=== PATIENT | female | born 1955 | race Caucasian/White ===

== ENCOUNTER 2020-04-08 02:47 | Outpatient (CLI) | payer BC, SELFPAY ==
[2020-04-08 23:12] LABS: SARS-CoV-2 RNA PCR Negative
== END 2020-04-08 02:48 | disposition home or self-care (01) ==
LOC: ANHCOVIDDT 02:48
PROVIDERS: PCP Nurse Practitioner Family; Visit Provider Internal Medicine Gastroenterology
DX: Z01.812 Encounter for preprocedural laboratory examination (principal); Z20.828 Contact with and (suspected) exposure to other viral communicable diseases
CPT/HCPCS: 87635; C9803; U0003

== ENCOUNTER 2020-04-11 13:55 | Observation (INO) | payer BC, SELFPAY ==
[2020-04-01 14:40] VITALS: BMI 28.3
[2020-04-11] VITALS (33 sets, daily range): BP systolic 94–130; BP diastolic 62–98; PULSE 76–150; RESP 12–27; TEMP 36.2–36.7; O2SAT 94–100; BMI 28.6; BMI 28.3
[2020-04-11] MEDS: LACTATED RINGERS 1,000 ML 150 ML IV CONT (09:45)
--- NOTE | 2020-04-11 10:10 | PM.IMHP ---
H&P: HPI History of Present Illness Date/Time: Date of service 04/11/20 10:10. It was documented today 04/14/2020 because my previous documentation and history and physical exam that was done on April 11, 2020 was deleted(I do not know why and how) Chief complaint: Gerd Narrative: Amy Barnes is a 64 year old female with no significant past medical history who underwent EGD and subsequently went into atrial fibrillation with rapid ventricular response. She was given 2 dosages of IV metoprolol 5 mg and then labetalol without any change. I was called to see the patient was in the recovery area. She is laying in bed comfortably with no acute distress. Denies chest pain, palpitations, dizziness, syncope, lower limb edema. Review of Systems Review of Systems: All systems reviewed & are unremarkable except as noted in HPI and below Constitutional: Constitutional: Denies chills, Denies fatigue, Denies fever(s), Denies headache(s) and Denies snoring Eyes: Eyes: Denies eye discharge and Denies loss of vision ENT: Denies dizziness, Denies headache(s), Denies nasal discharge and Denies sore throat Cardiovascular: Cardiovascular: Reports as per HPI, Denies chest pain, Denies syncope, Denies rapid heart rate, Denies leg edema, Denies dyspnea, Denies dyspnea on exertion, Denies orthopnea and Denies paroxysmal nocturnal dyspnea Respiratory: Respiratory: Denies chest congestion, Denies cough, Denies dyspnea, Denies dyspnea on exertion, Denies snoring and Denies wheezing Gastrointestinal: Gastrointestinal: Denies abdominal pain, Denies diarrhea, Denies nausea and Denies vomiting Genitourinary: Genitourinary: Denies hematuria, Denies urinary frequency, Denies dysuria and Denies flank pain Musculoskeletal: Musculoskeletal: Denies myalgias, Denies arthralgias and Denies joint swelling Neurologic: Denies Abnormal speech present, Denies dizziness, Denies syncope, Denies headache(s), Denies focal weakness and Denies loss of vision Psychiatric: Psychiatric: Denies anxiety and Denies depression Endocrine: Endocrine: Denies cold intolerance, Denies fatigue and Denies heat intolerance Hematologic/Lymphatic: Hematologic/Lymphatic: Denies easy bleeding and Denies easy bruising Allergic/Immunologic: Allergic/Immunologic: Denies urticaria and Denies wheezing PMFSH Past Medical History Medical History Nasal congestion Situational stress Tobacco use disorder Surgical History Surgical History (Updated 04/14/20 @ 10:13 by Mian Carrion MD) History of esophagogastroduodenoscopy (EGD) Family History Family History Father Diabetes mellitus Hypertension Grandparent Family history of cardiovascular disease Family history of malignant neoplasm Social History Social History Smoking packs per day: 1 Smoking cigarettes per day: 20.0 Years smoked: 25 Smoking pack-years: 25.00 Smoking status: Former smoker Tobacco type: cigarettes Smoking end date: 07/01/11 Alcohol intake: never Drinks per week: 1 Substance use: never Substance use type: does not use Living arrangements: alone Gender identity (if verbalized by the patient): Female Spiritual care concerns: No Meds Home Medications and Allergies Home Medications Medication Instructions Recorded Confirmed Type pantoprazole 40 mg PO BID 04/01/20 04/01/20 History metoprolol tartrate 25 mg PO Q12HR #60 tablet 04/12/20 Rx rivaroxaban [Xarelto] 20 mg PO DAILY #30 tablet 04/12/20 Rx Allergies Allergy/AdvReac Type Severity Reaction Status Date / Time No Known Allergies Allergy Unknown Unverified 04/11/20 09:28 Exam Const: General: cooperative, healthy appearing, comfortable, no acute distress and well developed Nutritional Appearance: well nourished Orientation/consciousness
--- NOTE | 2020-04-11 10:16 | WPDANESEPPF ---
Anes - Initial Pre Proc Eval Procedure: Operation Date: 04/11/20 10:30 Proposed Procedures p Esophagogastroduodenoscopy - Avery Steele MD Date/Time: 04/11/20 10:16 Surgeon: Avery Steele MD Pre Op Diagnosis: Gerd Patient Data Age: 64 Gender: F Height: 5 ft 7 in Weight: 82.9 kg Last Vital Signs Temp 36.7 C 04/11/20 09:28 Pulse 76 04/11/20 09:28 Resp 16 04/11/20 09:28 BP 130/95 H 04/11/20 09:28 Pulse Ox 99 04/11/20 09:28 Allergies Allergy/AdvReac Type Severity Reaction Status Date / Time No Known Allergies Allergy Unknown Unverified 04/11/20 09:28 Home Medications Medication Instructions Recorded Confirmed Type pantoprazole 40 mg PO BID 04/01/20 04/01/20 History Patient hx anesthesia problems: none Family hx anesthesia problems: none PMFSH Past Medical History Medical History Nasal congestion Situational stress Tobacco use disorder Family History Family History Father Diabetes mellitus Hypertension Grandparent Family history of cardiovascular disease Family history of malignant neoplasm Social History Social History Smoking packs per day: 1 Smoking cigarettes per day: 20.0 Years smoked: 25 Smoking pack-years: 25.00 Smoking status: Former smoker Tobacco type: cigarettes Smoking end date: 07/01/11 Alcohol intake: current Drinks per week: 1 Substance use: never Substance use type: does not use Living arrangements: alone Spiritual care concerns: No Anes - Eval Final PreProcedure Day of Procedure 04/11/20 10:16 Patient weight: overweight Heart: regular rate and rhythm Lungs: clear to auscultation Airway: Mallampati scale class II and other (upper partial) Neurological: alert and oriented Last oral intake: >/= 8 hours ASA classification: II Emergent: no Anesthetic plan: proceed Anesthesia type and monitoring: general GIVS and standard monitoring Informed Consent: The patient's anesthetic plan and its attendant risks and benefits were discussed with the patient/family/POA. Questions were solicited and answers provided to the satisfaction of the patient/family/POA.
--- NOTE | 2020-04-11 10:35 | WPDGICN ---
Assessment and Plan Assessment and plan (1) Right inguinal pain: Code(s): R10.31 - Right lower quadrant pain Status: Acute (2) Irregular bowel habits: Code(s): R19.8 - Other specified symptoms and signs involving the digestive system and abdomen Status: Acute Assessment and Plan: Regular bowel habits suggest irritable bowel syndrome. Plan is for initial trial of fiber supplementation. (3) GERD (gastroesophageal reflux disease): Code(s): K21.9 - Gastro-esophageal reflux disease without esophagitis Status: Acute Assessment and Plan: Patient has heartburn and nocturnal regurgitation. Currently taking pantoprazole 40 mg p.o. b.i.d. with no relief of symptoms. Plan to evaluate more thoroughly with an EGD. This report follow separately. GI Consult Note Consult date/time: 04/11/20 10:35 HPI: Amy Barnes is a 64 year old female I am asked to see because of nocturnal regurgitation. Patient complains of acid regurgitation at night. This is typically occurs middle of the night. She has had heartburn for the last 1 and half years. She recently started proton pump inhibitor with no change in symptoms. Currently taking pantoprazole 40 mg p.o. b.i.d.. She denies any dysphagia, did she denies any bleeding or weight loss. Family history noncontributory. Review of Systems Review of Systems: All systems reviewed & are unremarkable except as noted in HPI and below PMFSH Past Medical History Medical History Nasal congestion Situational stress Tobacco use disorder Family History Family History Father Diabetes mellitus Hypertension Grandparent Family history of cardiovascular disease Family history of malignant neoplasm Social History Social History Smoking packs per day: 1 Smoking cigarettes per day: 20.0 Years smoked: 25 Smoking pack-years: 25.00 Smoking status: Former smoker Tobacco type: cigarettes Smoking end date: 07/01/11 Alcohol intake: current Drinks per week: 1 Substance use: never Substance use type: does not use Living arrangements: alone Spiritual care concerns: No Meds Home Medications and Allergies Home Medications Medication Instructions Recorded Confirmed Type pantoprazole 40 mg PO BID 04/01/20 04/01/20 History Allergies Allergy/AdvReac Type Severity Reaction Status Date / Time No Known Allergies Allergy Unknown Unverified 04/11/20 09:28 Vital Signs Vital Signs - 24 hr 04/11/20 09:28 Temperature 98.1 F Pulse Rate 76 Respiratory Rate 16 Blood Pressure 130/95 H Pulse Oximetry 99 Exam Narrative: Exam Narrative: Physical exam reveals patient to be alert. Vital signs stable. HEENT exam unremarkable. HEENT exam unremarkable. Lungs are clear to auscultation and percussion. Heart is without murmur or extra sounds. Abdominal exam bowel sounds are present soft. She has mild right lower quadrant tenderness. with no hepatosplenomegaly. Digital rectal exam is normal.
[2020-04-11] MEDS: METOPROLOL TARTRATE INJ 5 MG/5 ML VIAL IV PUSH ×3 (11:14→11:38)
--- NOTE | 2020-04-11 11:42 | SUR.PHASEII ---
1105 AFIB W/RVR PER MONITOR. HR 141. DR STEWARD ANESTHESIOLOGIST MADE AWARE. ORDERS RECEIVED. IVP MEDS GIVEN ORDERED.
--- NOTE | 2020-04-11 12:09 | ECG_ITS ---
Measurements Intervals [place] Rate: 128 P: OK: 0 QRS: 21 QRSD: 76 T: -5 QT: 289 QTc: 422 Interpretive Statements ATRIAL FIBRILLATION WITH RAPID VENTRICULAR RESPONSE NONSPECIFIC ST & T-WAVE ABNORMALITY- INFERIOR LEADS ABNORMAL ECG Electronically Signed On 04-11-2020 12:30:19 CDT by Monty Ashlye D.O.
--- NOTE | 2020-04-11 12:26 | SUR.PHASEII ---
VOIDED PER BEDPAN, EKG DONE. CARDIOLOGY CONSULTED. VS STABLE. STILL AFIB PER MONITOR.
--- NOTE | 2020-04-11 13:05 | SUR.PHASEII ---
Pt. in GI recovery room 10. Continues to await Cardiology consultation/evaluation. Pt. denies pain, alert, a/o x4, moves all extremities.
--- NOTE | 2020-04-11 13:19 | SUR.PHASEII ---
Cardiology at bedside to assess patient. Dr. Salcido at bedside.
--- NOTE | 2020-04-11 13:29 | SUR.PHASEII ---
Dr. Carrion assessed pt, plan to admit to IMU.
[2020-04-11] MEDS: LABETALOL HCL INJ 100 MG/20 ML VIAL 10 MG IV PUSH (13:59)
[2020-04-11] MEDS: AMIODARONE 150 MG/D5W 100 ML 150 MG/100 ML BAG 600 MG IV CONT (15:19)
--- NOTE | 2020-04-11 15:19 | ECHO_ITS ---
Patient Info Name: Amy Barnes Age: 64 years : 1955 Gender: Female Ht: 67 in Wt: 182 lbs BSA: 2.00 m2 HR: 115 bpm BP: 110 / 80 mmHg Heart Rhythm: Atrial Fibrillation Technical Quality: Good Exam Date: 04/11/2020 3:56 PM Exam Location: [facility] Pulmonary Exam Room: 203 Patient Status: Outpatient Admit Date: 04/11/2020 Staff Ordering Physician: Monica Gonzalez APRN Signal Worker: Heather Manzano RDCS Attending Provider: Avery Steele MD Referring Physician: Carlos DANIEL; Exam Type: CA echo doppler color flow Study Info Indications - afib Complete two-dimensional, color flow and Doppler transthoracic echocardiogram is performed. Summary 1. Complete two-dimensional, color flow and Doppler transthoracic echocardiogram is performed. 2. Left ventricular chamber dimension is normal. 3. Left ventricular systolic function is normal, estimated at 60-65%. 4. There is mildly increased left ventricular wall thickness. 5. Left ventricular septal wall motion is normal. 6. The left ventricular diastolic function is normal. 7. Left atrial chamber dimension is moderately enlarged. 8. There is mild aortic valve regurgitation. 9. The mitral valve has thickened leaflets. 10. There is mild to moderate mitral valve regurgitation. 11. There is mild tricuspid valve regurgitation. 12. There is mild to moderate pulmonic regurgitation. Left Ventricle Left ventricular chamber dimension is normal. Left ventricular systolic function is normal, estimated at 60-65%. There is mildly increased left ventricular wall thickness. Left ventricular septal wall motion is normal. The left ventricular diastolic function is normal. Right Ventricle Right ventricular chamber dimension is normal. Right ventricular systolic function is normal. Left Atria Left atrial chamber dimension is moderately enlarged. Right Atria Right atrial chamber dimension is normal. Atrial Septum Intact interatrial septum visualized by color flow imaging. Aortic Valve The aortic valve is trileaflet. There is mild aortic valve sclerosis. There is no aortic valve stenosis. There is mild aortic valve regurgitation. Pulmonic Valve The pulmonic valve is normal. There is no pulmonic valve stenosis. There is mild to moderate pulmonic regurgitation. Mitral Valve The mitral valve has thickened leaflets. There is no mitral valve stenosis. There is mild to moderate mitral valve regurgitation. Tricuspid Valve The tricuspid valve leaflets are normal. There is no significant tricuspid valve stenosis. There is mild tricuspid valve regurgitation. No pulmonary hypertension, estimated pulmonary arterial systolic pressure is 30 mmHg. 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 Pericardium/Pleural The pericardium appears normal. There is no pericardial effusion. Inferior Vena Cava Normal inferior vena cava with >50% collapse upon inspiration consistent with normal right atrial pressure, 10 mmHg. Aorta The aortic root size at the sinus of Valsalva is normal. Left Ventricular Outflow Tract Name Value Normal LVOT 2D LVOT Diameter 2.0 cm LVOT Doppler -
[2020-04-11] MEDS: AMIODARONE 360 MG/D5W 200 ML 360 MG/200 ML BAG 33.3 MG IV CONT (15:45)
[2020-04-11 16:44] LABS: Basophils Percent Auto 0.2 % (0.2-1.2); Eosinophils Absolute Auto 0.1 K/mm3 (0-0.3); Eosinophils Percent Auto 1.7 % (0-4.4); Hemoglobin 13.2 g/dL (12.0-15.0); Immature Granulocyte Absolute 0.01 K/mm3 (0.00-0.031); Immature Granulocyte Percent A 0.2 % (0-0.5); Lymphocytes Absolute Auto 1.62 K/mm3 (0.9-3.2); Lymphocytes Percent Auto 39.6 % (18.3-44.2); Mean Corpuscular HGB Conc 33.8 g/dl (32-36); Mean Corpuscular Hemoglobin 31.5 pg (26-34); Mean Corpuscular Volume 93.1 fl (80-100); Mean Platelet Volume 10.3 fl (7.4-10.4); Monocytes Absolute Auto 0.3 K/mm3 (0.1-0.6); Monocytes Percent Auto 7.6 % (2.6-8.5); Neutrophils Absolute Auto 2.1 K/mm3 (1.3-6.7); Neutrophils Percent Auto 50.7 % (45.5-73.1); Platelet Count Result 174 k/mm3 (150-375); Red Blood Count 4.19 M/mm3 (4.2-5.4); Red Cell Distribution Width 12.8 % (11.5-14.5); White Blood Count 4.1 K/mm3 (4.5-10.0)
--- NOTE | 2020-04-11 16:58 | ADMGEN ---
This patient, Amy Barnes, was admitted to IMU Room 203-01 AT 1413 on 04/11/2020. Patient/family oriented to hospital policies and general routines including ID bracelet, bed and alarms, visiting hours, pain management, procedures, bathroom and other care routines, personal items, smoking policy, room service/diet, and visiting hours. Valuables list has been completed. Information on how to activate the Rapid Response Team has been discussed. Patient/Family are encouraged to report perceived risks to care and to ask questions if they do not understand what they are told or what they should do.
[2020-04-11 16:59] LABS: Anion Gap 5 mmol/L (8-16); Blood Urea Nitrogen 13 mg/dL (7-17); Calcium 9.2 mg/dL (8.4-10.2); Carbon Dioxide 33 mmol/L (22-30); Chloride 105 mmol/L (98-107); Cholesterol 189 mg/dL (0-200); Estimated CRCL calculation 70 ml/min; Estimated Glomerular Filt Rate > 60; Glucose 91 mg/dL (65-105); HDL Direct 51 mg/dL; Potassium 3.5 mmol/L (3.4-5.0); Sodium 143 mmol/L (137-145); Triglycerides 80 mg/dL (<150)
[2020-04-11 17:09] LABS: Troponin I < 0.012 ng/mL (0.000-0.034)
[2020-04-11 17:10] LABS: LDL Cholesterol Direct 106 mg/dL
[2020-04-11 17:52] LABS: Thyroid Stimulating Hormone Reflex 0.547 uIU/mL (0.465-4.68)
[2020-04-11] MEDS: PANTOPRAZOLE 40 MG TABLET PO (18:07)
[2020-04-11] MEDS: ASPIRIN 81 MG CHEWABLE TABLET PO (18:12)
[2020-04-11 19:40] LABS: Troponin I < 0.012 ng/mL (0.000-0.034)
[2020-04-11] MEDS: METOPROLOL TARTRATE 25 MG TABLET PO (20:30)
[2020-04-11] MEDS: ACETAMINOPHEN 500 MG TABLET 1000 MG PO (21:40)
[2020-04-11] MEDS: AMIODARONE 360 MG/D5W 200 ML 360 MG/200 ML BAG 16.7 MG IV CONT (21:42)
[2020-04-12] VITALS (14 sets, daily range): BP systolic 95–133; BP diastolic 56–95; PULSE 64–102; RESP 13–18; TEMP 36.2–36.6; O2SAT 92–100
[2020-04-12] MEDS: ACETAMINOPHEN 500 MG TABLET 1000 MG PO (07:29)
--- NOTE | 2020-04-12 08:06 | P.PNAN_ITS ---
Anes - Prog Note Post-Op Date/Time: 04/12/20 08:06 Cardiovascular status: normal Respiratory status: normal Airway patency: baseline Mental status: baseline Post-Op hydration status: normal Vital Signs: Last Vital Signs Temp 36.6 C 04/12/20 04:00 Pulse 77 04/12/20 04:00 Resp 18 04/12/20 04:00 BP 97/66 L 04/12/20 04:00 Pulse Ox 100 04/12/20 04:00 Pain Score (VAS): 0 I/O: Intake & Output 04/11/20 04/12/20 04/12/20 23:59 07:59 15:59 Intake Total 910 Output Total 300 Balance 910 -300 Laboratory Tests 04/11/20 16:23 04/11/20 16:23 04/11/20 04/11/20 04/11/20 16:23 16:23 16:23 WBC RBC Hgb Hct MCV MCH MCHC RDW Plt Count MPV Immature Gran % (Auto) Neut % (Auto) Lymph % (Auto) [place] % (Auto) Eos % (Auto) Baso % (Auto) Lymph # (Auto) [place] # (Auto) Eos # (Auto) Baso # (Auto) Abs Immat Gran (auto) Absolute Neuts (auto) Absolute Nucleated RBC Nucleated RBC % Sodium 143 Potassium 3.5 Chloride 105 Carbon Dioxide 33 H Anion Gap 5 L BUN 13 Creatinine 0.80 Estim Creat Clear Calc 70 Estimated GFR > 60 Glucose 91 Calcium 9.2 Troponin I < 0.012 Triglycerides 80 Cholesterol 189 LDL Cholesterol Direct 106 HDL Direct 51 TSH (Reflex) 04/11/20 04/11/20 04/11/20 16:23 16:23 18:44 WBC 4.1 L RBC 4.19 L Hgb 13.2 Hct 39.0 MCV 93.1 MCH 31.5 MCHC 33.8 RDW 12.8 Plt Count 174 MPV 10.3 Immature Gran % (Auto) 0.2 Neut % (Auto) 50.7 Lymph % (Auto) 39.6 [place] % (Auto) 7.6 Eos % (Auto) 1.7 Baso % (Auto) 0.2 Lymph # (Auto) 1.62 [place] # (Auto) 0.3 Eos # (Auto) 0.1 Baso # (Auto) 0.0 Abs Immat Gran (auto) 0.01 Absolute Neuts (auto) 2.1 Absolute Nucleated RBC 0.0 Nucleated RBC % 0.0 Sodium Potassium Chloride Carbon Dioxide Anion Gap BUN Creatinine Estim Creat Clear Calc Estimated GFR Glucose Calcium Troponin I < 0.012 Triglycerides Cholesterol LDL Cholesterol Direct HDL Direct TSH (Reflex) 0.547 Post-procedural complaints: none Patient Feedback: Patient satisfied with anesthetic care.
[2020-04-12] MEDS: ENOXAPARIN 40 MG/0.4 ML SYRINGE SUB-Q ×2 (08:55→10:25)
[2020-04-12] MEDS: ASPIRIN 81 MG CHEWABLE TABLET PO (08:55)
[2020-04-12] MEDS: PANTOPRAZOLE 40 MG TABLET PO (08:55)
[2020-04-12] MEDS: POTASSIUM CHLORIDE 20 MEQ TABLET 40 MEQ PO (10:49)
--- NOTE | 2020-04-12 11:07 | WPDMODSED ---
Moderate Sedation Note-Pt Data Patient Data Diagnosis: Atrial fibrillation Present Complaint: atrial fibrillation Procedure to be performed/Plan: 1. Moderate sedation 2. Electrical cardioversion Allergies Allergy/AdvReac Type Severity Reaction Status Date / Time No Known Allergies Allergy Unknown Unverified 04/11/20 09:28 Home Medications Medication Instructions Recorded Confirmed Type pantoprazole 40 mg PO BID 04/01/20 04/01/20 History Current Medications: Active Medications Acetaminophen (Acetaminophen 500 Mg Tablet) 1,000 mg PO Q6H PRN PRN Reason: Mild Pain (1-3) or Fever Last Admin: 04/12/20 07:29 Dose: 1,000 mg Documented by: Al Hydrox/Mg Hydrox/Simethicone (Mag Hydrox/Al Hydrox/Simeth 30 Ml Udc) 30 ml PO Q6H PRN PRN Reason: Indigestion Aspirin (Aspirin 81 Mg Chewable Tablet) 81 mg PO DAILY@0800 [facility] Last Admin: 04/12/20 08:55 Dose: 81 mg Documented by: Enoxaparin Sodium (Enoxaparin 40 Mg/0.4 Ml Syringe) 40 mg SUB-Q DAILY [facility] Last Admin: 04/12/20 08:55 Dose: 40 mg Documented by: Amiodarone HCl/Dextrose (Nexterone 360 Mg/D5w 200 Ml) 360 mg in 200 mls @ 16.667 mls/hr IV CONT .Q12H [facility]; Protocol Stop: 04/12/20 22:01 Last Infusion: 04/12/20 10:24 Dose: Infused Documented by: Metoprolol Tartrate (Metoprolol Tartrate 25 Mg Tablet) 25 mg PO Q12HR [facility] Last Admin: 04/12/20 08:56 Dose: Not Given Documented by: Midazolam HCl (Midazolam Hcl (*Crx) 2 Mg/2 Ml Vial) 2 mg IV PUSH Q5M PRN PRN Reason: Cardioversion/MARC Nitroglycerin (Nitroglycerin Sl 0.4 Mg Tablet) 0.4 mg SUBLINGUAL Q5MIN PRN PRN Reason: Chest Pain Ondansetron HCl (Ondansetron Inj 4 Mg/2 Ml Vial) 4 mg IV PUSH Q4H PRN PRN Reason: Nausea And Vomiting Pantoprazole Sodium (Pantoprazole 40 Mg Tablet) 40 mg PO BID [facility] Last Admin: 04/12/20 08:55 Dose: 40 mg Documented by: Sedation/Anesthesia: No previous sedation/anesthesia problems (including family history). [facility] Past Medical History Medical History Nasal congestion Situational stress Tobacco use disorder Family History Family History Father Diabetes mellitus Hypertension Grandparent Family history of cardiovascular disease Family history of malignant neoplasm Social History Social History Smoking packs per day: 1 Smoking cigarettes per day: 20.0 Years smoked: 25 Smoking pack-years: 25.00 Smoking status: Former smoker Tobacco type: cigarettes Smoking end date: 07/01/11 Alcohol intake: never Drinks per week: 1 Substance use: never Substance use type: does not use Living arrangements: alone Gender identity (if verbalized by the patient): Female Spiritual care concerns: No Mod Sed Physical Exam Physical Exam Pre Procedural Exam: Normal: Appearance, Eyes, Ears, Nose, Neck, Throat, Airway, Lungs, Heart Size, Heart Rate, Neuro Exam, Abdomen, Extremities and Skin and Variation: Heart Rhythm ( irregular irregular) Hours since solid foods: 12 Hours since liquid intake: 12 Internal Medicine - PN: Obj Da Vital Signs Vital Signs: Vital Signs - 24 hr 04/11/20 11:11 04/11/20 11:14 04/11/20 11:15 Temperature Pulse Rate 134 H 141 H 122 H Respiratory Rate 26 H 27 H Blood Pressure 112/84 109/78 Pulse Oximetry 99 98 04/11/20 11:25 04/11/20 11:27 04/11/20 11:30 Temperature Pulse Rate 118 H 121 H 120 H Respiratory Rate 23 H 22 H Blood Pressure 108/82 100/98 H Pulse Oximetry 98 98 04/11/20 11:35 04/11/20 11:38 04/11/20 11:40 Temperature Pulse Rate 121 H 110 H 109 H Respiratory Rate 22 H 22 H Blood Pressure 110/62 102/88 Pulse Oximetry 98 98 04/11/20 11:45 04/11/20 12:00 04/11/20 12:10 Temperature Pulse Rate 124 H 115 H 127 H Respiratory Rate 20 19 25 H Blood Pressure 105/81 94/71 L 98/71 L Pulse Oximetry 98 97 96
[2020-04-12 11:31] LABS: Anion Gap 4 mmol/L (8-16); Blood Urea Nitrogen 15 mg/dL (7-17); Calcium 8.1 mg/dL (8.4-10.2); Carbon Dioxide 28 mmol/L (22-30); Chloride 108 mmol/L (98-107); Estimated CRCL calculation 70 ml/min; Estimated Glomerular Filt Rate > 60; Glucose 111 mg/dL (65-105); Potassium 3.3 mmol/L (3.4-5.0); Sodium 140 mmol/L (137-145)
--- NOTE | 2020-04-12 11:46 | ECG_ITS ---
Measurements Intervals [place] Rate: 62 P: 3 [place]: 136 QRS: 20 QRSD: 72 T: 0 QT: 418 QTc: 427 Interpretive Statements SINUS RHYTHM ATRIAL PREMATURE COMPLEX VOLTAGE CRITERIA FOR LVH BORDERLINE T WAVE ABNORMALITY- INFERIOR LEADS BORDERLINE ECG Electronically Signed On 04-12-2020 12:35:07 CDT by Monty Ashley D.O.
--- NOTE | 2020-04-12 11:46 | P.PCNCVR_ITS ---
Cardioversion Cardioversion Date of procedure: 04/12/20 Procedure: electrical cardioversion Moderate sedation Pre-op diagnosis: atrial fibrillation Post-op diagnosis: same Indications: atrial fibrillation Description of procedure: after discussing the risks, benefits alternatives of the procedure the patient agreeable via verbal and written informed consent. Risks discussed included stroke, , shocking into more problematic heart rhythm, skin irritation or burn. After written and verbal and informed consent was signed and after establishing continuous scroll shear operator, pulse oxygenation and serial blood pressure assessments, sedation was initiated. Procedure start time 11:41 a.m. Procedure stop time 11:44 a.m. Complications: None Blood loss: None Medications were administered and patient was monitored by Edwardo Laguna RN Sedation: a total of 2 mg of Versed and 25 mcg of fentanyl were given for moderate sedation Findings: atrial fibrillation was confirmed and 125 joules of biphasic synchronized energy was used to restore sinus rhythm. Conclusion: 1. Successful caodaism of sinus rhythm using 125 joules of synchronized biphasic energy 2. Moderate sedation Continue anticoagulation x1 month. Follow up with Dr. Carrion
--- NOTE | 2020-04-12 14:27 | PM.DS ---
DS: Admitting Diagnosis Admitting Diagnosis Admitting Diagnosis: Gerd DS: Discharge Diagnosis Discharge Diagnosis (1) Atrial fibrillation with rapid ventricular response: Code(s): I48.91 - Unspecified atrial fibrillation Status: Acute Assessment and Plan: Atrial fibrillation in the recovery room after her EGD. Given Metoprolol with some response to the rate however did not convert the rhythm. She was seen by Dr Carrion that started on amiodarone 04/11/2020 in hopes of converting her overnight. She did not convert. She was successfully cardioverted by Dr. Ayala on 04/12/2020 restoring normal sinus rhythm. She will be anticoagulated with Xarelto 20 mg daily for 1 month. This was discussed with Dr Steele by phone given the findings on her EGD. As there were no areas that were bleeding he believes that she will be fine. She needs to make sure that she takes her pantoprazole twice daily. Echo:Left ventricular chamber dimension is normal. Left ventricular systolic function is normal, estimated at 60-65%. There is mildly increased left ventricular wall thickness. Left ventricular septal wall motion is normal. The left ventricular diastolic function is normal. Left atrial chamber dimension is moderately enlarged. There is mild aortic valve regurgitation. The mitral valve has thickened leaflets. There is mild to moderate mitral valve regurgitation. There is mild tricuspid valve regurgitation. There is mild to moderate pulmonic regurgitation. DS: Summary Hospital Course Reason for hospitalization: Atrial fibrillation with rapid ventricular response post EGD Hospital Course: 64-year-old female presented for outpatient EGD 04/11/2020. While in recovery she went into atrial fibrillation with rapid ventricular response. She received Metoprolol with some rate control but did not convert the rhythm. She was seen by Dr. Carrion in the recovery room. She was admitted to IMU and started on amiodarone drip in hopes of converting her to normal sinus rhythm. She was given a bolus and then drip was started. She was also given Metoprolol 25 mg p.o. in the evening. Her rate was controlled but she did not convert. She underwent cardioversion with Dr. Ayala on 04/12/2020 and was successfully cardioverted to normal sinus rhythm. She is to be anticoagulated for 1 month and follow up with Dr Carrion in the office. She was discharged home in stable and improved conditions. Time Spent with Patient Time attestation: Total time spent providing and/or coordinating discharge services: 20 minutes in the room discussing the results of her EGD, echocardiogram including valve regurgitation, signs and symptoms of bleeding given the anticoagulant Xarelto. Discussion with Dr Steele per phone regarding the need for anticoagulation given her EGD results. 10 minutes to complete discharge order. 10 minutes to complete discharge summary. Total time for discharge summary: 40 minutes. Exam Narrative: Exam Narrative: White female laying comfortably in bed. Denied any chest discomfort or shortness of breath. Const: General: cooperative and healthy appearing Nutritional Appearance: average body habitus Orientation/consciousness: patient oriented x3 Limitations: no limitations HENMT: Head: normal to inspection and normocephalic Ears: hearing grossly normal bilaterally General nose exam: Normal external nose present Chest: Chest palpation & inspection: normal inspection of the chest Resp: Effort & Inspection: normal respiratory effort and able to speak in complete sentences Auscultation: clear to auscultation bilaterally Cardio: Jugular venous distension: no JVD Rate: regular rate Rhythm: regular rhythm Peripheral pulses: Peripheral pulses 2+ throughout Neuro: General: patient oriented x3 Speech: normal speech Gait exam (Neuro): Normal gait present Extrem: General: normal to inspection an
== END 2020-04-12 15:13 | disposition home or self-care (01) ==
LOC: ANHIMU 14:46
PROVIDERS: Internal Medicine Cardiovascular Disease; Nurse Practitioner Adult Health; Admitting Provider Internal Medicine Gastroenterology; PCP Nurse Practitioner Family; Visit Provider Internal Medicine Gastroenterology
PROC: 0DJ08ZZ Inspection of Upper Intestinal Tract, Via Natural or Artificial Opening Endoscopic (ICD-10-PCS; CPT 43235; principal; 2020-04-11 10:30)
PROC: 5A2204Z Restoration of Cardiac Rhythm, Single (ICD-10-PCS; principal; 2020-04-12 10:30)
DX: K21.9 Gastro-esophageal reflux disease without esophagitis (principal); I48.91 Unspecified atrial fibrillation; I08.3 Combined rheumatic disorders of mitral, aortic and tricuspid valves; Z87.891 Personal history of nicotine dependence
CPT/HCPCS: 43239; 36415; 80048; 80061; 83735; 84443; 84484; 85025; 88305; 88312; 92960; 93005; 93306; 96365; 96366; 96372; 96376; A9270; G0378; J0282; J1650; J2250; J3010; J7040; J7120

== ENCOUNTER 2020-06-03 02:03 | Outpatient (CLI) | payer BC, SELFPAY ==
[2020-06-03 19:10] LABS: SARS-CoV-2 RNA PCR Negative
== END 2020-06-03 02:04 | disposition home or self-care (01) ==
LOC: ANHCOVIDDT 02:03
PROVIDERS: PCP Nurse Practitioner Family; Visit Provider Internal Medicine Gastroenterology
DX: Z01.812 Encounter for preprocedural laboratory examination (principal); Z20.828 Contact with and (suspected) exposure to other viral communicable diseases
CPT/HCPCS: 87635; C9803; U0003

== ENCOUNTER 2020-06-06 00:48 | Day surgery (SDC) | payer BC, SELFPAY ==
[2020-05-31 12:50] VITALS: BMI 28.2
[2020-06-06 06:42] VITALS: BP 128/83; PULSE 86; RESP 16; TEMP 36.3; O2SAT 96
[2020-06-06] MEDS: LACTATED RINGERS 1,000 ML 150 ML IV CONT (06:57)
--- NOTE | 2020-06-06 06:58 | WPDANESEPPF ---
Anes - Initial Pre Proc Eval Procedure: Operation Date: 06/06/20 08:00 Proposed Procedures p Esophagogastroduodenoscopy - Avery Steele MD Date/Time: 06/06/20 06:58 Surgeon: Avery Steele MD Pre Op Diagnosis: GERD, Esophagitis Patient Data Age: 64 Gender: F Height: 1.7 m Weight: 83.6 kg Last Vital Signs Temp 36.3 C L 06/06/20 06:42 Pulse 86 06/06/20 06:42 Resp 16 06/06/20 06:42 BP 128/83 06/06/20 06:42 Pulse Ox 96 06/06/20 06:42 Allergies Allergy/AdvReac Type Severity Reaction Status Date / Time No Known Allergies Allergy Unknown Unverified 06/06/20 06:41 Home Medications Medication Instructions Recorded Confirmed Type pantoprazole 40 mg PO BID 04/01/20 06/06/20 History metoprolol tartrate 25 mg PO Q12HR #60 tablet 04/12/20 06/06/20 Rx Other Studies: Echo:Left ventricular chamber dimension is normal. Left ventricular systolic function is normal, estimated at 60-65%. There is mildly increased left ventricular wall thickness. Left ventricular septal wall motion is normal. The left ventricular diastolic function is normal. Left atrial chamber dimension is moderately enlarged. There is mild aortic valve regurgitation. The mitral valve has thickened leaflets. There is mild to moderate mitral valve regurgitation. There is mild tricuspid valve regurgitation. There is mild to moderate pulmonic regurgitation. Patient hx anesthesia problems: none Family hx anesthesia problems: none PMFSH Past Medical History Medical History Nasal congestion Situational stress Tobacco use disorder Surgical History Surgical History (Updated 04/14/20 @ 10:13 by Mian Carrion MD) History of esophagogastroduodenoscopy (EGD) Family History Family History Father Diabetes mellitus Hypertension Grandparent Family history of cardiovascular disease Family history of malignant neoplasm Social History Social History Smoking packs per day: 1 Smoking cigarettes per day: 20.0 Years smoked: 25 Smoking pack-years: 25.00 Smoking status: Former smoker Tobacco type: cigarettes Smoking end date: 07/01/11 Alcohol intake: never Drinks per week: 1 Substance use: never Substance use type: does not use Living arrangements: with family Gender identity (if verbalized by the patient): Female Spiritual care concerns: No Anes - Eval Final PreProcedure Day of Procedure 06/06/20 06:58 Informed Consent: The patient's anesthetic plan and its attendant risks and benefits were discussed with the patient/family/POA. Questions were solicited and answers provided to the satisfaction of the patient/family/POA.
--- NOTE | 2020-06-06 08:19 | WPDGICN ---
Assessment and Plan Assessment and plan (1) Ulcerative esophagitis: Code(s): K22.10 - Ulcer of esophagus without bleeding Status: Acute Assessment and Plan: Patient has a history of GE reflux disease rather severe ulcerative esophagitis identified. Plan is for follow-up EGD at this time. Patient has been maintained on pantoprazole 40 mg p.o. b.i.d.. We will assess response to therapy at this time. (2) GERD (gastroesophageal reflux disease): Code(s): K21.9 - Gastro-esophageal reflux disease without esophagitis Status: Acute (3) Atrial fibrillation with rapid ventricular response: Code(s): I48.91 - Unspecified atrial fibrillation Status: Acute GI Consult Note Consult date/time: 06/06/20 08:19 HPI: Amy Barnes is a 64 year old female Presents for follow-up of ulcerative esophagitis. Patient has been treated with pantoprazole 40 mg p.o. b.i.d.. She continues to have mild epigastric discomfort. Occasional dysphagia. She denies any weight loss or bleeding. She has a past medical history of atrial fibrillation. Anticoagulation has been held. Her family history is noncontributory. Because of rather severe ulcerative esophagitis patient presents for follow-up EGD at this time. Review of Systems Review of Systems: All systems reviewed & are unremarkable except as noted in HPI and below PMFSH Past Medical History Medical History Nasal congestion Situational stress Tobacco use disorder Surgical History Surgical History (Updated 04/14/20 @ 10:13 by Mian Carrion MD) History of esophagogastroduodenoscopy (EGD) Family History Family History Father Diabetes mellitus Hypertension Grandparent Family history of cardiovascular disease Family history of malignant neoplasm Social History Social History Smoking packs per day: 1 Smoking cigarettes per day: 20.0 Years smoked: 25 Smoking pack-years: 25.00 Smoking status: Former smoker Tobacco type: cigarettes Smoking end date: 07/01/11 Alcohol intake: never Drinks per week: 1 Substance use: never Substance use type: does not use Living arrangements: with family Gender identity (if verbalized by the patient): Female Spiritual care concerns: No Meds Home Medications and Allergies Home Medications Medication Instructions Recorded Confirmed Type pantoprazole 40 mg PO BID 04/01/20 06/06/20 History metoprolol tartrate 25 mg PO Q12HR #60 tablet 04/12/20 06/06/20 Rx Allergies Allergy/AdvReac Type Severity Reaction Status Date / Time No Known Allergies Allergy Unknown Unverified 06/06/20 06:41 Vital Signs Vital Signs - 24 hr 06/06/20 06:42 Temperature 97.4 F L Pulse Rate 86 Respiratory Rate 16 Blood Pressure 128/83 Pulse Oximetry 96 Exam Narrative: Exam Narrative: Physical exam reveals patient to be alert. Vital signs stable. HEENT exam unremarkable. Lungs are clear to auscultation and percussion. Heart is without murmur or extra sounds. Abdominal exam bowel sounds are present soft nontender with no organomegaly. Digital external rectal exam is normal.
[2020-06-06 08:40] VITALS: BP 125/77; PULSE 65; RESP 18; O2SAT 98
[2020-06-06 08:50] VITALS: BP 129/79; PULSE 63; RESP 20; O2SAT 99
[2020-06-06 09:00] VITALS: BP 127/84; PULSE 65; RESP 18; O2SAT 98
== END 2020-06-06 09:16 | disposition home or self-care (01) ==
PROVIDERS: PCP Nurse Practitioner Family; Visit Provider Internal Medicine Gastroenterology
PROC: 0DJ08ZZ Inspection of Upper Intestinal Tract, Via Natural or Artificial Opening Endoscopic (ICD-10-PCS; CPT 43235; principal; 2020-06-06 08:00)
DX: Z09 Encounter for follow-up examination after completed treatment for conditions other than malignant neoplasm (principal); K22.10 Ulcer of esophagus without bleeding; K44.9 Diaphragmatic hernia without obstruction or gangrene; Q39.4 Esophageal web; K21.9 Gastro-esophageal reflux disease without esophagitis; I48.91 Unspecified atrial fibrillation; Z87.891 Personal history of nicotine dependence
CPT/HCPCS: 43450; 43235; J2704; J7120

== ENCOUNTER → 2021-09-27 10:04 | Outpatient (CLI) | payer BC, SELFPAY ==
--- NOTE | ~2021-09-27 | XR_ITS ---
XR wrist LT min 3V DATE: 09/27/2021 10:17 INDICATION: Left wrist radial pain. Fall one month ago. TECHNIQUE: 4 views COMPARISON: None FINDINGS: There is osteopenia. No fracture or dislocation, periosteal reaction or bone destruction. Joint spaces are preserved. No e rosive change or chondrocalcinosis. IMPRESSION: No fracture or dislocation Reviewed, dictated and finalized at location A. IMPRESSION: No fracture or dislocation
== END ==
LOC: EXPTRAD 10:07
PROVIDERS: PCP Family Medicine; Visit Provider Family Medicine
DX: S69.92XA Unspecified injury of left wrist, hand and finger(s), initial encounter (principal); M25.532 Pain in left wrist
CPT/HCPCS: 73110

== ENCOUNTER 2022-08-13 00:15 | Day surgery (SDC) | payer MEDICARE, SELFPAY ==
--- NOTE | 2022-08-08 12:30 | PC.NURSE ---
Report to the Outpatient Waiting Room, entrance under the green pavilion located off [facility], at time __0830 on date __08/13/22 . Planned Procedure Time: _1030 . Time changes happen often and if your time is changed the preop area will call you the afternoon before. - You and your visitor will be asked to self-screen and do not enter if you have any COVID symptoms. - Only one visitor is requested with a max of two and NO children visitors are allowed at this time. - The patient visitor may be requested to leave or wait in car when not with patient due to distancing restrictions. - A mask is optional within the hospital at this time. Patients may have clear liquids (water, carbonated beverages, clear teas, apple juice) until 3 hours prior to surgery with a maximum of 20 ounces. - No food from midnight until time of surgery - Infants may have breast milk until 4 hours before surgery, formula 6 hours prior to surgery. - Children will be allowed to drink immediately following surgery. If applicable, please bring a bottle or sippy cup to assist with drinking. Juice, water, soda, and popsicles are readily available. For infants on formula, please bring formula the day of surgery. Pacifiers are allowed. Take the following medications with a SIP of water the morning of surgery: __SERTRALINE DO NOT STOP ANY OF YOUR OTHER PRESCRIPTION MEDICATIONS PRIOR TO SURGERY ?EXCEPT THE FOLLOWING Medications to discontinue per physician ____ALL VITAMINS/SUPPLEMENTS 3 DAYS PRE OP .LAST DOSE 08/09/22 Please no make-up, nail gambian, hairspray, perfume, deodorant, or body powder the day of surgery. No jewelry (including any body piercings) or valuables the day of surgery, leave them at home. Please take a shower or bath the night before, or the morning of, surgery with an antibacterial soap. Wear comfortable, loose fitting clothing. Children are encouraged to wear pajamas. - Jewelry must be removed prior to entering the operating room. Rings and piercings that are not removed may be cut off. - The hospital will not accept responsibility for valuables. - Please leave all valuables, including medications, at home the day of surgery. If you are going home after surgery, a licensed shuttle truck driver must drive you home. - NO public transportation without another adult if you receive anesthesia. - We recommend that an adult stay with you for 24 hours following discharge. - We also recommend that you do not drive, make important decision, drink alcoholic beverages, or take any drugs that were not prescribed by your health care provider for at least 24 hours after your discharge time Follow any additional instructions given to you from your surgeon. If you or anyone in your household have experienced Covid symptoms in the past week, please notify your surgeon or the nurse liaison at the phone number below for possible testing. Telephone instructions given to __PATIENT and asked if any additional questions and then verbalized understanding. Patient advised to call surgeon office or pre surgery nurse liaison [phone] if any additional questions.
[2022-08-08 12:37] VITALS: BMI 29.0
[2022-08-13] VITALS (9 sets, daily range): BP systolic 106–136; BP diastolic 75–80; PULSE 68–89; RESP 12–14; TEMP 36.3–36.8; O2SAT 92–100
--- NOTE | ~2022-08-13 | XR_ITS ---
Left Hand Technique: PA, oblique, and lateral views were obtained. Clinical History: Thumb arthroplasty COMPARISON: 09/27/2021 Findings: Overlying cast obscures fine bony detail. No acute fracture or dislocation is seen. Suspect ed interval trapezium resection. Joint spaces are preserved. Soft tissues are unremarkable. Impression: Suspected trapezium resection. Correlate with prior surgical history. No other definite abnormality seen. Reviewed, dictated and finalized at location . 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 Correlate with prior surgical history. No other definite abnormality seen.
[2022-08-13] MEDS: ACETAMINOPHEN 500 MG TABLET 1000 MG PO (06:50)
[2022-08-13] MEDS: KETOROLAC 15 MG/ML VIAL (*BKC) IV PUSH (06:50)
[2022-08-13] MEDS: LACTATED RINGERS 1,000 ML 30 ML IV CONT ×2 (07:00→09:13)
--- NOTE | 2022-08-13 07:15 | WPDANESEPPF ---
Anes - Initial Pre Proc Eval Procedure: Operation Date: 08/13/22 07:30 Proposed Procedures p Left Thumb Carpal Metacarpal Arthroplasty, - Jerrell Millan MD s Left First Dorsal Compartment Release - Jerrell Millan MD Date/Time: 08/13/22 07:15 Surgeon: Jerrell Millan MD Pre Op Diagnosis: left thumb CMC arthr, left dequervain Patient Data Age: 67 Gender: F Height: 1.7 m Weight: 83.65 kg Last Vital Signs Temp 36.8 C 08/13/22 06:59 Pulse 89 08/13/22 06:59 Resp 14 08/13/22 06:59 BP 136/78 08/13/22 06:59 Pulse Ox 99 08/13/22 06:59 O2 Del Method Room Air 08/13/22 06:59 Allergies Allergy/AdvReac Type Severity Reaction Status Date / Time No Known Allergies Allergy Unknown Verified 08/13/22 07:05 Home Medications Medication Instructions Recorded Confirmed Type ascorbate calcium (vitamin C) 500 mg PO DAILY 07/20/22 08/08/22 History pantoprazole 40 mg tablet,delayed 40 mg PO BID #180 tabs 07/20/22 08/08/22 Rx release sertraline 25 mg tablet 25 mg PO DAILY #90 tabs 07/20/22 08/13/22 Rx sertraline 50 mg tablet 50 mg PO DAILY #90 tabs 07/20/22 08/13/22 Rx cholecalciferol (vitamin D3) 1,250 1,250 mcg PO WEEKLY #12 caps 07/25/22 08/08/22 Rx mcg (50,000 unit) capsule folic acid 1 mg tablet 1 mg PO DAILY 07/25/22 08/08/22 History mecobalamin (vitamin B12) 1,000 1,000 mcg sublingual DAILY 07/25/22 08/08/22 History mcg disintegrating tablet,sublingual acetaminophen 500 mg capsule 500 mg PO Q6H PRN Pain 08/08/22 08/08/22 History ibuprofen 600 mg tablet 600 mg PO Q6H PRN Pain 08/08/22 08/08/22 History Patient hx anesthesia problems: none Family hx anesthesia problems: none Results Review: All pre-operative results and documents have been reviewed as part of the pre-operative evaluation. [facility] Past Medical History Medical History Anxiety Anxiety with depression Arthritis of carpometacarpal (CMC) joint of left thumb BMI 29.0-29.9,adult Breast cancer screening Bronchitis, acute Chest pain Chronic pain of left wrist X-ray 09/27/2021 with osteopenia but otherwise normal. De Quervain's tenosynovitis, left Depression Hx of atrial fibrillation without current medication Nasal congestion Overweight (BMI 25.0-29.9) Post-menopausal Situational stress Tobacco use disorder Vitamin D deficiency Surgical History Surgical History H/O: hysterectomy History of bilateral carpal tunnel release History of esophagogastroduodenoscopy (EGD) Family History Family History Father Diabetes mellitus Hypertension Grandparent Family history of cardiovascular disease Family history of malignant neoplasm Other Cancer Cerebrovascular accident Social History Social History Smoking packs per day: 1 Smoking cigarettes per day: 20.0 Years smoked: 25 Smoking pack-years: 25.00 Smoking status: Former smoker Tobacco type: cigarettes Smoking end date: 07/01/10 Alcohol intake: current Drinks per week: 1 Alcohol use details: 3 DRINKS/MONTH Substance use: never Substance use type: does not use Lack of Transportation: No Lack of Food: Never True Current Housing: I Have Housing Concerned About Future Housing: No Difficulty Paying Gas/Electric Bills: No Difficulty Paying for Meds: No Currently Unemployed: No Education: Associate Degree Difficulty w/ Childcare or Family Care: No Living arrangements: alone Occupation/Education: occupation 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
--- NOTE | 2022-08-13 07:19 | WPDHPUPDATE1 ---
History and Physical Update Update Date/Time: 08/13/22 07:19 History and Physical has been reviewed, including an updated exam of the patient. There are NO changes in the patient's condition. Risks, benefits, and alternatives have been discussed and questions answered. Patient agrees to proceed with procedure.
[2022-08-13] MEDS: ceFAZolin 2 GM/D5W 50 ML 2 GM/50 ML BAG IVPB (07:32)
--- NOTE | 2022-08-13 08:05 | WPDANESPNB ---
Anes - Peripheral Nerve Block Date/Time: 08/13/22 08:05 I have discussed with the patient/family/POA the placement of a peripheral nerve block for post-operative pain management, including associated risks, benefits, complications, and side effects. Alternative methods of post-operative analgesia were detailed. Questions were solicited and answers provided to the satisfaction of the patient/family/POA. Time-Out: A pre-procedural Time-Out was completed immediately before starting the procedure and confirmed: Patient Identification, Site, Procedure, Patient Position and the Availability of Requisite Equipment. Clinical Indications: Acute post-operative pain management requested by the operative surgeon. Nerve Block Insertion Note Anes-nerve block: supraclavicular left Patient position: other (sitting) Skin prep: chlorhexidine Needle: 22 gauge, stimulating, insulated echogenic needle. Needle length: 50 mm Technique: ultrasound Technique comment: mid2mg [id number] Injectate: bupivacaine 0.5% with epi 5 mcg/ml (30 ml no epi) and dexamethasone (mg) (4) Observations: tolerated well Complications: none Procedure start time:: 722 Procedure end time:: 729
--- NOTE | 2022-08-13 09:34 | W.PM.PROC2 ---
Procedure Note - Detailed Date of Procedure 08/13/22 Pre-op Diagnosis 1. Left thumb CMC arthritis 2. De Quervain left first dorsal compartment Post-op Diagnosis Same Procedure Performed 1. Left thumb CMC suspension arthroplasty 2. Left first dorsal compartment release Surgeon Jerrell Millan MD [employer] Crane Operator Coreen Aquino Anesthesia General and Regional Description of Procedure The patient was identified proper site identified. In the preop holding area the anesthesia team performed a left upper extremity block. She was then taken to the operating room transferred to the OR table placing her supine taking care to pad the torso and extremities. After general anesthetic induction and intubation, a nonsterile tourniquet was placed high on the left arm. The left upper extremity was prepped and draped in usual sterile fashion. Extremity was exsanguinated and tourniquet was inflated to 250 mmHg remaining up for approximately 71 minutes. A longitudinal incision was made over the FCR tendon curving radially at the base of the thenar musculature. Subcutaneous tissue bluntly dissected protecting neurovascular structures. Subcutaneous dissection identifying and protecting the sensory branches of the radial nerve was carried out over the first dorsal compartment. The compartment was divided longitudinally in line with the tendons releasing them. Within the tendons there was significant degeneration centrally. The tendon fibers were teased apart the degenerative tissue removed restoring more normal contour to the APL tendon. A slip of the APL which inserted into the thenar musculature was released and marked for later repair. The thenar musculature was elevated up off of the carpus and the trapezium identified. While protecting the FCR, a trapeziectomy was performed. The a ulnar-sided distally-based 8 cm slip of FCR was then developed hand used to create a sling weaving the tendon slip between the FCR tendon and the APL tendon securing it to itself with 3-0 Ethibond suture. The EPL tendon was advanced on itself and also secured with 3-0 Ethibond suture seating the sling in the trapeziectomy site. This allowed the thumb to sit very nicely in a position of function. The EPB tendon was then reefed also with 3-0 Ethibond taking up the slack in that structure. The wound was irrigated with sterile antibiotic solution. The wrist capsule and thenar musculature were tacked back down with 4-0 Monocryl. The slip of the EPL was reattached to the thenar musculature with 3-0 Ethibond. Skin edges reapproximated with 4-0 Prolene subcuticular stitch. Steri-Strips were applied. Sterile dressings applied and the tourniquet was released. Well-padded thumb spica splint was fashioned. The patient tolerated procedure well . She was awakened extubated and taken to recovery area in stable condition. There were no known intraoperative complications. Estimated blood loss was negligible. Perioperative antibiotics were administered. Estimated Blood Loss 5 Tourniquet Time 71 Drains No Packing No Pathology None sent Complications No immediate complications Condition Stable Disposition [facility] [place] B[place] Surgery - Charge Forward: Surgery Billing ([id number] -CMC arthroplasty; [id number] -first dorsal compartment release)
--- NOTE | 2022-08-13 11:17 | SUR.PHASEII ---
Vitals signs stable. Patient is unhooked from monitors and waiting for ride at this time.
--- NOTE | 2022-08-13 11:18 | SUR.PHASEI ---
1106: RN called Dr. Millan per family request to see if he could switch the prescription to a different pharmacy. Unfortunately Dr. Millan isn't near a computer at this time, so he can't do that.
== END 2022-08-13 11:42 | disposition home or self-care (01) ==
PROVIDERS: PCP Nurse Practitioner Family; Visit Provider Orthopaedic Surgery
PROC: (CPT 25447; principal; 2022-08-13 07:30)
PROC: (CPT 25000; 2022-08-13 07:30)
DX: M18.12 Unilateral primary osteoarthritis of first carpometacarpal joint, left hand (principal); M65.4 Radial styloid tenosynovitis [de Quervain]; G89.18 Other acute postprocedural pain; E55.9 Vitamin D deficiency, unspecified; F41.8 Other specified anxiety disorders; Z87.891 Personal history of nicotine dependence
CPT/HCPCS: 25447; 25000; 64415; 73130; A9270; J0690; J1100; J1885; J2250; J2270; J2405; J2704; J7120

== ENCOUNTER 2022-09-25 07:30 | Outpatient (RCR) | payer MEDICARE, SELFPAY ==
--- NOTE | 2022-09-03 08:25 | OTOPEVAL1 ---
Assessment and note entered by Amado Cintron, GILBERTO/Fiona, CHT Evaluation Information Assessment Status Evaluation Diagnosis s/p left thumb CMC arthroplasty and left 1st dorsal compartment release Onset surgery 08/13/22 Subjective Information Ana Laura Reyes , is a left hand dominant female s/p s/p left thumb CMC arthroplasty and left 1st dorsal compartment release. 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 She types on a computer a lot at work - avoids using the left thumb as the immobilizer restricts her. She also does sewing and plays the piano. Reporting minimal pain, just sore with ROM. Reported Pain Level Pain Score 0: Self Report Assessment OT Clinical Summary Patient referred to outpatient OT with a decline in left hand use due to stiffness and soft tissue tightness following CMC arthroplasty and 1st dorsal compartment release 3 weeks ago. Skilled OT indicated for HEP instruction, active/passive ROM, functional therapeutic activities/exercises, and progression to strengthening when appropriate. Plan of Care Interventions Therapeutic Exercise,Manual Therapy,Therapeutic Activities,Hot Pack/Cold Pack,Ultrasound,Paraffin OT Services Indicated Yes Treatment Frequency and 0-1x/week for 4 weeks Duration These treatments will address the objective and functional deficits as defined above. The patient will be advanced safely and appropriately in order for the patient to progress towards his/her prior level of function. Additional exercises will be introduced and as well as a comprehensive home exercise program upon discharge, if needed, ?to ensure carryover of functional gains achieved in the clinic. This treatment plan has been reviewed and agreement upon by the patient.
--- NOTE | 2022-10-04 10:46 | PCOTNOTE ---
Patient called and cancelled re-eval today due to being sick. Discussed with patient that she was going to be discharged today, anyway. Plan to have her follow up with MD next Saturday, 10/09, and if he decides that she needs more therapy she will call to schedule. If they think she is done, then we will discharge.
--- NOTE | 2022-10-19 09:50 | OTOPDC ---
Assessment and note entered by Amado Cintron, OTR/Fiona, CHT Discharge Notification 10/19/22 OT Clinical Summary Patient has not called to reschedule a formal therapy reassessment after our last session on 09/25. At that time she was 6 weeks post op and was issued a gentle strengthening HEP. She was weaning herself out of the brace for light tasks. Overall did very well with therapy. She has decided that she did not want to return for a reassessment and is ready for discharge. Plan to have her follow up with MD for any future needs PRN. Thank you for this referral.
== END 2022-10-19 14:23 | disposition home or self-care (01) ==
LOC: ANHOT 07:30
PROVIDERS: PCP Nurse Practitioner Family; Visit Provider Orthopaedic Surgery
DX: Z48.89 Encounter for other specified surgical aftercare (principal)
CPT/HCPCS: 97018; 97110; 97165

== ENCOUNTER → 2023-02-15 15:50 | Outpatient (CLI) | payer MEDICARE, SELFPAY ==
--- NOTE | ~2023-02-15 | DEXA_ITS ---
Bone Density Report Name: WEI ROACH Age: 67 Sex: Female Ethnicity: White Date of : 1955 Indication: postmenopausal; screening for osteoporosis; height loss; hysterectomy; Referring Provider: ADITI FOSTER Study: Bone densitometry was performed. Exam Date: February 15, 2023 Accession number: [id number] Bone Density: Region BMD T-score Z-score Classification AP Spine (L1-L4) 0.988 -0.5 1.3 Normal Femoral Neck (Left) 0.733 -1.0 0.5 Normal Total Hip (Left) 0.916 -0.2 1.0 Normal Femoral Neck (Right) 0.710 -1.3 0.3 Osteopenia Total Hip (Right) 0.898 -0.4 0.9 Normal Total Hip Mean 0.907 -0.3 1.0 Normal World Health Organization criteria for BMD impression classify patients as: Normal (T-score at or above -1.0), Osteopenia (T-score between -1.0 and -2.5), or Osteoporosis (T-score at or below -2.5). 10-year Fracture Risk(1): Major Osteoporotic Fracture 8.1% Hip Fracture 0.7% Reported Risk Factors: [place] (), Neck BMD=0.710, BMI=31.6 (1) FRAX(R) Version 3.08. Fracture probability calculated for an untreated patient. Fracture probability may be lower if the patient has received treatment. Clinical Information Provided by Patient: Has used the following medications: Vitamin D, Calcium Has the following medical conditions: Hysterectomy Patient maximum height was 67.0 Menopause Age: 42 No regular weight bearing exercise Drinks caffeinated beverages Onset of menses at age 14 Number of children 3 Impression: The patient has low bone mass, based on the Right Femoral Neck T-score. The patient has an estimated ten-year risk of hip fracture of 0.7% and an estimated ten-year risk of major fracture of 8.1%, based on the WHO FRAX algorithm. Discussion: BONE DENSITY IS LOW AT ONE OR MORE SKELETAL SITES. This patient's lowest T-score is low at one or more skeletal sites. It meets the World Health Organization's (WHO) criteria for ?low bone mass? (T-score between -1.0 and -2.5). The patient's 10-year risk of fracture as calculated by FRAX is less than the threshold where pharmacological therapy is recommended by the National Osteoporosis Foundation (NOF). However, all treatment decisions require clinical judgment and consideration of individual patient factors, including patient preferences, comorbidities, previous drug use, risk factors not captured in the FRAX model (e.g., frailty, falls, vitamin D deficiency, increased bone turnover, interval significant decline in bone density) and possible under or overestimation of fracture risk by FRAX. The patient should follow a healthful lifestyle (good nutrition with adequate calcium and vitamin D, and appropriate weight-bearing exercise). Follow-Up: Consider repeating this study in 2 to 3 years to reassess this patient's status, or sooner if there
--- NOTE | ~2023-02-15 | MM_ITS ---
EXAMINATION: MM screening johny BI w karla HISTORY: Screening mammogram TECHNIQUE: Craniocaudal and mediolateral oblique 3-D tomosynthesis images were obtained and synthetic 2-D images were generated. CAD analysis was submitted and interpreted. COMPARISON: No prior mammogram is available for comparison at this institution. BREAST PARENCHYMAL COMPOSITION: There are scattered areas of fibroglandular density. FINDINGS: There are multiple bilateral benign calcifications including arterial and calcified fibroad enomas. There is no evidence of suspicious mass, calcification, or architectural distortion to sugges t malignancy in either breast. There has been no suspicious interval change. IMPRESSION: 1. Benign calcifications. No mammographic evidence of malignancy. 2. Recommend routine screening mammography in one year. BI-RADS Category 2: Benign finding(s). Reviewed, dictated and finalized at location A.
== END ==
PROVIDERS: PCP Nurse Practitioner Family; Visit Provider Nurse Practitioner Family
DX: Z12.31 Encounter for screening mammogram for malignant neoplasm of breast (principal); Z78.0 Asymptomatic menopausal state; M85.851 Other specified disorders of bone density and structure, right thigh
CPT/HCPCS: 77063; 77067; 77080

== ENCOUNTER 2023-08-12 08:30 | Outpatient (CLI) | payer MEDICARE, SELFPAY ==
--- NOTE | ~2023-08-12 | XR_ITS ---
EXAMINATION: XR UGI w small bowel DATE: 08/12/2023 10:37 INDICATION: Hiatal hernia. Gastroesophageal reflux disease. Chest pain. TECHNIQUE: The patient drank thick barium, gas-producing crystals, and thin barium. Fluoroscopy of th e esophagus, stomach, and small bowel was performed. Fluoroscopy exposure time was 0.8 minutes. Radio graphs of the abdomen were obtained. The total number of images was 286. COMPARISON: CT abdomen and pelvis 02/16/2012 FINDINGS: UPPER GASTROINTESTINAL SERIES: There is no mass or stricture of the esophagus. There is decreased primary and secondary esophageal p eristalsis. No abnormal tertiary waves. There is a moderate-sized sliding hiatal hernia. The gastroes ophageal junction is 8 cm above the diaphragm. There was spontaneous gastroesophageal reflux. The sto mach shows a normal folding pattern. SMALL BOWEL SERIES: The small bowel shows a normal folding pattern. Specifically, the terminal ileum is normal. Transit t norma to the colon was 45 minutes. IMPRESSION: 1. Moderate esophageal dysmotility. 2. Moderate-sized sliding hiatal hernia. 3. Spontaneous gastroesophageal reflux. 4. Normal small bowel series. Reviewed, dictated and finalized at location A. [facility] MEMBER
== END 2023-08-12 08:31 | disposition home or self-care (01) ==
LOC: ANHIMG 08:32
PROVIDERS: PCP Nurse Practitioner Family; Visit Provider Nurse Practitioner
DX: R07.89 Other chest pain (principal); K44.9 Diaphragmatic hernia without obstruction or gangrene; K22.4 Dyskinesia of esophagus; K21.9 Gastro-esophageal reflux disease without esophagitis
CPT/HCPCS: 74240; 74248

== ENCOUNTER 2023-08-23 08:45 | Day surgery (SDC) | payer MEDICARE, SELFPAY ==
[2023-08-05 13:32] VITALS: BMI 31.9
--- NOTE | 2023-08-21 09:32 | SUR.PREOP ---
Patient called regarding upcoming procedure. Reviewed preop instructions, appointment times, and procedure prep.
--- NOTE | 2023-08-22 21:11 | PM.HPGS ---
History of Present Illness History of Present Illness Consent: Risks, benefits, and alternatives have been discussed and questions answered. Patient agrees to proceed with procedure. Chief complaint: Diaphragmatic hernia,GERD,Dysphagia,SOB Narrative: Amy Barnes is a 68 year old female who reports having excessive heartburn and vomiting that she first noticed many years ago. She explains that the vomiting is usually bile and sometimes undigested food after eating. She also states she sometimes has trouble swallowing and will choke on her food intermittently. She is currently taking Pepcid, pantoprazole and tums multiple times a day for her symptoms as well. She had recent upper Gi and small bowel x-ray on 08/12 that showed: FINDINGS: UPPER GASTROINTESTINAL SERIES: There is no mass or stricture of the esophagus. There is decreased primary and secondary esophageal peristalsis. No abnormal tertiary waves. There is a moderate-sized sliding hiatal hernia. The gastroesophageal junction is 8 cm above the diaphragm. There was spontaneous gastroesophageal reflux. The stomach shows a normal folding pattern. she has seen a surgeon regarding repair of her hiatal hernia. She states she is also scheduled for modified barium swallow to be done in the near future. Review of Systems Review of Systems: All systems reviewed & are unremarkable except as noted in HPI and below PMFSH Past Medical History Medical History Anxiety Anxiety with depression Asymptomatic microscopic hematuria Atypical chest pain B12 deficiency BMI 29.0-29.9,adult Breast cancer screening Bronchitis, acute Chest pain Chronic pain of left wrist X-ray 09/27/2021 with osteopenia but otherwise normal. Colon cancer screening Depression Dysphagia Esophageal dysmotility Folic acid deficiency Hx of atrial fibrillation without current medication Hyperlipidemia Large hiatal hernia Leukopenia Nasal congestion Overweight (BMI 25.0-29.9) Post-menopausal Shortness of breath Situational stress Tobacco use disorder Vitamin D deficiency Surgical History Surgical History Arthritis of carpometacarpal (CMC) joint of left thumb Left thumb CMC suspension arthroplasty August 13, 2022 De Quervain's tenosynovitis, left Left first dorsal compartment release August 13, 2022 H/O: hysterectomy History of bilateral carpal tunnel release History of esophagogastroduodenoscopy (EGD) Family History Family History Father Diabetes mellitus Hypertension Grandparent Family history of cardiovascular disease Family history of malignant neoplasm Other Cancer Cerebrovascular accident Social History Social History Smoking packs per day: 1 Smoking cigarettes per day: 20.0 Years smoked: 25 Smoking pack-years: 25.00 Smoking status: Former smoker Tobacco type: cigarettes Smoking end date: 07/01/10 Alcohol intake: current Drinks per week: 1 Alcohol use details: seldom Substance use: never Substance use type: does not use Lack of Transportation: No Lack of Food: Never True Current Housing: I Have Housing Concerned About Future Housing: No Difficulty Paying Gas/Electric Bills: No Difficulty Paying for Meds: No Currently Unemployed: No Education: Associate Degree Difficulty w/ Childcare or Family Care: No Living arrangements: alone Occupation/Education: occupation 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
[2023-08-23 11:38] VITALS: BP 153/89; PULSE 84; RESP 16; TEMP 36.6; O2SAT 99; BMI 32.2
[2023-08-23] MEDS: LACTATED RINGERS 1,000 ML 150 ML IV CONT (11:44)
--- NOTE | 2023-08-23 12:26 | WPDANESEPPF ---
Anes - Initial Pre Proc Eval Procedure: Operation Date: 08/23/23 13:00 Proposed Procedures p Esophagogastroduodenoscopy - Mario Piedra MD Date/Time: 08/23/23 12:26 Surgeon: Mario Piedra MD Pre Op Diagnosis: Diaphragmatic hernia,GERD,Dysphagia,SOB Patient Data Age: 68 Gender: F Height: 1.68 m Weight: 90.6 kg Last Vital Signs Temp 97.8 F 08/23/23 11:38 Pulse 84 08/23/23 11:38 Resp 16 08/23/23 11:38 BP 153/89 H 08/23/23 11:38 Pulse Ox 99 08/23/23 11:38 O2 Del Method Room Air 08/23/23 11:38 Allergies Allergy/AdvReac Type Severity Reaction Status Date / Time oxycodone [From Percocet] AdvReac Severe Nausea and Verified 08/23/23 11:37 Vomiting Home Medications Medication Instructions Recorded Confirmed Type ascorbate calcium (vitamin C) 500 mg PO DAILY 07/20/22 08/22/23 History sertraline 25 mg tablet 25 mg PO DAILY #90 tabs 07/20/22 08/22/23 Rx sertraline 50 mg tablet 50 mg PO DAILY #90 tabs 07/20/22 08/22/23 Rx cholecalciferol (vitamin D3) 1,250 1,250 mcg PO WEEKLY #12 caps 07/25/22 08/22/23 Rx mcg (50,000 unit) capsule folic acid 1 mg tablet 1 mg PO DAILY 07/25/22 08/22/23 History mecobalamin (vitamin B12) 1,000 1,000 mcg sublingual DAILY 07/25/22 08/22/23 History mcg disintegrating tablet,sublingual lansoprazole 30 mg capsule,delayed 30 mg PO BID #60 caps 07/24/23 08/22/23 Rx release (Prevacid) Patient hx anesthesia problems: none Family hx anesthesia problems: none Results Review: All pre-operative results and documents have been reviewed as part of the pre-operative evaluation. [facility] Past Medical History Medical History Anxiety Anxiety with depression Asymptomatic microscopic hematuria Atypical chest pain B12 deficiency BMI 29.0-29.9,adult Breast cancer screening Bronchitis, acute Chest pain Chronic pain of left wrist X-ray 09/27/2021 with osteopenia but otherwise normal. Colon cancer screening Depression Dysphagia Esophageal dysmotility Folic acid deficiency Hx of atrial fibrillation without current medication Hyperlipidemia Large hiatal hernia Leukopenia Nasal congestion Overweight (BMI 25.0-29.9) Post-menopausal Shortness of breath Situational stress Tobacco use disorder Vitamin D deficiency Surgical History Surgical History Arthritis of carpometacarpal (CMC) joint of left thumb Left thumb CMC suspension arthroplasty August 13, 2022 De Quervain's tenosynovitis, left Left first dorsal compartment release August 13, 2022 H/O: hysterectomy History of bilateral carpal tunnel release History of esophagogastroduodenoscopy (EGD) Family History Family History Father Diabetes mellitus Hypertension Grandparent Family history of cardiovascular disease Family history of malignant neoplasm Other Cancer Cerebrovascular accident Social History Social History Smoking packs per day: 1 Smoking cigarettes per day: 20.0 Years smoked: 25 Smoking pack-years: 25.00 Smoking status: Former smoker Tobacco type: cigarettes Smoking end date: 07/01/10 Alcohol intake: current Drinks per week: 1 Alcohol use details: seldom Substance use: never Substance use type: does not use Lack of Transportation: No Lack of Food: Never True Current Housing: I Have Housing Concerned About Future Housing: No Difficulty Paying Gas/Electric Bills: No Difficulty Paying for Meds: No Currently Unemployed: No Education: Associate Degree Difficulty w/ Childcare or Family Care: No Living arrangements: alone Occupation/Education: occupation 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
[2023-08-23 13:16] VITALS: BP 112/65; PULSE 85; RESP 20; O2SAT 100
[2023-08-23 13:26] VITALS: BP 126/84; PULSE 88; RESP 20; O2SAT 99
[2023-08-23 13:36] VITALS: BP 137/83; PULSE 77; RESP 18; O2SAT 99
== END 2023-08-23 13:47 | disposition home or self-care (01) ==
PROVIDERS: PCP Nurse Practitioner Family; Visit Provider Internal Medicine Gastroenterology
PROC: 0DJ08ZZ Inspection of Upper Intestinal Tract, Via Natural or Artificial Opening Endoscopic (ICD-10-PCS; CPT 43235; principal; 2023-08-23 13:00)
DX: K22.2 Esophageal obstruction (principal); K21.00 Gastro-esophageal reflux disease with esophagitis, without bleeding; K44.9 Diaphragmatic hernia without obstruction or gangrene; F41.8 Other specified anxiety disorders; E53.8 Deficiency of other specified B group vitamins; E78.5 Hyperlipidemia, unspecified; E55.9 Vitamin D deficiency, unspecified; Z87.891 Personal history of nicotine dependence; E66.9 Obesity, unspecified; Z68.32 Body mass index [BMI] 32.0-32.9, adult
CPT/HCPCS: 43249; 88305; C1726; J2001; J2704; J7120

== ENCOUNTER 2023-10-04 10:16 | Outpatient (CLI) | payer MEDICARE, SELFPAY | END 2023-10-04 10:17 | disposition home or self-care (01) | LOC: ANHSURGERY 10:19 | PROVIDERS: PCP Nurse Practitioner Family; Visit Provider Surgery | DX: K44.9 Diaphragmatic hernia without obstruction or gangrene (principal) | CPT/HCPCS: 36415; 86850; 86900; 86901 ==

== ENCOUNTER 2023-10-09 16:11 | Observation (INO) | payer MEDICARE, SELFPAY ==
[2023-10-04 10:26] VITALS: BMI 32.8
--- NOTE | 2023-10-04 10:51 | PC.NURSE ---
Report to the Outpatient Waiting Room, entrance under the green pavilion located off [facility], at time _30 on date __10/08/23 . Planned Procedure Time: . Time changes happen often and if your time is changed the preop area will call you the afternoon before. - You and your visitor will be asked to self-screen and do not enter if you have any COVID symptoms. - A mask is optional within the hospital at this time. CLEAR LIQUIDS FOR SUPPER EVENING PRIOR TO SURGERY Patients may have clear liquids (water, carbonated beverages, clear teas, apple juice) until 3 hours prior to surgery (6:30 AM)with a maximum of 20 ounces. - No food from midnight until time of surgery - Infants may have breast milk until 4 hours before surgery, infant formula 6 hours prior to surgery. - Children will be allowed to drink immediately following surgery. If applicable, please bring a bottle or sippy cup to assist with drinking. Juice, water, soda, and popsicles are readily available. For infants on formula, please bring formula the day of surgery. Pacifiers are allowed. Take the following medications with a SIP of water the morning of surgery: SERTRALINE DO NOT STOP ANY OF YOUR OTHER PRESCRIPTION MEDICATIONS PRIOR TO SURGERY ?EXCEPT THE FOLLOWING Medications to discontinue per physician HOLD ALL VITAMINS AND SUPPLEMENTS 3 DAYS PRE OP.LAST DOSE 10/04/23 Please no make-up, nail bulgarian, hairspray, perfume, deodorant, or body powder the day of surgery. No jewelry (including any body piercings) or valuables the day of surgery, leave them at home. Please take a shower or bath the night before, or the morning of, surgery with an antibacterial soap. Wear comfortable, loose fitting clothing. Children are encouraged to wear pajamas. - Jewelry must be removed prior to entering the operating room. Rings and piercings that are not removed may be cut off. - The hospital will not accept responsibility for valuables. - Please leave all valuables, including medications, at home the day of surgery. If you are going home after surgery, a licensed motor coach driver must drive you home. - NO public transportation without another adult if you receive anesthesia. - We recommend that an adult stay with you for 24 hours following discharge. - We also recommend that you do not drive, make important decision, drink alcoholic beverages, or take any drugs that were not prescribed by your health care provider for at least 24 hours after your discharge time. Follow any additional instructions given to you from your surgeon. If you or anyone in your household have experienced Covid symptoms in the past week, please notify your surgeon or the nurse liaison at the phone number below for possible testing. VERBAL AND WRITTEN instructions given to __PATIENT and asked if any additional questions and then verbalized understanding. Patient advised to call surgeon office or pre surgery nurse liaison [phone] if any additional questions.
[2023-10-04 11:16] VITALS: BP 135/85; PULSE 70; RESP 18; TEMP 36.5; O2SAT 99
[2023-10-08] VITALS (15 sets, daily range): BP systolic 111–146; BP diastolic 65–84; PULSE 61–94; RESP 10–20; TEMP 36.1–36.8; O2SAT 92–100
[2023-10-08] MEDS: KETOROLAC 15 MG/ML VIAL (*BKC) IV PUSH (08:00)
[2023-10-08] MEDS: ACETAMINOPHEN 500 MG TABLET 1000 MG PO (08:00)
--- NOTE | 2023-10-08 08:31 | WPDANESEPPF ---
Anes - Initial Pre Proc Eval Procedure: Operation Date: 10/08/23 09:30 Proposed Procedures p Laparoscopic Paraesophageal Hiatal Hernia Repair with Fundoplication with Possible Mesh, Davinci Assisted - Dante Olivares DO Date/Time: 10/08/23 08:31 Surgeon: Dante Olivares DO Pre Op Diagnosis: Hiatal Hernia, GERD Patient Data Age: 68 Gender: F Height: 1.66 m Weight: 90.8 kg Last Vital Signs Temp 36.5 C 10/04/23 11:16 Pulse 70 10/04/23 11:16 Resp 18 10/04/23 11:16 BP 135/85 10/04/23 11:16 Pulse Ox 99 10/04/23 11:16 O2 Del Method Room Air 10/04/23 11:16 Allergies Allergy/AdvReac Type Severity Reaction Status Date / Time oxycodone [From Percocet] AdvReac Severe Nausea and Verified 10/08/23 08:29 Vomiting Home Medications Medication Instructions Recorded Confirmed Type ascorbate calcium (vitamin C) 500 mg PO DAILY 07/20/22 10/08/23 History cholecalciferol (vitamin D3) 1,250 1,250 mcg PO WEEKLY #12 caps 07/25/22 10/08/23 Rx mcg (50,000 unit) capsule folic acid 1 mg tablet 1 mg PO DAILY 07/25/22 10/08/23 History mecobalamin (vitamin B12) 1,000 1,000 mcg sublingual DAILY 07/25/22 10/08/23 History mcg disintegrating tablet,sublingual lansoprazole 30 mg capsule,delayed 30 mg PO BID #60 caps 07/24/23 10/08/23 Rx release (Prevacid) sertraline 25 mg tablet 25 mg PO DAILY #90 tabs 09/03/23 10/08/23 Rx sertraline 50 mg tablet 50 mg PO DAILY #90 tabs 09/03/23 10/08/23 Rx Patient hx anesthesia problems: none Family hx anesthesia problems: none Results Review: All pre-operative results and documents have been reviewed as part of the pre-operative evaluation. [facility] Past Medical History Medical History Anxiety Anxiety with depression Asymptomatic microscopic hematuria Atypical chest pain B12 deficiency BMI 29.0-29.9,adult BMI 32.0-32.9,adult Breast cancer screening Bronchitis, acute Chest pain Chronic pain of left wrist X-ray 09/27/2021 with osteopenia but otherwise normal. Colon cancer screening Depression Dysphagia Elevated BP without diagnosis of hypertension Esophageal dysmotility Fatigue Folic acid deficiency Hx of atrial fibrillation without current medication Hyperlipidemia Large hiatal hernia Leukopenia Nasal congestion Osteopenia Overweight (BMI 25.0-29.9) Post-menopausal Shortness of breath Situational stress Tobacco use disorder Vitamin D deficiency Surgical History Surgical History Arthritis of carpometacarpal (CMC) joint of left thumb Left thumb CMC suspension arthroplasty August 13, 2022 De Quervain's tenosynovitis, left Left first dorsal compartment release August 13, 2022 H/O: hysterectomy History of bilateral carpal tunnel release History of esophagogastroduodenoscopy (EGD) Family History Family History Father Diabetes mellitus Hypertension Grandparent Family history of cardiovascular disease Family history of malignant neoplasm Other Cancer Cerebrovascular accident Social History Social History Smoking packs per day: 1 Smoking cigarettes per day: 20.0 Years smoked: 25 Smoking pack-years: 25.00 Smoking status: Former smoker Tobacco type: cigarettes Smoking end date: 07/01/10 Alcohol intake: current Drinks per week: 1 Alcohol use details: TWO DRINKS PER MONTH Substance use: never Substance use type: does not use Lack of Transportation: No Lack of Food: Never True Current Housing: I Have Housing Concerned About Future Housing: No Difficulty Paying Gas/Electric Bills: No Difficulty Paying for Meds: No Currently Unemployed: No Education: Associate Degree Difficulty w/ Childcare or Family Care: No Living arrangements: alone Occupation/Edu
--- NOTE | 2023-10-08 08:52 | WPDHPUPDATE1 ---
History and Physical Update Update Date/Time: 10/08/23 08:52 History and Physical has been reviewed, including an updated exam of the patient. There are NO changes in the patient's condition. Risks, benefits, and alternatives have been discussed and questions answered. Patient agrees to proceed with procedure.
[2023-10-08] MEDS: ceFAZolin 2 GM/D5W 50 ML 2 GM/50 ML BAG IVPB (09:06)
[2023-10-08] MEDS: BUPIVACAINE/EPINEPHRINE 0.5% 50 ML VIAL 30 ML INFILTRATE (10:01)
[2023-10-08] MEDS: LACTATED RINGERS 1,000 ML 30 ML IV CONT ×3 (12:07→12:26)
[2023-10-08] MEDS: fentaNYL CITRATE INJ (*CRX) 100 MCG/2 ML VIAL 25 MCG IV PUSH ×4 (12:22→13:48)
--- NOTE | 2023-10-08 12:40 | W.PM.PROC2 ---
Procedure Note - Detailed Date of Procedure 10/08/23 Pre-op Diagnosis Hiatal Hernia, GERD Post-op Diagnosis Same (Type III Paraesophageal hiatal hernia) Procedure Performed Robotic assisted laparoscopic paraesophageal hernia repair with 270 degree fundoplication Surgeon Dante Olivares, DO Anesthesia General and Local (0.5% bupivicaine with epi) Indications this is a 68-year-old woman who presented with chronic GERD symptoms and a large hiatal hernia. She has previously undergone EGD with dilation of a benign stricture. Biopsies of the esophagus at that time showed evidence of esophagitis related to chronic reflux. She also underwent upper GI contrast study as well as esophageal manometry and pH study. She had normal esophageal motility and a moderate-sized hiatal hernia. PH studies showed a DeMeester score of 23. Discussions were made with the patient about further treatment options and decision was made to proceed with robotic paraesophageal hiatal hernia repair with fundoplication. Findings Patient was found have a type 3 paraesophageal hiatal hernia. The stomach and hernia sac was reduced from within the esophageal hiatus. Enough of the esophageal length was dissected free to allow the esophagus to sit within the abdominal cavity without tension. She had a large hiatal hernia that was able to be reapproximated with the to 0 V lock permanent running suture. The crura appeared to come together without any significant tension. I then chose to perform a 270 degree fundoplication. The hiatal hernia sac was excised from around the GE junction and this was sent to the lab for pathology. No other intra-abdominal abnormalities were noted. Description of Procedure Procedure as well as risks, benefits, and alternatives were discussed with the patient. Written consent was obtained and placed in chart prior to procedure. Patient was brought back to surgical suite. She was placed supine on operating table. Time-out was done to confirm patient and procedure. She was then intubated by the anesthesia department. Her abdomen was prepped and draped in sterile fashion using chlorhexidine prep. 0.5% bupivacaine with epinephrine was infiltrated locally around each area for port placement. An 8 mm incision was made in the left upper quadrant 2 cm inferior to the costal margin in the mid clavicular line. A 5 mm Optiview trocar was then advanced through the abdominal layers under direct visualization. Once inside the abdominal cavity, carbon dioxide insufflation was used to create a pneumoperitoneum. The camera was inserted in the abdomen was inspected. No immediate abnormalities were identified. Another 8 mm camera port was placed about 15 cm inferior to the xiphoid just to the left of midline under direct visualization. An 8 mm port was placed in the anterior axillary line on the left upper quadrant at about the same transverse plane as the camera port. An 8 mm port was placed in the right upper quadrant and another 8 mm AirSeal assist port was placed in right lower quadrant just to the right of the umbilicus. A 5 mm incision was made in the subxiphoid region and the Monica liver retractor was inserted through this incision into the abdominal cavity to lift up the left lobe of the liver. This was secured in place to the bed of the table. The patient was then placed in 25? reverse Trendelenburg. The robotic arms were secured to the ports and the robotic camera and instruments were inserted. A force bipolar grasper was placed in the right upper quadrant port. The vessel sealer was placed in the midclavicular left upper quadrant port and a Cadiere grasper was placed in the anterior axillary line left upper quadrant port. I then moved over to the robotic console took control of the camera and instruments. A careful thorough exam was performed throughout the abdomen. The stomach was then reduced from within the hiatal hernia. The gastrohepatic ligame
[2023-10-08] MEDS: ONDANSETRON INJ 4 MG/2 ML VIAL IV PUSH (14:30)
[2023-10-08] MEDS: MORPHINE SULFATE (*CRX) 4 MG/ML INJ IV PUSH (14:30)
[2023-10-08] MEDS: SIMETHICONE 125 MG CHEW TAB PO ×3 (14:38→21:28)
--- NOTE | 2023-10-08 14:45 | ADMGEN ---
This patient, Amy Barnes, was admitted to 3 [facility] Surg Room 300-01. Patient/family oriented to hospital policies and general routines including ID bracelet, bed and alarms, visiting hours, pain management, procedures, bathroom and other care routines, personal items, smoking policy, room service/diet, and visiting hours. Information on how to activate the Rapid Response Team has been discussed. Patient/Family are encouraged to report perceived risks to care and to ask questions if they do not understand what they are told or what they should do.
[2023-10-08] MEDS: HYDROcodone/acetaminophen (*CRX) 7.5-325 MG TABLET 1 TAB PO (16:34)
[2023-10-08] MEDS: PANTOPRAZOLE 40 MG TABLET PO (21:28)
[2023-10-08] MEDS: HYDROcodone/acetaminophen (*CRX) 5-325 MG TABLET 1 TAB PO (21:29)
[2023-10-09] MEDS: HYDROcodone/acetaminophen (*CRX) 7.5-325 MG TABLET 1 TAB PO ×2 (00:09→20:12)
[2023-10-09 04:20] VITALS: BP 99/57; PULSE 74; RESP 20; TEMP 36.6; O2SAT 94
[2023-10-09 06:09] LABS: Hematocrit 33.1 % (37.0-47.0); Hemoglobin 10.6 g/dL (12.0-15.0); Mean Corpuscular Hemoglobin 29.4 pg (26-34); Mean Corpuscular Volume 91.7 fl (80-100); Mean Platelet Volume 10.7 fl (7.4-10.4); Platelet Count Result 144 k/mm3 (150-375); Red Blood Count 3.61 M/mm3 (4.2-5.4); Red Cell Distribution Width 12.9 % (11.5-14.5); White Blood Count 4.7 K/mm3 (4.5-10.0)
[2023-10-09 06:23] LABS: Anion Gap 2 mmol/L (4-12); Blood Urea Nitrogen 16 mg/dL (7-17); Calcium 8.6 mg/dL (8.4-10.2); Carbon Dioxide 28 mmol/L (22-30); Chloride 103 mmol/L (98-107); Estimated CRCL calculation 55 ml/min; Estimated Glomerular Filt Rate 55; Glucose 93 mg/dL (65-110); Potassium 4.1 mmol/L (3.4-5.0); Sodium 133 mmol/L (137-145)
[2023-10-09 07:49] VITALS: BP 119/79; PULSE 75; RESP 18; TEMP 36.6; O2SAT 97
--- NOTE | 2023-10-09 07:55 | WPDANESPN ---
Anes - Prog Note Post-Op Date/Time: 10/09/23 07:55 Cardiovascular status: normal Respiratory status: normal Airway patency: baseline Mental status: baseline Post-Op hydration status: normal Vital Signs: Last Vital Signs Temp 36.6 C 10/09/23 04:20 Pulse 74 10/09/23 04:20 Resp 20 10/09/23 04:20 BP 99/57 L 10/09/23 04:20 Pulse Ox 94 10/09/23 04:20 O2 Del Method Room Air 10/08/23 20:00 O2 Flow Rate 2 10/08/23 13:45 Pain Score (VAS): 08/10 I/O: Intake & Output 10/08/23 10/08/23 10/09/23 15:59 23:59 07:59 Intake Total 650 238 236 Balance 650 238 236 Laboratory Tests 10/09/23 05:20 10/09/23 05:20 10/09/23 05:20 WBC 4.7 RBC 3.61 L Hgb 10.6 L Hct 33.1 L MCV 91.7 MCH 29.4 MCHC 32.0 RDW 12.9 Plt Count 144 L MPV 10.7 H Sodium 133 L Potassium 4.1 Chloride 103 Carbon Dioxide 28 Anion Gap 2 L BUN 16 Creatinine 1.00 Estim Creat Clear Calc 55 Estimated GFR 55 L Glucose 93 Calcium 8.6 Post-procedural complaints: none Patient Feedback: Patient satisfied with anesthetic care.
[2023-10-09] MEDS: PANTOPRAZOLE 40 MG TABLET PO ×2 (09:14→20:12)
[2023-10-09] MEDS: SERTRALINE HCL 50 MG TABLET PO (09:14)
[2023-10-09] MEDS: SIMETHICONE 125 MG CHEW TAB PO ×4 (09:14→20:12)
[2023-10-09] MEDS: SERTRALINE HCL 25 MG TABLET PO (09:14)
[2023-10-09] MEDS: HYDROcodone/acetaminophen (*CRX) 5-325 MG TABLET 1 TAB PO ×2 (09:15→13:33)
[2023-10-09] MEDS: ENOXAPARIN 40 MG/0.4 ML SYRINGE SUB-Q (09:16)
[2023-10-09 11:49] VITALS: BP 100/67; PULSE 79; RESP 20; TEMP 36.6; O2SAT 96
[2023-10-09 15:49] VITALS: BP 111/63; PULSE 71; RESP 20; TEMP 36.4; O2SAT 92
--- NOTE | 2023-10-09 15:51 | PM.PNGS ---
Progress Note: A&P Assessment and Plan (1) Hiatal hernia: Code(s): K44.9 - Diaphragmatic hernia without obstruction or gangrene Status: Acute Assessment and Plan: Continue full liquids today Increase activity as tolerated Will plan to keep 1 more day to recover, possibly home tomorrow. (2) GERD with esophagitis: Qualifiers: Esophagitis bleeding: without hemorrhage Qualified Code(s): K21.00 - Gastro-esophageal reflux disease with esophagitis, without bleeding Code(s): K21.00 - Gastro-esophageal reflux disease with esophagitis, without bleeding Status: Acute Subjective Subjective Date/Time Seen: 10/09/23 15:51 Interval history: Tolerating full liquids. Had some bloating after drinking soda--even though there are orders that she is not to have any carbonated beverages. Gradually getting up and moving. Exam GI: Inspection: non-distended and incision (intact with glue) GI Palp: Yes Soft to palpation, No Tenderness to palpation present (GI) and No Guarding due to palpation present (GI) Objective Data Vital Signs Vital Signs: Vital Signs - 24 hr 10/08/23 20:10 10/08/23 23:49 10/08/23 20:00 Temperature 36.4 C 36.4 C Pulse Rate 71 66 Respiratory Rate 18 20 Blood Pressure 114/72 113/70 Pulse Oximetry 96 96 Oxygen Delivery Room Air 10/09/23 04:20 10/09/23 07:49 10/09/23 11:49 Temperature 36.6 C 36.6 C 36.6 C Pulse Rate 74 75 79 Respiratory Rate 20 18 20 Blood Pressure 99/57 L 119/79 100/67 Pulse Oximetry 94 97 96 Oxygen Delivery Intake/Output Intake/Output: Intake & Output 10/06/23 10/07/23 10/08/23 10/09/23 23:59 23:59 23:59 23:59 Intake Total 888 476 Balance 888 476 Meds/Results Medications: Active Medications Generic Name Dose Route Start Last Admin Trade Name Freq PRN Reason Stop Dose Admin Acetaminophen 650 mg 10/08/23 14:04 Acetaminophen 325 Mg Tablet PO Q6H PRN Mild Pain (1-3) or Fever Hydrocodone Bitart/Acetaminophen 1 tab 10/08/23 14:04 10/09/23 13:33 Hydrocodone/Acetaminophen (*Crx) 5-325 Mg Tablet PO 1 tab Q4H PRN Administration Pain Rated 4-6 Hydrocodone Bitart/Acetaminophen 1 tab 10/08/23 14:04 10/09/23 00:09 Hydrocodone/Acetaminophen (*Crx) 7.5-325 Mg Tablet PO 1 tab Q4H PRN Administration Pain Rated 7-10 Diphenhydramine HCl 25 mg 10/08/23 14:04 Diphenhydramine Hcl Inj 50 Mg/Ml Vial IV PUSH Q6H PRN Itching Enoxaparin Sodium 40 mg 10/09/23 09:00 10/09/23 09:16 Enoxaparin 40 Mg/0.4 Ml Syringe SUB-Q 40 mg DAILY YASMEEN Administration Morphine Sulfate 2 mg 10/08/23 14:04 Morphine Sulfate (*Crx) 2 Mg/Ml Inj IV PUSH Q2H PRN Pain Rated 4-6 Morphine Sulfate 4 mg 10/08/23 14:04 10/08/23 14:30 Morphine Sulfate (*Crx) 4 Mg/Ml Inj IV PUSH 4 mg Q2H PRN Administration Pain Rated 7-10 Naloxone HCl 0.1 mg 10/08/23 14:04 Naloxone Hcl 0.4 Mg/Ml Vial IV PUSH Q2M PRN Opiate Reversal Ondansetron HCl 4 mg 10/08/23 14:04 10/08/23 14:30 Ondansetron Inj 4 Mg/2 Ml Vial IV PUSH 4 mg Q4H PRN Administration Nausea And Vomiting Pantoprazole Sodium 40 mg 10/08/23 21:00 10/09/23 09:14 Pantoprazole 40 Mg Tablet PO 40 mg Q12HR YASMEEN Administration Sertraline HCl 25 mg 10/09/23 09:00 10/09/23 09:14 Sertraline Hcl 25 Mg Tablet PO 25 mg DAILY YASMEEN Administration Sertraline HCl 50 mg 10/09/23 09:00 10/09/23 09:14 Sertraline Hcl 50 Mg Tablet PO 50 mg DAILY YASMEEN Administration Simethicone 125 mg 10/08/23 14:04 10/09/23 12:38 Simethicone 125 Mg Chew Tab PO 125 mg QID YASMEEN Administration Labs Labs: Laboratory Results - last 24 hr 10/09/23 05:20 WBC 4.7 RBC 3.61 L Hgb 10.6 L Hct 33.1 L MCV 91.7 MCH 29.4 MCHC 32.0 RDW 12.9 Plt Count 144 L MPV 10.7 H Sodium 133 L Potassium 4.1 Chloride 103 Carbon Dioxide 28 Anion Gap 2 L BUN 16 Creati
[2023-10-09 20:00] VITALS: PULSE 73; RESP 18; O2SAT 96
[2023-10-09 20:35] VITALS: BP 126/70; PULSE 73; RESP 18; TEMP 36.9; O2SAT 96
[2023-10-10] MEDS: HYDROcodone/acetaminophen (*CRX) 7.5-325 MG TABLET 1 TAB PO ×4 (00:41→12:53)
[2023-10-10 04:50] VITALS: BP 105/74; PULSE 78; RESP 16; TEMP 36.2; O2SAT 94
[2023-10-10] MEDS: ENOXAPARIN 40 MG/0.4 ML SYRINGE SUB-Q (08:51)
[2023-10-10] MEDS: PANTOPRAZOLE 40 MG TABLET PO (08:52)
[2023-10-10] MEDS: SIMETHICONE 125 MG CHEW TAB PO ×2 (08:52→12:53)
[2023-10-10] MEDS: SERTRALINE HCL 25 MG TABLET PO (08:52)
[2023-10-10] MEDS: SERTRALINE HCL 50 MG TABLET PO (08:52)
--- NOTE | 2023-10-10 11:06 | PM.DS ---
DS: Admitting Diagnosis Discharge Date 10/10/2023 Admitting Diagnosis Paraesophageal hiatal hernia, GERD DS: Discharge Diagnosis Discharge Diagnosis (1) Hiatal hernia: Code(s): K44.9 - Diaphragmatic hernia without obstruction or gangrene Status: Acute (2) GERD with esophagitis: Qualifiers: Esophagitis bleeding: without hemorrhage Qualified Code(s): K21.00 - Gastro-esophageal reflux disease with esophagitis, without bleeding Code(s): K21.00 - Gastro-esophageal reflux disease with esophagitis, without bleeding Status: Acute DS: Summary Hospital Course Reason for hospitalization: Hiatal hernia Hospital Course: This is a 68-year-old woman who underwent robotic assisted laparoscopic paraesophageal hernia repair with 270 degree fundoplication 10/08/2023. She was admitted to the hospital as outpatient extended recovery postoperatively. She was started on clear liquids and was tolerating these well. On 10/09/2023 she was advanced to a full liquid diet. She was still experiencing some pain bloating and had some difficulty with swallowing but was denying regurgitation, nausea, or vomiting. She was kept in the hospital 1 more day and on 10/10/2023 was tolerating the full liquids and pain was better controlled. She was up ambulating with minimal assistance. She was discharged on 10/10/2023. Status at Discharge Functional status at discharge: independent ambulation Overall status at discharge: patient is progressing back to baseline Time Spent with Patient Time attestation: Total time spent providing and/or coordinating discharge services: Time spent: Less than 30 minutes Exam Const: General: no acute distress and alert Orientation/consciousness: patient oriented x3 Resp: Effort & Inspection: normal respiratory effort Auscultation: clear to auscultation bilaterally Cardio: Rate: regular rate Rhythm: regular rhythm GI: Inspection: incision (Intact with glue) GI Palp: Yes Soft to palpation, No Tenderness to palpation present (GI) and No Guarding due to palpation present (GI) DS: Data Data Completed and Pending Completed studies during hospitalization: Pending at discharge 10/08/23 12:09 Surgical [PTH] Routine Discharge Plan Discharge Attending physician on discharge: Dante Olivares Discharging Clinician: Dante Olivares Patient Disposition: Home, Self-Care Activity: may shower and other - see discharge instructions Diet: other - see discharge instructions Wound Care Instructions: other - see discharge instructions Discharge Instructions: Postoperative instructions Okay to shower, no bathing or soaking for 2 weeks No lifting greater than 10 lb for [address] in 2-3 days if pain controlled without narcotic pain meds Continue full liquid diet for 2 weeks then may gradually advance soft bite sized foods into diet Call office for increasing pain, difficulty swallowing, vomiting, or regurgitation Patient Instructions: Antibiotic Form, Full Liquid Diet (DC) Stand Alone Forms: General Discharge Information Follow-up/Referrals: Dante Olivares DO [Physician] - Keep Reg. Scheduled Appt. Discharge Medications: New hydrocodone-acetaminophen 5-325 mg tablet 1 tablet PO Q4H PRN (Reason: pain) Qty: 10 0RF Continued ascorbate calcium (vitamin C) 500 mg PO DAILY lansoprazole [Prevacid] 30 mg capsule,delayed release(DR/EC) 30 mg PO BID Qty: 60 3RF cholecalciferol (vitamin D3) 1,250 mcg (50,000 unit) capsule 1,250 mcg PO WEEKLY Qty: 12 3RF Patient Comments: TAKES ON THURSDAYS mecobalamin (vitamin B12) 1,000 mcg tablet,disintegrating 1,000 mcg sublingual DAILY Rx Instructions: place tablet under tongue and allow to dissolve for at least30 secs before swallowing folic acid 1 mg tablet 1 mg PO DAILY sertraline 50 mg tablet 50 mg PO DAILY Qty: 90 0RF sertraline 25 mg tablet 25 mg
== END 2023-10-10 13:10 | disposition home or self-care (01) ==
LOC: ANHSURGERY 16:26 → ANH3MEDSUR 16:26
PROVIDERS: Admitting Provider Surgery; PCP Nurse Practitioner Family; Visit Provider Surgery
PROC: 0DV44ZZ Restriction of Esophagogastric Junction, Percutaneous Endoscopic Approach (ICD-10-PCS; CPT 43280; principal; 2023-10-08 09:30)
DX: K44.9 Diaphragmatic hernia without obstruction or gangrene (principal); K21.00 Gastro-esophageal reflux disease with esophagitis, without bleeding; F41.8 Other specified anxiety disorders; E53.8 Deficiency of other specified B group vitamins; E78.5 Hyperlipidemia, unspecified; E55.9 Vitamin D deficiency, unspecified; E66.9 Obesity, unspecified; Z68.33 Body mass index [BMI] 33.0-33.9, adult; Z87.891 Personal history of nicotine dependence; F10.90 Alcohol use, unspecified, uncomplicated; Z79.899 Other long term (current) drug therapy
CPT/HCPCS: 43281; S2900; 36415; 80048; 85027; 88302; A9270; G0378; J0690; J1170; J1650; J1885; J2250; J2270; J2405; J3010; J7030; J7120

== ENCOUNTER 2023-11-01 13:11 | Outpatient (CLI) | payer MEDICARE, SELFPAY ==
[2023-11-01 13:43] LABS: Basophils Percent Auto 0.5 % (0.2-1.2); Eosinophils Absolute Auto 0.4 K/mm3 (0-0.3); Eosinophils Percent Auto 9.5 % (0-4.4); Hematocrit 37.3 % (37.0-47.0); Hemoglobin 12.2 g/dL (12.0-15.0); Immature Granulocyte Absolute 0.01 K/mm3 (0.00-0.031); Immature Granulocyte Percent A 0.2 % (0-0.5); Lymphocytes Absolute Auto 1.44 K/mm3 (0.9-3.2); Lymphocytes Percent Auto 33.3 % (18.3-44.2); Mean Corpuscular HGB Conc 32.7 g/dl (32-36); Mean Corpuscular Hemoglobin 29.4 pg (26-34); Mean Corpuscular Volume 89.9 fl (80-100); Mean Platelet Volume 9.7 fl (7.4-10.4); Monocytes Absolute Auto 0.3 K/mm3 (0.1-0.6); Monocytes Percent Auto 7.9 % (2.6-8.5); Neutrophils Absolute Auto 2.1 K/mm3 (1.3-6.7); Neutrophils Percent Auto 48.6 % (45.5-73.1); Platelet Count Result 149 k/mm3 (150-375); Red Blood Count 4.15 M/mm3 (4.2-5.4); Red Cell Distribution Width 13.2 % (11.5-14.5); White Blood Count 4.3 K/mm3 (4.5-10.0)
[2023-11-01 15:24] LABS: Iron 83 ug/dL (37-170)
[2023-11-01 15:26] LABS: Alanine Aminotransferase 14 U/L (6-35); Albumin Level 4.4 g/dL (3.5-5.1); Alkaline Phosphatase 93 U/L (38-126); Anion Gap 6 mmol/L (4-12); Aspartate Amino Transferase 26 U/L (14-36); Bilirubin,Total 0.7 mg/dL (0.2-1.3); Blood Urea Nitrogen 12 mg/dL (7-17); Calcium 9.7 mg/dL (8.4-10.2); Carbon Dioxide 26 mmol/L (22-30); Chloride 108 mmol/L (98-107); Estimated Glomerular Filt Rate > 60; Glucose 89 mg/dL (65-110); Potassium 3.8 mmol/L (3.4-5.0); Sodium 140 mmol/L (137-145)
[2023-11-01 15:35] LABS: Percent Iron Saturation 27 % (20-50)
[2023-11-01 16:35] LABS: Folic Acid > 20.0 ng/mL (2.76->20)
[2023-11-05 09:03] LABS: Methylmalonic Acid 170 nmol/L (87-318)
== END 2023-11-01 13:12 | disposition home or self-care (01) ==
LOC: ANHLAB 13:15
PROVIDERS: Nurse Practitioner Family; PCP Nurse Practitioner Family; Visit Provider Internal Medicine Hematology & Oncology
DX: D72.819 Decreased white blood cell count, unspecified (principal); D50.8 Other iron deficiency anemias
CPT/HCPCS: 36415; 80053; 82607; 82728; 82746; 83540; 83550; 83921; 85025; 86038

== ENCOUNTER 2023-11-05 08:04 | Outpatient (CLI) | payer MEDICARE, SELFPAY ==
--- NOTE | ~2023-11-05 | XR_ITS ---
EXAMINATION: XR esophogram water soluble DATE: 11/05/2023 08:46 INDICATION: Encounter for surgical aftercare following fundoplication. TECHNIQUE: The patient drank water-soluble contrast. Fluoroscopy of the hypopharynx and esophagus was performed. Fluoroscopy exposure time was 0.8 minutes. The total number of images was 269. The dose-a debora product was 3 Gy-cm^2. COMPARISON: Upper gastrointestinal series 08/12/2023 FINDINGS: There is no mass or stricture of the esophagus. There is decreased primary and secondary es ophageal peristalsis. No abnormal tertiary waves. There are changes of fundoplication. There is no hi atal hernia. IMPRESSION: 1. Moderate esophageal dysmotility. Reviewed, dictated and finalized at location A.
== END 2023-11-05 08:05 | disposition home or self-care (01) ==
PROVIDERS: PCP Nurse Practitioner Family; Visit Provider Surgery
DX: Z48.815 Encounter for surgical aftercare following surgery on the digestive system (principal); K44.9 Diaphragmatic hernia without obstruction or gangrene; K22.4 Dyskinesia of esophagus
CPT/HCPCS: 74220

== ENCOUNTER 2023-11-18 07:46 | Outpatient (CLI) | payer MEDICARE, SELFPAY ==
--- NOTE | ~2023-11-18 | US_ITS ---
Abdominal Sonogram: Real-time sonographic imaging of the abdomen was performed. Clinical History: Leukopenia Findings: The liver appears normal with no evidence of solid mass lesion or bile duct dilatation. Ma in portal vein demonstrates normal direction of flow. Small hepatic cyst present. The spleen is enlar ged, measuring 15.3 cm in length. The gallbladder is well distended, and appears normal with no evid ence of gallstone or wall thickening. The common bile duct measures less than 3 mm. The visualized p ancreas, aorta, and IVC are unremarkable. The right kidney measures 10.5 cm in length and the left k idney measures 10.4 cm. There is no hydronephrosis or renal calculus. Impression: Splenomegaly, as above. Reviewed, dictated and finalized at location . Impression: Splenomegaly, as above.
== END 2023-11-18 07:47 | disposition home or self-care (01) ==
PROVIDERS: PCP Nurse Practitioner Family; Visit Provider Nurse Practitioner Family
DX: D72.819 Decreased white blood cell count, unspecified (principal); R16.1 Splenomegaly, not elsewhere classified
CPT/HCPCS: 76700

== ENCOUNTER 2023-11-29 10:38 | Outpatient (CLI) | payer MEDICARE, SELFPAY ==
[2023-11-29 11:18] LABS: Basophils Percent Auto 0.7 % (0.2-1.2); Eosinophils Absolute Auto 0.1 K/mm3 (0-0.3); Eosinophils Percent Auto 4.8 % (0-4.4); Hematocrit 37.7 % (37.0-47.0); Hemoglobin 12.3 g/dL (12.0-15.0); Immature Granulocyte Absolute 0.01 K/mm3 (0.00-0.031); Immature Granulocyte Percent A 0.4 % (0-0.5); Lymphocytes Absolute Auto 1.07 K/mm3 (0.9-3.2); Lymphocytes Percent Auto 39.2 % (18.3-44.2); Mean Corpuscular HGB Conc 32.6 g/dl (32-36); Mean Corpuscular Hemoglobin 29.2 pg (26-34); Mean Corpuscular Volume 89.5 fl (80-100); Mean Platelet Volume 10.4 fl (7.4-10.4); Monocytes Absolute Auto 0.3 K/mm3 (0.1-0.6); Monocytes Percent Auto 9.2 % (2.6-8.5); Neutrophils Absolute Auto 1.3 K/mm3 (1.3-6.7); Neutrophils Percent Auto 45.7 % (45.5-73.1); Platelet Count Result 143 k/mm3 (150-375); Red Blood Count 4.21 M/mm3 (4.2-5.4); Red Cell Distribution Width 13.7 % (11.5-14.5); White Blood Count 2.7 K/mm3 (4.5-10.0)
[2023-11-29 11:23] LABS: Lactate Dehydrogenase 214 U/L (120-246)
[2023-12-02 10:48] LABS: Angiotensin Converting Enzyme 31 U/L (9-67)
[2023-12-02 15:45] LABS: EBV Virus Capsid Ag IgM Ab <36.00 U/mL
== END 2023-11-29 10:39 | disposition home or self-care (01) ==
LOC: ANHLAB 10:40
PROVIDERS: PCP Nurse Practitioner Family; Visit Provider Nurse Practitioner Family
DX: R16.1 Splenomegaly, not elsewhere classified (principal)
CPT/HCPCS: 36415; 82164; 83615; 85025; 86664; 86665; 88184

== ENCOUNTER 2023-12-03 08:08 | Outpatient (CLI) | payer MEDICARE, SELFPAY ==
[2023-12-10 08:34] LABS: BCR/abl P190 NOT DETECTED; BCR/abl P210 NOT DETECTED; BCR/abl Source PERIPHERAL
== END 2023-12-03 08:09 | disposition home or self-care (01) ==
LOC: ANHLAB 08:11
PROVIDERS: Nurse Practitioner Family; PCP Nurse Practitioner Family; Visit Provider Internal Medicine Hematology & Oncology
DX: R16.1 Splenomegaly, not elsewhere classified (principal)
CPT/HCPCS: 36415

== ENCOUNTER 2023-12-04 09:17 | Outpatient (CLI) | payer MEDICARE, SELFPAY ==
--- NOTE | ~2023-12-04 | CT_ITS ---
Clinical Indication: Splenomegaly CT Scan of the Chest, Abdomen, and Pelvis without Contrast: Technique: Contiguous sections were acquired throughout the chest, abdomen, and pelvis without IV con trast administration. Dose reduction technique was used on this scan by utilizing automated exposure control and iterative reconstruction technique. The dose-length product (DLP) was 868.46 mGy-cm. Findings: There is no evidence of any significant mediastinal, hilar or axillary lymphadenopathy. The mediastin al soft tissues appear normal. There is no evidence of pleural or pericardial effusion. There are 2 adjacent 2-3 mm nodules noted in the right lower lobe peripherally. The liver, pancreas, gallbladder, adrenals and kidneys are within normal limits. Spleen is mildly enl arged, measuring 14.3 cm in length. There are atherosclerotic calcifications of the aorta. No lympha denopathy. No bowel obstruction or bowel wall thickening. There is no evidence to suggest acute appendicitis. Urinary bladder is unremarkable. No pelvic mass seen. No ascites. Impression: Mild splenomegaly. 2-3 mm right lower lobe pulmonary nodules, most likely benign. According to Fleischner Society criter ia, for a low-risk patient, no further follow-up required. For a high-risk patient, consider 12 month follow-up CT. Reviewed, dictated and finalized at location . Impression: Mild splenomegaly. 2-3 mm right lower lobe pulmonary nodules, most likely benign. According to Fle ischner Society criteria, for a low-risk patient, no further follow-up required . For a high-risk patient, consider 12 month follow-up CT.
== END 2023-12-04 09:18 | disposition home or self-care (01) ==
PROVIDERS: PCP Nurse Practitioner Family; Visit Provider Nurse Practitioner Family
DX: R16.1 Splenomegaly, not elsewhere classified (principal); R91.8 Other nonspecific abnormal finding of lung field
CPT/HCPCS: 71250; 74176; Q9967

== ENCOUNTER 2024-02-11 12:49 | Outpatient (CLI) | payer MEDICARE, SELFPAY ==
[2024-02-11 12:59] LABS: Basophils Percent Auto 0.5 % (0.2-1.2); Eosinophils Absolute Auto 0.1 K/mm3 (0-0.3); Eosinophils Percent Auto 2.6 % (0-4.4); Hematocrit 35.6 % (37.0-47.0); Lymphocytes Absolute Auto 1.39 K/mm3 (0.9-3.2); Lymphocytes Percent Auto 35.5 % (18.3-44.2); Mean Corpuscular HGB Conc 33.7 g/dl (32-36); Mean Corpuscular Hemoglobin 29.9 pg (26-34); Mean Corpuscular Volume 88.8 fl (80-100); Mean Platelet Volume 9.8 fl (7.4-10.4); Monocytes Absolute Auto 0.4 K/mm3 (0.1-0.6); Monocytes Percent Auto 9.2 % (2.6-8.5); Neutrophils Absolute Auto 2.1 K/mm3 (1.3-6.7); Neutrophils Percent Auto 52.2 % (45.5-73.1); Platelet Count Result 139 k/mm3 (150-375); Red Blood Count 4.01 M/mm3 (4.2-5.4); Red Cell Distribution Width 13.2 % (11.5-14.5); White Blood Count 3.9 K/mm3 (4.5-10.0)
== END 2024-02-11 12:50 | disposition home or self-care (01) ==
LOC: ANHLAB 12:51
PROVIDERS: Nurse Practitioner Family; PCP Nurse Practitioner Family; Visit Provider Internal Medicine Hematology & Oncology
DX: D72.819 Decreased white blood cell count, unspecified (principal)
CPT/HCPCS: 36415; 85025

== ENCOUNTER 2024-08-21 13:22 | Outpatient (CLI) | payer MEDICARE, SELFPAY ==
--- NOTE | ~2024-08-21 | MM_ITS ---
EXAMINATION: MM screening [facility] BI w karla HISTORY: Screening TECHNIQUE: Craniocaudal and mediolateral oblique 3-D tomosynthesis images were obtained and synthetic 2-D images were generated. CAD analysis was submitted and interpreted. COMPARISON: 02/15/2023 BREAST PARENCHYMAL COMPOSITION: Not dense: There are scattered areas of fibroglandular density. FINDINGS: No significant change to benign-appearing breast calcifications. There is no evidence of razo spicious mass, calcification, or architectural distortion to suggest malignancy in either breast. The re has been no suspicious interval change. IMPRESSION: 1. No mammographic evidence of malignancy. 2. Recommend routine screening mammography in one year. BI-RADS Category 2: Benign finding(s). Reviewed, dictated and finalized at location L. ERS COMPENSATION ATTORNEY
--- OUTSIDE RECORDS SUMMARY | 2024-08-21 13:27 | XMS_ITS | Clinical Summary ---
Author Organization [facility] Address [address] [place] [address] Care Team Providers Care Consulting Services Manager Name Role Phone Feliberto Pelaez MD Primary Care Provider [phone] Allergies No known active allergies Medications CALCIUM CARBONATE-VITAMI N D3 ORAL Take by mouth. Active sertraline (ZOLOFT) 25 mg tablet Take 25 mg by mouth daily. Active sertraline (ZOLOFT) 50 mg tablet Take 50 mg by mouth daily. Active diltiaZEM (CARDIZEM) 30 mg tablet Take 30 mg by mouth 3 times daily. 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 Encounters Date Type Department Care Team Description 08/18/2024 External Device Data [facility] Provider, Abstract 07/22/2024 External Device Data [facility] Provider, Abstract 07/21/2024 External Device Data [facility] Provider, Abstract 07/14/2024 External Device Data [facility] Provider, Abstract 07/07/2024 External Device Data [facility] Provider, Abstract from Last 3 Months Family History Medical History Relation Name Comments Diabetes Brother 1 Prostate Cancer Brother 1 Diabetes Brother 2 No Known Problems Child 1 No Known Problems Child 2 No Known Problems Child 3 Diabetes Father Relation Name Status Comments Brother 1 Alive Brother 2 Alive Child 1 Alive Child 2 Alive Child 3 Alive Father Mother not known Social History Tobacco Use Types Packs/Day Years Used Date Smoking Tobacco: Former Cigarettes 1 20 0 07/01/1990 - 07/01/2010 Smokeless Tobacco: Never Alcohol Use Standard Drinks/Week Comments Yes 0 (1 standard drink = 0.6 oz pur e alcohol) Socially Comments Unknown Sex and Gender Information Value Date Recorded Sex Assigned at Not on file Legal Sex Female 11:13 AM CDT Gender Identity Not on file Sexual Orientation Not on file Last Filed Vital Signs Vital Sign Reading Time Taken Comments Blood Pressure 132/89 02/11/2024 1:09 PM CDT Pulse 77 02/11/2024 1:06 PM CDT Temperature 36.3 C (97.3 F) 02/11/2024 1:06 PM CDT Respiratory Rate 14 02/11/2024 1:06 PM CDT Oxygen Saturation 96% 02/11/2024 1:06 PM CDT Inhaled Oxygen Concentration - - Weight 88.5 kg (195 lb) 02/11/2024 1:06 PM CDT Height 165.1 cm (5' 5 ) 11/01/2023 12:21 PM CDT Body Mass Index 32.45 11/01/2023 12:21 PM CDT Plan of Treatment Health Maintenance Due Date Last Done Comments Pre-Diabetes and Diabetes Screening 1957 DTAP/TDAP/TD VACCINES (1 - Tdap) 1976 BREAST CANCER SCREENING 1997 COLORECTAL SCREENING 2002 Colorectal Cancer Screening 2002 FIT-DNA Q 3 years 2002 FIT/FOBT Q 1 year 2002 Flex Sig/CT Colonography Q 5 years 2002 PNEUMOCOCCAL VACCINE 65+ YEARS (1 of 1 - PCV) 06/16/20 07 ZOSTER VACCINE (1 of 2) 2007 OSTEOPOROSIS SCREENING 2022 INFLUENZA VACCINE (#1) 2024 Medicare Advantage ([place]) Prev entative Visit/Annual Wellness Visit 07/01/2024 RSV VACCINE (60+ or ) (1 - 1-dose 75+ series) [address] [place] [address] [employer] P[employer] [facility] Care Teams Consulting Services Manager Relationship Specialty Start Date End Date Feliberto Pelaez MD [address] [place] [address] PCP - General Family Practice 11/01/23
--- OUTSIDE RECORDS SUMMARY | 2024-08-21 13:27 | XMS_ITS | Data Portability ---
Author Organization ID - [employer] [facility], [employer] Address [address] [place] [address] Assessment Encounter Date Assessment Date Assessment LastModified by Organization Details LastModified Time 03/09/2020 03/09/2020 Medication Changes Pantoprazole 40 mg SHEILA obtained. Records requested. Labs ordered and sent to [facility]. Signs and symptoms of when to seek further care reviewed with patient. Patient to follow up with primary care provider or return to clinic for any worsening signs and symptoms. Always present to ER or Urgent Care with any progression of/alarming symptoms, significant changes in symptoms or any concerning or urgent matters. Patient verbalized agreement and understanding of treatment plan. F/U 8 weeks, sooner if needed [email or web address] Not available 03/09/2020 18:14:50 05/31/2020 05/31/2020 Medication Changes U/S ordered and sent to [facility]. Signs and symptoms of when to seek further care reviewed with patient. Patient to follow up with primary care provider or return to clinic for any worsening signs and symptoms. Always present to ER or Urgent Care with any progression of/alarming symptoms, significant changes in symptoms or any concerning or urgent matters. Patient verbalized agreement and understanding of treatment plan. F/U 12 weeks, sooner if needed Not available 05/31/2020 08:25:30 Plan of Treatment Reminders Order Date Submit Date Provider Last Modified By Organization Details Last Modified Time Details Appointments None recorded. Lab amylase + lipase, serum 2019 020 [email or web address] [facility], [address], [place], [address], 0 20:44:51 CMP, serum or plasma 2019 020 LALITO [facility], [address], [place], [id number], 0 15:20:17 CBC w/ diff 2019 [facility], [address], [place], [id number], 0 16:06:23 magnesium, blood 2019 [email or web address] [facility], [address], [place], [address], 0 20:44:51 vitamin B12 + folate, serum or blood 2019 [facility], [address], [place], [id number], 0 15:20:18 iron + TIBC + ferritin, serum 2019 [facility], [address], [place], [address], 0 15:20:16 TSH, serum, reflex free T4 2019 [facility], [address], [place], [address], 0 20:44:51 lipid panel, blood 2019 LALITO [facility], [address], [place], [id number], 0 15:20:17 hemoglobin A1c, QN, blood 2019 [facility], [address], [place], [id number], 0 20:44:51 Referral gastroente rologist referral 2019 020 LALITO Steele MD, [address], [address], [place], [address], 0 13:34:33 Procedures None recorded. Surgeries None recorded. Imaging US, groin 2019 [facility] (Radiology), [address] [facility] [place], [id number], 0 10:39:10 MAMMO, screening, digital, bilateral 2019 [facility], [address] [facility] [place], [id number], 0 09:05:28 Medication Orders pantoprazo le 40 mg tablet,del ayed release 2019 [email or web address] [id number], [address], [place], [place], [id number], 3 20:18:50 Patient TargetsNo targets recorded. Patient Instructions Encounter Date Encounter Id Patient Instructions Last Modified By Organization Details Last Modified Time 03/09/2020 [id number] learning about healthy weight [email or web address] Not available 03/09/2020 08:47:52 Reason for Referral Flavor Maker Referral for Gastroesophageal reflux disease Referring Physician: Amy Stevens, Internal Medicine, Encounter Date: 03/09/2020 Results Created Date Observation Date Name Description Value Unit Range Abnormal Flag Note LastModifiedBy Organization Detail LastModifiedTime 03/10/20 20 03/15/2020 iron + TIBC + bessy tin, serum iron, total 95 mcg/d L 45-160 normal Not Available [employer] [address] [facility], [address], 03/15/2020 15:20:16 03/10/20 20 03/15/2020 iron + TIBC + bessy tin, serum iron binding capacity 303 mcg/d L_(ca lc) 250-45 0 normal Not Available [address], [address], 03/15/2020 15:20:16 03/10/20 20 03/15/2020 iron + TIBC + bessy tin, serum % saturation 31 %_(ca lc) 16-45 normal Not Available [address], [address], 03/15/2020 15:20:16 03/10/20 20 03/15/2020 iron + TIBC + bessy tin, serum ferritin 36 NG/mL 16-288 normal Not Available [address], [address], 03/15/2020 15:20:16 03/10/20 20 03/15/2020 lipid panel , blood cholesterol, total 187 mg/dL <200 Not Available [address], [address], 03/15/2020 15:20:17 03/10/2003/15/2020 lipid panel , blood HDL cholesterol 60 mg/dL > or = 50 Not Available [address], [address], 03/15/2020 15:20:17 03/10/20 20 03/15/2020 lipid panel , blood triglyceride s 63 mg/dL <150 Not Available [address], [address], 03/15/2020 15:20:17 03/10/2003/15/2020 lipid panel , blood LDL-choleste rol 112 mg/dL _(alyssa c) <100 high Cheryl able range <100 mg/dL for prima ry preve ntion ; <70 mg/dL for patie nts with CHD or diabe tic patie nts with > or = 2 CHD risk facto rs. LDL-C is now calcu lated using the Luciana n-Hop kins calcu latjaxson n, which is a valid ated novel metho d provi kuldeep min r accur acy than the Fried shaun equat ion in the estim ation of LDL-C . Luciana whittington SS et al. CHRISTIANO. 2013; 310(1 8): 2061- 2068 For addit ional infor marina red refer to http: //chela suarez ics.c om/fa q/FAQ 164 (This link is being provi ded for infor stephanie nal/e ducat ional purpo ses only. ) Not Available [address] [place], [address], 03/15/2020 15:20:17 03/10/2003/15/2020 lipid panel , blood chol/HDLC ratio 3.1 calc <5.0 Not Available [facility] [address] [address] [place], [address], 03/15/2020 15:20:17 03/10/2003/15/2020 lipid panel , blood non HDL cholesterol 127 mg/dL _(alyssa c) <130 For patie nts with diabe michael plus 1 major ASCVD risk facto r, treat ing to a non-H DL-C goal of <100 mg/dL (LDL- C of <70 mg/dL ) is dewayne martinez n. Not Available [address] [address] [place], [address], 03/15/2020 15:20:17 03/10/2003/15/2020 CMP, serum or plasm a glucose 99 mg/dL 65-99 normal Fasti ng refer ence inter tommy Not Available [facility] [address] [address] [place], [address], 03/15/2020 15:20:17 03/10/2003/15/2020 CMP, serum or plasm a urea nitrogen (BUN) 17 mg/dL 7-25 normal Not Available [facility] [address] [address] [place], [address], 03/15/2020 15:20:17 03/10/2003/15/2020 CMP, serum or plasm a creatinine 0.86 mg/dL 0.50-0 .99 normal For patie nts >49 years of age, the refer ence limit for Creat inine is appro xiluciust jimi 13% highe r for peopl e ident ified as Afric an-Am licha n. Not Available [address], [address], 03/15/2020 15:20:17 03/10/2003/15/2020 CMP, serum or plasm a eGFR non-afr. egyptian 72 mL/mi n/1.7 3m2 > or = 60 normal Not Available [address], [address], 03/15/2020 15:20:17 03/10/2003/15/2020 CMP, serum or plasm a eGFR 84 mL/mi n/1.7 3m2 > or = 60 normal Not Available [address], [address], 03/15/2020 15:20:17 03/10/2003/15/2020 CMP, serum or plasm a BUN/creatini ne ratio NOT APPLIC ABLE (calc ) 6-22 Not Available [address], [address], 03/15/2020 15:20:17 03/10/2003/15/2020 CMP, serum or plasm a sodium 142 mmol/ L 135-14 6 normal Not Available [address], [address], 03/15/2020 15:20:17 03/10/2003/15/2020 CMP, serum or plasm a potassium 4.2 mmol/ L 3.5-5. 3 normal Not Available [address], [address], 03/15/2020 15:20:17 03/10/2003/15/2020 CMP, serum or plasm a chloride 107 mmol/ L 98-110 normal Not Available [address], [address], 03/15/2020 15:20:17 03/10/2003/15/2020 CMP, serum or plasm a carbon dioxide 26 mmol/ L 20-32 normal Not Available [address], [address], 03/15/2020 15:20:17 03/10/2003/15/2020 CMP, serum or plasm a calcium 8.8 mg/dL 8.6-10 .4 normal Not Available [address], [address], 03/15/2020 15:20:17 03/10/2003/15/2020 CMP, serum or plasm a protein, total 5.8 g/dL 6.1-8. 1 low Not Available [address], [address], 03/15/2020 15:20:17 03/10/2003/15/2020 CMP, serum or plasm a albumin 3.8 g/dL 3.6-5. 1 normal Not Available [address], [address], 03/15/2020 15:20:17 03/10/2003/15/2020 CMP, serum or plasm a globulin 2.0 g/dL_ (calc ) 1.9-3. 7 normal Not Available [address], [address], 03/15/2020 15:20:17 03/10/2003/15/2020 CMP, serum or plasm a albumin/glob ulin ratio 1.9 (calc ) 1.0-2. 5 normal Not Available [address], [address], 03/15/2020 15:20:17 03/10/20 20 03/15/2020 CMP, serum or plasm a bilirubin, total 0.5 mg/dL 0.2-1. 2 normal Not Available [address], [address], 03/15/2020 15:20:17 03/10/20 20 03/15/2020 CMP, serum or plasm a alkaline phosphatase 83 U/L 37-153 normal Not Available [facility] [employer] [address], [address], 03/15/2020 15:20:17 03/10/20 20 03/15/2020 CMP, serum or plasm a AST 17 U/L 10-35 normal Not Available [address], [address], 03/15/2020 15:20:17 03/10/20 20 03/15/2020 CMP, serum or plasm a ALT 16 U/L 6-29 normal Not Available [address], [address], 03/15/2020 15:20:17 03/10/20 20 03/15/2020 CBC w/ auto diff white blood cell count 3.4 thous and/u L 3.8-10 .8 low Not Available [address], [address], 03/15/2020 15:20:18 03/10/2003/15/2020 CBC w/ auto diff red blood cell count 4.01 grace on/uL 3.80-5 .10 normal Not Available [address], [address], 03/15/2020 15:20:18 03/10/20 20 03/15/2020 CBC w/ auto diff hemoglobin 12.8 g/dL 11.7-1 5.5 normal Not Available [employer] [address], [address], 03/15/2020 15:20:18 03/10/20 20 03/15/2020 CBC w/ auto diff hematocrit 37.8 % 35.0-4 5.0 normal Not Available [address], [address], 03/15/2020 15:20:18 03/10/20 20 03/15/2020 CBC w/ auto diff MCV 94.3 fL 80.0-1 00.0 normal Not Available [address], [address], 03/15/2020 15:20:18 03/10/20 20 03/15/2020 CBC w/ auto diff MCH 31.9 pg 27.0-3 3.0 normal Not Available [address], [address], 03/15/2020 15:20:18 03/10/20 20 03/15/2020 CBC w/ auto diff MCHC 33.9 g/dL 32.0-3 6.0 normal Not Available [address], [address], 03/15/2020 15:20:18 03/10/20 20 03/15/2020 CBC w/ auto diff RDW 12.8 % 11.0-1 5.0 normal Not Available [address], [address], 03/15/2020 15:20:18 03/10/20 20 03/15/2020 CBC w/ auto diff platelet count 142 thous and/u L 140-40 0 normal Not Available [address], [address], 03/15/2020 15:20:18 03/10/20 20 03/15/2020 CBC w/ auto diff MPV 10.7 fL 7.5-12 .5 normal Not Available [address], [address], 03/15/2020 15:20:18 03/10/20 20 03/15/2020 CBC w/ auto diff absolute neutrophils 1571 cells /uL 1500-7 800 normal Not Available [address], [address], 03/15/2020 15:20:18 03/10/20 20 03/15/2020 CBC w/ auto diff absolute lymphocytes 1380 cells /uL 850-39 00 normal Not Available [address], [address], 03/15/2020 15:20:18 03/10/20 20 03/15/2020 CBC w/ auto diff absolute monocytes 309 cells /uL 200-95 0 normal Not Available [address], [address], 03/15/2020 15:20:18 03/10/20 20 03/15/2020 CBC w/ auto diff absolute eosinophils 109 cells /uL 15-500 normal Not Available [address], [address], 03/15/2020 15:20:18 03/10/20 20 03/15/2020 CBC w/ auto diff absolute basophils 31 cells /uL 0-200 normal Not Available [address], [address], 03/15/2020 15:20:18 03/10/20 20 03/15/2020 CBC w/ auto diff neutrophils 46.2 % normal Not Available [address], [address], 03/15/2020 15:20:18 03/10/20 20 03/15/2020 CBC w/ auto diff lymphocytes 40.6 % normal Not Available [address], [address], 03/15/2020 15:20:18 03/10/20 20 03/15/2020 CBC w/ auto diff monocytes 9.1 % normal Not Available [address] [place], [address], 03/15/2020 15:20:18 03/10/20 20 03/15/2020 CBC w/ auto diff eosinophils 3.2 % normal Not Available [facility] [address], [address], 03/15/2020 15:20:18 03/10/20 20 03/15/2020 CBC w/ auto diff basophils 0.9 % normal Not Available [address], [address], 03/15/2020 15:20:18 03/10/20 20 03/15/2020 vitam in B12 + folat e, serum or blood vitamin B12 313 pg/mL 200-11 00 normal Pleas e Note: Altho ugh the refer ence range for vitam in B12 is 200-1 100 pg/mL , it has been repor antionette that betwe en 5 and 10% of patie nts with value s betwe en 200 and 400 pg/mL may exper ience neuro psych iatri c and hemat ologi c abnor malit ies due to occul t B12 defic iency ; less than 1% of patie nts with value s above 400 pg/mL will have sympt oms. Not Available [address], [address], 03/15/2020 15:20:18 03/10/20 20 03/15/2020 vitam in B12 + folat e, serum or blood folate, serum 7.3 NG/mL normal Refer ence Range Low: <3.4 Borde rline : 3.4-5 .4 Reyna l: >5.4 Not Available [address], [address], 03/15/2020 15:20:18 06/17/20 20 06/17/2020 US, groin No observ ation record ed. [email or web address] [facility] [facility] (Radiology) [address], [place], [id number], 06/17/2020 11:38:34 Result Notes None recorded. Problems Name Problem SNOMED Code Status Onset Date Resolution Date Notes Provider Name and Address Organization Details Recorded Time Gastroesophage al reflux disease 195069554 Active 2019 CHARLEEN Lincoln-BC, PMHNP-BC [address], [place], [address], [facility] 0 08:35:51 Hyperlipidemia 81543874 Active 2019 JASWINDER LincolnP-BC, PMHNP-BC [address], [place], [address], [facility] 0 16:38:57 Elevated blood-pressure reading without diagnosis of hypertension 528038490 Active 2019 CHARLEEN Lincoln-BC, PMHNP-BC [address], [place], [address], [facility] 0 08:19:16 Atrial fibrillation 82186862 Active 2019 JASWINDER LincolnP-BC, PMHNP-BC [address], [place], [address], [facility] 0 08:21:48 Problem Notes None recorded. Procedures Surgical History Date Name Laterality Status Provider Name and Address Organization Details Recorded Time delivery completed CHARLEEN Lincoln-BC, PMHNP-BC [address] [place], [address], [facility] 03/08/2020 17:35:28 Hysterectomy completed Amy Stevens [facility], PMHNP-BC [address] [place], [address], [facility] 03/08/2020 17:35:51 Carpal tunnel surgery completed Amy Stevens [facility]-BC, PMHNP-BC [address] [place], [address], [facility] 03/08/2020 17:35:47 thumb surgery completed Amy Stevens [facility]-BC, PMHNP-BC [address] [facility], [address], [facility] 03/08/2020 17:36:10 Rotator Cuff Repair completed JASWINDER LincolnP-BC, PMHNP-BC [address] [place], [place], [address] [place] [address], [facility] 03/08/2020 17:36:38 colonoscopy completed CHARLEEN Lincoln-BC, PMHNP-BC [address], [place], [address] [place] [address], [facility] 03/08/2020 17:39:02 Dilation and curettage completed JASWINDER LincolnP-BC, PMHNP-BC [address], [place], [address] [place] [address], [facility] 03/09/2020 08:46:43 Imaging Results Imaging Date Name Status LastModified by Organiz ation Details LastModified Time 06/17/2020 US, groin completed [email or web address] [facility] [facility] (Radiology) [address] [facility] , [place], [address], 06/17/2020 11:38:34 Procedure Notes None recorded. Medical Equipment None Reported. Allergies No known drug allergies Medications Name Sig Start Date Stop Date Status Note LastModified by Organization Details LastModified Time azithromyci n 250 mg tablet 03/09 completed Not Available Not Available Not Available metronidazo le 500 mg tablet 03/09 completed Not Available Not Available Not Available ciprofloxac in 500 mg tablet TK 1 T PO BID TAT. 03/09 completed Not Available Not Available Not Available tramadol 50 mg tablet TK 1 TO 2 TS PO Q 6 H PRN P 03/09 completed Not Available Not Available Not Available lidocaine-p rilocaine 2.5 %-2.5 % topical cream 03/09 completed Not Available Not Available Not Available pantoprazol e 40 mg tablet,joanna yed release TAKE 1 TABLET BY MOUTH TWICE DAILY 08/08 completed Not Available Not Available Not Available methylpredn isolone 4 mg tablets in a dose pack 05/31 completed Not Available Not Available Not Available metoprolol tartrate 25 mg tablet TAKE 1 TABLET BY MOUTH EVERY 12 HOURS 08/08 completed Not Available Not Available Not Available diclofenac 1 % topical gel 03/09 completed Not Available Not Available Not Available Xarelto 20 mg tablet TK 1 T PO D WITH EVENING MEAL 05/31 completed Not Available Not Available Not Available Fish Oil 1,000 mg (120 mg-180 mg) capsule Take 2 capsules every day by oral route. 08/08 completed Not Available Not Available Not Available Vitals Date Recorded Body height Heart rate Respiratory rate Oxygen saturation Oxygen saturation in Arterial blood by Pulse oximetry Body temperature Body mass index (BMI) Body weight Systolic blood pressure Diastolic blood pressure Provider Name and Address Organization Details Last Updated DateTime 0 170.18 cm 79 /min 18 /min 98 % 98 % 97.9 [degF] 28.3 kg/m2 55273.2 2 g 130 mm[Hg] 82 mm[Hg] Heathercharo Cordoba [facility] 0 08:25:46 Date Recorded Body height Heart rate Respiratory rate Oxygen saturation Oxygen saturation in Arterial blood by Pulse oximetry Body temperature Systolic blood pressure Diastolic blood pressure Provider Name and Address Organization Details Last Updated DateTime 0 170.18 cm 75 /min 20 /min 99 % 99 % 97.5 [degF] 114 mm[Hg] 66 mm[Hg] Melony Lamas [facility] [employer] [facility] 0 08:17:09 Social History Question Answer Notes LastModified by Organizat ion Details LastModified Time Tobacco Smoking Status Former Smoker Not Available [facility] 04/26/2020 03:14:00 Do You Have An Advance Directive? No [id number] Information not available 04/26/2020 What Is Your Level Of Alcohol Consumption? Occasional [id number] Information not available 04/26/2020 What Is Your Level Of Caffeine Consumption? Moderate [id number] Information not available 04/26/2020 How Much Tobacco Do You Chew? None [id number] Information not available 04/26/2020 Are You Currently Employed? Yes [id number] Information not available 04/26/2020 What Type Of Diet Are You Following? REGULAR [id number] Information not available 04/26/2020 Which Illicit Or Recreational Drugs Have You Used? None [id number] Information not available 04/26/2020 Do You Or Have You Ever Used E-cigarettes Or Vape? 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 No [id number] Information not available 04/26/2020 Hard Of Hearing Or Deaf In One Or Both Ears? No Information not available 03/08/2020 Legally Blind In One Or Both Eyes? No Information no t available 03/08/2020 Live Alone Or With Others? Alone Information not available 03/08/2020 What Was The Date Of Your Most Recent Tobacco Screening? 03/09/2020 [id number] Information not available 04/26/2020 How Many Children Do You Have? 3 [id number] Information not available 04/26/2020 Performs Monthly Self-breast Exam? Yes Information no t available 03/08/2020 Seat Belts Used Routinely Yes Information not available 03/08/2020 Are You Sexually Active? No [id number] Information not available 04/26/2020 Smoke Alarm In Home Yes [email or web address] Information not available 03/08/2020 At What Age Did You Start Smoking Tobacco? 25 [id number] Information not available 04/26/2020 Are You Passively Exposed To Smoke? Yes [email or web address] Information no t available 03/08/2020 Do You Or Have You Ever Used Smokeless Tobacco? Never Used Smokeless Tobacco [id number] Information not available 04/26/2020 How Much Tobacco Do You Smoke? 1 PPD [id number] Information not available 04/26/2020 General Stress Level Medium Information not available 03/08/2020 Do You Use Sunscreen Routinely? Yes [id number] Information not available 04/26/2020 How Many Years Have You Smoked Tobacco? 30 [id number] Information not available 04/26/2020 Sex: Unknown Functional Status Question Answer Note LastModified by Organizat ion Details LastModified Time Are you able to walk? YESWOREST [id number] Information not available 04/26/2020 Are you able to care for yourself? Yes [id number] Information not available 04/26/2020 What is your exercise level? Occasional [id number] Information not available 04/26/2020 Mental Status None recorded. Family History Relationship Description Onset Age of this Age Resolved Age Notes LastModified by Organization Details LastModified Time Father Congestive heart failure [email or web address] Not available 2019 17:25:18 Father Diabetes mellitus [email or web address] Not available 2019 17:25:29 Father Heart disease Not available 2019 17:25:36 Father Hyperlipidem ia [email or web address] Not available 2019 17:25:43 Father Essential hypertension [email or web address] Not available 01/2020 17:25:55 Father Rheumatoid arthritis [email or web address] Not available 2019 17:26:17 Father SARS-CoV-2 [email or web address] Not availab le 05/31/2020 08:17:46 Brother Diabetes mellitus Not available 2019 17:25:29 Brother Family history of malignant neoplasm Not available 2019 17:28:04 Brother Essential hypertension [email or web address] Not available 01/2020 17:28:15 Unspecified Relation Family history of malignant neoplasm [email or web address] Not available 2019 17:27:22 Medical History Condition Response Pneumonia Y Hospitalizations Y Atrial Fibrillation / AFIB Y Gynecological HistoryNo gynecological history recorded. Obstetrics History GPAL:G 3 P 3 0 0 3 Type Value Full Term 3 Living 3 Total 3 Past Encounters Encounter ID Performer Location Encounter Start Date Encounter Closed Date Diagnosis/Indication Diagnosis SNOMED-CT Code Diagnosis ICD10 Code Diagnosis Note [id number] Amy Reyes Rodney, [facility]-BC, PMHNP-BC Main Office [address] [place] [address] 03/09/2020 06:24:53 03/09/2020 18:17:44 Screening for malignant neoplasm of breast 101017275 Z12.39 Gastroesop hageal reflux disease 395834405 K21.9 Lifestyle modificati ons with wt loss, avoid meals 2-3 h before HS. Consider eliminatin g food triggers: chocolate, caffeine, ETOH, acid/spicy food. Started on Pantoprazo le.Sent referral to GI for possible EGD for further evaluation . Elevated blood-pressure reading without diagnosis of hypertension 449839338 R03.0 Screening for cardiovascular system disease 025163865 Z13.6 Fatigue 80464501 R53.83 Anemia 109986486 D64.9 Abdominal pain 82873736 R10.31 Glucose le herbert outside reference range 286146600 R73.09 Body mass index 25-29 - overweight 476867981 Z68.28 Right inguinal hernia 23 9652210 K40.90 obtaining past imaging, if nothing is noted will do additional imaging [id number] Amy Stevens, [facility]-BC, PMHNP- Main Office [address] [place] [address] 05/31/2020 07:16:23 05/31/2020 08:27:00 Gastroesophageal reflux disease 182587504 K21.9 Lifestyle modificati ons with wt loss, avoid meals 2-3 h before HS. Consider eliminatin g food triggers: chocolate, caffeine, ETOH, acid/spicy food. Elevated blood-pressure reading without diagnosis of hypertension 155583506 R03.0 Much better BP this visit. Right inguinal hernia 23 4978503 K40.90 U/S ordered for US, inguinal hernia Hyperlipidemia 66955301 E78.5 In order to maintain a LDL<70 please eat a heart-heal thy diet that is low in saturated fats and salt and includes whole grains, fruits, vegetables and lean protein; exercise regularly; maintain a heart healthy weight; and please continue to take your prescripti on medication s as directed.[employer] Atrial fibrillation [id number] I48.91 Having some breakthrou gh palpitatio ns. Patient counseled to contact cardiologi first and if not able to get further evaluation or resolution to contact office. Health Concerns Section Related Observation LastModified by Organization Detai ls LastModified Time None Recorded Concern Status LastModified by Organization Details LastModified Time None Recorded Advance Directives Directive N: Payers Encounter Date Sequence Insurance Name Policy Number Policy Novak Covered Member ID Novak Member ID Guarantor Name 03/09/2020 1 [place] [id number] Amy Barnes [id number] Amy Barnes 05/31/2020 1 [place] [id number] Amy Barnes [id number] Amy Barnes Notes Date Note Type Note Provider Name and Address Organization Details Recorded Time 03/09/2020 text/html 64 y/o female he re to establish care. Previously seeing Dr. Grimes. [facility] [place]. Had been seeing Dr. Small who had retired. Patient reports that she has been having RLQ intermittent abdominal pain for several years. Has been progressively getting worse in the past year. She had some imaging done a couple years back at [facility]. GERD - Patient c/o heartburn/regurgita tion. Denies cough, sore throat, changes of taste. No dysphagia, but feels she has a knot in the middle of her chest. She reports of being told she possibly had a Hiatal Hernia. No CP. Has been ongoing for several months. Has ate TUMs providing a relief for a short time. Has been avoiding spicy foods which has helped some. Has been having what she reports fleeting depression, but has had several deaths in family in a short period of time. Patient reports she has been having episodes of intermittent what she describes as some different objects at times. 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 She was seeing Dr. Nichole, Eye Doctor at [facility]. Amy Stevens, ACID CORRECTION HAND-, PMHNP-[facility] [place], [address], [facility] - [facility] Care 03/09/2020 18:16:55 05/31/2020 text/html Ana Laura is here fo r a follow up visit. GERD - Patient c/o still having some heartburn/regurgita tion. Denies cough, sore throat, changes of taste. No dysphagia. Started on Protonix last visit which was increased by GI to BID. Having another procedure on 06/06/2020. She was having a procedure with GI and ended up going into AFIB with RVR. She did not convert in recovery. Dr. Ayala ended up cardioverting and was sent home on Xarelto for one month. HLD - labs showed slightly elevated LDL. Not on any medications. No side effects. Semi-following a low cholesterol diet. AFIB - Was on Xarelto and stopped by motel clerk. On rate controlled medications.Complia nt. No side effects. Reports intermittent palpitations. Denies CP, SOB. Amy Stevens, ACID CORRECTION HAND-BC, PMHNP-BC [address] [place], [address], [facility] - [facility] Primary Care 05/31/2020 08:26:36 OBGyn Episode No OBEpisode recorded.
--- OUTSIDE RECORDS SUMMARY | 2024-08-21 13:27 | XMS_ITS | Continuity of Care Document ---
Author Organization [facility] Address [address] [place] [address] Phone Care Team Providers Care Candy Feeder Name Role Phone Rohit Nichole MD Unavailable Unavailable Allergies, Adverse Reactions, Alerts Substance Reaction Status Criticality No Known Allergies Active No Inform ation Procedures Procedure Date Eye Exam, New Patient Advance Directives Directive Yes / No Effective Date File Name No Information Encounters Encounter Description Practice Location Reason(s) For Visit Diagnoses Date Provider Providers Copied on Encounter [facility], [address], [place], [place], [id number], [place] tel:[phone] [place] Professional WIE (chief complaint) Pain of right orbit [address] Dionisio Bee. [address] [facility], [facility] [place], [address], [place]. tel:[phone] Referring Provider: Rohit Feng, [address] [facility] [address], [place], [address] . tel:[phone] Family History Family Member Type Diagnosis Age At Onset No Information Payers Payer name Insurance type Covered green party ID Authoriza ticharo(s) [facility] [id number] Social History Type Description Quantity Date Captured [...]
--- OUTSIDE RECORDS SUMMARY | 2024-08-21 13:28 | XMS_ITS | Patient Health Summary ---
Author Organization [facility] Address [address] [place] [address] Care Team Providers Care Jigger Operator Name Role Phone Unavailable Primary Care Provider Unavailabl e Note from [facility],non-owned Affiliates and Associated Physician Practices is amultiple site organization consisting of ambulatory clinics and hospital sitesin [place], [place], [place] and [place]. This disclosure is being madepursuant to the Care Everywhere program and may not contain all information available regarding this patient. Last updated 18.[facility] Allergies No known active allergies Medications Be aware that medications may not be up to date on this document. Always verify current medications with the patient. No known medications Active Problems No known active problems Social History Tobacco Use Types Packs/Day Years Used Date Smoking Tobacco: Never Assessed Sex and Gender Information Value Date Recorded Sex Assigned at Not on file Gender Identity Not on file Sexual Orientation Not on file Last Filed Vital Signs Vital Sign Reading Time Taken Comments Blood Pressure 138/82 12/18/2019 9:30 AM CDT Pulse 70 12/18/2019 9:30 AM CDT Temperature 37.1 C (98.7 F) 12/18/2019 9:30 AM CDT Respiratory Rate 20 12/18/2019 9:30 AM CDT Oxygen Saturation - - Inhaled Oxygen Concentration - - Weight - - Height - - Body Mass Index - - Procedures * STREP A SCREEN - POINT OF CARE (AMB) STL(Performed 12/18/2019) Performed for Acute pharyngitis, unspecified etiology Results * STREP A SCREEN - POINT OF CARE (AMB) STL (12/18/2019) Strep A Rapid POCT Negative Negative Strep A Internal Control Present Lot # [id number] Expiration Date [id number] Throat ENTIRE THROAT (SURFACE REGION OF NECK) / Unknown 12/18/2019 Beau Carter CIRCULAR KNITTER-ANESTHESIOLOGY PHYSICIAN LAB - POINT OF CARE ORDERABLES
--- OUTSIDE RECORDS SUMMARY | 2024-08-21 13:28 | XMS_ITS | Clinical Summary ---
Author Organization [facility] Address [address] [place] [address] Care Team Providers Care Electrical Technician Instructor Name Role Phone Unavailable Primary Care Provider Unavailabl e Source Comments [facility],non-owned Affiliates and Associated Physician Practices is amultiple site organization consisting of ambulatory clinics and hospital sitesin [place], [place], [place] and [place]. This disclosure is being madepursuant to the Care Everywhere program and may not contain all information available regarding this patient. Last updated 18.[employer] Allergies No known active allergies Medications Be [...] - - Body Mass Index - - Plan of Treatment Health Maintenance Due Date Last Done Comments BONE DENSITY TESTING 1957 COLOGUARD (AGES 45-75) - COL ON CA SCREENING 1957 COLON MONITORING 1957 COLONOSCOPY - COLON CA SCREENING 1957 CT COLONOGRAPHY - COLON CA SCREENING 1957 Colorectal Cancer Screening 1957 FIT - COLON CA SCREENING 1957 FLEX SIG - COLON CA SCREENING 1957 LIPID TESTING 1957 MAMMOGRAM 1957 HEPATITIS C SCREENING 06/12/1975 DTAP/TDAP/TD VACCINES (1 - Tdap) 1976 PNEUMOCOCCAL VACCINE 50+ (1 of 1 - PCV) 2007 ZOSTER VACCINE (1 of 2) 2007 COVID-19 VACCINE (1 - 2023-2 5 season) 2024 INFLUENZA VACCINE (#1) 2024 DEPRESSION SCREENING 07/01/2024 Respiratory Syncytial Virus (RSV) Vaccine Pt: or over 60 yrs (1 - 1-dose 75+ series) 2032 HEPATITIS B VACCINE Aged Out No longe r eligible based on patient's age to complete this topic HIB VACCINE Aged Out No longer eligi ble based on patient's age to complete this topic HPV VACCINE Aged Out No longer eligi ble based on patient's age to complete this topic MENINGOCOCCAL (Group B) VACCINE Aged Out No longer eligible based on patient's age to complete this topic MENINGOCOCCAL VACCINE Aged Out No sita raj eligible based on patient's age to complete this topic Insurance Payer Benefit Plan / Group Subscriber ID Effective Dates Phone Address Type HUMANA HUMANA MEDICARE ADV [id number] Effective for all dates [address] [address] [place] [address] Medicare- Managed Care SELF PAY NO INSURANCE SELF PAY NO INSURANCE Effective for all dates [facility], [place] Self Pay HUMANA HUMANA MEDICARE ADV [id number] Effective for all dates [address] [address] [place] [address] Medicare- Managed Care SELF PAY NO INSURANCE SELF PAY NO INSURANCE Effective for all dates [place] Self Pay HUMANA HUMANA MEDICARE ADV [id number] Effective for all dates [address] [address] [place] [address] Medicare- Managed Care SELF PAY NO INSURANCE SELF PAY NO INSURANCE Effective for all dates [place] Self Pay HU[place]NA HUMANA MEDICARE ADV [id number] Effective for all dates [address] [address] [place] [address] Medicare- Managed Care SELF PAY NO INSURANCE SELF PAY NO INSURANCE Effective for all dates [place] Self Pay HU[place]NA HUMANA MEDICARE ADV [id number] Effective for all dates [address] [address] [place] [address] Medicare- Managed Care SELF PAY NO INSURANCE SELF PAY NO INSURANCE Effective for all dates [place] Self [place] HU[place] HUMANA MEDICARE ADV [id number] Effective for all dates [address] [address] [place] [address] Medicare- Managed Care SELF PAY NO INSURANCE SELF PAY NO INSURANCE Effective for all dates [place] Self Pay HU[place]NA HUMANA MEDICARE ADV [id number] Effective for all dates [address] [address] [place] [address] Medicare- Managed Care SELF PAY NO INSURANCE SELF PAY NO INSURANCE Effective for all dates [place] Self Pay HU[place]NA HUMANA MEDICARE ADV [id number] Effective for all dates [address] [address] [place] [address] Medicare- Managed Care SELF PAY NO INSURANCE SELF PAY NO INSURANCE Effective for all dates [facility] Self Pay HUMANA HUMANA MEDICARE ADV [id number] Effective for all dates [address] [address] [place] [address] Medicare- Managed Care SELF PAY NO INSURANCE SELF PAY NO INSURANCE Effective for all dates [facility], [place] Self Pay [employer] [id number] 07/01/2019-Prese nt [address] [place] [address] PPO AMY ROACH Personal/Family Spouse [address] [facility] [place] [address] AMY ROACH Personal/Family Spouse [address] [facility] [place] [address] AMY ROACH Personal/Family Spouse [address] [facility] [place] [address] AMY ROACH Personal/Family [address] [place] [address] AMY ROACH Personal/Family [address] [facility] [place] [address] AMY ROACH Personal/Family [address] [place] [address] Amy Roach Personal/Family Self 1955 [address] [place] [address] Amy Roach Personal/Family Self 1955 [address] [place] [address]
--- OUTSIDE RECORDS SUMMARY | 2024-08-21 13:28 | XMS_ITS | Referral Summary ---
Author Organization [facility] Address [address] [place] [address] Care Team Providers Care Restuarant Crew Worker Name Role Phone Feliberto Pelaez MD Primary Care Provider [phone] Allergies No known active allergies Medications sertraline (ZOLOFT) 50 mg tablet 07/23/2022 Active acetaminophen (TYLENOL) 500 mg tablet Take 1 tablet (500 mg total) by mouth every 6 (six) hours as needed for pain Active ascorbic acid (VITAMIN C) 500 mg tablet,chewable Acti ve folic acid (FOLVITE) 1 mg tablet Take 1 tablet (1 mg total) by mouth daily Active ibuprofen (ADVIL,MOTRIN) 600 mg tablet Take 1 tablet (600 mg total) by mouth every 6 (six) hours as needed for pain Active mecobalamin, vitamin B12, 1,000 mcg tablet,disintegr ating Place under the tongue Active sertraline (ZOLOFT) 25 mg tablet 07/23/2022 Active dilTIAZem (CARDIZEM) 30 mg tablet Take 1 tablet (30 mg total) by mouth 3 (three) times a day 11/22/2023 Active Active Problems Problem Noted Date Diagnosed Date Dyspnea on exertion 06/04/2023 Atypical chest pain 06/04/2023 Other fatigue 12/28/2022 Palpitations 08/10/2022 Paroxysmal atrial fibrillation (CMS/HCC) 020 Esophagitis 05/02/2020 Encounter for medical examination to establish c are 09/07/2019 Encounter for screening mammogram for breast can cer 09/07/2019 Encounter for screening for lipoid disorders 03/2020 Social History Tobacco Use Types Packs/Day Years Used Date Smoking Tobacco: Former Cigarettes Q uit: 2010 Smokeless Tobacco: Never Tobacco Cessation:Counseling Given: Not Answered AUDIT-C Answer Date Recorded Q1: How often do you have a drink containing alc ohol? 2-4 times a month 08/10/2022 Q2: How many drinks containi ng alcohol do you have on a typical day when you are drinking? 1 or 2 08/10/2022 Q3: How often do you have si x or more drinks on one occasion? Never 08/10/2022 Personal Safety Answer Date Recorded Have you ever been in or are you currently in a harmful physical or emotional relationship or is someone making you feel afraid or unsafe? Denies 09/12/2023 Comments No Sex and Gender Information Value Date Recorded Sex Assigned at Not on file Legal Sex Female 10:08 AM DRYING CAN WORKER Gender Identity Not on file Sexual Orientation Not on file Last Filed Vital Signs Vital Sign Reading Time Taken Comments Blood Pressure 130/80 12/06/2023 9:37 AM CDT Pulse 99 12/06/2023 9:37 AM CDT Temperature 36.7 C (98 F) 02/04/2019 1:45 PM CDT Respiratory Rate 18 09/12/2023 8:47 AM CDT Oxygen Saturation 98% 12/06/2023 9:37 AM CDT Inhaled Oxygen Concentration - - Weight 86.9 kg (191 lb 9.6 oz) 12/06/2023 9:37 A M CDT Height 170.2 cm (5' 7 ) 12/06/2023 9:37 AM CDT Body Mass Index 30.01 12/06/2023 9:37 AM CDT Plan of Treatment Not on file [place] [place] [address] HUMANA CHOICE MEDICARE PPO [employer] CHOICE MEDICARE PPO HUMANA CHOICE MEDICARE PPO Care Teams Restuarant Crew Worker Relationship Specialty Start Date End Date Feliberto Pelaez MD [address] [address] PCP - General Family Medicine 09/25/22
--- OUTSIDE RECORDS SUMMARY | 2024-08-21 13:28 | XMS_ITS | Referral Summary ---
Author Organization [facility] [employer] Address [address] [place] [address] Care Team Providers Care Property Handler Name Role Phone Unavailable Primary Care Provider Unavailabl e Source Comments [facility] [employer],non-owned Affiliates and Associated Physician Practices is amultiple site organization consisting of ambulatory clinics and hospital sitesin [place], [place], [place] and [place]. This disclosure is being madepursuant to the Care Everywhere program and may not contain all information available regarding this patient. Last updated 18.[employer] Allergies No known active allergies Medications Be [...] Mass Index - - Plan of Treatment Not on file Insurance Payer Benefit Plan / Group Subscriber ID Effective Dates Phone Address Type HUMANA HUMANA MEDICARE ADV [id number] Effective for all dates [address] [address] [place] [address] Medicare- Managed Care SELF PAY NO INSURANCE SELF PAY NO INSURANCE Effective for all dates [place] Self Pay HUMANA HUMANA MEDICARE ADV [id number] Effective for all dates [address] [address] [place] [address] Medicare- Managed Care SELF PAY NO INSURANCE SELF PAY NO INSURANCE Effective for all dates [place] Self Pay HU[place] HUMANA MEDICARE ADV [id number] Effective for all dates [address] [address] [place] [address] Medicare- Managed Care SELF PAY NO INSURANCE SELF PAY NO INSURANCE Effective for all dates [place] Self [place] HUMANA MEDICARE ADV [id number] Effective for all dates [address] [address] [place] [address] Medicare- Managed Care SELF PAY NO INSURANCE SELF PAY NO INSURANCE Effective for all dates [place] Self [place] HUMANA MEDICARE ADV [id number] Effective for all dates [address] [address] [place] [address] Medicare- Managed Care SELF PAY NO INSURANCE SELF PAY NO INSURANCE Effective for all dates [place] Self [place] HUMANA MEDICARE ADV [id number] Effective for all dates [address] [address] [place] [address] Medicare- Managed Care SELF PAY NO INSURANCE SELF PAY NO INSURANCE Effective for all dates [place] Self [place] HUMANA MEDICARE ADV [id number] Effective for all dates [address] [address] [place] [address] Medicare- Managed Care SELF PAY NO INSURANCE SELF PAY NO INSURANCE Effective for all dates [place] Self [place] HUMANA MEDICARE ADV [id number] Effective for all dates [address] [address] [place] [address] Medicare- Managed Care SELF PAY NO INSURANCE SELF PAY NO INSURANCE Effective for all dates [place] Self [place] HUMANA MEDICARE ADV [id number] Effective for all dates [address] [address] [place] [address] Medicare- Managed Care SELF PAY NO INSURANCE SELF PAY NO INSURANCE Effective for all dates [place] Self Pay [employer] [id number] 07/01/2019-Prese nt [address] [place] [address] [place] [address] AMY ROACH Personal/Family Spouse [address] [facility] [address] [place] [address] AMY ROACH Personal/Family Spouse [address] [facility] [address] [place] [address] AMY ROACH Personal/Family Spouse [address] [facility] [place] [address] AMY ROACH Personal/Family Spouse [address] [facility] [place] [address] AMY ROACH Personal/Family Spouse [address] [facility] [place] [address] AMY ROACH Personal/Family Spouse [address] [facility] [place] [address] AMY ROACH Personal/Family [address] [facility] [place] [address] AMY ROACH Personal/Family [address] [facility] [place] [address] AMY ROACH Personal/Family [address] [facility] [place] [address] Amy Roach Personal/Family Self 1955 [address] [place] [address] Amy Roach Personal/Family Self 1955 [address] [facility] [place] [address]
--- OUTSIDE RECORDS SUMMARY | 2024-08-21 13:28 | XMS_ITS | Clinical Summary ---
Author Organization [facility] Address [address] [place] [address] Phone Care Team Providers Care Patent Prosecution Paralegal Name Role Phone Kyung Goel NP Primary Care Provider [phone] Social History Tobacco Use Types Packs/Day Years Used Date Smoking Tobacco: Never Assessed Comments Unknown Sex and Gender Information Value Date Recorded Sex Assigned at Not on file Legal Sex Female 8:36 PM CDT Gender Identity Not on file Sexual Orientation Not on file Plan of Treatment Health Maintenance Due Date Last Done Comments DEXA Bone Density 1955 Hepatitis C Virus (HCV) Screening 1955 TdaP Immunization 1955 Colonoscopy 2002 Colorectal Cancer Screening 2002 Cologuard 2007 Immunochemical Fecal Occult Blood 2007 Mammogram 2007 Pneumococcal Immunization (5 0+ years) (1 of 1 - PCV) 2007 Zoster Immunization (1 of 2) 2007 Influenza Immunization (#1) 2024 SARS-COV-2 Immunization ( season) 2024 05/16/2021, 08/12/2020, 07/14/2020 Respiratory Syncytial Virus (RSV) Immunization (Adult) (1 - 1-dose 75+ series) 2032 Hepatitis B Immunization Aged Out No longer eligible based on patient's age to complete this topic Meningococcal Immunization (ACWY) Aged Out No longer eligible b ased on patient's age to complete this topic Rotavirus Immunization Aged Out No lo nger eligible based on patient's age to complete this topic [place] [place] [address] [facility] Care Teams Patent Prosecution Paralegal Relationship Specialty Start Date End Date Kyung Goel NP [address] [place] [address] PCP - General Family Medicine 04/24/21
--- OUTSIDE RECORDS SUMMARY | 2024-08-21 13:28 | XMS_ITS | Clinical Summary ---
Author Organization [facility] Address [address] [place] [address] Care Team Providers Care Human Resources Assistant Manager Name Role Phone Feliberto Pelaez MD Primary Care Provider [phone] Allergies No known active allergies Medications sertraline [...] Encounter for screening for lipoid disorders 03/2020 Surgical History Surgery Date Site/Laterality Comments SECTION CARPAL TUNNEL RELEASE SHOULDER SURGERY Right HYSTERECTOMY HIATAL HERNIA REPAIR 10/08/2023 Medical History Medical History Date Comments Atrial fibrillation (CMS/HCC) (HCC) Acid indigestion Diverticulosis Anxiety and depression Family History Medical History Relation Name Comments Diabetes Brother 1 Hypertension Brother 1 Hypertension Brother 2 Diabetes Father d/t COVID Hypertension Father d/t COVID Other Father d/t COVID Alzheimer's disease Mother No Known Problems Sister Relation Name Status Comments Brother 1 Alive Brother 2 Alive Father d/t COVID Mother (Age 87) Sister Alive Social History Tobacco Use Types Packs/Day Years Used Date Smoking Tobacco: Former Cigarettes Q uit: 2011 Smokeless Tobacco: Never Tobacco Cessation:Counseling Given: Not [...] on file Legal 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 Gender Identity Not on file Sexual Orientation Not on file Obstetrics History Last Filed Vital Signs Vital Sign Reading [...] 12/06/2023 9:37 AM CDT Plan of Treatment Health Maintenance Due Date Last Done Comments Breast Cancer Screening-Mammogram 1955 Colon Cancer Screening-Colonoscopy 1957 Depression Screening 1957 Fall Risk Assessment 1957 Hepatitis C Screening 1957 Osteoporosis Screening-Bone Density Scan 1957 DTaP/Tdap/Td Vaccine (1 - Tdap) 1968 Hepatitis B Screening 1975 Pneumococcal vaccine 65+ (1 of 2 - PCV) 1976 Zoster Vaccine (1 of 2) 1976 Well Visit 65+ 2022 Covid-19 Vaccine (2023- season) 2024 05/16/2021, 08/12/2020, 07/14/2020 Influenza Vaccine (#1) 2024 Insurance [employer] MEDICARE PPO [employer] MEDICARE PPO HUMANA CHOICE MEDICARE PPO Care Teams Human Resources Assistant Manager Relationship Specialty Start Date End Date Feliberto Pelaez MD [address] [address] PCP - General Family Medicine 09/25/22
== END 2024-08-21 13:23 | disposition home or self-care (01) ==
LOC: ANHIMG 13:25
PROVIDERS: PCP Nurse Practitioner Family; Visit Provider Internal Medicine Hematology & Oncology
DX: Z12.31 Encounter for screening mammogram for malignant neoplasm of breast (principal)
CPT/HCPCS: 77063; 77067

== ENCOUNTER 2024-11-18 14:23 | Inpatient (IN) | payer MEDICARE, SELFPAY ==
[2024-11-18] VITALS (7 sets, daily range): BP systolic 101–131; BP diastolic 65–94; PULSE 72–116; RESP 17–18; TEMP 36.6–37.2; O2SAT 93–100; BMI 26.9
--- NOTE | ~2024-11-18 | US_ITS ---
EXAM: Focused ultrasound examination of the tere hepatis HISTORY: evaluate for portal and splenic vein thrombosis TECHNIQUE: Sonographic evaluation of the tere hepatis was performed assessing grayscale appearance a nd color Doppler flow. COMPARISON: CT examination of the abdomen and pelvis dated 11/18/2024 and dating back to 12/04/2023. FINDINGS: Doppler interrogation of the left hepatic vein demonstrate patency with elevated peak systolic veloci ty of 12 cm/s (normal is less than 5) although with appropriate direction of flow (hepatofugal). Peak systolic velocity of the middle hepatic vein is elevated measuring 18 cm/s (normal is less than 5) but with appropriate direction of flow (hepatofugal). Peak systolic velocity of the right hepatic vein is elevated measuring 19 cm/s (normal is less than 5 ) but with appropriate direction of flow (hepatofugal) Doppler interrogation of the left portal vein is low measuring 14 cm/s (normal is 20-40) but with nafisa ropriate direction of flow (hepatopedal). Doppler interrogation of the main portal vein demonstrates patency of flow with a normal peak systoli c velocity measuring 28 cm/s (normal is 20-40), and demonstrating normal direction of flow (hepatoped al). Reversal of flow (hepatofugal) is detected within the right portal vein (although this is within a po sterior branch, possibly secondary to technique) with a peak systolic velocity of 21 cm/s, within the lower limits of normal. No cavernous transformation is appreciated at the tere hepatis. The splenic vein is patent and demonstrates a peak systolic velocity of 8.9 cm/s (normal is between 9 and 30 cm/s). This measurement is generally obtained approximately 2 cm above the confluence with th e of the splenic vein with the superior mesenteric vein. This measurement appears to have been obtain ed at the entry of the splenic vein into the spleen for which the value is limited. Redemonstration of splenic enlargement measuring 15 cm, unchanged from prior. IMPRESSION: Elevated peak systolic velocity within the hepatic veins. Normal peak systolic velocity within the main portal and left portal veins. Reversal of flow is detec antionette within the right portal vein, possibly secondary to technique. This constellation of findings suggests alteration of flow at the level of the right atrium/hepatic v eins, rather than intrinsic hepatic disease. The peak systolic velocity of the splenic vein, is measured at the splenic hilum, rather than approxi mately 2 cm above the confluence with the superior mesenteric vein for which interpretation is limite d. No filling defect is detected within the portal, hepatic or splenic veins. Transjugular intrahepatic pressure measurements are suggested for optimal interpretation. Reviewed, dictated and finalized at location A. IMPRESSION: Elevated peak systolic velocity within the hepatic veins. Normal peak systolic velocity within the main portal and left portal veins. Rev ersal of flow is detected within the right portal vein, possibly secondary to t echnique. This constellation of findings suggests alteration of flow at the level of the right atrium/hepatic veins, rather than intrinsic hepatic disease. The peak systolic velocity of the splenic vein, is measured at the splenic hilu m, rather than approximately 2 cm above the confluence with the superior mesent kathia vein for which interpretation is limited. No filling defect is detected within the portal, hepatic or splenic veins. Transjugular intrahepatic pressure measurements are suggested for optimal inter pretation.
--- NOTE | ~2024-11-18 | CT_ITS ---
CLINICAL INDICATION: Lower abdominal pain with nausea COMPARISON: 12/04/2023 and dating back to 02/16/2012. TECHNIQUE: Multiple contiguous axial images of the abdomen and pelvis were performed following the ad ministration of with 100 mL Omnipaque-350 intravenous contrast The dose-length product (DLP) was 441.56 mGy-cm. Automated exposure control and iterative reconstruction technique were employed. FINDINGS/OBSERVATIONS: Visualized lower thorax: Redemonstration of the right lower lobe nodule, seen on 12/04/2023 measuring 5.4 mm on the previous exa mination, now measuring 4.6 mm. This focus is unchanged from examination dated 02/16/2012 for which no further follow-up is needed. The remainder of the bilateral lung bases are clear. The heart is of normal size, without pericardial effusion. Mural thickening of the distal esophagus is identified, an interval change from prior examinations. Liver: Well-circumscribed, rounded 13 mm focus of fluid attenuation within segment 7 of the liver, li sasha a cyst and unchanged from 12/04/2023, but not present on the 2011 examination. The remainder of the liver demonstrates otherwise homogeneous enhancement and is not enlarged. Gallbladder and biliary system: The gallbladder is distended, and otherwise unremarkable. Pancreas: The pancreas enhances homogeneously without ductal dilatation. Spleen: The spleen enhances homogeneously and is enlarged measuring 15 cm in longitudinal dimension, unchange d from prior. Kidneys: The bilateral kidneys enhance symmetrically without hydronephrosis or renal calculi. Adrenal glands: Unremarkable. Gastrointestinal tract: Mural thickening with surrounding inflammatory change in the rectosigmoid colon, deep within the pelv is consistent with acute diverticulitis. No drainable fluid collection is identified. A contained perforation is present (axial series, image 140) without gross free air identified. Appendix: The air-filled appendix is of normal caliber (axial series, images 114 through 125). Vasculature: Trace calcified atherosclerotic disease. Lymph nodes: No pathologically enlarged or morphologically suspicious lymph nodes within the retroperitoneum or at the root of the mesentery. Pelvic structures: The bladder is distended, and otherwise unremarkable. The uterus is either atrophic or surgically absent. Body wall and musculoskeletal: Redemonstration of severe degenerative disease within the lumbosacral spine with grade 2 anterolisthe sis of L4 onto L5, endplate changes and vacuum phenomena. IMPRESSION: Acute diverticulitis without a drainable fluid collection or gross perforation. A contained perforation is noted. Follow-up to resolution is recommended as a malignancy may have a similar appearance. Splenomegaly (unchanged). Findings within segment 7 of the liver, which likely represent a benign cyst. Further evaluation with a focused ultrasound versus contrast-enhanced MRI (with liver mass protocol) is recommended as this is an interval change from the 2012 examination. Mural thickening within the distal esophagus for which direct visualization is recommended, when the patient is clinically able. Reviewed, dictated and finalized at location A. IMPRESSION: Acute diverticulitis without a drainable fluid collection or gross perforation. A contained perforation is noted. Follow-up to resolution is recommended as a malignancy may have a similar appea donna. Splenomegaly (unchanged). Findings within segment 7 of the liver, which likely represent a benign cyst. F urther evaluation with a focused ultrasound versus contrast-enhanced MRI (with liver mass protocol) is recommended as this is an interval change from the 2012 examination. Mural thickening within the distal esophagus for which direct visualization is recommended, when the patient is clinically able.
--- OUTSIDE RECORDS SUMMARY | 2024-11-18 14:30 | XMS_ITS | Clinical Summary ---
Author Organization [facility] Maria Luz rodriguez [facility] Address [address] [place] [address] Care Team Providers Care Sausage Maker Name Role Phone Feliberto Pelaez MD Primary Care Provider [phone] Allergies No known active allergies Medications CALCIUM [...] Encounters Date Type Department Care Team Description 11/17/2024 External Device Data [facility] ABSTRACTION Provider, Abstract 09/16/2024 External Device Data [facility] ABSTRACTION Provider, Abstract 09/08/2024 External Device Data [facility] ABSTRACTION Provider, Abstract 09/08/2024 External Device Data [facility] ABSTRACTION Provider, Abstract 09/05/2024 External Device Data [facility] ABSTRACTION Provider, Abstract 09/04/2024 External Device Data [facility] ABSTRACTION Provider, Abstract 09/02/2024 External Device Data [facility] ABSTRACTION Provider, Abstract 09/01/2024 External Device Data [facility] ABSTRACTION Provider, Abstract 08/21/2024 Orders Only [facility] Oncology and Hematology - [place] [address] [place] [address] Shubham Koroma MD from Last 3 Months Family History Medical [...] 1957 DTAP/TDAP/TD VACCINES (1 - Tdap) 1976 COLORECTAL SCREENING 2002 Colorectal Cancer Screening 2002 FIT-DNA Q 3 years 2002 FIT/FOBT Q 1 year 2002 Flex Sig/CT Colonography Q 5 years 2002 Lung Cancer Screening 2007 PNEUMOCOCCAL VACCINE 50+ YEARS (1 of 1 - PCV) 06/16/20 07 ZOSTER VACCINE (1 of 2) 2007 OSTEOPOROSIS SCREENING 2022 INFLUENZA VACCINE (#1) 2024 BREAST CANCER SCREENING 08/21/2025 08/21/2024 RSV VACCINE (60+ or ) (1 - 1-dose 75+ series) 2032 Procedures Procedure Name Priority Date/Time Associated Diagnosis Comments MAMMO SCREENING BILAT Routine 08/21/2024 2:47 PM DIRECTOR BLOOD BANK from Last 3 Months Results * MAMMO SCREENING BILAT (08/21/2024 2:47 PM DIRECTOR BLOOD BANK) Anatomical Region Laterality Modality Breast Bilateral Mammography Shubham Koroma MD MAMMO ORDERABLES Final Result from Last 3 [place] [address] [employer] PPO MCR Care Teams Sausage Maker Relationship Specialty Start Date End Date Feliberto Pelaez MD [address] [place] [address] [address] [facility] [address] [place] [address] PCP - General Family Practice 11/01/23
--- OUTSIDE RECORDS SUMMARY | 2024-11-18 14:30 | XMS_ITS | Data Portability ---
Author Organization [place] - [facility], [employer] Address [address] [place] [address] Assessment Encounter Date Assessment Date Assessment LastModified by Organization Details LastModified Time 03/09/2020 03/09/2020 Medication Changes Pantoprazole 40 mg SHEILA obtained. Records requested. Labs ordered and sent to [facility]. Signs and symptoms of when to seek [...] plan. F/U 8 weeks, sooner if needed [email or web address] Not available 03/09/2020 18:14:50 05/31/2020 05/31/2020 Medication Changes U/S ordered and sent to [facility]. Signs and symptoms of when to [...] plan. F/U 12 weeks, sooner if needed [email or web address] Not available 05/31/2020 08:25:30 Plan of Treatment Reminders Order Date Submit Date Provider Last Modified By Organization Details Last Modified Time Details Appointments None recorded. Lab amylase + lipase, serum 2019 020 [facility], [address], [place], [address], 0 20:44:51 CMP, serum or plasma 2019 020 LALITO [facility], [address], [place], [address], 0 15:20:17 CBC w/ diff 2019 [facility], [address], [place], [address], 0 16:06:23 magnesium, blood 2019 [email or web address] [facility], [address], [place], [address], 0 20:44:51 vitamin B12 + folate, serum or blood 2019 [facility], [address], [place], [address], 0 15:20:18 iron + TIBC + ferritin, serum 2019 [facility], [address], [place], [address], 0 15:20:16 TSH, serum, reflex free T4 2019 [email or web address] [facility], [address], [place], [address], 0 20:44:51 lipid panel, blood 2019 LALITO [facility], [address], [place], [address], 0 15:20:17 hemoglobin A1c, QN, blood 2019 [email or web address] [facility], [address], [place], [address], 0 20:44:51 Referral gastroente rologist referral 2019 020 LALITO Steele MD, [address], [place], [address], 0 13:34:33 Procedures None recorded. Surgeries None recorded. Imaging US, groin 2019 [facility] ([facility]), [address] [facility] [place], [address], 0 10:39:10 MAMMO, screening, digital, bilateral 2019 [facility] Navigator, [address] [facility] [place] [place], [address], 0 09:05:28 Medication Orders pantoprazo le 40 mg tablet,del ayed release 2019 [email or web address] [id number], [address], [place], [place], [id number], 3 20:18:50 Patient TargetsNo targets recorded. Patient Instructions Encounter Date Encounter Id Patient Instructions Last Modified By Organization Details Last Modified Time 03/09/2020 [id number] learning about healthy weight [email or web address] Not available 03/09/2020 08:47:52 Reason for Referral Fall Intern Referral for Gastroesophageal reflux disease Referring Physician: Amy Stevens, Internal Medicine, Encounter Date: 03/09/2020 Results Created Date Observation Date Name Description Value Unit Range Abnormal Flag Note LastModifiedBy Organization Detail LastModifiedTime 03/10/20 20 03/15/2020 iron + TIBC + bessy tin, serum iron, total 95 mcg/d L 45-160 normal Not Available [employer] [facility] [address] [place], [address], 03/15/2020 15:20:16 03/10/20 20 03/15/2020 iron + TIBC + bessy tin, serum iron binding capacity 303 mcg/d L_(ca lc) 250-45 0 normal Not Available [address], [address], 03/15/2020 15:20:16 03/10/20 20 03/15/2020 iron + TIBC + bessy tin, serum % saturation 31 %_(ca lc) 16-45 normal Not Available [address], [address], 03/15/2020 15:20:16 03/10/20 20 03/15/2020 iron + TIBC + bessy tin, serum ferritin 36 NG/mL 16-288 normal Not Available [address], [address], 03/15/2020 15:20:16 03/10/20 20 03/15/2020 lipid panel , blood cholesterol, total 187 mg/dL <200 Not Available [address], [address], 03/15/2020 15:20:17 03/10/2003/15/2020 lipid panel , blood HDL cholesterol 60 mg/dL > or = 50 Not Available [address], [address], 03/15/2020 15:20:17 03/10/20 20 03/15/2020 lipid panel , blood triglyceride s 63 mg/dL <150 Not Available [address], [address], 03/15/2020 15:20:17 03/10/2003/15/2020 lipid panel , blood [...] whittington SS et al. CHRISTIANO. 2013; 310(1 7): 2061- 2068 For addit ional infor marina red refer to http: //chela suarez ics.c om/fa q/FAQ 164 (This link is being provi ded for infor stephanie nal/e ducat ional purpo ses only. ) Not Available [address] [place], [address], 03/15/2020 15:20:17 03/10/2003/15/2020 lipid panel , blood chol/HDLC ratio 3.1 calc <5.0 Not Available [facility] [address] [address] [place], [address], 03/15/2020 15:20:17 03/10/2003/15/2020 lipid panel , blood non HDL cholesterol 127 mg/dL _(alyssa c) <130 For patie nts with diabe michael plus 1 major ASCVD risk facto r, treat ing to a non-H DL-C goal of <100 mg/dL (LDL- C of <70 mg/dL ) is dewayne martinez n. Not Available [address] [address] [place], [address], 03/15/2020 15:20:17 03/10/2003/15/2020 CMP, serum or plasm a glucose 99 mg/dL 65-99 normal Fasti ng refer ence inter tomym Not Available [facility] [address] [address] [place], [address], 03/15/2020 15:20:17 03/10/2003/15/2020 CMP, serum or plasm a urea nitrogen (BUN) 17 mg/dL 7-25 normal Not Available [facility] [address] [address] [place], [address], 03/15/2020 15:20:17 03/10/2003/15/2020 CMP, serum or plasm a creatinine 0.86 mg/dL 0.50-0 .99 normal For patie nts >49 years of age, the refer ence limit for Creat inine is appro xiluciust jimi 13% highe r for peopl e ident ified as Afric an-Am licha n. Not Available [address], [address], 03/15/2020 15:20:17 03/10/2003/15/2020 CMP, serum or plasm a eGFR non-afr. moroccan 72 mL/mi n/1.7 3m2 > or = 60 normal Not Available [address], [address], 03/15/2020 15:20:17 03/10/2003/15/2020 CMP, serum or plasm a eGFR 84 mL/mi n/1.7 3m2 > or = 60 normal Not Available [address], [address], 03/15/2020 15:20:17 03/10/2003/15/2020 CMP, serum or plasm a BUN/creatini ne ratio NOT APPLIC ABLE (calc ) 6-22 Not Available [address], [address], 03/15/2020 15:20:17 03/10/2003/15/2020 CMP, serum or plasm a sodium 142 mmol/ L 135-14 6 normal Not Available [address], [address], 03/15/2020 15:20:17 03/10/2003/15/2020 CMP, serum or plasm a potassium 4.2 mmol/ L 3.5-5. 3 normal Not Available [address], [address], 03/15/2020 15:20:17 03/10/2003/15/2020 CMP, serum or plasm a chloride 107 mmol/ L 98-110 normal Not Available [address], [address], 03/15/2020 15:20:17 03/10/2003/15/2020 CMP, serum or plasm a carbon dioxide 26 mmol/ L 20-32 normal Not Available [address], [address], 03/15/2020 15:20:17 03/10/2003/15/2020 CMP, serum or plasm a calcium 8.8 mg/dL 8.6-10 .4 normal Not Available [address], [address], 03/15/2020 15:20:17 03/10/2003/15/2020 CMP, serum or plasm a protein, total 5.8 g/dL 6.1-8. 1 low Not Available [address], [address], 03/15/2020 15:20:17 03/10/2003/15/2020 CMP, serum or plasm a albumin 3.8 g/dL 3.6-5. 1 normal Not Available [address], [address], 03/15/2020 15:20:17 03/10/2003/15/2020 CMP, serum or plasm a globulin 2.0 g/dL_ (calc ) 1.9-3. 7 normal Not Available [address], [address], 03/15/2020 15:20:17 03/10/2003/15/2020 CMP, serum or plasm a albumin/glob ulin ratio 1.9 (calc ) 1.0-2. 5 normal Not Available [address], [address], 03/15/2020 15:20:17 03/10/20 20 03/15/2020 CMP, serum or plasm a bilirubin, total 0.5 mg/dL 0.2-1. 2 normal Not Available [address], [address], 03/15/2020 15:20:17 03/10/20 20 03/15/2020 CMP, serum or plasm a alkaline phosphatase 83 U/L 37-153 normal Not Available [facility] [employer] [address], [address], 03/15/2020 15:20:17 03/10/20 20 03/15/2020 CMP, serum or plasm a AST 17 U/L 10-35 normal Not Available [address], [address], 03/15/2020 15:20:17 03/10/20 20 03/15/2020 CMP, serum or plasm a ALT 16 U/L 6-29 normal Not Available [address], [address], 03/15/2020 15:20:17 03/10/20 20 03/15/2020 CBC w/ auto diff white blood cell count 3.4 thous and/u L 3.8-10 .8 low Not Available [address], [address], 03/15/2020 15:20:18 03/10/2003/15/2020 CBC w/ auto diff red blood cell count 4.01 grace on/uL 3.80-5 .10 normal Not Available [address], [address], 03/15/2020 15:20:18 03/10/20 20 03/15/2020 CBC w/ auto diff hemoglobin 12.8 g/dL 11.7-1 5.5 normal Not Available [facility] [address], [address], 03/15/2020 15:20:18 03/10/20 20 03/15/2020 CBC w/ auto diff hematocrit 37.8 % 35.0-4 5.0 normal Not Available [address], [address], 03/15/2020 15:20:18 03/10/20 20 03/15/2020 CBC w/ auto diff MCV 94.3 fL 80.0-1 00.0 normal Not Available [address], [address], 03/15/2020 15:20:18 03/10/20 20 03/15/2020 CBC w/ auto diff MCH 31.9 pg 27.0-3 3.0 normal Not Available [address], [address], 03/15/2020 15:20:18 03/10/20 20 03/15/2020 CBC w/ auto diff MCHC 33.9 g/dL 32.0-3 6.0 normal Not Available [address], [address], 03/15/2020 15:20:18 03/10/20 20 03/15/2020 CBC w/ auto diff RDW 12.8 % 11.0-1 5.0 normal Not Available [address], [address], 03/15/2020 15:20:18 03/10/20 20 03/15/2020 CBC w/ auto diff platelet count 142 thous and/u L 140-40 0 normal Not Available [address], [address], 03/15/2020 15:20:18 03/10/20 20 03/15/2020 CBC w/ auto diff MPV 10.7 fL 7.5-12 .5 normal Not Available [address], [address], 03/15/2020 15:20:18 03/10/20 20 03/15/2020 CBC w/ auto diff absolute neutrophils 1571 cells /uL 1500-7 800 normal Not Available [address], [address], 03/15/2020 15:20:18 03/10/20 20 03/15/2020 CBC w/ auto diff absolute lymphocytes 1380 cells /uL 850-39 00 normal Not Available [address], [address], 03/15/2020 15:20:18 03/10/20 20 03/15/2020 CBC w/ auto diff absolute monocytes 309 cells /uL 200-95 0 normal Not Available [address], [address], 03/15/2020 15:20:18 03/10/20 20 03/15/2020 CBC w/ auto diff absolute eosinophils 109 cells /uL 15-500 normal Not Available [address], [address], 03/15/2020 15:20:18 03/10/20 20 03/15/2020 CBC w/ auto diff absolute basophils 31 cells /uL 0-200 normal Not Available [address], [address], 03/15/2020 15:20:18 03/10/20 20 03/15/2020 CBC w/ auto diff neutrophils 46.2 % normal Not Available [address], [address], 03/15/2020 15:20:18 03/10/20 20 03/15/2020 CBC w/ auto diff lymphocytes 40.6 % normal Not Available [address], [address], 03/15/2020 15:20:18 03/10/20 20 03/15/2020 CBC w/ auto diff monocytes 9.1 % normal Not Available [address] [place], [address], 03/15/2020 15:20:18 03/10/20 20 03/15/2020 CBC w/ auto diff eosinophils 3.2 % normal Not Available [facility] [address], [address], 03/15/2020 15:20:18 03/10/20 20 03/15/2020 CBC w/ auto diff basophils 0.9 % normal Not Available [address], [address], 03/15/2020 15:20:18 03/10/20 20 03/15/2020 vitam in [...] pg/mL will have sympt oms. Not Available [address], [address], 03/15/2020 15:20:18 03/10/20 20 03/15/2020 vitam in B12 + folat e, serum or blood folate, serum 7.3 NG/mL normal Refer ence Range Low: <3.4 Borde rline : 3.4-5 .4 Reyna l: >5.4 Not Available [address], [address], 03/15/2020 15:20:18 06/17/20 20 06/17/2020 US, groin No observ ation record ed. [email or web address] [place] [facility] (Radiology) [address], [place], [address], 06/17/2020 11:38:34 Result Notes None recorded. Problems Name Problem SNOMED Code Status Onset Date Resolution Date Notes Provider Name and Address Organization Details Recorded Time Gastroesophage al reflux disease 426756634 Active 2019 CHARLEEN Lincoln-BC, PMHNP-BC [address], [place], [address], [facility] 0 08:35:51 Hyperlipidemia 24472251 Active 2019 JASWINDER LincolnP-BC, PMHNP-BC [address], [place], [address], [facility] 0 16:38:57 Elevated blood-pressure reading without diagnosis of hypertension 036558956 Active 2019 CHARLEEN Lincoln-BC, PMHNP-BC [address], [place], [address], [facility] 0 08:19:16 Atrial fibrillation 98625520 Active 2019 JASWINDER LincolnP-BC, PMHNP-BC [address], [place], [address], [facility] 0 08:21:48 Problem Notes None recorded. Procedures Surgical History Date Name Laterality Status Provider Name and Address Organization Details Recorded Time delivery completed CHARLEEN Lincoln-BC, PMHNP-BC [address] [place], [address], [facility] 03/08/2020 17:35:28 Hysterectomy completed Amy Stevens FINANCIAL ACCOUNTANT-BC, PMHNP-BC [address] [place], [address], [facility] 03/08/2020 17:35:51 Carpal tunnel surgery completed Amy Stevens FINANCIAL ACCOUNTANT-BC, PMHNP-BC [address] [place], [address], [facility] 03/08/2020 17:35:47 thumb surgery completed Amy Stevens FINANCIAL ACCOUNTANT-BC, PMHNP-BC [address] [place], [address], [facility] 03/08/2020 17:36:10 Rotator Cuff Repair completed JASWINDER LincolnP-BC, PMHNP-BC [address], [place], [address] [place] [address], [facility] 03/08/2020 17:36:38 colonoscopy completed CHARLEEN Lincoln-BC, PMHNP-BC [address], [place], [address] [place] [address], [facility] 03/08/2020 17:39:02 Dilation and curettage completed JASWINDER LincolnP-BC, PMHNP-BC [address], [place], [address] [place] [address], [facility] 03/09/2020 08:46:43 Imaging Results Imaging Date Name Status LastModified by Organiz ation Details LastModified Time 06/17/2020 US, groin completed [email or web address] [place] [facility] (Radiology) [address] [facility] , [place], [address], 06/17/2020 11:38:34 Procedure Notes None recorded. Medical [...] % 98 % 97.9 [degF] 28.3 kg/m2 39872.2 2 g 130 mm[Hg] 82 mm[Hg] Heathercharo Cordoba [facility] 0 08:25:46 Date Recorded Body height Heart rate Respiratory rate Oxygen saturation Oxygen saturation in Arterial blood by Pulse oximetry Body temperature Systolic blood pressure Diastolic blood pressure Provider Name and Address Organization Details Last Updated DateTime 0 170.18 cm 75 /min 20 /min 99 % 99 % 97.5 [degF] 114 mm[Hg] 66 mm[Hg] Melony Lamas [facility] 0 08:17:09 Social History Question Answer Notes LastModified by Organizat ion Details LastModified Time Tobacco Smoking Status Former [facility]oker Not Available [facility] 04/26/2020 03:14:00 Do You Have An Advance Directive? No [id number] Information not available 04/26/2020 What Is Your Level Of Caffeine Consumption? Moderate [id number] Information not available 04/26/2020 How Much Tobacco Do You Chew? None [id number] Information not available 04/26/2020 What Type Of Diet Are You Following? REGULAR [id number] Information not available 04/26/2020 Which Illicit Or Recreational Drugs Have You Used? None [id number] Information not available 04/26/2020 Education 2 Year College [email or web address] Information not available 03/08/2020 Are There Any Guns Present In Your Home? No [id number] Information not available 04/26/2020 Hard Of Hearing Or Deaf In One Or Both Ears? No [email or web address] Information not available 03/08/2020 Legally Blind In One Or Both Eyes? No [email or web address] Information no t available 03/08/2020 Live Alone Or With Others? Alone [email or web address] Information not available 03/08/2020 What Was The Date Of Your Most Recent Tobacco Screening? 03/09/2020 [id number] Information not available 04/26/2020 How Many Children Do You Have? 3 [id number] Information not available 04/26/2020 Performs Monthly Self-breast Exam? Yes [email or web address] Information no t available 03/08/2020 Seat Belts Used Routinely Yes [email or web address] Information not available 03/08/2020 Are You Sexually Active? No [id number] Information not available 04/26/2020 Smoke Alarm In Home Yes [email or web address] Information not available 03/08/2020 At What Age Did You Start Smoking Tobacco? 25 [id number] Information not available 04/26/2020 Are You Passively Exposed To Smoke? Yes [email or web address] Information no t available 03/08/2020 How Much Tobacco Do You Smoke? 1 PPD [id number] Information not available 04/26/2020 General Stress Level Medium [email or web address] Information not available 03/08/2020 Do You Use Sunscreen Routinely? Yes [id number] Information not available 04/26/2020 How Many Years Have You Smoked Tobacco? 30 [id number] Information not available 04/26/2020 Sex: Unknown Functional Status Question Answer Note LastModified by Organizat ion Details LastModified Time What is your level of alcohol consumption? Occasional [id number] Information not available 04/26/2020 Do you or have you ever used smokeless tobacco? Never used smokeless tobacco [id number] Information not available 04/26/2020 Are you currently employed? Yes [id number] Information not available 04/26/2020 Are you able to walk? YESWOREST [id number] Information not available 04/26/2020 Are you able to care for yourself? 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 Never used electronic cigarettes [id number] Information not available 04/26/2020 What is your exercise level? Occasional [id number] Information not available 04/26/2020 Mental Status None recorded. Family History Relationship Description Onset Age of this Age Resolved Age Notes LastModified by Organization Details LastModified Time Father Congestive heart failure Not available 2019 17:25:18 Father Diabetes mellitus Not available 2019 17:25:29 Father Heart disease [email or web address] Not available 2019 17:25:36 Father Hyperlipidem ia [email or web address] Not available 2019 17:25:43 Father Essential hypertension [email or web address] Not available 01/2020 17:25:55 Father Rheumatoid arthritis [email or web address] Not available 2019 17:26:17 Father SARS-CoV-2 [email or web address] Not availab le 05/31/2020 08:17:46 Brother Diabetes mellitus [email or web address] Not available 2019 17:25:29 Brother Family history of malignant neoplasm [email or web address] Not available 2019 17:28:04 Brother Essential hypertension [email or web address] Not available 01/2020 17:28:15 Unspecified Relation Family history of malignant neoplasm [email or web address] Not available 2019 17:27:22 Medical History Condition Response Hospitalizations Y Atrial Fibrillation / AFIB Y Pneumonia Y Gynecological HistoryNo gynecological history recorded. Obstetrics History GPAL:G 3 P 3 0 0 3 Type Value Full Term 3 Living 3 Total 3 Past Encounters Encounter ID Performer Location Encounter Start Date Encounter Closed Date Diagnosis/Indication Diagnosis SNOMED-CT Code Diagnosis ICD10 Code Diagnosis Note [id number] Amy Reyes Rod[place], FINANCIAL ACCOUNTANT-BC, PMHNP-BC Main Office [address] [place] [address] 03/09/2020 06:24:53 03/09/2020 18:17:44 Screening for malignant neoplasm of breast 884904713 Z12.39 Gastroesop hageal reflux disease 760661408 K21.9 Lifestyle modificati ons with wt loss, avoid meals 2-3 h before HS. Consider eliminatin g food triggers: chocolate, caffeine, ETOH, acid/spicy food. Started on Pantoprazo le.Sent referral to GI for possible EGD for further evaluation . Elevated blood-pressure reading without diagnosis of hypertension 007001715 R03.0 Screening for cardiovascular system disease 740705907 Z13.6 Fatigue 03010330 R53.83 Anemia 245414918 D64.9 Abdominal pain 94751265 R10.31 Glucose le herbert outside reference range 660341481 R73.09 Body mass index 25-29 - overweight 970734784 Z68.28 Right inguinal hernia 23 9355779 K40.90 obtaining past imaging, if nothing is noted will do additional imaging [id number] Amy Stevens, FINANCIAL ACCOUNTANT-BC, PMHNP- Main Office [address] [place] [address] 05/31/2020 07:16:23 05/31/2020 08:27:00 Gastroesophageal reflux disease 863654888 K21.9 Lifestyle modificati ons with wt loss, avoid meals 2-3 h before HS. Consider eliminatin g food triggers: chocolate, caffeine, ETOH, acid/spicy food. Elevated blood-pressure reading without diagnosis of hypertension 660306158 R03.0 Much better BP this visit. Right inguinal hernia 23 8769543 K40.90 U/S ordered for US, inguinal hernia Hyperlipidemia 11274975 E78.5 In order to maintain a LDL<70 [...] ID Guarantor Name 03/09/2020 1 [place] [id number] Amy Barnes [id number] Amy Barnes 05/31/2020 1 [place] [id number] Amy Barnes [id number] Amy Barnes Notes Date Note Type Note Provider Name and Address Organization Details Recorded Time 03/09/2020 text/html 64 y/o female he re to establish care. Previously seeing Dr. Grimes. [facility] in [place]. Had been seeing Dr. Small who had retired. Patient reports that she has been having RLQ intermittent abdominal pain for several years. Has been progressively getting worse in the past year. She had some imaging done a couple years back at [facility]. GERD - Patient c/o heartburn/regurgita tion. Denies [...] was seeing Dr. Nichole, Eye Doctor at [facility]. Amy Stevens, FINANCIAL ACCOUNTANT-, PMHNP-[address], [address], [facility] 03/09/2020 18:16:55 05/31/2020 text/html Ana Laura [...] - Was on Xarelto and stopped by wire dropper. On rate controlled medications.Complia nt. No side effects. Reports intermittent palpitations. Denies CP, SOB. Amy Stevens, FINANCIAL ACCOUNTANT-BC, PMHNP-BC [address] [place], [address], [facility] 05/31/2020 08:26:36 OBGyn Episode No OBEpisode recorded.
--- OUTSIDE RECORDS SUMMARY | 2024-11-18 14:31 | XMS_ITS | Clinical Summary ---
Author Organization [facility] Address [address] [place] [address] Care Team Providers Care Mixing Technician Name Role Phone Feliberto Pelaez MD Primary Care Provider [phone] Allergies No known active allergies Medications sertraline [...] fatigue 12/28/2022 Palpitations 08/10/2022 Paroxysmal atrial fibrillation 05/02/2020 Esophagitis 05/02/2020 Encounter for medical examination to establish c are 09/07/2019 Encounter for screening mammogram for breast can cer 09/07/2019 Encounter for screening for lipoid disorders 03/2020 Surgical History Surgery Date Site/Laterality Comments SECTION CARPAL TUNNEL RELEASE SHOULDER SURGERY Right HYSTERECTOMY HIATAL HERNIA REPAIR 10/08/2023 Medical History Medical History Date Comments Atrial fibrillation (HCC) Acid indigestion Diverticulosis Anxiety and depression [...] on file 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
--- OUTSIDE RECORDS SUMMARY | 2024-11-18 14:31 | XMS_ITS | Referral Summary ---
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
--- OUTSIDE RECORDS SUMMARY | 2024-11-18 14:31 | XMS_ITS | Clinical Summary ---
Author Organization [facility] Address [address] [place] [address] Phone Care Team Providers Care Optical Lathe Operator Name Role Phone Kyung Goel NP Primary Care Provider [phone] Social History Tobacco Use Types Packs/Day Years Used Date Smoking Tobacco: Never Assessed Comments Unknown Sex and Gender Information Value Date Recorded Sex Assigned at Not on file Legal Sex Female 8:36 PM CDT Gender Identity Not on file Sexual Orientation Not on file Plan of Treatment Health Maintenance Due Date Last Done Comments Hepatitis C Virus (HCV) Screening 1955 TdaP Immunization 1955 Colonoscopy 2002 Colorectal Cancer Screening 2002 Cologuard 2007 Immunochemical Fecal Occult Blood 2007 Pneumococcal Immunization (5 0+ years) (1 [...] to complete this topic [place] [address] [facility] Care Teams Optical Lathe Operator Relationship Specialty Start Date End Date Kyung Goel NP [address] [place] [address] PCP - General Family Medicine 04/24/21
--- OUTSIDE RECORDS SUMMARY | 2024-11-18 14:31 | XMS_ITS | Encounter Summary ---
Author Organization [facility] Address [address] [place] [address] Care Team Providers Care Shop Assistant Name Role Phone Feliberto Pelaez MD Primary Care Provider [phone] Encounter Details Date Type Department Care Team (Late st Contact Info) Description 11/17/2024 External Device Data [facility] ABSTRACTION Provider, Abstract NO ADDRESS ON FILE Social History Tobacco Use Types Packs/Day Years [...] on file Sexual Orientation Not on file documented as of this encounter Plan of Treatment Not on file documented as of this encounter Visit Diagnoses Not on filedocumented in this encounter Care Teams Shop Assistant Relationship Specialty Start Date End Date Feliberto Pelaez MD [address] [place] [address] [address] [place] [id number] PCP - General Family Practice 11/01/23 documented as of this encounter
--- OUTSIDE RECORDS SUMMARY | 2024-11-18 14:31 | XMS_ITS | Continuity of Care Document ---
Author Organization [facility] Address [address] [place] [address] Phone Care Team Providers Care Senior Php Software Developer Name Role Phone Rohit Nichole MD Unavailable Unavailable Allergies, Adverse Reactions, Alerts Substance Reaction Status Criticality No Known Allergies Active No Inform ation Procedures Procedure Date Eye Exam, New Patient Advance Directives Directive Yes / No Effective Date File Name No Information Encounters Encounter Description Practice Location Reason(s) For Visit Diagnoses Date Provider Providers Copied on Encounter [facility], [address], [place], [place], [id number], [place] tel:[phone] [place] Professional WIE (chief complaint) Pain of right orbit [address] [facility], [facility] [place], [place], [id number], [place]. tel:[phone] Referring Provider: Rohit Feng, [address] [facility] [address], [place], [address] . tel:[phone] Family History Family Member Type Diagnosis Age At Onset No Information Payers Payer name Insurance type Covered green party ID Authoriza ticharo(s) [facility] [id number] Social History Type Description Quantity Date Captured [...]
--- OUTSIDE RECORDS SUMMARY | 2024-11-18 14:31 | XMS_ITS | Clinical Summary ---
Author Organization [facility] Address [address] [facility] [place] [address] Care Team Providers Care Fountain Server Name Role Phone Unavailable Primary Care Provider Unavailabl e Source Comments [facility],non-owned Affiliates and Associated Physician Practices is amultiple site organization consisting of ambulatory clinics and hospital sitesin [place], [place], [place] and [place]. This disclosure is being madepursuant to the Care Everywhere program and may not contain all information available regarding this patient. Last updated 18.[employer] Allergies No known active allergies Medications * Be aware that medications may not be up to date on this document. Alwaysverify current medications with the patient. No known medications Active Problems No known active problems Social History Tobacco Use Types Packs/Day Years Used Date Smoking Tobacco: Never Assessed Comments Unknown Sex and Gender Information Value Date Recorded Sex Assigned at Not on file Legal Sex Female 7:36 AM CDT Gender Identity Not on file [...] VACCINE (1 - 2023-2 5 season) 2024 DEPRESSION SCREENING 07/01/2024 INFLUENZA VACCINE (Season Ended) 2025 Respiratory Syncytial Virus (RSV) Vaccine Pt: or [...] to complete this topic MENINGOCOCCAL (Group B) VACC INE SHARED DECISION-MAKING Aged Out No longer eligibl e based on patient's age to complete this topic MENINGOCOCCAL GROUPS A/C/Y/W VACCINE Aged Out No longer eligible b ased on patient's age to complete this topic [place] [address] [facility] HUMAN SELF PAY NO INSURANCE Member Subscriber Plan / Payer (Ef fective for All Dates) Name:Amy Roach Member ID:Not on file Relation to Subscriber:Not on file Name:AMY ROACH Subscriber ID:Not on file Address: [address] [place] [address] [place] [address] Payer ID:Not on file Group ID:Not on file Type:Self Pay Address: [place] [employer] SELF PAY NO INSURANCE Member Subscriber Plan / Payer (Ef fective for All Dates) Name:Amy Roach Member ID:Not on file Relation to Subscriber:Not on file Name:AMY ROACH Subscriber ID:Not on file Address: [address] [facility] [place] [address] Payer ID:Not on file Group ID:Not on file Type:Self Pay Address: [place] [employer] SELF PAY NO INSURANCE Member Subscriber Plan / Payer (Ef fective for All Dates) Name:Amy Roach Member ID:Not on file Relation to Subscriber:Not on file Name:AMY ROACH Subscriber ID:Not on file Address: [address] [facility] [place] [address] Payer ID:Not on file Group ID:Not on file Type:Self Pay Address: [place] [employer] SELF PAY NO INSURANCE Member Subscriber Plan / Payer (Ef fective for All Dates) Name:Amy Roach Member ID:Not on file Relation to Subscriber:Not on file Name:AMY ROACH Subscriber ID:Not on file Address: [address] [facility] [place] [address] Payer ID:Not on file Group ID:Not on file Type:Self Pay Address: [place], [place] [employer] [place] [id number] SELF PAY NO INSURANCE Member Subscriber Plan / Payer (Ef fective for All Dates) Name:Amy Roach Member ID:Not on file Relation to Subscriber:Not on file Name:AMY ROACH Subscriber ID:Not on file Address: [address] [facility] [place] [address] Payer ID:Not on file Group ID:Not on file Type:Self Pay Address: [place] [employer] SELF PAY NO INSURANCE Member Subscriber Plan / Payer (Ef fective for All Dates) Name:Amy Roach Member ID:Not on file Relation to Subscriber:Not on file Name:AMY ROACH Subscriber ID:Not on file Address: [address] [facility] [place] [address] Payer ID:Not on file Group ID:Not on file Type:Self Pay Address: [place], [place] * Guarantor: AMY ROACH Account Type Relation to Patient Date of Phone Billing Address Personal/Family [address] [facility] [place] [address] [employer] SELF PAY NO INSURANCE Member Subscriber Plan / Payer (Ef fective for All Dates) Name:Amy Roach Member ID:Not on file Relation to Subscriber:Not on file Name:AMY ROACH Subscriber ID:Not on file Address: [address] [facility] [address] [place], [facility] Payer ID:Not on file Group ID:Not on file Type:Self Pay Address: [place], [place] * Guarantor: AMY ROACH Account Type Relation to Patient Date of Phone Billing Address Personal/Family [address] [facility] [place] [address] [employer] SELF PAY NO INSURANCE Member Subscriber Plan / Payer (Ef fective for All Dates) Name:Amy Roach Member ID:Not on file Relation to Subscriber:Not on file Name:AMY ROACH Subscriber ID:Not on file Address: [address] [facility] [place] [address] Payer ID:Not on file Group ID:Not on file Type:Self Pay Address: [place], [place] * Guarantor: AMY ROACH Account Type Relation to Patient Date of Phone Billing Address Personal/Family [address] [facility] [place] [address] [employer] SELF PAY NO INSURANCE Member Subscriber Plan / Payer (Ef fective for All Dates) Name:Amy Roach Member ID:Not on file Relation to Subscriber:Not on file Name:AMY ROACH Subscriber ID:Not on file Address: [address] [facility] [place] [address] Payer ID:Not on file Group ID:Not on file Type:Self Pay Address: [place], [place]
--- NOTE | 2024-11-18 15:51 | ED.ABDPAIN ---
HPI - Abdominal Pain General Chief Complaint: Abdominal Pain <DEVI Lopez Last Filed: 11/18/24 16:05> Stated Complaint: LOWER ABD PAIN X3D <DEVI Lopez Last Filed: 11/18/24 16:05> Time Seen by Provider: 11/18/24 15:53 <DEVI Lopez Last Filed: 11/18/24 16:05> Focused HPI: Patient is a 69 y/o female who presents to the ED with c/o lower abdominal pain. Patient reports having pain throughout her lower abdomen over the past 3 days. States pain became worse today which prompted her presentation. She thought she may be getting constipated. Has been taking stool softeners, but states she is only able to pass small amounts of stool at a time. Reports nausea with dry heaving, chills, bloating. Denies fevers. Notes hx of hiatal hernia repair last September here. GENERAL: Well-appearing, well-nourished, and in no acute distress. HEAD: Normocephalic, atraumatic. CHEST: Clear to auscultation. ?No respiratory distress. HEART: Regular rate and rhythm.? ABD: Mild tenderness to palpation throughout lower abdomen. No rebound. Normoactive BS NEURO: ?Alert and oriented x3. Patient screened in triage and initial orders placed.? ?Additional care and disposition to be based upon?diagnostic testing and treatment. <DEVI Lopez Last Filed: 11/18/24 16:05> Source: patient <DEVI Lopez Last Filed: 11/18/24 16:05> Mode of arrival: ambulatory <DEVI Lopez Last Filed: 11/18/24 16:05> Limitations: no limitations <DEVI Lopez Last Filed: 11/18/24 16:05> Related Data Home Medications: Home Medications ?Medication ?Instructions ?Recorded ?Confirmed ?Last Taken ?Type ascorbate calcium (vitamin C) 500 mg PO DAILY 07/20/22 11/18/24 11/17/24 History folic acid 1 mg tablet 1 mg PO DAILY 07/25/22 11/18/24 11/17/24 History mecobalamin (vitamin B12) 1,000 1,000 mcg sublingual DAILY 07/25/22 11/18/24 11/17/24 History mcg disintegrating tablet,sublingual finasteride 1 mg tablet 1 mg PO DAILY 11/18/24 11/18/24 Unknown History minoxidil 2.5 mg tablet 1.25 mg PO DAILY 11/18/24 11/18/24 Unknown History progesterone micronized 100 mg 100 mg PO QPM 11/18/24 11/18/24 11/17/24 History capsule terbinafine HCl 250 mg tablet 250 mg PO DAILY 11/18/24 11/18/24 Unknown History <DEVI Lopez Last Filed: 11/18/24 16:05> Allergies/Adverse Reactions: Allergies Allergy/AdvReac Type Severity Reaction Status Date / Time oxycodone (From Percocet) AdvReac Severe Nausea and Verified 11/18/24 14:24 Vomiting <DEVI Lopez Last Filed: 11/18/24 16:05> Review of Systems Review of Systems: All systems reviewed & are unremarkable except as noted in HPI and below <Alem Valentin PA-C - Last Filed: 11/18/24 21:40> [facility] Past Medical History Medical History: Medical History Anxiety Anxiety with depression Asymptomatic microscopic hematuria Atypical chest pain B12 deficiency BMI 29.0-29.9,adult BMI 32.0-32.9,adult Breast cancer screening Bronchitis, acute Chest pain Chronic pain of left wrist X-ray 09/27/2021 with osteopenia but otherwise normal. Colon cancer screening Depression Dysphagia Elevated BP without diagnosis of hypertension Esophageal dysmotility Fatigue Folic acid deficiency Hx of atrial fibrillation without current medication Hyperlipidemia Large hiatal hernia Leukopenia Nasal congestion Osteopenia Overweight (BMI 25.0-29.9) Post-menopausal Shortness of breath Situational stress Tobacco use disorder Vitamin D deficiency <DEVI Lopez Last Filed: 11/18/24 16:05> Surgical History Surgical History: Surgical History Arthritis of carpometacarpal (CMC) joint of left thumb Left thumb CMC suspension arthroplasty August 13, 2022 De Quervain's tenosynovitis, left Left first dorsal compartment release August 13, 2022 H/O: hysterectomy History of bilateral carpal tunnel release History of esophagogastroduodenoscopy (EGD) History of repair of hiatal hernia Robotic assisted laparoscopic paraesophageal hernia repair with 270 degree fundoplication 10/08/23 <DEVI Lopez Last Filed: 11/18/24 16:05> Family History Family History: Family History Father Diabetes mellitus Hypertension Grandparent Family history of cardiovascular disease Family history of malignant neoplasm Other Cancer Cerebrovascular accident <DEVI Lopez Last Filed: 11/18/24 16:05> Social History Social History: Social History Smoking packs per day: 1 Smoking cigarettes per day: 20.0 Years smoked: 25 Smoking pack-years: 25.00 Smoking status: Former smoker Tobacco type: cigarettes Alcohol intake: current Drinks per week: 1 Alcohol use details: TWO DRINKS PER MONTH Substance use: never Substance use type: does not use Do You Feel Safe in your Home?: Yes Lack of Transportation: No Lack of Food: Never True Current Housing: I Have Housing Concerned About Future Housing: No Difficulty Paying Gas/Electric Bills: No Difficulty Paying for Meds: No Currently Unemployed: No Education: High School Diploma/GED Difficulty w/ Childcare or Family Care: No Living arrangements: alone Occupation/Education: occupation 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 HEAD: Normocephalic, atraumatic. EYES: EOMI. CHEST: Clear to auscultation. No respiratory distress. No wheezes rales or rhonchi HEART: Regular rate and rhythm. No murmur heard. Normal peripheral pulses. ABDOMEN: Soft, nondistended, normal active bowel sounds. Tender to palpation throughout the lower abdomen, without guarding EXTREMITIES: Normal range of motion. No edema. SKIN: Warm, dry, no rash. NEURO: No focal deficits. Alert and oriented x3. PSYCH: Normal mood and affect <Alem Valentin PA-C - Last Filed: 11/18/24 21:40> Course Course Emergency Course: Patient updated on her workup and recommendation for admission <Alem Valentin PA-C - Last Filed: 11/18/24 21:40> NURSING MANAGER/PA Physician Supervision For this patient encounter, I reviewed the NURSING MANAGER or PA documentation, treatment plan, and medical decision making; and I had [id number] time with this patient. <Librado Narayanan MD - Last Filed: 11/19/24 07:50> Consultations Consultation #1: Spoke with general surgery who will consult <Alem Valentin PA-C - Last Filed: 11/18/24 21:40> Date: 11/18/24 <Alem Valentin PA-C - Last Filed: 11/18/24 21:40> Consultation #2: Spoke with hospitalist about patient and workup who accepts admission <Alem Valentin PA-C - Last Filed: 11/18/24 21:40> Date: 11/18/24 <DEVI Britt Last Filed: 11/18/24 21:40> Vital Signs Vital signs: Vital Signs Temperature 97.9 F 11/18/24 14:55 Pulse Rate 116 H 11/18/24 14:55 Respiratory Rate 18 11/18/24 14:55 Blood Pressure 119/86 11/18/24 14:55 Pulse Oximetry 98 11/18/24 14:55 Oxygen Delivery Room Air 11/18/24 14:55 Temperature 98.7 F 11/19/24 04:00 Pulse Rate 97 11/19/24 04:00 Respiratory Rate 18 11/19/24 04:00 Blood Pressure 107/58 L 11/19/24 04:00 Pulse Oximetry 96 11/19/24 04:00 Oxygen Delivery Room Air 11/18/24 21:33 <DEVI Lopez Last Filed: 11/18/24 16:05> Vital Signs Temperature 97.9 F 11/18/24 14:55 Pulse Rate 116 H 11/18/24 14:55 Respiratory Rate 18 11/18/24 14:55 Blood Pressure 119/86 11/18/24 14:55 Pulse Oximetry 98 11/18/24 14:55 Oxygen Delivery Room Air 11/18/24 14:55 Temperature 98.7 F 11/19/24 04:00 Pulse Rate 97 11/19/24 04:00 Respiratory Rate 18 11/19/24 04:00 Blood Pressure 107/58 L 11/19/24 04:00 Pulse Oximetry 96 11/19/24 04:00 Oxygen Delivery Room Air 11/18/24 21:33 <Alem Valentin PA-C - Last Filed: 11/18/24 21:40> Vital Signs Temperature 97.9 F 11/18/24 14:55 Pulse Rate 116 H 11/18/24 14:55 Respiratory Rate 18 11/18/24 14:55 Blood Pressure 119/86 11/18/24 14:55 Pulse Oximetry 98 11/18/24 14:55 Oxygen Delivery Room Air 11/18/24 14:55 Temperature 98.7 F 11/19/24 04:00 Pulse Rate 97 11/19/24 04:00 Respiratory Rate 18 11/19/24 04:00 Blood Pressure 107/58 L 11/19/24 04:00 Pulse Oximetry 96 11/19/24 04:00 Oxygen Delivery Room Air 11/18/24 21:33 <Librado Narayanan MD - Last Filed: 11/19/24 07:50> MDM - Abdominal Pain MDM Narrative Medical decision making narrative: MSE by MANDY in triage. <Ondina Carlos PA-C - Last Filed: 11/18/24 16:05> MSE by MANDY in triage. Patient presents the emergency department for lower abdominal pain, nausea. She is afebrile and nontoxic appearing. Tachycardic upon arrival, this normalized with IV fluids. Cbc without leukocytosis. Metabolic panel without concerning findings. CT abdomen pelvis shows acute diverticulitis with a contained perforation. Also a possible liver cyst as well as some esophagitis. Patient updated on her workup and recommendation for admission. Spoke with general surgery who will consult. Spoke with hospitalist about patient and workup who accepts admission <Alem Valentin PA-C - Last Filed: 11/18/24 21:40> Differential Diagnosis Differential diagnosis: Likely abdominal pain, calculus of kidney, constipation, diverticulitis and small bowel obstruction <Alem Valentin PA-C - Last Filed: 11/18/24 21:40> Lab Data Attestation: I reviewed the patient's lab results. <Alem Valentin PA-C - Last Filed: 11/18/24 21:40> Result diagrams: 11/19/24 05:05 11/19/24 05:05 <Ondina Carlos PA-C - Last Filed: 11/18/24 16:05> Labs: Lab Results 11/18/24 Range/Units 16:03 WBC 5.4 (4.5-10.0) K/mm3 RBC 3.94 L (4.2-5.4) M/mm3 Hgb 12.0 (12.0-15.0) g/dL Hct 36.5 L (37.0-47.0) % MCV 92.6 (80-100) fl MCH 30.5 (26-34) pg MCHC 32.9 (32-36) g/dl RDW 13.3 (11.5-14.5) % Plt Count 132 L (150-375) k/mm3 MPV 10.1 (7.4-10.4) fl Immature Gran % (Auto) 0.4 (0-0.5) % Neut % (Auto) 72.4 (45.5-73.1) % Lymph % (Auto) 16.9 L (18.3-44.2) % [place] % (Auto) 9.5 H (2.6-8.5) % Eos % (Auto) 0.6 (0-4.4) % Baso % (Auto) 0.2 (0.2-1.2) % Lymph # (Auto) 0.91 (0.9-3.2) K/mm3 [place] # (Auto) 0.5 (0.1-0.6) K/mm3 Eos # (Auto) 0.0 (0-0.3) K/mm3 Baso # (Auto) 0.0 (0.0-0.1) K/mm3 Abs Immat Gran (auto) 0.02 (0.00-0.031) K/mm3 Absolute Neuts (auto) 3.9 (1.3-6.7) K/mm3 Absolute Nucleated RBC 0.000 (0.0-0.012) K/mm3 Nucleated RBC % 0.0 (0.0-0.2) % % Immature Plt Fraction 2.6 (0.9-11.2) % Sodium 138 (137-145) mmol/L Potassium 3.6 (3.4-5.0) mmol/L Chloride 105 (98-107) mmol/L Carbon Dioxide 24 (22-30) mmol/L Anion Gap 9 (4-12) mmol/L BUN 17 (7-17) mg/dL Creatinine 0.79 (0.7-1.0) mg/dL Estim Creat Clear Calc 56 ml/min Estimated GFR > 60 (59 - ) Glucose 93 (65-110) mg/dL Calcium 8.9 (8.4-10.2) mg/dL Total Bilirubin 0.7 (0.2-1.3) mg/dL AST 25 (14-36) U/L ALT 15 (6-35) U/L Alkaline Phosphatase 76 (38-126) U/L Total Protein 7.0 (6.3-8.2) g/dL Albumin 4.1 (3.5-5.1) g/dL Lipase 37 (23-300) U/L Urine Color Yellow (Yellow) Urine Appearance Cloudy H (Clear) Urine pH 6.0 (5.0-9.0) Ur Specific [place] 1.020 (1.001-1.035) Urine Protein Negative (Negative) mg/dL Urine Glucose (UA) Negative (Negative) mg/dL Urine Ketones 1+ H (Negative) mg/dL Ur Blood (Man) Negative (Negative) Urine Nitrate Negative (Negative) Urine Bilirubin Negative (Negative) Urine Urobilinogen 1.0 (<2.0) mg/dL Add Ur Microanalysis Reviewed Leukocyte Esterase Rfl Trace H (Negative) FEDE/UL Urine RBC 6-10 H (0-2) /hpf Urine WBC 0-5 (0-3) /hpf Ur Squamous Epith Cells Few (Few) /hpf Urine Bacteria None seen /hpf Urine Casts 0-2 <Ondina N. Gaudreault, PA-C - Last Filed: 11/18/24 16:05> Lab Results 11/18/24 Range/Units 16:03 WBC 5.4 (4.5-10.0) K/mm3 RBC 3.94 L (4.2-5.4) M/mm3 Hgb 12.0 (12.0-15.0) g/dL Hct 36.5 L (37.0-47.0) % MCV 92.6 (80-100) fl MCH 30.5 (26-34) pg MCHC 32.9 (32-36) g/dl RDW 13.3 (11.5-14.5) % Plt Count 132 L (150-375) k/mm3 MPV 10.1 (7.4-10.4) fl Immature Gran % (Auto) 0.4 (0-0.5) % Neut % (Auto) 72.4 (45.5-73.1) % Lymph % (Auto) 16.9 L (18.3-44.2) % [place] % (Auto) 9.5 H (2.6-8.5) % Eos % (Auto) 0.6 (0-4.4) % Baso % (Auto) 0.2 (0.2-1.2) % Lymph # (Auto) 0.91 (0.9-3.2) K/mm3 [place] # (Auto) 0.5 (0.1-0.6) K/mm3 Eos # (Auto) 0.0 (0-0.3) K/mm3 Baso # (Auto) 0.0 (0.0-0.1) K/mm3 Abs Immat Gran (auto) 0.02 (0.00-0.031) K/mm3 Absolute Neuts (auto) 3.9 (1.3-6.7) K/mm3 Absolute Nucleated RBC 0.000 (0.0-0.012) K/mm3 Nucleated RBC % 0.0 (0.0-0.2) % % Immature Plt Fraction 2.6 (0.9-11.2) % Sodium 138 (137-145) mmol/L Potassium 3.6 (3.4-5.0) mmol/L Chloride 105 (98-107) mmol/L Carbon Dioxide 24 (22-30) mmol/L Anion Gap 9 (4-12) mmol/L BUN 17 (7-17) mg/dL Creatinine 0.79 (0.7-1.0) mg/dL Estim Creat Clear Calc 56 ml/min Estimated GFR > 60 (59 - ) Glucose 93 (65-110) mg/dL Calcium 8.9 (8.4-10.2) mg/dL Total Bilirubin 0.7 (0.2-1.3) mg/dL AST 25 (14-36) U/L ALT 15 (6-35) U/L Alkaline Phosphatase 76 (38-126) U/L Total Protein 7.0 (6.3-8.2) g/dL Albumin 4.1 (3.5-5.1) g/dL Lipase 37 (23-300) U/L Urine Color Yellow (Yellow) Urine Appearance Cloudy H (Clear) Urine pH 6.0 (5.0-9.0) Ur Specific [place] 1.020 (1.001-1.035) Urine Protein Negative (Negative) mg/dL Urine Glucose (UA) Negative (Negative) mg/dL Urine Ketones 1+ H (Negative) mg/dL Ur Blood (Man) Negative (Negative) Urine Nitrate Negative (Negative) Urine Bilirubin Negative (Negative) Urine Urobilinogen 1.0 (<2.0) mg/dL Add Ur Microanalysis Reviewed Leukocyte Esterase Rfl Trace H (Negative) FEDE/UL Urine RBC 6-10 H (0-2) /hpf Urine WBC 0-5 (0-3) /hpf Ur Squamous Epith Cells Few (Few) /hpf Urine Bacteria None seen /hpf Urine Casts 0-2 <Alem Valentin PA-C - Last Filed: 11/18/24 21:40> Lab Results 11/18/24 Range/Units 16:03 WBC 5.4 (4.5-10.0) K/mm3 RBC 3.94 L (4.2-5.4) M/mm3 Hgb 12.0 (12.0-15.0) g/dL Hct 36.5 L (37.0-47.0) % MCV 92.6 (80-100) fl MCH 30.5 (26-34) pg MCHC 32.9 (32-36) g/dl RDW 13.3 (11.5-14.5) % Plt Count 132 L (150-375) k/mm3 MPV 10.1 (7.4-10.4) fl Immature Gran % (Auto) 0.4 (0-0.5) % Neut % (Auto) 72.4 (45.5-73.1) % Lymph % (Auto) 16.9 L (18.3-44.2) % [place] % (Auto) 9.5 H (2.6-8.5) % Eos % (Auto) 0.6 (0-4.4) % Baso % (Auto) 0.2 (0.2-1.2) % Lymph # (Auto) 0.91 (0.9-3.2) K/mm3 [place] # (Auto) 0.5 (0.1-0.6) K/mm3 Eos # (Auto) 0.0 (0-0.3) K/mm3 Baso # (Auto) 0.0 (0.0-0.1) K/mm3 Abs Immat Gran (auto) 0.02 (0.00-0.031) K/mm3 Absolute Neuts (auto) 3.9 (1.3-6.7) K/mm3 Absolute Nucleated RBC 0.000 (0.0-0.012) K/mm3 Nucleated RBC % 0.0 (0.0-0.2) % % Immature Plt Fraction 2.6 (0.9-11.2) % Sodium 138 (137-145) mmol/L Potassium 3.6 (3.4-5.0) mmol/L Chloride 105 (98-107) mmol/L Carbon Dioxide 24 (22-30) mmol/L Anion Gap 9 (4-12) mmol/L BUN 17 (7-17) mg/dL Creatinine 0.79 (0.7-1.0) mg/dL Estim Creat Clear Calc 56 ml/min Estimated GFR > 60 (59 - ) Glucose 93 (65-110) mg/dL Calcium 8.9 (8.4-10.2) mg/dL Total Bilirubin 0.7 (0.2-1.3) mg/dL AST 25 (14-36) U/L ALT 15 (6-35) U/L Alkaline Phosphatase 76 (38-126) U/L Total Protein 7.0 (6.3-8.2) g/dL Albumin 4.1 (3.5-5.1) g/dL Lipase 37 (23-300) U/L Urine Color Yellow (Yellow) Urine Appearance Cloudy H (Clear) Urine pH 6.0 (5.0-9.0) Ur Specific [place] 1.020 (1.001-1.035) Urine Protein Negative (Negative) mg/dL Urine Glucose (UA) Negative (Negative) mg/dL Urine Ketones 1+ H (Negative) mg/dL Ur Blood (Man) Negative (Negative) Urine Nitrate Negative (Negative) Urine Bilirubin Negative (Negative) Urine Urobilinogen 1.0 (<2.0) mg/dL Add Ur Microanalysis Reviewed Leukocyte Esterase Rfl Trace H (Negative) FEDE/UL Urine RBC 6-10 H (0-2) /hpf Urine WBC 0-5 (0-3) /hpf Ur Squamous Epith Cells Few (Few) /hpf Urine Bacteria None seen /hpf Urine Casts 0-2 <Librado Narayanan MD - Last Filed: 11/19/24 07:50> Imaging Data Radiologist's impression: ITS Impressions Abdomen/Pelvis CT 11/18/24 17:44 IMPRESSION: Acute diverticulitis without a drainable fluid collection or gross perforation. A contained perforation is noted. Follow-up to resolution is recommended as a malignancy may have a similar appearance. Splenomegaly (unchanged). Findings within segment 7 of the liver, which likely represent a benign cyst. Further evaluation with a focused ultrasound versus contrast-enhanced MRI (with liver mass protocol) is recommended as this is an interval change from the 2012 examination. Mural thickening within the distal esophagus for which direct visualization is recommended, when the patient is clinically able. <Ondina Carlos PA-C - Last Filed: 11/18/24 16:05> ITS Impressions Abdomen/Pelvis CT 11/18/24 17:44 IMPRESSION: Acute diverticulitis without a drainable fluid collection or gross perforation. A contained perforation is noted. Follow-up to resolution is recommended as a malignancy may have a similar appearance. Splenomegaly (unchanged). Findings within segment 7 of the liver, which likely represent a benign cyst. Further evaluation with a focused ultrasound versus contrast-enhanced MRI (with liver mass protocol) is recommended as this is an interval change from the 2012 examination. Mural thickening within the distal esophagus for which direct visualization is recommended, when the patient is clinically able. <Alem Valentin PA-C - Last Filed: 11/18/24 21:40> ITS Impressions Abdomen/Pelvis CT 11/18/24 17:44 IMPRESSION: Acute diverticulitis without a drainable fluid collection or gross perforation. A contained perforation is noted. Follow-up to resolution is recommended as a malignancy may have a similar appearance. Splenomegaly (unchanged). Findings within segment 7 of the liver, which likely represent a benign cyst. Further evaluation with a focused ultrasound versus contrast-enhanced MRI (with liver mass protocol) is recommended as this is an interval change from the 2012 examination. Mural thickening within the distal esophagus for which direct visualization is recommended, when the patient is clinically able. <Librado Narayanan MD - Last Filed: 11/19/24 07:50> Critical Care Time Critical Care Time Critical Care Time: No <Alem Valentin PA-C - Last Filed: 11/18/24 21:40> Discharge Plan Discharge Clinical Impression: Acute diverticulitis, Hepatic cyst, Esophagitis <Ondina Carlos PA-C - Last Filed: 11/18/24 16:05> Patient Disposition: Still a Patient <DEVI Lopez Last Filed: 11/18/24 16:05> Condition: Stable <Ondina Carlos PA-C - Last Filed: 11/18/24 16:05>
[2024-11-18] MEDS: HYDROcodone/acetaminophen (*CRX) 5-325 MG TABLET 1 TAB PO (16:00)
[2024-11-18] MEDS: ONDANSETRON INJ 4 MG/2 ML VIAL IV PUSH (16:00)
[2024-11-18 16:12] LABS: Basophils Percent Auto 0.2 % (0.2-1.2); Eosinophils Percent Auto 0.6 % (0-4.4); Hematocrit 36.5 % (37.0-47.0); Immature Granulocyte Absolute 0.02 K/mm3 (0.00-0.031); Immature Granulocyte Percent A 0.4 % (0-0.5); Immature Platelet Fraction Pct 2.6 % (0.9-11.2); Lymphocytes Absolute Auto 0.91 K/mm3 (0.9-3.2); Lymphocytes Percent Auto 16.9 % (18.3-44.2); Mean Corpuscular HGB Conc 32.9 g/dl (32-36); Mean Corpuscular Hemoglobin 30.5 pg (26-34); Mean Corpuscular Volume 92.6 fl (80-100); Mean Platelet Volume 10.1 fl (7.4-10.4); Monocytes Absolute Auto 0.5 K/mm3 (0.1-0.6); Monocytes Percent Auto 9.5 % (2.6-8.5); Neutrophils Absolute Auto 3.9 K/mm3 (1.3-6.7); Neutrophils Percent Auto 72.4 % (45.5-73.1); Platelet Count Result 132 k/mm3 (150-375); Red Blood Count 3.94 M/mm3 (4.2-5.4); Red Cell Distribution Width 13.3 % (11.5-14.5); White Blood Count 5.4 K/mm3 (4.5-10.0)
[2024-11-18 16:20] LABS: Alanine Aminotransferase 15 U/L (6-35); Albumin Level 4.1 g/dL (3.5-5.1); Alkaline Phosphatase 76 U/L (38-126); Anion Gap 9 mmol/L (4-12); Aspartate Amino Transferase 25 U/L (14-36); Bilirubin,Total 0.7 mg/dL (0.2-1.3); Blood Urea Nitrogen 17 mg/dL (7-17); Calcium 8.9 mg/dL (8.4-10.2); Carbon Dioxide 24 mmol/L (22-30); Chloride 105 mmol/L (98-107); Estimated CRCL calculation 56 ml/min; Estimated Glomerular Filt Rate > 60; Glucose 93 mg/dL (65-110); Lipase 37 U/L (23-300); Potassium 3.6 mmol/L (3.4-5.0); Sodium 138 mmol/L (137-145)
[2024-11-18 16:23] LABS: Add Urine Microscopic? YES; Appearance Urine Cloudy (Clear); Bacteria Urine None Seen /hpf; Bilirubin Urine Negative (Negative); Blood Urine Negative (Negative); Color Urine Yellow (Yellow); Glucose Urine UA Negative (Negative); Ketones Urine 1+ mg/dL (Negative); Leukocyte Esterase Ur Trace LEU/UL (Negative); Need Manual Microscopic Reviewed; Nitrate Urine Negative (Negative); Non Pathogenic Casts 0-2; Protein Urine Negative (Negative); Squamous Epithelial Cell Urine Few /hpf (Few); WBC Urine 0-5 /hpf (0-3)
--- OUTSIDE RECORDS SUMMARY | 2024-11-18 18:05 | XMS_ITS | Clinical Summary ---
Author Organization [facility] Address [address] [facility] [place] [place] [address] Care Team Providers Care Printed Circuit Board Assembly Repairer Name Role Phone Unavailable Primary Care Provider Unavailabl e Source Comments [facility],non-owned Affiliates and Associated Physician Practices is amultiple site organization consisting of ambulatory clinics and hospital sitesin [place], [place], [place] and [place]. This disclosure is being madepursuant to the Care Everywhere program and may not contain all information available regarding this patient. Last updated 18.[employer] Allergies No known active allergies Medications * [...] to complete this topic [place] [address] [facility] HUM[facility] SELF PAY NO INSURANCE Member Subscriber Plan / Payer (Ef fective for All Dates) Name:Amy Roach Member ID:Not on file Relation to Subscriber:Not on file Name:AMY ROACH Subscriber ID:Not on file Address: [address] [place] [address] [place] [address] Payer ID:Not on file Group ID:Not on file Type:Self Pay Address: [place], [place] [employer] SELF PAY NO INSURANCE Member Subscriber Plan / Payer (Ef fective for All Dates) Name:Amy Roach Member ID:Not on file Relation to Subscriber:Not on file Name:AMY ROACH Subscriber ID:Not on file Address: [address] [facility] [place] [address] Payer ID:Not on file Group ID:Not on file Type:Self Pay Address: [place], [place] [employer] SELF PAY NO INSURANCE Member Subscriber Plan / Payer (Ef fective for All Dates) Name:Amy Roach Member ID:Not on file Relation to Subscriber:Not on file Name:AMY ROACH Subscriber ID:Not on file Address: [address] [facility] [place] [address] Payer ID:Not on file Group ID:Not on file Type:Self Pay Address: [place], [place] [employer] SELF PAY NO INSURANCE Member Subscriber Plan / Payer (Ef fective for All Dates) Name:Amy Roach Member ID:Not on file Relation to Subscriber:Not on file Name:AMY ROACH Subscriber ID:Not on file Address: [address] [facility] [place] [address] Payer ID:Not on file Group ID:Not on file Type:Self Pay Address: [place], [place] [employer] [id number] SELF PAY NO INSURANCE Member Subscriber Plan / Payer (Ef fective for All Dates) Name:Amy Roach Member ID:Not on file Relation to Subscriber:Not on file Name:AMY ROACH Subscriber ID:Not on file Address: [address] [facility] [place] [address] Payer ID:Not on file Group ID:Not on file Type:Self Pay Address: [place] [employer] SELF PAY NO INSURANCE Member Subscriber Plan / Payer (Ef fective for All Dates) Name:Amy Roach Member ID:Not on file Relation to Subscriber:Not on file Name:AMY ROACH Subscriber ID:Not on file Address: [address] [facility] [place] [address] Payer ID:Not on file Group ID:Not on file Type:Self Pay Address: [place], [place] * Guarantor: AMY ROACH Account Type Relation to Patient Date of Phone Billing Address Personal/Family [address] [facility] [place] [address] [employer] SELF PAY NO INSURANCE Member Subscriber Plan / Payer (Ef fective for All Dates) Name:Amy Roach Member ID:Not on file Relation to Subscriber:Not on file Name:AMY ROACH Subscriber ID:Not on file Address: [address] [facility] [address] [place], [place] Payer ID:Not on file Group ID:Not on file Type:Self Pay Address: [place], [place] * Guarantor: AMY ROACH Account Type Relation to Patient Date of Phone Billing Address Personal/Family [address] [facility] [place] [address] [employer] SELF PAY NO INSURANCE Member Subscriber Plan / Payer (Ef fective for All Dates) Name:Amy Roach Member ID:Not on file Relation to Subscriber:Not on file Name:AMY ROACH Subscriber ID:Not on file Address: [address] [facility] [place] [address] Payer ID:Not on file Group ID:Not on file Type:Self Pay Address: [place], [place] * Guarantor: AMY ROACH Account Type Relation to Patient Date of Phone Billing Address Personal/Family [address] [facility] [place] [address] [employer] SELF PAY NO INSURANCE Member Subscriber Plan / Payer (Ef fective for All Dates) Name:Amy Roach Member ID:Not on file Relation to Subscriber:Not on file Name:AMY ROACH Subscriber ID:Not on file Address: [address] [facility] [place] [address] Payer ID:Not on file Group ID:Not on file Type:Self Pay Address: [place], [place]
--- OUTSIDE RECORDS SUMMARY | 2024-11-18 18:05 | XMS_ITS | Continuity of Care Document ---
Author Organization [facility] Address [address] [place] [address] Phone Care Team Providers Care Assistant Education Director Name Role Phone Rohit Nichole MD Unavailable Unavailable Allergies, Adverse Reactions, Alerts Substance Reaction Status Criticality No Known Allergies Active No Inform ation Procedures Procedure Date Eye Exam, New Patient Advance Directives Directive Yes / No Effective Date File Name No Information Encounters Encounter Description Practice Location Reason(s) For Visit Diagnoses Date Provider Providers Copied on Encounter [facility], [address], [place], [place], [id number], [place] tel:[phone] [place] Professional WIE (chief complaint) Pain of right orbit [address] [facility], [facility] [place], [place], [id number], [place]. tel:[phone] Referring Provider: Rohit Feng, [address] [facility] [address], [place], [address] . tel:[phone] Family History Family Member Type Diagnosis Age At Onset No Information Payers Payer name Insurance type Covered alliance party ID Authoriza ticharo(s) [facility] [id number] Social History Type Description Quantity Date Captured [...]
--- OUTSIDE RECORDS SUMMARY | 2024-11-18 18:05 | XMS_ITS | Clinical Summary ---
Author Organization [facility] Maria Luz rodriguez [facility] Address 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
--- OUTSIDE RECORDS SUMMARY | 2024-11-18 18:05 | XMS_ITS | Encounter Summary ---
[facility] Organization [facility] Address [address] [place] [address] Care Team Providers Care Manager Pipeline Name Role Phone Feliberto Pelaez MD Primary Care Provider [phone] Encounter Details Date Type Department Care Team [...] on filedocumented in this encounter Care Teams Manager Pipeline Relationship Specialty Start Date End Date Feliberto Pelaez MD [address] [place] [address] [address] [place] [id number] PCP - General Family Practice 11/01/23 documented as of this encounter
--- OUTSIDE RECORDS SUMMARY | 2024-11-18 18:05 | XMS_ITS | Clinical Summary ---
Author Organization [facility] Address [address] [place] [address] Phone Care Team Providers Care Alumni Secretary Name Role Phone Kyung Goel NP Primary Care Provider [phone] Social History Tobacco Use Types Packs/Day Years [...] to complete this topic [place] [address] [facility] Care Teams Alumni Secretary Relationship Specialty Start Date End Date Kyung Goel NP [address] [place] [address] PCP - General Family Medicine 04/24/21
--- OUTSIDE RECORDS SUMMARY | 2024-11-18 18:05 | XMS_ITS | Clinical Summary ---
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
--- OUTSIDE RECORDS SUMMARY | 2024-11-18 18:05 | XMS_ITS | Referral Summary ---
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
[2024-11-18] MEDS: PANTOPRAZOLE SODIUM IV 40 MG VIAL IV PUSH (18:26)
[2024-11-18] MEDS: SODIUM CHLORIDE 0.9% IV 1,000 ML 999 ML IV CONT (18:45)
[2024-11-18] MEDS: metroNIDAZOLE 500 MG/ISO 100ML 500 MG/100 ML BAG 100 MG IVPB (18:52)
[2024-11-18] MEDS: MORPHINE SULFATE (*CRX) 4 MG/ML INJ IV PUSH ×2 (19:45→23:34)
[2024-11-18] MEDS: PIPERACILLN/TAZ 3.375GM/NS50ML 3.375 GM/50 ML BAG IVPB (20:17)
[2024-11-18] MEDS: SODIUM CHLORIDE 0.9% IV 1,000 ML 125 ML IV CONT (20:17)
--- NOTE | 2024-11-18 21:34 | ADMGEN ---
This patient, Amy Barnes, was admitted to 2 Medical Room 251-. Patient/family oriented to hospital policies and general routines including ID bracelet, bed and alarms, visiting hours, pain management, procedures, bathroom and other care routines, personal items, smoking policy, room service/diet, and visiting hours. Information on how to activate the Rapid Response Team has been discussed. Patient/Family are encouraged to report perceived risks to care and to ask questions if they do not understand what they are told or what they should do.
[2024-11-18] MEDS: [UNRECOGNIZED DRUG - REMARK] 1 EACH XX (23:37)
[2024-11-19] VITALS: BP 99/58; PULSE 95; RESP 18; TEMP 37.4; O2SAT 93
--- NOTE | 2024-11-19 01:42 | PM.IMHP ---
H&P: HPI History of Present Illness Date/Time: 11/19/24 01:42 [facility]LY [facility] Past Medical History Medical History Anxiety Anxiety with depression Asymptomatic microscopic hematuria Atypical chest pain B12 deficiency BMI 29.0-29.9,adult BMI 32.0-32.9,adult Breast cancer screening Bronchitis, acute Chest pain Chronic pain of left wrist X-ray 09/27/2021 with osteopenia but otherwise normal. Colon cancer screening Depression Dysphagia Elevated BP without diagnosis of hypertension Esophageal dysmotility Fatigue Folic acid deficiency Hx of atrial fibrillation without current medication Hyperlipidemia Large hiatal hernia Leukopenia Nasal congestion Osteopenia Overweight (BMI 25.0-29.9) Post-menopausal Shortness of breath Situational stress Tobacco use disorder Vitamin D deficiency Surgical History Surgical History Arthritis of carpometacarpal (CMC) joint of left thumb Left thumb CMC suspension arthroplasty August 13, 2022 De Quervain's tenosynovitis, left Left first dorsal compartment release August 13, 2022 H/O: hysterectomy History of bilateral carpal tunnel release History of esophagogastroduodenoscopy (EGD) History of repair of hiatal hernia Robotic assisted laparoscopic paraesophageal hernia repair with 270 degree fundoplication 10/08/23 Family History Family History Father Diabetes mellitus Hypertension Grandparent Family history of cardiovascular disease Family history of malignant neoplasm Other Cancer Cerebrovascular accident Social History Social History Smoking packs per day: 1 Smoking cigarettes per day: 20.0 Years smoked: 25 Smoking pack-years: 25.00 Smoking status: Former smoker Tobacco type: cigarettes Alcohol intake: current Drinks per week: 1 Alcohol use details: TWO DRINKS PER MONTH Substance use: never Substance use type: does not use Do You Feel Safe in your Home?: Yes Lack of Transportation: No Lack of Food: Never True Current Housing: I Have Housing Concerned About Future Housing: No Difficulty Paying Gas/Electric Bills: No Difficulty Paying for Meds: No Currently Unemployed: No Education: High School Diploma/GED Difficulty w/ Childcare or Family Care: No Living arrangements: alone Occupation/Education: occupation Additional occupation/education comments: [employer] Gender identity (if verbalized by the patient): Female Spiritual care concerns: No Meds Home Medications and Allergies Home Medications ?Medication ?Instructions ?Recorded ?Confirmed ?Type ascorbate calcium (vitamin C) 500 mg PO DAILY 07/20/22 11/18/24 History folic acid 1 mg tablet 1 mg PO DAILY 07/25/22 11/18/24 History mecobalamin (vitamin B12) 1,000 1,000 mcg sublingual DAILY 07/25/22 11/18/24 History mcg disintegrating tablet,sublingual sertraline 50 mg tablet 50 mg PO DAILY #90 tabs 09/03/24 11/18/24 Rx sertraline 25 mg tablet 25 mg PO DAILY #90 tabs 11/06/24 11/18/24 Rx finasteride 1 mg tablet 1 mg PO DAILY 11/18/24 11/18/24 History minoxidil 2.5 mg tablet 1.25 mg PO DAILY 11/18/24 11/18/24 History progesterone micronized 100 mg 100 mg PO QPM 11/18/24 11/18/24 History capsule terbinafine HCl 250 mg tablet 250 mg PO DAILY 11/18/24 11/18/24 History Allergies Allergy/AdvReac Type Severity Reaction Status Date / Time oxycodone (From Percocet) AdvReac Severe Nausea and Verified 11/18/24 14:24 Vomiting Vital Signs Vital Signs - 24 hr 11/18/24 14:55 11/18/24 18:33 11/18/24 18:55 Temperature 36.6 C Pulse Rate 116 H 82 81 Respiratory Rate 18 17 18 Blood Pressure 119/86 101/71 101/71 Pulse Oximetry 98 96 99 Oxygen Delivery Room Air Room Air 11/18/24 19:40 11/18/24 20:52 11/18/24 22:00 Temperature 37.2 C Pulse Rate 72 99 85 Respiratory Rate 18 18 18 Blood Pressure 116/94 H 124/81 131/65 Pulse Oximetry 100 94 99 Oxygen Delivery 11/19/24 00:00 Temperature 37.4 C Pulse Rate 95 Respiratory Rate 18 Blood Pressure 99/58 L Pulse Oximetry 93 Oxygen Delivery H&P: Results Labs Labs: Short CBC 11/18/24 Range/Units 16:03 WBC 5.4 (4.5-10.0) K/mm3 Hgb 12.0 (12.0-15.0) g/dL Hct 36.5 L (37.0-47.0) % Plt Count 132 L (150-375) k/mm3 BMP 11/18/24 16:03 Sodium 138 Potassium 3.6 Chloride 105 Carbon Dioxide 24 BUN 17 Creatinine 0.79 Glucose 93 Calcium 8.9 Liver Function 11/18/24 Range/Units 16:03 Total Bilirubin 0.7 (0.2-1.3) mg/dL AST 25 (14-36) U/L ALT 15 (6-35) U/L Alkaline Phosphatase 76 (38-126) U/L Albumin 4.1 (3.5-5.1) g/dL Urine 11/18/24 Range/Units 16:03 Urine Color Yellow (Yellow) Urine Appearance Cloudy H (Clear) Urine pH 6.0 (5.0-9.0) Ur Specific [place] 1.020 (1.001-1.035) Urine Protein Negative (Negative) mg/dL Urine Glucose (UA) Negative (Negative) mg/dL
[2024-11-19] MEDS: PIPERACILLN/TAZ 3.375GM/NS50ML 3.375 GM/50 ML BAG IVPB ×4 (02:51→20:45)
[2024-11-19] MEDS: MORPHINE SULFATE (*CRX) 4 MG/ML INJ IV PUSH ×5 (03:06→21:39)
[2024-11-19 04:00] VITALS: BP 107/58; PULSE 97; RESP 18; TEMP 37.1; O2SAT 96
[2024-11-19 05:21] LABS: Basophils Percent Auto 0.2 % (0.2-1.2); Eosinophils Percent Auto 0.7 % (0-4.4); Hematocrit 31.6 % (37.0-47.0); Hemoglobin 9.9 g/dL (12.0-15.0); Immature Granulocyte Absolute 0.01 K/mm3 (0.00-0.031); Immature Granulocyte Percent A 0.2 % (0-0.5); Lymphocytes Absolute Auto 0.64 K/mm3 (0.9-3.2); Lymphocytes Percent Auto 14.7 % (18.3-44.2); Mean Corpuscular HGB Conc 31.3 g/dl (32-36); Mean Corpuscular Volume 95.8 fl (80-100); Mean Platelet Volume 10.1 fl (7.4-10.4); Monocytes Absolute Auto 0.4 K/mm3 (0.1-0.6); Monocytes Percent Auto 8.7 % (2.6-8.5); Neutrophils Absolute Auto 3.3 K/mm3 (1.3-6.7); Neutrophils Percent Auto 75.5 % (45.5-73.1); Platelet Count Result 102 k/mm3 (150-375); Red Cell Distribution Width 13.4 % (11.5-14.5); White Blood Count 4.4 K/mm3 (4.5-10.0)
[2024-11-19 05:38] LABS: Alanine Aminotransferase 13 U/L (6-35); Albumin Level 3.2 g/dL (3.5-5.1); Alkaline Phosphatase 63 U/L (38-126); Anion Gap 4 mmol/L (4-12); Aspartate Amino Transferase 21 U/L (14-36); Bilirubin,Total 0.7 mg/dL (0.2-1.3); Blood Urea Nitrogen 15 mg/dL (7-17); Carbon Dioxide 24 mmol/L (22-30); Chloride 109 mmol/L (98-107); Estimated CRCL calculation 49 ml/min; Estimated Glomerular Filt Rate > 60; Glucose 95 mg/dL (65-110); Magnesium 1.9 mg/dL (1.6-2.3); Potassium 3.5 mmol/L (3.4-5.0); Sodium 137 mmol/L (137-145)
[2024-11-19] MEDS: SODIUM CHLORIDE 0.9% IV 1,000 ML 125 ML IV CONT ×2 (06:27→14:47)
--- NOTE | 2024-11-19 06:56 | P.HP_ITS ---
H&P: HPI History of Present Illness Date/Time: 11/19/24 06:56 Chief Complaint: Abdominal Pain Narrative: Patient is a 69-year-old female who with a past medical history of hyperlipidemia, anxiety, depression, afib w/o medication, total hysterectomy who presents to the hospital for lower abdominal pain for the past 2 days prior to arrival. She is also endorsing associated nausea and nonbloody diarrhea, but no vomiting, although she has been experiencing dry heaving past year after hiatal hernia surgery. He denies any shortness pain, shortness and breath, or urinary complaints. The abdominal pain is across the entirety of her lower abdomen, without radiation. Denies any CVA tenderness. One PPD smoker, quit in 2010. Denies alcohol or drug abuse. CT abdomen/pelvis indicative of acute diverticulitis. Patient has had an episode of diverticulitis in the past which did not require surgical intervention. Admitted to the hospital for acute diverticulitis. In ED: 107/58, 96% room air, respiratory rate 18, pulse rate 97, temperature 98.7?F WBC 5.4, RBC 3.94, hemoglobin 12, hematocrit 36.5, sodium 138, potassium 3.6, anion gap 9, BUN 17, creatinine 0.79, GFR > 60, AST/ALT WNL UA: Trace leukocyte esterase, urine RBC 6-10, 1+ ketones otherwise unremarkable. Abdomen/pelvis CT: Acute diverticulitis without a drainable fluid collection or gross perforation. A contained perforation is noted. Follow-up to resolution is recommended as a malignancy may have a similar appearance. Splenomegaly (unchanged). Findings within segment 7 of the liver, which likely represent a benign cyst. Further evaluation with a focused ultrasound versus contrast- enhanced MRI (with liver mass protocol) is recommended as this is an interval change from the 2012 examination. Mural thickening within the distal esophagus for which direct visualization is recommended, when the patient is clinically able. Blood cultures pending Review of Systems Review of Systems: All systems reviewed & are unremarkable except as noted in HPI and below PMFSH Past Medical History Medical History Osteopenia Elevated BP without diagnosis of hypertension BMI 32.0-32.9,adult Fatigue Esophageal dysmotility Colon cancer screening Shortness of breath Dysphagia Atypical chest pain Large hiatal hernia Folic acid deficiency B12 deficiency Asymptomatic microscopic hematuria Hyperlipidemia Leukopenia Post-menopausal Breast cancer screening Chest pain Hx of atrial fibrillation without current medication Depression Anxiety Overweight (BMI 25.0-29.9) BMI 29.0-29.9,adult Chronic pain of left wrist X-ray 09/27/2021 with osteopenia but otherwise normal. Bronchitis, acute Anxiety with depression Vitamin D deficiency Nasal congestion Situational stress Surgical History Surgical History History of repair of hiatal hernia Robotic assisted laparoscopic paraesophageal hernia repair with 270 degree fundoplication 10/08/23 Arthritis of carpometacarpal (CMC) joint of left thumb Left thumb CMC suspension arthroplasty August 13, 2022 History of bilateral carpal tunnel release H/O: hysterectomy De Quervain's tenosynovitis, left Left first dorsal compartment release August 13, 2022 History of esophagogastroduodenoscopy (EGD) Family History Family History Father Diabetes mellitus Hypertension Grandparent Family history of cardiovascular disease Family history of malignant neoplasm Other Cancer Cerebrovascular accident Social History Social History Smoking packs per day: 1 Smoking cigarettes per day: 20.0 Years smoked: 25 Smoking pack-years: 25.00 Smoking status: Former smoker Tobacco type: cigarettes Alcohol intake: current Drinks per week: 1 Alcohol use details: TWO DRINKS PER MONTH Substance use: never Substance use type: does not use Do You Feel Safe in your Home?: Yes Lack of Transportation: No Lack of Food: Never True Current Housing: I Have Housing Concerned About Future Housing: No Difficulty Paying Gas/Electric Bills: No Difficulty Paying for Meds: No Currently Unemployed: No Education: High School Diploma/GED Difficulty w/ Childcare or Family Care: No Living arrangements: alone Occupation/Education: occupation 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 Gender identity (if verbalized by the patient): Female Spiritual care concerns: No Meds Home Medications and Allergies Home Medications ?Medication ?Instructions ?Recorded ?Confirmed ?Type ascorbate calcium (vitamin C) 500 mg PO DAILY 07/20/22 11/18/24 History folic acid 1 mg tablet 1 mg PO DAILY 07/25/22 11/18/24 History mecobalamin (vitamin B12) 1,000 1,000 mcg sublingual DAILY 07/25/22 11/18/24 History mcg disintegrating tablet,sublingual sertraline 50 mg tablet 50 mg PO DAILY #90 tabs 09/03/24 11/18/24 Rx sertraline 25 mg tablet 25 mg PO DAILY #90 tabs 11/06/24 11/18/24 Rx finasteride 1 mg tablet 1 mg PO DAILY 11/18/24 11/18/24 History minoxidil 2.5 mg tablet 1.25 mg PO DAILY 11/18/24 11/18/24 History progesterone micronized 100 mg 100 mg PO QPM 11/18/24 11/18/24 History capsule terbinafine HCl 250 mg tablet 250 mg PO DAILY 11/18/24 11/18/24 History Allergies Allergy/AdvReac Type Severity Reaction Status Date / Time oxycodone (From Percocet) AdvReac Severe Nausea and Verified 11/18/24 14:24 Vomiting Vital Signs Vital Signs - 24 hr 11/18/24 14:55 11/18/24 18:33 11/18/24 18:55 Temperature 97.9 F Pulse Rate 116 H 82 81 Respiratory Rate 18 17 18 Blood Pressure 119/86 101/71 101/71 Pulse Oximetry 98 96 99 Oxygen Delivery Room Air Room Air 11/18/24 19:40 11/18/24 20:52 11/18/24 21:33 Temperature Pulse Rate 72 99 95 Respiratory Rate 18 18 18 Blood Pressure 116/94 H 124/81 Pulse Oximetry 100 94 93 Oxygen Delivery Room Air 11/18/24 22:00 11/19/24 00:00 11/19/24 04:00 Temperature 99.0 F 99.3 F 98.7 F Pulse Rate 85 95 97 Respiratory Rate 18 18 18 Blood Pressure 131/65 99/58 L 107/58 L Pulse Oximetry 99 93 96 Oxygen Delivery Exam Narrative: Gen - well appearing female in no acute respiratory distress who is nontoxic- appearing lying semi recumbent in bed HEENT - normocephalic. Atraumatic. Pupils equal round and reactive. Extraocular motions intact. Nares patent. Oropharynx was clear. Moist mucous membranes. No facial asymmetry. Neck - neck was supple. No dominant adenopathy, thyromegaly or masses. 2+ carotid upstrokes without bruits. Chest - lungs are clear to auscultation bilaterally. No wheezes or crackles. Breast exam was deferred. CV - heart was regular rate and rhythm. S1-S2. No murmurs gallops or rubs. Abd -port site scars, Pfannenstiel scar. Tenderness throughout abdomen, worse across entire lower abdomen abdomen was soft. Guarding throughout. Nondis tended. Positive bowel sounds. No organomegaly or masses. Ext - no clubbing, cyanosis or edema. 2+ DP pulses bilaterally. Neuro - patient is alert and oriented x4. Strength is 5/5 in both upper and lower extremities. Cranial nerves 2-12 are intact. Speech is clear. Psych - normal mood and affect. Patient is pleasant and cooperative. Skin - warm and dry. No rashes noted. H&P: Results Labs Labs: Short CBC 11/18/24 11/19/24 Range/Units 16:03 05:05 WBC 5.4 4.4 L (4.5-10.0) K/mm3 Hgb 12.0 9.9 L (12.0-15.0) g/dL Hct 36.5 L 31.6 L (37.0-47.0) % Plt Count 132 L 102 L (150-375) k/mm3 BMP 11/18/24 11/19/24 16:03 05:05 Sodium 138 137 Potassium 3.6 3.5 Chloride 105 109 H Carbon Dioxide 24 24 BUN 17 15 Creatinine 0.79 0.91 Glucose 93 95 Calcium 8.9 8.0 L Liver Function 11/18/24 11/19/24 Range/Units 16:03 05:05 Total Bilirubin 0.7 0.7 (0.2-1.3) mg/dL AST 25 21 (14-36) U/L ALT 15 13 (6-35) U/L Alkaline Phosphatase 76 63 (38-126) U/L Albumin 4.1 3.2 L (3.5-5.1) g/dL Urine 11/18/24 Range/Units 16:03 Urine Color Yellow (Yellow) Urine Appearance Cloudy H (Clear) Urine pH 6.0 (5.0-9.0) Ur Specific [place] 1.020 (1.001-1.035) Urine Protein Negative (Negative) mg/dL Urine Glucose (UA) Negative (Negative) mg/dL Assessment and Plan Assessment and plan (1) Acute diverticulitis: Code(s): K57.92 - Diverticulitis of intestine, part unspecified, without perforation or abscess without bleeding Status: Acute Assessment and Plan: * Abd/pelvis CT: Acute diverticulitis without a drainable fluid collection or gross perforation. A contained perforation is noted. * Monitor vital signs, I&Os, track stool output, watch for bloody stools, neuro status and patient is a fall risk * Monitor serum electrolytes and CBC * Gentle IV fluid resuscitation * Consider Zosyn 3.375g q6hr * Diet: Clear liquid, advance as tolerated * Gen surg, GI following * Suprapubic tenderness, no peritoneal signs on exam, pain improving w/ IV Morphine * No Leukocytosis * No indications for surgical intervention * Continue IV antibiotics and pain control * Bowel rest * Colonoscopy outpatient in 4-6 weeks (2) Abnormal CT of the abdomen: Code(s): R93.5 - Abnormal findings on diagnostic imaging of other abdominal regions, including retroperitoneum Status: Acute Assessment and Plan: * Abd/pelvis CT: * Findings within segment 7 of the liver, which likely represent a benign cyst. * Further evaluation with a focused ultrasound versus contrast-enhanced MRI (with liver mass protocol) is recommended as this is an interval change from the 2012 examination. * Mural thickening within the distal esophagus for which direct visualization is recommended, when the patient is clinically able. * Regarding liver lesion: Incidental finding, GI following, do not recommend further evaluation * Regarding mural thickening: Pt has h/o hiatal hernia surgery repair last year * Has had continued dry heaving * Considering reevaluation by GI as outpatient * No further workup required (3) Anxiety with depression: Code(s): F41.8 - Other specified anxiety disorders Status: Acute Assessment and Plan: * Continue Sertraline (4) GERD with esophagitis: Qualifiers: Esophagitis bleeding: without hemorrhage Qualified Code(s): K21.00 - Gastro-esophageal reflux disease with esophagitis, without bleeding Code(s): K21.00 - Gastro-esophageal reflux disease with esophagitis, without bleeding Status: Acute Assessment and Plan: * Continue Famotidine Quality VTE Prophylaxis VTE prophylaxis: mechanical ordered Hospitalist MIPS Advance Care Plan I have confirmed that the patient's Advanced Care Plan is present, code status is documented, or surrogate decision maker is listed in patient medical record.: Yes Medication Reconciliation I have utilized all available resources to obtain, update and review the patients current medications (includes all prescriptions, OTC, herbals, cannabis, and nutritional supplements).: Yes
--- NOTE | 2024-11-19 07:29 | WPDGICN ---
Assessment and Plan Assessment and plan (1) Acute diverticulitis: Code(s): K57.92 - Diverticulitis of intestine, part unspecified, without perforation or abscess without bleeding Status: Acute Assessment and Plan: patient with acute diverticulitis currently being treated with antibiotics. Surgical consultation is requested however it does not seem that clinically she will need any intervention. Will continue antibiotics. Regarding the incidental finding of a liver cyst, it does not need further imaging studies or follow-up. GI Consult Note Consult date/time: 11/19/24 07:29 Reason for consult: Acute diverticulitis HPI: Amy Barnes is a 69 year old female who was admitted last night with a 3 day history of lower abdominal pain increasing in severity. A CT scan showed changes compatible with acute diverticulitis with a contained perforation. In addition there was an incidental finding of a small cyst in the right lobe of the liver. She is currently receiving Zosyn as antibiotic treatment and a surgical consultation is obtained. Her significant labs include white count 5.4, hemoglobin 12, hematocrit 36.5, platelet count 132. She has been told that she has a big spleen therefore her baseline white counts run around 2.5-3. Review of Systems Review of Systems: All systems reviewed & are unremarkable except as noted in HPI and below PMFSH Past Medical History Medical History Anxiety Anxiety with depression Asymptomatic microscopic hematuria Atypical chest pain B12 deficiency BMI 29.0-29.9,adult BMI 32.0-32.9,adult Breast cancer screening Bronchitis, acute Chest pain Chronic pain of left wrist X-ray 09/27/2021 with osteopenia but otherwise normal. Colon cancer screening Depression Dysphagia Elevated BP without diagnosis of hypertension Esophageal dysmotility Fatigue Folic acid deficiency Hx of atrial fibrillation without current medication Hyperlipidemia Large hiatal hernia Leukopenia Nasal congestion Osteopenia Overweight (BMI 25.0-29.9) Post-menopausal Shortness of breath Situational stress Tobacco use disorder Vitamin D deficiency Surgical History Surgical History (Reviewed 04/03/24 @ 10:49 by Horacio Khan [facility] [address]) Arthritis of carpometacarpal (CMC) joint of left thumb Left thumb CMC suspension arthroplasty August 13, 2022 De Quervain's tenosynovitis, left Left first dorsal compartment release August 13, 2022 H/O: hysterectomy History of bilateral carpal tunnel release History of esophagogastroduodenoscopy (EGD) History of repair of hiatal hernia Robotic assisted laparoscopic paraesophageal hernia repair with 270 degree fundoplication 10/08/23 Family History Family History (Reviewed 04/03/24 @ 10:49 by Horacio Khan [facility]) Father Diabetes mellitus Hypertension Grandparent Family history of cardiovascular disease Family history of malignant neoplasm Other Cancer Cerebrovascular accident Social History Social History (Reviewed 04/03/24 @ 10:49 by Horacio Khan [facility]) Smoking packs per day: 1 Smoking cigarettes per day: 20.0 Years smoked: 25 Smoking pack-years: 25.00 Smoking status: Former smoker Tobacco type: cigarettes Alcohol intake: current Drinks per week: 1 Alcohol use details: TWO DRINKS PER MONTH Substance use: never Substance use type: does not use Do You Feel Safe in your Home?: Yes Lack of Transportation: No Lack of Food: Never True Current Housing: I Have Housing Concerned About Future Housing: No Difficulty Paying Gas/Electric Bills: No Difficulty Paying for Meds: No Currently Unemployed: No Education: High School Diploma/GED Difficulty w/ Childcare or Family Care: No Living arrangements: alone Occupation/Education: occupation 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 Gender identity (if verbalized by the patient): Female Spiritual care concerns: No Meds Home Medications and Allergies Home Medications ?Medication ?Instructions ?Recorded ?Confirmed ?Type ascorbate calcium (vitamin C) 500 mg PO DAILY 07/20/22 11/18/24 History folic acid 1 mg tablet 1 mg PO DAILY 07/25/22 11/18/24 History mecobalamin (vitamin B12) 1,000 1,000 mcg sublingual DAILY 07/25/22 11/18/24 History mcg disintegrating tablet,sublingual sertraline 50 mg tablet 50 mg PO DAILY #90 tabs 09/03/24 11/18/24 Rx sertraline 25 mg tablet 25 mg PO DAILY #90 tabs 11/06/24 11/18/24 Rx finasteride 1 mg tablet 1 mg PO DAILY 11/18/24 11/18/24 History minoxidil 2.5 mg tablet 1.25 mg PO DAILY 11/18/24 11/18/24 History progesterone micronized 100 mg 100 mg PO QPM 11/18/24 11/18/24 History capsule terbinafine HCl 250 mg tablet 250 mg PO DAILY 11/18/24 11/18/24 History Allergies Allergy/AdvReac Type Severity Reaction Status Date / Time oxycodone (From Percocet) AdvReac Severe Nausea and Verified 11/18/24 14:24 Vomiting Vital Signs Vital Signs - 24 hr 11/18/24 14:55 11/18/24 18:33 11/18/24 18:55 Temperature 97.9 F Pulse Rate 116 H 82 81 Respiratory Rate 18 17 18 Blood Pressure 119/86 101/71 101/71 Pulse Oximetry 98 96 99 Oxygen Delivery Room Air Room Air 11/18/24 19:40 11/18/24 20:52 11/18/24 21:33 Temperature Pulse Rate 72 99 95 Respiratory Rate 18 18 18 Blood Pressure 116/94 H 124/81 Pulse Oximetry 100 94 93 Oxygen Delivery Room Air 11/18/24 22:00 11/19/24 00:00 11/19/24 04:00 Temperature 99.0 F 99.3 F 98.7 F Pulse Rate 85 95 97 Respiratory Rate 18 18 18 Blood Pressure 131/65 99/58 L 107/58 L Pulse Oximetry 99 93 96 Oxygen Delivery Exam Const: General: cooperative and healthy appearing Resp: Effort & Inspection: normal respiratory effort and able to speak in complete sentences Auscultation: clear to auscultation bilaterally Cardio: Rate: regular rate Rhythm: regular rhythm GI: Inspection: normal to inspection GI Palp: Yes No hepatosplenomegaly present Auscultation: normal bowel sounds Rectal Exam: deferred Other: tenderness in the left lower quadrant, with induce rebound in the suprapubic area. Bowel sounds present. Skin: General skin exam: normal color Psych: Appearance: grossly normal Mental Status: mental status grossly normal Results Labs 11/19/24 05:05 11/19/24 05:05 Labs: Short CBC 11/18/24 11/19/24 Range/Units 16:03 05:05 WBC 5.4 4.4 L (4.5-10.0) K/mm3 Hgb 12.0 9.9 L (12.0-15.0) g/dL Hct 36.5 L 31.6 L (37.0-47.0) % Plt Count 132 L 102 L (150-375) k/mm3 BMP 11/18/24 11/19/24 16:03 05:05 Sodium 138 137 Potassium 3.6 3.5 Chloride 105 109 H Carbon Dioxide 24 24 BUN 17 15 Creatinine 0.79 0.91 Glucose 93 95 Calcium 8.9 8.0 L Liver Function 11/18/24 11/19/24 Range/Units 16:03 05:05 Total Bilirubin 0.7 0.7 (0.2-1.3) mg/dL AST 25 21 (14-36) U/L ALT 15 13 (6-35) U/L Alkaline Phosphatase 76 63 (38-126) U/L Albumin 4.1 3.2 L (3.5-5.1) g/dL Urine 11/18/24 Range/Units 16:03 Urine Color Yellow (Yellow) Urine Appearance Cloudy H (Clear) Urine pH 6.0 (5.0-9.0) Ur Specific [place] 1.020 (1.001-1.035) Urine Protein Negative (Negative) mg/dL Urine Glucose (UA) Negative (Negative) mg/dL
[2024-11-19 08:00] VITALS: BP 93/60; PULSE 82; RESP 14; TEMP 37.6; O2SAT 91
[2024-11-19] MEDS: ASCORBIC ACID 500 MG TABLET PO (09:02)
[2024-11-19] MEDS: SERTRALINE HCL 50 MG TABLET PO (09:02)
[2024-11-19] MEDS: SERTRALINE HCL 25 MG TABLET PO (09:02)
[2024-11-19] MEDS: TERBINAFINE HCL 250 MG TABLET PO (09:02)
[2024-11-19] MEDS: minoxidiL 2.5 MG TABLET 1.25 MG PO (09:02)
[2024-11-19] MEDS: FOLIC ACID 1 MG TABLET PO (09:03)
[2024-11-19] MEDS: CYANOCOBALAMIN 1,000 MCG TABLET 1000 MCG PO (09:03)
[2024-11-19] MEDS: ONDANSETRON INJ 4 MG/2 ML VIAL IV PUSH ×2 (09:36→14:47)
--- NOTE | 2024-11-19 09:50 | P.CONGS_ITS ---
Assessment and Plan Assessment and plan (1) Acute diverticulitis: Code(s): K57.92 - Diverticulitis of intestine, part unspecified, without perforation or abscess without bleeding Status: Acute Assessment and Plan: CT reviewed and discussed with the patient. There is evidence of acute diverticulitis of the rectosigmoid with tiny amount of free air around this area consistent with microperforation. She is mostly tender in the suprapubic area and RLQ. No diffuse peritoneal signs on exam. WBC count normal on admission. She is still having a fair amount of pain that is improving with the IV morphine. There is no indication for emergent surgical management. We would recommend to continue IV antibiotics, bowel rest, and IV fluids for now. Will continue to follow closely with serial abdominal exams and labs. This is her second episode of diverticulitis but first time dealing with complicated diverticulitis requiring an admission. Her last colonoscopy was 5 years ago, so she may need another colonoscopy about 4-6 weeks out from this episode, but this can be planned as an outpatient. (2) Abnormal CT of the abdomen: Code(s): R93.5 - Abnormal findings on diagnostic imaging of other abdominal regions, including retroperitoneum Status: Acute Assessment and Plan: CT scan also showed a small liver lesion, likely a cyst, and mural thickening of the distal esophagus, for which GI was consulted. She has had persistent issues with nausea and dry heaving frequently since her hiatal hernia repair a year ago, and has been contemplating being re-evaluated by GI as an outpatient. She has lost about 30 lbs related to her poor oral intake and has been following mostly a full liquid diet. Dietitian also following. Plan I have discussed the patient's case and plan of care with Dr. Hernandez. History of Present Illness Consult details Consult date: 11/19/24 Reason for consult: other (Diverticulitis with contained perforation) Requesting physician: Alem Valentin PA-C Narrative: This is a 69-year-old woman with a history of GERD, hiatal hernia s/p laparoscopic hiatal hernia repair in September of 2023, and IBS, who we are seeing in surgical consultation for diverticulitis with contained perforation. She presented to the ED yesterday for evaluation of lower abdominal pain. She reports having mild discomfort over the past 3 days, but yesterday she had more severe abdominal pain across her lower abdomen. She had nausea and dry heaving. She reports since her hiatal hernia repair, she has dealt with chronic nausea and dry heaving. This has limited her oral intake and she is stuck to mostly a full liquid diet, and lost about 30 lb in the past 8 months. There were no alleviating factors for her abdominal pain. She did have a loose bowel movement yesterday. No blood in her stool. Due to her persistent pain, she came into the ED for evaluation. Workup in the ED showed a normal white blood cell count and CT evidence of acute sigmoid diverticulitis with micro perforation, but no abscess. She was started on broad-spectrum IV antibiotics and admitted to the hospitalist service. She is currently on bowel rest with IV fluids. She has a history of being treated as an outpatient for mild diverticulitis a few years ago. Her last colonoscopy was about 5 years ago that showed diverticulosis and internal hemorrhoids. Patient reports when undergoing anesthesia for her colonoscopy, she went into atrial fibrillation with RVR and required cardioversion, but no other issues with AFib and not on any anticoagulation. Review of Systems 2 Review of Systems: All systems reviewed & are unremarkable except as noted in HPI and below PMFSH Past Medical History Medical History Osteopenia Elevated BP without diagnosis of hypertension BMI 32.0-32.9,adult Fatigue Esophageal dysmotility Colon cancer screening Shortness of breath Dysphagia Atypical chest pain Large hiatal hernia Folic acid deficiency B12 deficiency Asymptomatic microscopic hematuria Hyperlipidemia Leukopenia Post-menopausal Breast cancer screening Chest pain Hx of atrial fibrillation without current medication Depression Anxiety Overweight (BMI 25.0-29.9) BMI 29.0-29.9,adult Chronic pain of left wrist X-ray 09/27/2021 with osteopenia but otherwise normal. Bronchitis, acute Anxiety with depression Vitamin D deficiency Nasal congestion Situational stress Surgical History Surgical History History of repair of hiatal hernia Robotic assisted laparoscopic paraesophageal hernia repair with 270 degree fundoplication 10/08/23 Arthritis of carpometacarpal (CMC) joint of left thumb Left thumb CMC suspension arthroplasty August 13, 2022 History of bilateral carpal tunnel release H/O: hysterectomy De Quervain's tenosynovitis, left Left first dorsal compartment release August 13, 2022 History of esophagogastroduodenoscopy (EGD) Family History Family History Father Diabetes mellitus Hypertension Grandparent Family history of cardiovascular disease Family history of malignant neoplasm Other Cancer Cerebrovascular accident Social History Social History Smoking packs per day: 1 Smoking cigarettes per day: 20.0 Years smoked: 25 Smoking pack-years: 25.00 Smoking status: Former smoker Tobacco type: cigarettes Alcohol intake: current Drinks per week: 1 Alcohol use details: TWO DRINKS PER MONTH Substance use: never Substance use type: does not use Do You Feel Safe in your Home?: Yes Lack of Transportation: No Lack of Food: Never True Current Housing: I Have Housing Concerned About Future Housing: No Difficulty Paying Gas/Electric Bills: No Difficulty Paying for Meds: No Currently Unemployed: No Education: High School Diploma/GED Difficulty w/ Childcare or Family Care: No Living arrangements: alone Occupation/Education: occupation Additional occupation/education comments: [employer] Gender identity (if verbalized by the patient): Female Spiritual care concerns: No Meds Home Medications and Allergies Home Medications ?Medication ?Instructions ?Recorded ?Confirmed ?Type ascorbate calcium (vitamin C) 500 mg PO DAILY 07/20/22 11/18/24 History folic acid 1 mg tablet 1 mg PO DAILY 07/25/22 11/18/24 History mecobalamin (vitamin B12) 1,000 1,000 mcg sublingual DAILY 07/25/22 11/18/24 History mcg disintegrating tablet,sublingual sertraline 50 mg tablet 50 mg PO DAILY #90 tabs 09/03/24 11/18/24 Rx sertraline 25 mg tablet 25 mg PO DAILY #90 tabs 11/06/24 11/18/24 Rx finasteride 1 mg tablet 1 mg PO DAILY 11/18/24 11/18/24 History minoxidil 2.5 mg tablet 1.25 mg PO DAILY 11/18/24 11/18/24 History progesterone micronized 100 mg 100 mg PO QPM 11/18/24 11/18/24 History capsule terbinafine HCl 250 mg tablet 250 mg PO DAILY 11/18/24 11/18/24 History Allergies Allergy/AdvReac Type Severity Reaction Status Date / Time oxycodone (From Percocet) AdvReac Severe Nausea and Verified 11/18/24 14:24 Vomiting Vital Signs Vital Signs - 24 hr 11/18/24 14:55 11/18/24 18:33 11/18/24 18:55 Temperature 97.9 F Pulse Rate 116 H 82 81 Respiratory Rate 18 17 18 Blood Pressure 119/86 101/71 101/71 Pulse Oximetry 98 96 99 Oxygen Delivery Room Air Room Air 11/18/24 19:40 11/18/24 20:52 11/18/24 21:33 Temperature Pulse Rate 72 99 95 Respiratory Rate 18 18 18 Blood Pressure 116/94 H 124/81 Pulse Oximetry 100 94 93 Oxygen Delivery Room Air 11/18/24 22:00 11/19/24 00:00 11/19/24 04:00 Temperature 99.0 F 99.3 F 98.7 F Pulse Rate 85 95 97 Respiratory Rate 18 18 18 Blood Pressure 131/65 99/58 L 107/58 L Pulse Oximetry 99 93 96 Oxygen Delivery 11/19/24 08:00 Temperature 99.6 F Pulse Rate 82 Respiratory Rate 14 Blood Pressure 93/60 L Pulse Oximetry 91 Oxygen Delivery Exam 2 Const: General: comfortable and no acute distress Nutritional Appearance: a verage body habitus Orientation/consciousness: patient oriented x3 HENMT: Head: normocephalic and atraumatic Ears: hearing grossly normal bilaterally Mouth: Yes moist mucous membranes Eyes: General: appearance normal, both eyes and all related structures P upils: Equal, round and reactive pupils present Neck: Neck: normal visual inspection and full ROM Resp: Effort & Inspection: no respiratory distress Auscultation: clear to auscultation bilaterally Cardio: Rate: regular rate Rhythm: regular rhythm Peripheral pulses: P eripheral pulses 2+ throughout GI: Inspection: non-distended and scar (port site scars, Pfannenstiel scar) GI Palp: Yes Soft to palpation, Yes Tenderness to palpation present (GI) (tender throughout her entire abd but more tender in suprapubic & RLQ ), Yes Guarding due to palpation present (GI) (RLQ), Yes No hepatosplenomegaly present and No Rebound tenderness present Auscultation: normal bowel sounds Skin: General skin exam: normal color Neuro: General: moves all extremities and no focal motor deficits Speech: n ormal speech Motor exam (neuro): 5/5 motor strength present throughout Extrem: General: normal to inspection and no edema Psych: Mental Status: mental status grossly normal Attitude: cooperative Insight: Good insight present (Psych) Judgement: Good judgement present (Psych) Results Labs 11/19/24 05:05 11/19/24 05:05 Labs: Abnormal lab results 11/18/24 11/19/24 Range/Units 16:03 05:05 WBC 4.4 L (4.5-10.0) K/mm3 RBC 3.94 L 3.30 L (4.2-5.4) M/mm3 Hgb 9.9 L (12.0-15.0) g/dL Hct 36.5 L 31.6 L (37.0-47.0) % MCHC 31.3 L (32-36) g/dl Plt Count 132 L 102 L (150-375) k/mm3 Neut % (Auto) 75.5 H (45.5-73.1) % Lymph % (Auto) 16.9 L 14.7 L (18.3-44.2) % [place] % (Auto) 9.5 H 8.7 H (2.6-8.5) % Lymph # (Auto) 0.64 L (0.9-3.2) K/mm3 Chloride 109 H (98-107) mmol/L Calcium 8.0 L (8.4-10.2) mg/dL Total Protein 5.0 L (6.3-8.2) g/dL Albumin 3.2 L (3.5-5.1) g/dL Urine Appearance Cloudy H (Clear) Urine Ketones 1+ H (Negative) mg/dL Leukocyte Esterase Rfl Trace H (Negative) FEDE/UL Urine RBC 6-10 H (0-2) /hpf Diabetes panel 11/18/24 11/19/24 Range/Units 16:03 05:05 Sodium 138 137 (137-145) mmol/L Potassium 3.6 3.5 (3.4-5.0) mmol/L Chloride 105 109 H (98-107) mmol/L Carbon Dioxide 24 24 (22-30) mmol/L BUN 17 15 (7-17) mg/dL Creatinine 0.79 0.91 (0.7-1.0) mg/dL Glucose 93 95 (65-110) mg/dL Calcium 8.9 8.0 L (8.4-10.2) mg/dL AST 25 21 (14-36) U/L ALT 15 13 (6-35) U/L Alkaline Phosphatase 76 63 (38-126) U/L Total Protein 7.0 5.0 L (6.3-8.2) g/dL Albumin 4.1 3.2 L (3.5-5.1) g/dL Calcium panel 11/18/24 11/19/24 Range/Units 16:03 05:05 Calcium 8.9 8.0 L (8.4-10.2) mg/dL Albumin 4.1 3.2 L (3.5-5.1) g/dL Pituitary panel 11/18/24 11/19/24 Range/Units 16:03 05:05 Sodium 138 137 (137-145) mmol/L Potassium 3.6 3.5 (3.4-5.0) mmol/L Chloride 105 109 H (98-107) mmol/L Carbon Dioxide 24 24 (22-30) mmol/L BUN 17 15 (7-17) mg/dL Creatinine 0.79 0.91 (0.7-1.0) mg/dL Glucose 93 95 (65-110) mg/dL Calcium 8.9 8.0 L (8.4-10.2) mg/dL Adrenal panel 11/18/24 11/19/24 Range/Units 16:03 05:05 Sodium 138 137 (137-145) mmol/L Potassium 3.6 3.5 (3.4-5.0) mmol/L Chloride 105 109 H (98-107) mmol/L Carbon Dioxide 24 24 (22-30) mmol/L BUN 17 15 (7-17) mg/dL Creatinine 0.79 0.91 (0.7-1.0) mg/dL Glucose 93 95 (65-110) mg/dL Calcium 8.9 8.0 L (8.4-10.2) mg/dL Total Bilirubin 0.7 0.7 (0.2-1.3) mg/dL AST 25 21 (14-36) U/L ALT 15 13 (6-35) U/L Alkaline Phosphatase 76 63 (38-126) U/L Total Protein 7.0 5.0 L (6.3-8.2) g/dL Albumin 4.1 3.2 L (3.5-5.1) g/dL All other labs normal. Imaging Additional studies: ITS Impressions Abdomen/Pelvis CT 11/18/24 17:44 IMPRESSION: Acute diverticulitis without a drainable fluid collection or gross perforation. A contained perforation is noted. Follow-up to resolution is recommended as a malignancy may have a similar appearance. Splenomegaly (unchanged). Findings within segment 7 of the liver, which likely represent a benign cyst. Further evaluation with a focused ultrasound versus contrast-enhanced MRI (with liver mass protocol) is recommended as this is an interval change from the 2012 examination. Mural thickening within the distal esophagus for which direct visualization is recommended, when the patient is clinically able.
[2024-11-19 11:07] VITALS: BMI 26.9
[2024-11-19 12:00] VITALS: BP 95/53; PULSE 94; RESP 14; TEMP 37.6; O2SAT 95
[2024-11-19] MEDS: MORPHINE SULFATE (*CRX) 2 MG/ML INJ IV PUSH ×2 (12:35→14:42)
--- NOTE | 2024-11-19 12:49 | P.CDI_ITS ---
CDI Query Clarification Request BMI: 26.9 Nutritional Diagnostic Statement: Please refer to the comprehensive nutrition assessment for further information. If you agree with diagnosis of Moderate Protein Calorie Malnutrition as related to inadequate energy intake as evidenced by < 75% of EER for > 7 days and significant weight loss of 30%, 15% in 3 months. Please specify severity if known: * Mild * Moderate * Severe * Other/Unknown <Emy Woodson RN - Last Filed: 11/19/24 12:50> Clarified Diagnosis Clarified Diagnosis: Agree with Moderate Protein Calorie Malnutrition, will consult dietary <Kareem Munoz PA-C - Last Filed: 11/19/24 13:10>
[2024-11-19] MEDS: FAMOTIDINE 20 MG/2 ML VIAL IV PUSH (20:46)
[2024-11-19 21:00] VITALS: BP 119/63; PULSE 100; RESP 16; TEMP 37.1; O2SAT 94
[2024-11-20] MEDS: SODIUM CHLORIDE 0.9% IV 1,000 ML 125 ML IV CONT ×3 (00:33→21:02)
[2024-11-20] MEDS: MORPHINE SULFATE (*CRX) 2 MG/ML INJ IV PUSH ×2 (00:35→13:51)
[2024-11-20] MEDS: PIPERACILLN/TAZ 3.375GM/NS50ML 3.375 GM/50 ML BAG IVPB ×4 (01:33→21:03)
[2024-11-20] MEDS: ONDANSETRON INJ 4 MG/2 ML VIAL IV PUSH ×2 (03:16→08:46)
[2024-11-20 05:11] LABS: Basophils Percent Auto 0.4 % (0.2-1.2); Eosinophils Percent Auto 0.4 % (0-4.4); Hematocrit 30.6 % (37.0-47.0); Hemoglobin 9.8 g/dL (12.0-15.0); Immature Granulocyte Absolute 0.03 K/mm3 (0.00-0.031); Immature Granulocyte Percent A 0.6 % (0-0.5); Lymphocytes Absolute Auto 0.56 K/mm3 (0.9-3.2); Lymphocytes Percent Auto 11.8 % (18.3-44.2); Mean Corpuscular Hemoglobin 30.5 pg (26-34); Mean Corpuscular Volume 95.3 fl (80-100); Mean Platelet Volume 10.3 fl (7.4-10.4); Monocytes Absolute Auto 0.4 K/mm3 (0.1-0.6); Monocytes Percent Auto 7.6 % (2.6-8.5); Neutrophils Absolute Auto 3.7 K/mm3 (1.3-6.7); Neutrophils Percent Auto 79.2 % (45.5-73.1); Platelet Count Result 107 k/mm3 (150-375); Red Blood Count 3.21 M/mm3 (4.2-5.4); Red Cell Distribution Width 13.5 % (11.5-14.5); White Blood Count 4.7 K/mm3 (4.5-10.0)
[2024-11-20 05:29] LABS: Alanine Aminotransferase 39 U/L (6-35); Albumin Level 3.2 g/dL (3.5-5.1); Alkaline Phosphatase 104 U/L (38-126); Anion Gap 8 mmol/L (4-12); Aspartate Amino Transferase 48 U/L (14-36); Bilirubin,Total 0.8 mg/dL (0.2-1.3); Blood Urea Nitrogen 19 mg/dL (7-17); Carbon Dioxide 21 mmol/L (22-30); Chloride 110 mmol/L (98-107); Estimated CRCL calculation 47 ml/min; Estimated Glomerular Filt Rate 59; Glucose 67 mg/dL (65-110); Magnesium 2.1 mg/dL (1.6-2.3); Potassium 3.7 mmol/L (3.4-5.0); Sodium 139 mmol/L (137-145)
[2024-11-20 06:00] VITALS: BP 101/50; PULSE 82; RESP 16; TEMP 37.5; O2SAT 96
--- NOTE | 2024-11-20 06:54 | PM.IMPN ---
Progress Note: A&P Assessment and Plan (1) Acute diverticulitis: Code(s): K57.92 - Diverticulitis of intestine, part unspecified, without perforation or abscess without bleeding Status: Acute Assessment and Plan: Abd/pelvis CT: Acute diverticulitis without a drainable fluid collection or gross perforation. A contained perforation is noted. Monitor vital signs, I&Os, track stool output, watch for bloody stools, neuro status and patient is a fall risk Monitor serum electrolytes and CBC Gentle IV fluid resuscitation Consider Zosyn 3.375g q6hr Diet: Clear liquid, advance as tolerated Gen surg, GI following Suprapubic tenderness, no peritoneal signs on exam, pain improving w/ IV Morphine No Leukocytosis No indications for surgical intervention Continue IV antibiotics and pain control Bowel rest Colonoscopy outpatient in 4-6 weeks Pain improved, will plan on decreasing frequency of PRN pain control no other changes (2) Abnormal CT of the abdomen: Code(s): R93.5 - Abnormal findings on diagnostic imaging of other abdominal regions, including retroperitoneum Status: Acute Assessment and Plan: Abd/pelvis CT: Findings within segment 7 of the liver, which likely represent a benign cyst. Further evaluation with a focused ultrasound versus contrast-enhanced MRI (with liver mass protocol) is recommended as this is an interval change from the 2012 examination. Mural thickening within the distal esophagus for which direct visualization is recommended, when the patient is clinically able. Regarding liver lesion: Incidental finding, GI following, do not recommend further evaluation Regarding mural thickening: Pt has h/o hiatal hernia surgery repair last year Has had continued dry heaving Considering reevaluation by GI as outpatient No further workup required (3) Anxiety with depression: Code(s): F41.8 - Other specified anxiety disorders Status: Acute Assessment and Plan: Continue Sertraline (4) GERD with esophagitis: Qualifiers: Esophagitis bleeding: without hemorrhage Qualified Code(s): K21.00 - Gastro-esophageal reflux disease with esophagitis, without bleeding Code(s): K21.00 - Gastro-esophageal reflux disease with esophagitis, without bleeding Status: Acute Assessment and Plan: Continue Famotidine Time Spent With Patient Time: - Subjective Date/time seen: 11/20/24 06:54 Interval history: Patient is a 69-year-old female who with a past medical history of hyperlipidemia, anxiety, depression, afib w/o medication, total hysterectomy who presents to the hospital for lower abdominal pain for the past 2 days prior to arrival. She is here with acute diverticulitis. 11/20/2024 Patient sitting comfortably in bed at time of exam. Abdominal pain improved greatly today, appetite hasn't quite returned but patient does want to try and eat and expressed interest in decreasing her pain medications at this time. Will continuing following with Gen surg and GI through the weekend. No other changes or concerns at this time. Blood work and vitals stable. Review of Systems Review of Systems: All systems reviewed & are unremarkable except as noted in HPI and below Exam Narrative: Gen - well appearing female in no acute respiratory distress who is nontoxic-appearing lying semi recumbent in bed HEENT - normocephalic. Atraumatic. Pupils equal round and reactive. Extraocular motions intact. Nares patent. Oropharynx was clear. Moist mucous membranes. No facial asymmetry. Neck - neck was supple. No dominant adenopathy, thyromegaly or masses. 2+ carotid upstrokes without bruits. Chest - lungs are clear to auscultation bilaterally. No wheezes or crackles. Breast exam was deferred. CV - heart was regular rate and rhythm. S1-S2. No murmurs gallops or rubs. Abd -port site scars, Pfannenstiel scar. Tenderness throughout abdomen, worse across entire lower abdomen abdomen was soft. Guarding throughout. Nondistended. Positive bowel sounds. No organomegaly or masses. Ext - no clubbing, cyanosis or edema. 2+ DP pulses bilaterally. Neuro - patient is alert and oriented x4. Strength is 5/5 in both upper and lower extremities. Cranial nerves 2-12 are intact. Speech is clear. Psych - normal mood and affect. Patient is pleasant and cooperative. Skin - warm and dry. No rashes noted. Objective Data Vital Signs Vital Signs: Vital Signs - 24 hr 11/19/24 08:00 11/19/24 12:00 11/19/24 21:00 Temperature 99.6 F 99.6 F 98.7 F Pulse Rate 82 94 100 Respiratory Rate 14 14 16 Blood Pressure 93/60 L 95/53 L 119/63 Pulse Oximetry 91 95 94 11/20/24 06:00 Temperature 99.5 F Pulse Rate 82 Respiratory Rate 16 Blood Pressure 101/50 L Pulse Oximetry 96 Intake/Output Intake/Output: Intake & Output 11/17/24 11/18/24 11/19/24 11/20/24 23:59 23:59 23:59 23:59 Intake Total 1200 3200 50 Balance 1200 3200 50 Meds/Results Medications: Active Medications Generic Name Dose Route Start Last Admin Trade Name Freq PRN Reason Stop Dose Admin Acetaminophen 650 mg 11/18/24 23:26 Acetaminophen 325 Mg Tablet PO Q4H PRN Pain Rated 5 or Less/Fever Ascorbic Acid 500 mg 11/19/24 09:00 11/19/24 09:02 Ascorbic Acid 500 Mg Tablet PO 500 mg QAM YASMEEN Administration Cyanocobalamin 1,000 mcg 11/19/24 09:00 11/19/24 09:03 Cyanocobalamin 1,000 Mcg Tablet PO 1,000 mcg QAM YASMEEN Administration Famotidine 20 mg 11/19/24 21:00 11/19/24 20:46 Famotidine 20 Mg/2 Ml Vial IV PUSH 20 mg Q12HR YASMEEN Administration Folic Acid 1 mg 11/19/24 09:00 11/19/24 09:03 Folic Acid 1 Mg Tablet PO 1 mg DAILY YASMEEN Administration Piperacillin/Tazobactam/Dextrose 3.375 gm in 50 mls @ 100 mls/hr 11/19/24 02:00 11/20/24 02:00 Zosyn 3.375 Gm/Ns 50 Ml IVPB Infused Q6H YASMEEN Infusion Sodium Chloride 1,000 mls @ 125 mls/hr 11/18/24 19:40 11/20/24 00:33 Normal Saline Iv IV CONT 125 mls/hr .Q8H YASMEEN Administration Minoxidil 1.25 mg 11/19/24 09:00 11/19/24 09:02 Minoxidil 2.5 Mg Tablet PO 1.25 mg DAILY YASMEEN Administration Miscellaneous Information 1 each 11/18/24 00:01 11/19/24 02:45 Progesterone Micronized 100 Mg Capsule Is Nonformulary, Can Patient Bring From Home? XX 12/18/24 00:00 Not Given [facility] Miscellaneous Information 1 each 11/18/24 00:01 11/19/24 02:45 Finasteride 1 Mg Tablet Is Nonformulary, Can Patient Bring From Home? XX 12/18/24 00:00 Not Given [facility] Morphine Sulfate 4 mg 11/19/24 10:01 11/19/24 21:39 Morphine Sulfate (*Crx) 4 Mg/Ml Inj IV PUSH 4 mg Q2H PRN Administration Pain Rated 7-10 Morphine Sulfate 2 mg 11/19/24 10:01 11/20/24 00:35 Morphine Sulfate (*Crx) 2 Mg/Ml Inj IV PUSH 2 mg Q2H PRN Administration Pain Rated 4-6 Non-Formulary Medication 1 mg 11/19/24 09:00 Finasteride PO 12/19/24 08:59 DAILY YASMEEN Non-Formulary Medication 100 mg 11/19/24 18:00 Progesterone Micronized PO 12/19/24 17:59 QPM [facility] Ondansetron HCl 4 mg 11/18/24 23:27 11/20/24 03:16 Ondansetron Inj 4 Mg/2 Ml Vial IV PUSH 4 mg Q4H PRN Administration Nausea And Vomiting Sertraline HCl 25 mg 11/19/24 09:00 11/19/24 09:02 Sertraline Hcl 25 Mg Tablet PO 25 mg DAILY YASMEEN Administration Sertraline HCl 50 mg 11/19/24 09:00 11/19/24 09:02 Sertraline Hcl 50 Mg Tablet PO 50 mg DAILY YASMEEN Administration Terbinafine HCl 250 mg 11/19/24 09:00 11/19/24 09:02 Terbinafine Hcl 250 Mg Tablet PO 250 mg DAILY YASMEEN Administration Radiology Results: ITS Impressions Abdomen/Pelvis CT 11/18/24 17:44 IMPRESSION: Acute diverticulitis without a drainable fluid collection or gross perforation. A contained perforation is noted. Follow-up to resolution is recommended as a malignancy may have a similar appearance. Splenomegaly (unchanged). Findings within segment 7 of the liver, which likely represent a benign cyst. Further evaluation with a focused ultrasound versus contrast-enhanced MRI (with liver mass protocol) is recommended as this is an interval change from the 2012 examination. Mural thickening within the distal esophagus for which direct visualization is recommended, when the patient is clinically able. Labs Labs: Laboratory Results - last 24 hr 11/20/24 04:21 WBC 4.7 RBC 3.21 L Hgb 9.8 L Hct 30.6 L MCV 95.3 MCH 30.5 MCHC 32.0 RDW 13.5 Plt Count 107 L MPV 10.3 Immature Gran % (Auto) 0.6 H Neut % (Auto) 79.2 H Lymph % (Auto) 11.8 L [place] % (Auto) 7.6 Eos % (Auto) 0.4 Baso % (Auto) 0.4 Lymph # (Auto) 0.56 L [place] # (Auto) 0.4 Eos # (Auto) 0.0 Baso # (Auto) 0.0 Abs Immat Gran (auto) 0.03 Absolute Neuts (auto) 3.7 Absolute Nucleated RBC 0.000 Nucleated RBC % 0.0 Sodium 139 Potassium 3.7 Chloride 110 H Carbon Dioxide 21 L Anion Gap 8 BUN 19 H Creatinine 0.95 Estim Creat Clear Calc 47 Estimated GFR 59 Glucose 67 Calcium 8.0 L Magnesium 2.1 Total Bilirubin 0.8 AST 48 H ALT 39 H Alkaline Phosphatase 104 Total Protein 6.0 L Albumin 3.2 L Quality VTE Prophylaxis VTE prophylaxis: mechanical ordered
[2024-11-20] MEDS: MORPHINE SULFATE (*CRX) 4 MG/ML INJ IV PUSH ×2 (07:30→21:04)
[2024-11-20] MEDS: minoxidiL 2.5 MG TABLET 1.25 MG PO (08:33)
[2024-11-20] MEDS: FAMOTIDINE 20 MG/2 ML VIAL IV PUSH ×2 (08:34→21:05)
[2024-11-20] MEDS: ASCORBIC ACID 500 MG TABLET PO (08:34)
[2024-11-20] MEDS: SERTRALINE HCL 50 MG TABLET PO (08:34)
[2024-11-20] MEDS: CYANOCOBALAMIN 1,000 MCG TABLET 1000 MCG PO (08:34)
[2024-11-20] MEDS: TERBINAFINE HCL 250 MG TABLET PO (08:34)
[2024-11-20] MEDS: FOLIC ACID 1 MG TABLET PO (08:34)
[2024-11-20] MEDS: SERTRALINE HCL 25 MG TABLET PO (08:34)
--- NOTE | 2024-11-20 09:37 | PM.PNGS ---
Progress Note: A&P Assessment and Plan (1) Abnormal CT of the abdomen: Code(s): R93.5 - Abnormal findings on diagnostic imaging of other abdominal regions, including retroperitoneum Status: Acute Assessment and Plan: CT scan also showed a small liver lesion, likely a cyst, and mural thickening of the distal esophagus, for which GI was consulted. She has had persistent issues with nausea and dry heaving frequently since her hiatal hernia repair a year ago, and has been contemplating being re-evaluated by GI as an outpatient. She has lost about 30 lbs related to her poor oral intake and has been following mostly a full liquid diet. Dietitian also following. (2) Acute diverticulitis: Code(s): K57.92 - Diverticulitis of intestine, part unspecified, without perforation or abscess without bleeding Status: Acute Assessment and Plan: Patient is having less pain today and feels as though she is ready to start weaning off the morphine as tolerated. Nausea and vomiting persists with only small amounts of bilious emesis (<5ml) with each episode. She states that the Zofran is helping with this. She states she has had this problem ever since Kathie fundoplication. Very mild tenderness localized right lower quadrant and suprapubic region. There is no indication for emergent surgical management. Plan to continue IV antibiotics and IV fluids. Advance diet to clear liquids and eventually full liquids as tolerated. We will continue to follow closely with serial abdominal exams and labs. Her last colonoscopy was 5 years ago so she may need another 4-6 weeks after resolution from this episode but this can be planned as outpatient. Plan I have discussed the patient's case and plan of care with Dr. Hernandez. Subjective Subjective Date/Time Seen: 11/20/24 09:37 Interval history: Upon this morning's examination patient's pain has subsided to a point where she feels comfortable weaning off pain medication. However nausea still remains, and patient has been retching up small amounts of green yellow fluid. She does state that she has had this problem prior to admission but that the episodes have increased in frequency. GI is following and consulted yesterday. Despite nausea, patient feels she can tolerate clear liquids. No abnormal white count or fever. Exam Const: General: comfortable and average body habitus Nutritional Appearance: average body habitus Orientation/consciousness: patient oriented x3 HENMT: Head: normocephalic and atraumatic Ears: hearing grossly normal bilaterally Mouth: Yes moist mucous membranes Eyes: General: appearance normal, both eyes and all related structures Pupils: Equal, round and reactive pupils present Neck: Neck: normal visual inspection and full ROM Resp: Effort & Inspection: no respiratory distress Auscultation: clear to auscultation bilaterally Cardio: Rate: regular rate Rhythm: regular rhythm Peripheral pulses: Peripheral pulses 2+ throughout GI: Inspection: non-distended and scar (port site scars, Pfannenstiel scar) GI Palp: Yes Soft to palpation Auscultation: normal bowel sounds Other: Patient retching up small amount of green yellow fluid upon today's examination. She states that this is what it normally looks like and that she has had these episodes prior to admission. Skin: General skin exam: normal color Neuro: General: patient oriented x3, moves all extremities and no focal motor deficits Cranial nerves: Yes Equal, round and reactive pupils present Speech: normal speech Motor exam (neuro): 5/5 motor strength present throughout Extrem: General: normal to inspection and no edema Psych: Mental Status: mental status grossly normal Attitude: cooperative Insight: Good insight present (Psych) Judgement: Good judgement present (Psych) Objective Data Vital Signs Vital Signs: Vital Signs - 24 hr 11/19/24 12:00 11/19/24 21:00 11/20/24 06:00 Temperature 99.6 F 98.7 F 99.5 F Pulse Rate 94 100 82 Respiratory Rate 14 16 16 Blood Pressure 95/53 L 119/63 101/50 L Pulse Oximetry 95 94 96 Intake/Output Intake/Output: Intake & Output 11/17/24 11/18/24 11/19/24 11/20/24 23:59 23:59 23:59 23:59 Intake Total 1200 3200 100 Balance 1200 3200 100 Meds/Results Medications: Active Medications Generic Name Dose Route Start Last Admin Trade Name Freq PRN Reason Stop Dose Admin Acetaminophen 650 mg 11/18/24 23:26 Acetaminophen 325 Mg Tablet PO Q4H PRN Pain Rated 5 or Less/Fever Ascorbic Acid 500 mg 11/19/24 09:00 11/20/24 08:34 Ascorbic Acid 500 Mg Tablet PO 500 mg QAM YASMEEN Administration Cyanocobalamin 1,000 mcg 11/19/24 09:00 11/20/24 08:34 Cyanocobalamin 1,000 Mcg Tablet PO 1,000 mcg QAM YASMEEN Administration Famotidine 20 mg 11/19/24 21:00 11/20/24 08:34 Famotidine 20 Mg/2 Ml Vial IV PUSH 20 mg Q12HR YASMEEN Administration Folic Acid 1 mg 11/19/24 09:00 11/20/24 08:34 Folic Acid 1 Mg Tablet PO 1 mg DAILY YASMEEN Administration Piperacillin/Tazobactam/Dextrose 3.375 gm in 50 mls @ 100 mls/hr 11/19/24 02:00 11/20/24 08:03 Zosyn 3.375 Gm/Ns 50 Ml IVPB Infused Q6H YASMEEN Infusion Sodium Chloride 1,000 mls @ 125 mls/hr 11/18/24 19:40 11/20/24 00:33 Normal Saline Iv IV CONT 125 mls/hr .Q8H YASMEEN Administration Minoxidil 1.25 mg 11/19/24 09:00 11/20/24 08:33 Minoxidil 2.5 Mg Tablet PO 1.25 mg DAILY YASMEEN Administration Miscellaneous Information 1 each 11/18/24 00:01 11/20/24 07:31 Progesterone Micronized 100 Mg Capsule Is Nonformulary, Can Patient Bring From Home? XX 12/18/24 00:00 Not Given [facility] Miscellaneous Information 1 each 11/18/24 00:01 11/20/24 07:30 Finasteride 1 Mg Tablet Is Nonformulary, Can Patient Bring From Home? XX 12/18/24 00:00 Not Given [facility] Morphine Sulfate 4 mg 11/19/24 10:01 11/20/24 07:30 Morphine Sulfate (*Crx) 4 Mg/Ml Inj IV PUSH 4 mg Q2H PRN Administration Pain Rated 7-10 Morphine Sulfate 2 mg 11/19/24 10:01 11/20/24 00:35 Morphine Sulfate (*Crx) 2 Mg/Ml Inj IV PUSH 2 mg Q2H PRN Administration Pain Rated 4-6 Non-Formulary Medication 1 mg 11/19/24 09:00 Finasteride PO 12/19/24 08:59 [facility] Non-Formulary Medication 100 mg 11/19/24 18:00 Progesterone Micronized PO 12/19/24 17:59 QPM [facility] Ondansetron HCl 4 mg 11/18/24 23:27 11/20/24 08:46 Ondansetron Inj 4 Mg/2 Ml Vial IV PUSH 4 mg Q4H PRN Administration Nausea And Vomiting Sertraline HCl 25 mg 11/19/24 09:00 11/20/24 08:34 Sertraline Hcl 25 Mg Tablet PO 25 mg DAILY YASMEEN Administration Sertraline HCl 50 mg 11/19/24 09:00 11/20/24 08:34 Sertraline Hcl 50 Mg Tablet PO 50 mg DAILY YASMEEN Administration Terbinafine HCl 250 mg 11/19/24 09:00 11/20/24 08:34 Terbinafine Hcl 250 Mg Tablet PO 250 mg DAILY YASMEEN Administration Radiology Results: ITS Impressions Abdomen/Pelvis CT 11/18/24 17:44 IMPRESSION: Acute diverticulitis without a drainable fluid collection or gross perforation. A contained perforation is noted. Follow-up to resolution is recommended as a malignancy may have a similar appearance. Splenomegaly (unchanged). Findings within segment 7 of the liver, which likely represent a benign cyst. Further evaluation with a focused ultrasound versus contrast-enhanced MRI (with liver mass protocol) is recommended as this is an interval change from the 2012 examination. Mural thickening within the distal esophagus for which direct visualization is recommended, when the patient is clinically able. Labs Labs: Laboratory Results - last 24 hr 11/20/24 04:21 WBC 4.7 RBC 3.21 L Hgb 9.8 L Hct 30.6 L MCV 95.3 MCH 30.5 MCHC 32.0 RDW 13.5 Plt Count 107 L MPV 10.3 Immature Gran % (Auto) 0.6 H Neut % (Auto) 79.2 H Lymph % (Auto) 11.8 L [place] % (Auto) 7.6 Eos % (Auto) 0.4 Baso % (Auto) 0.4 Lymph # (Auto) 0.56 L [place] # (Auto) 0.4 Eos # (Auto) 0.0 Baso # (Auto) 0.0 Abs Immat Gran (auto) 0.03 Absolute Neuts (auto) 3.7 Absolute Nucleated RBC 0.000 Nucleated RBC % 0.0 Sodium 139 Potassium 3.7 Chloride 110 H Carbon Dioxide 21 L Anion Gap 8 BUN 19 H Creatinine 0.95 Estim Creat Clear Calc 47 Estimated GFR 59 Glucose 67 Calcium 8.0 L Magnesium 2.1 Total Bilirubin 0.8 AST 48 H ALT 39 H Alkaline Phosphatase 104 Total Protein 6.0 L Albumin 3.2 L
--- NOTE | 2024-11-20 12:43 | P.PNGI_ITS ---
Progress Note: A&P Assessment and Plan (1) Acute diverticulitis: Code(s): K57.92 - Diverticulitis of intestine, part unspecified, without perforation or abscess without bleeding Status: Acute Assessment and Plan: Currently on day 3 of intravenous antibiotics, the patient's acute diverticulitis is following a favorable clinical course. It is important to differentiate her ongoing nausea and vomiting, which are likely distinct from the diverticulitis. 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 Following discharge for the diverticulitis, she will be followed in our GI Clinic, and a referral to a motility specialist at [facility] will be considered to manage these complex motility issues. Subjective Date/time seen: 11/20/24 12:43 Interval history: While the patient reports feeling better overall regarding abdominal pain compared to yesterday, she still describes it as 6/10, localized to the suprapubic area and left lower quadrant. Intermittent episodes of nausea and retching persist. It's important to note that these symptoms, along with intermittent diarrhea (which has not occurred during this admission), precede this hospitalization and began shortly after her Kathie fundoplication. She has not been able to identify specific food triggers that can be associated with these episodes of nausea and vomiting, but they generally occur when she is outside. She is continuing to receive intravenous Zosyn for her diagnosed acute diverticulitis with concealed perforation. Exam Narrative: Abdomen: cupola tender helper in suprapubic and left lower quadrant although less than yesterday. bowel sounds present. Rest of the exam witout changes Objective Data Vital Signs Vital Signs: Vital Signs - 24 hr 11/19/24 21:00 11/20/24 06:00 Temperature 98.7 F 99.5 F Pulse Rate 100 82 Respiratory Rate 16 16 Blood Pressure 119/63 101/50 L Pulse Oximetry 94 96 Intake/Output Intake/Output: Intake & Output 11/17/24 11/18/24 11/19/24 11/20/24 23:59 23:59 23:59 23:59 Intake Total 1200 3200 1100 Balance 1200 3200 1100 Meds/Results Medications: Active Medications Generic Name Dose Route Start Last Admin Trade Name Freq PRN Reason Stop Dose Admin Acetaminophen 650 mg 11/18/24 23:26 Acetaminophen 325 Mg Tablet PO Q4H PRN Pain Rated 5 or Less/Fever Ascorbic Acid 500 mg 11/19/24 09:00 11/20/24 08:34 Ascorbic Acid 500 Mg Tablet PO 500 mg QAM YASMEEN Administration Cyanocobalamin 1,000 mcg 11/19/24 09:00 11/20/24 08:34 Cyanocobalamin 1,000 Mcg Tablet PO 1,000 mcg QAM YASMEEN Administration Famotidine 20 mg 11/19/24 21:00 11/20/24 08:34 Famotidine 20 Mg/2 Ml Vial IV PUSH 20 mg Q12HR YASMEEN Administration Folic Acid 1 mg 11/19/24 09:00 11/20/24 08:34 Folic Acid 1 Mg Tablet PO 1 mg DAILY YASMEEN Administration Piperacillin/Tazobactam/Dextrose 3.375 gm in 50 mls @ 100 mls/hr 11/19/24 02 :00 11/20/24 08:03 Zosyn 3.375 Gm/Ns 50 Ml IVPB Infused Q6H YASMEEN Infusion Sodium Chloride 1,000 mls @ 125 mls/hr 11/18/24 19:40 11/20/24 10:58 Normal Saline Iv IV CONT 125 mls/hr .Q8H YASMEEN Administration Minoxidil 1.25 mg 11/19/24 09:00 11/20/24 08:33 Minoxidil 2.5 Mg Tablet PO 1.25 mg DAILY YASMEEN Administration Miscellaneous Information 1 each 11/18/24 00:01 11/20/24 07:31 Progesterone Micronized 100 Mg Capsule Is Nonformulary, Can Patient Bring From Home? XX 12/18/24 00:00 Not Given [facility] Miscellaneous Information 1 each 11/18/24 00:01 11/20/24 07:30 Finasteride 1 Mg Tablet Is Nonformulary, Can Patient Bring From Home? XX 12/18/24 00:00 Not Given [facility] Morphine Sulfate 4 mg 11/19/24 10:01 11/20/24 07:30 Morphine Sulfate (*Crx) 4 Mg/Ml Inj IV PUSH 4 mg Q2H PRN Administration Pain Rated 7-10 Morphine Sulfate 2 mg 11/19/24 10:01 11/20/24 00:35 Morphine Sulfate (*Crx) 2 Mg/Ml Inj IV PUSH 2 mg Q2H PRN Administration Pain Rated 4-6 Non-Formulary Medication 1 mg 11/19/24 09:00 Finasteride PO 12/19/24 08:59 DAILY YASMEEN Non-Formulary Medication 100 mg 11/19/24 18:00 Progesterone Micronized PO 12/19/24 17:59 QPM YASMEEN Ondansetron HCl 4 mg 11/18/24 23:27 11/20/24 08:46 Ondansetron Inj 4 Mg/2 Ml Vial IV PUSH 4 mg Q4H PRN Administration Nausea And Vomiting Sertraline HCl 25 mg 11/19/24 09:00 11/20/24 08:34 Sertraline Hcl 25 Mg Tablet PO 25 mg DAILY YASMEEN Administration Sertraline HCl 50 mg 11/19/24 09:00 11/20/24 08:34 Sertraline Hcl 50 Mg Tablet PO 50 mg DAILY YASMEEN Administration Terbinafine HCl 250 mg 11/19/24 09:00 11/20/24 08:34 Terbinafine Hcl 250 Mg Tablet PO 250 mg DAILY YASMEEN Administration Radiology Results: ITS Impressions Abdomen/Pelvis CT 11/18/24 17:44 IMPRESSION: Acute diverticulitis without a drainable fluid collection or gross perforation. A contained perforation is noted. Follow-up to resolution is recommended as a malignancy may have a similar appearance. Splenomegaly (unchanged). Findings within segment 7 of the liver, which likely represent a benign cyst. Further evaluation with a focused ultrasound versus contrast-enhanced MRI (with liver mass protocol) is recommended as this is an interval change from the 2012 examination. Mural thickening within the distal esophagus for which direct visualization is recommended, when the patient is clinically able. Labs Labs: Laboratory Results - last 24 hr 11/20/24 04:21 WBC 4.7 RBC 3.21 L Hgb 9.8 L Hct 30.6 L MCV 95.3 MCH 30.5 MCHC 32.0 RDW 13.5 Plt Count 107 L MPV 10.3 Immature Gran % (Auto) 0.6 H Neut % (Auto) 79.2 H Lymph % (Auto) 11.8 L [place] % (Auto) 7.6 Eos % (Auto) 0.4 Baso % (Auto) 0.4 Lymph # (Auto) 0.56 L [place] # (Auto) 0.4 Eos # (Auto) 0.0 Baso # (Auto) 0.0 Abs Immat Gran (auto) 0.03 Absolute Neuts (auto) 3.7 Absolute Nucleated RBC 0.000 Nucleated RBC % 0.0 Sodium 139 Potassium 3.7 Chloride 110 H Carbon Dioxide 21 L Anion Gap 8 BUN 19 H Creatinine 0.95 Estim Creat Clear Calc 47 Estimated GFR 59 Glucose 67 Calcium 8.0 L Magnesium 2.1 Total Bilirubin 0.8 AST 48 H ALT 39 H Alkaline Phosphatase 104 Total Protein 6.0 L Albumin 3.2 L
[2024-11-20 14:00] VITALS: BP 108/58; PULSE 77; RESP 16; TEMP 36.9; O2SAT 96
--- NOTE | 2024-11-20 14:25 | PHAR ---
The patient's home meds of Progesterone 100mg and Finasteride 1mg have been verified.
[2024-11-20] MEDS: ACETAMINOPHEN 325 MG TABLET 650 MG PO (16:05)
[2024-11-20 21:37] VITALS: BP 96/57; PULSE 68; RESP 16; TEMP 36.4; O2SAT 96
[2024-11-21] MEDS: PIPERACILLN/TAZ 3.375GM/NS50ML 3.375 GM/50 ML BAG IVPB ×4 (02:18→20:07)
[2024-11-21] MEDS: MORPHINE SULFATE (*CRX) 4 MG/ML INJ IV PUSH ×2 (03:50→12:42)
[2024-11-21] MEDS: ACETAMINOPHEN 325 MG TABLET 650 MG PO ×2 (03:52→22:08)
[2024-11-21 04:58] LABS: Basophils Percent Auto 0.4 % (0.2-1.2); Eosinophils Absolute Auto 0.1 K/mm3 (0-0.3); Eosinophils Percent Auto 3.9 % (0-4.4); Hematocrit 27.2 % (37.0-47.0); Immature Granulocyte Absolute 0.01 K/mm3 (0.00-0.031); Immature Granulocyte Percent A 0.4 % (0-0.5); Immature Platelet Fraction Pct 2.9 % (0.9-11.2); Lymphocytes Absolute Auto 0.73 K/mm3 (0.9-3.2); Lymphocytes Percent Auto 31.6 % (18.3-44.2); Mean Corpuscular HGB Conc 33.1 g/dl (32-36); Mean Corpuscular Hemoglobin 30.7 pg (26-34); Mean Corpuscular Volume 92.8 fl (80-100); Monocytes Absolute Auto 0.2 K/mm3 (0.1-0.6); Monocytes Percent Auto 9.5 % (2.6-8.5); Neutrophils Absolute Auto 1.3 K/mm3 (1.3-6.7); Neutrophils Percent Auto 54.2 % (45.5-73.1); Red Blood Count 2.93 M/mm3 (4.2-5.4); Red Cell Distribution Width 13.5 % (11.5-14.5); White Blood Count 2.3 K/mm3 (4.5-10.0)
[2024-11-21 05:14] LABS: Alanine Aminotransferase 26 U/L (6-35); Albumin Level 2.7 g/dL (3.5-5.1); Alkaline Phosphatase 76 U/L (38-126); Anion Gap 5 mmol/L (4-12); Aspartate Amino Transferase 27 U/L (14-36); Bilirubin,Total 0.4 mg/dL (0.2-1.3); Blood Urea Nitrogen 15 mg/dL (7-17); Calcium 7.7 mg/dL (8.4-10.2); Carbon Dioxide 21 mmol/L (22-30); Chloride 111 mmol/L (98-107); Estimated CRCL calculation 54 ml/min; Estimated Glomerular Filt Rate > 60; Glucose 95 mg/dL (65-110); Potassium 3.5 mmol/L (3.4-5.0); Sodium 137 mmol/L (137-145)
[2024-11-21 05:24] LABS: Platelet Count Result 99 k/mm3 (150-375)
[2024-11-21] MEDS: SODIUM CHLORIDE 0.9% IV 1,000 ML 125 ML IV CONT ×2 (05:44→15:55)
[2024-11-21 06:00] VITALS: BP 91/57; PULSE 65; RESP 14; TEMP 36.6; O2SAT 96
--- NOTE | 2024-11-21 06:57 | P.PNIM_ITS ---
Progress Note: A&P Assessment and Plan (1) Acute diverticulitis: Code(s): K57.92 - Diverticulitis of intestine, part unspecified, without perforation or abscess without bleeding Status: Acute Assessment and Plan: * Abd/pelvis CT: Acute diverticulitis without a drainable fluid collection or gross perforation. A contained perforation is noted. * Monitor vital signs, I&Os, track stool output, watch for bloody stools, neuro status and patient is a fall risk * Monitor serum electrolytes and CBC * Gentle IV fluid resuscitation * Consider Zosyn 3.375g q6hr * Diet: Clear liquid, advance as tolerated * Gen surg, GI following * No indications for surgical intervention * Continue IV antibiotics and pain control * Bowel rest * Colonoscopy outpatient in 4-6 weeks * Pain continues to improve * No other changes * Advance diet to low fiber (2) Abnormal CT of the abdomen: Code(s): R93.5 - Abnormal findings on diagnostic imaging of other abdominal regions, including retroperitoneum Status: Acute Assessment and Plan: * Abd/pelvis CT: * Findings within segment 7 of the liver, which likely represent a benign cyst. * Further evaluation with a focused ultrasound versus contrast-enhanced MRI (with liver mass protocol) is recommended as this is an interval change from the 2012 examination. * Mural thickening within the distal esophagus for which direct visualization is recommended, when the patient is clinically able. * Regarding liver lesion: Incidental finding, GI following, do not recommend further evaluation * Regarding mural thickening: Pt has h/o hiatal hernia surgery repair last year * Has had continued dry heaving * Considering reevaluation by GI as outpatient * No further workup required (3) Anxiety with depression: Code(s): F41.8 - Other specified anxiety disorders Status: Acute Assessment and Plan: * Continue Sertraline (4) GERD with esophagitis: Qualifiers: Esophagitis bleeding: without hemorrhage Qualified Code(s): K21.00 - Gastro-esophageal reflux disease with esophagitis, without bleeding Code(s): K21.00 - Gastro-esophageal reflux disease with esophagitis, without bleeding Status: Acute Assessment and Plan: * Continue Famotidine Time Spent With Patient Time: 15 Subjective Date/time seen: 11/21/24 06:57 Interval history: Patient is a 69-year-old female who with a past medical history of hyperlipidemia, anxiety, depression, afib w/o medication, total hysterectomy who presents to the hospital for lower abdominal pain for the past 2 days prior to arrival. She is here with acute diverticulitis. 11/21/2024 Patient examined sitting in bed. She states that her pain has improved again today. She is tolerating liquids, will attempt progression to low fiber diet. Continue with IV antibiotics and IVF. Gen surg continues to follow. No other changes or concerns at this time. Review of Systems Review of Systems: All systems reviewed & are unremarkable except as noted in HPI and below Exam Narrative: Gen - well appearing female in no acute respiratory distress who is nontoxic-appearing lying semi recumbent in bed HEENT - normocephalic. Atraumatic. Pupils equal round and reactive. Extraocular motions intact. Nares patent. Oropharynx was clear. Moist mucous membranes. No facial asymmetry. Neck - neck was supple. No dominant adenopathy, thyromegaly or masses. 2+ carotid upstrokes without bruits. Chest - lungs are clear to auscultation bilaterally. No wheezes or crackles. Breast exam was deferred. CV - heart was regular rate and rhythm. S1-S2. No murmurs gallops or rubs. Abd -port site scars, Pfannenstiel scar. Tenderness throughout abdomen, worse across entire lower abdomen abdomen was soft. Guarding throughout. Nondistended. Positive bowel sounds. No organomegaly or masses. Ext - no clubbing, cyanosis or edema. 2+ DP pulses bilaterally. Neuro - patient is alert and oriented x4. Strength is 5/5 in both upper and lower extremities. Cranial nerves 2-12 are intact. Speech is clear. Psych - normal mood and affect. Patient is pleasant and cooperative. Skin - warm and dry. No rashes noted. Objective Data Vital Signs Vital Signs: Vital Signs - 24 hr 11/20/24 14:00 11/20/24 20:00 11/20/24 21:37 Temperature 98.5 F 97.6 F Pulse Rate 77 68 Respiratory Rate 16 16 Blood Pressure 108/58 L 96/57 L Pulse Oximetry 96 96 Oxygen Delivery Room Air 11/21/24 06:00 Temperature 97.8 F Pulse Rate 65 Respiratory Rate 14 Blood Pressure 91/57 L Pulse Oximetry 96 Oxygen Delivery Intake/Output Intake/Output: Intake & Output 11/18/24 11/19/24 11/20/2425 23:59 23:59 23:59 23:59 Intake Total 1200 3200 3326 1000 Output Total 2 Balance 1200 3200 3326 998 Meds/Results Medications: Active Medications Generic Name Dose Route Start Last Admin Trade Name Freq PRN Reason Stop Dose Admin Acetaminophen 650 mg 11/18/24 23:26 11/21/24 03:52 Acetaminophen 325 Mg Tablet PO 650 mg Q4H PRN Administration Pain Rated 5 or Less/Fever Ascorbic Acid 500 mg 11/19/24 09:00 11/20/24 08:34 Ascorbic Acid 500 Mg Tablet PO 500 mg QAM YASMEEN Administration Cyanocobalamin 1,000 mcg 11/19/24 09:00 11/20/24 08:34 Cyanocobalamin 1,000 Mcg Tablet PO 1,000 mcg QAM YASMEEN Administration Famotidine 20 mg 11/19/24 21:00 11/20/24 21:05 Famotidine 20 Mg/2 Ml Vial IV PUSH 20 mg Q12HR YASMEEN Administration Folic Acid 1 mg 11/19/24 09:00 11/20/24 08:34 Folic Acid 1 Mg Tablet PO 1 mg DAILY YASMEEN Administration Piperacillin/Tazobactam/Dextrose 3.375 gm in 50 mls @ 100 mls/hr 11/19/24 02:00 11/21/24 02:18 Zosyn 3.375 Gm/Ns 50 Ml IVPB 100 mls/hr Q6H YASMEEN Administration Sodium Chloride 1,000 mls @ 125 mls/hr 11/18/24 19:40 11/21/24 05:44 Normal Saline Iv IV CONT 125 mls/hr .Q8H YASMEEN Administration Minoxidil 1.25 mg 11/19/24 09:00 11/20/24 08:33 Minoxidil 2.5 Mg Tablet PO 1.25 mg DAILY YASMEEN Administration Morphine Sulfate 4 mg 11/19/24 10:01 11/21/24 03:50 Morphine Sulfate (*Crx) 4 Mg/Ml Inj IV PUSH 4 mg Q2H PRN Administration Pain Rated 7-10 Morphine Sulfate 2 mg 11/19/24 10:01 11/20/24 13:51 Morphine Sulfate (*Crx) 2 Mg/Ml Inj IV PUSH 2 mg Q2H PRN Administration Pain Rated 4-6 Non-Formulary Medication 1 mg 11/20/24 14:30 11/20/24 16:06 Finasteride PO 12/20/24 14:29 Not Given DAILY YASMEEN Non-Formulary Medication 100 mg 11/20/24 18:00 11/20/24 16:06 Progesterone Micronized PO 12/20/24 17:59 Not Given QPM YASMEEN Ondansetron HCl 4 mg 11/18/24 23:27 11/20/24 08:46 Ondansetron Inj 4 Mg/2 Ml Vial IV PUSH 4 mg Q4H PRN Administration Nausea And Vomiting Sertraline HCl 25 mg 11/19/24 09:00 11/20/24 08:34 Sertraline Hcl 25 Mg Tablet PO 25 mg DAILY YASMEEN Administration Sertraline HCl 50 mg 11/19/24 09:00 11/20/24 08:34 Sertraline Hcl 50 Mg Tablet PO 50 mg DAILY YASMEEN Administration Terbinafine HCl 250 mg 11/19/24 09:00 11/20/24 08:34 Terbinafine Hcl 250 Mg Tablet PO 250 mg DAILY YASMEEN Administration Radiology Results: ITS Impressions Abdomen/Pelvis CT 11/18/24 17:44 IMPRESSION: Acute diverticulitis without a drainable fluid collection or gross perforation. A contained perforation is noted. Follow-up to resolution is recommended as a malignancy may have a similar appearance. Splenomegaly (unchanged). Findings within segment 7 of the liver, which likely represent a benign cyst. Further evaluation with a focused ultrasound versus contrast-enhanced MRI (with liver mass protocol) is recommended as this is an interval change from the 2012 examination. Mural thickening within the distal esophagus for which direct visualization is recommended, when the patient is clinically able. Labs Labs: Laboratory Results - last 24 hr 11/21/24 04:47 WBC 2.3 L RBC 2.93 L Hgb 9.0 L Hct 27.2 L MCV 92.8 MCH 30.7 MCHC 33.1 RDW 13.5 Plt Count 99 L MPV 10.0 Immature Gran % (Auto) 0.4 Neut % (Auto) 54.2 Lymph % (Auto) 31.6 [place] % (Auto) 9.5 H Eos % (Auto) 3.9 Baso % (Auto) 0.4 Lymph # (Auto) 0.73 L [place] # (Auto) 0.2 Eos # (Auto) 0.1 Baso # (Auto) 0.0 Abs Immat Gran (auto) 0.01 Absolute Neuts (auto) 1.3 Absolute Nucleated RBC 0.000 Nucleated RBC % 0.0 % Immature Plt Fraction 2.9 Sodium 137 Potassium 3.5 Chloride 111 H Carbon Dioxide 21 L Anion Gap 5 BUN 15 Creatinine 0.83 Estim Creat Clear Calc 54 Estimated GFR > 60 Glucose 95 Calcium 7.7 L Magnesium 2.0 Total Bilirubin 0.4 AST 27 ALT 26 Alkaline Phosphatase 76 Total Protein 5.0 L Albumin 2.7 L Quality VTE Prophylaxis VTE prophylaxis: mechanical ordered
--- NOTE | 2024-11-21 10:23 | P.PNGS_ITS ---
Progress Note: A&P Assessment and Plan (1) Acute diverticulitis: Code(s): K57.92 - Diverticulitis of intestine, part unspecified, without perforation or abscess without bleeding Status: Acute Assessment and Plan: * Continue IV antibiotics * Advance to low fiber diet * No significant changes that would require surgical intervention at this time. Will continue to follow. (2) Esophageal dysmotility: Code(s): K22.4 - Dyskinesia of esophagus Status: Acute Assessment and Plan: * Still having same symptoms as prior to hiatal hernia repair. Acid reflux and heartburn have resolved. Agree with further workup with motility expert as an outpatient. (3) Leukopenia: Code(s): D72.819 - Decreased white blood cell count, unspecified Status: Acute Subjective Subjective Date/Time Seen: 11/21/24 10:23 Interval history: Pain improving. Tolerating full liquids. Still having occasional dry heaves which has been typical over the past couple years. UGI previously has shown esophageal dysmotility, but manometry showed normal peristalsis. Exam GI: Inspection: non-distended GI Palp: Yes Tenderness to palpation present (GI) (lower abdomen), No Guarding due to palpation present (GI) and No Rebound tenderness present Auscultation: normal bowel sounds Objective Data Vital Signs Vital Signs: Vital Signs - 24 hr 11/20/24 14:00 11/20/24 20:00 11/20/24 21:37 Temperature 98.5 F 97.6 F Pulse Rate 77 68 Respiratory Rate 16 16 Blood Pressure 108/58 L 96/57 L Pulse Oximetry 96 96 Oxygen Delivery Room Air 11/21/24 06:00 Temperature 97.8 F Pulse Rate 65 Respiratory Rate 14 Blood Pressure 91/57 L Pulse Oximetry 96 Oxygen Delivery Intake/Output Intake/Output: Intake & Output 11/18/24 11/19/24 11/20/24 11/21/24 23:59 23:59 23:59 23:59 Intake Total 1200 3200 3326 1170 Output Total 2 Balance 1200 3200 3326 1168 Meds/Results Medications: Active Medications Generic Name Dose Route Start Last Admin Trade Name Freq PRN Reason Stop Dose Admin Acetaminophen 650 mg 11/18/24 23:26 11/21/24 03:52 Acetaminophen 325 Mg Tablet PO 650 mg Q4H PRN Administration Pain Rated 5 or Less/Fever Ascorbic Acid 500 mg 11/19/24 09:00 11/21/24 09:32 Ascorbic Acid 500 Mg Tablet PO Not Given QAM [facility] Cyanocobalamin 1,000 mcg 11/19/24 09:00 11/21/24 09:32 Cyanocobalamin 1,000 Mcg Tablet PO Not Given QAM [facility] Famotidine 20 mg 11/19/24 21:00 11/20/24 21:05 Famotidine 20 Mg/2 Ml Vial IV PUSH 20 mg Q12HR [facility] Administration Folic Acid 1 mg 11/19/24 09:00 11/21/24 09:33 Folic Acid 1 Mg Tablet PO Not Given DAILY [facility] Piperacillin/Tazobactam/Dextrose 3.375 gm in 50 mls @ 100 mls/hr 11/19/24 02:00 11/21/24 09:38 Zosyn 3.375 Gm/Ns 50 Ml IVPB 100 mls/hr Q6H [facility] Administration Sodium Chloride 1,000 mls @ 125 mls/hr 11/18/24 19:40 11/21/24 05:44 Normal Saline Iv IV CONT 125 mls/hr .Q8H [facility] Administration Minoxidil 1.25 mg 11/19/24 09:00 11/21/24 09:33 Minoxidil 2.5 Mg Tablet PO Not Given DAILY [facility] Morphine Sulfate 4 mg 11/19/24 10:01 11/21/24 03:50 Morphine Sulfate (*Crx) 4 Mg/Ml Inj IV PUSH 4 mg Q2H PRN Administration Pain Rated 7-10 Morphine Sulfate 2 mg 11/19/24 10:01 11/20/24 13:51 Morphine Sulfate (*Crx) 2 Mg/Ml Inj IV PUSH 2 mg Q2H PRN Administration Pain Rated 4-6 Non-Formulary Medication 1 mg 11/20/24 14:30 11/21/24 09:32 Finasteride PO 12/20/24 14:29 Not Given DAILY [facility] Non-Formulary Medication 100 mg 11/20/24 18:00 11/20/24 16:06 Progesterone Micronized PO 12/20/24 17:59 Not Given QPM [facility] Ondansetron HCl 4 mg 11/18/24 23:27 11/20/24 08:46 Ondansetron Inj 4 Mg/2 Ml Vial IV PUSH 4 mg Q4H PRN Administration Nausea And Vomiting Sertraline HCl 25 mg 11/19/24 09:00 11/21/24 09:33 Sertraline Hcl 25 Mg Tablet PO Not Given DAILY [facility] Sertraline HCl 50 mg 11/19/24 09:00 11/21/24 09:33 Sertraline Hcl 50 Mg Tablet PO Not Given DAILY [facility] Terbinafine HCl 250 mg 11/19/24 09:00 11/21/24 09:36 Terbinafine Hcl 250 Mg Tablet PO Not Given DAILY [facility] Radiology Results: ITS Impressions Abdomen/Pelvis CT 11/18/24 17:44 IMPRESSION: Acute diverticulitis without a drainable fluid collection or gross perforation. A contained perforation is noted. Follow-up to resolution is recommended as a malignancy may have a similar appearance. Splenomegaly (unchanged). Findings within segment 7 of the liver, which likely represent a benign cyst. Further evaluation with a focused ultrasound versus contrast-enhanced MRI (with liver mass protocol) is recommended as this is an interval change from the 2012 examination. Mural thickening within the distal esophagus for which direct visualization is recommended, when the patient is clinically able. Labs Labs: Laboratory Results - last 24 hr 11/21/24 04:47 WBC 2.3 L RBC 2.93 L Hgb 9.0 L Hct 27.2 L MCV 92.8 MCH 30.7 MCHC 33.1 RDW 13.5 Plt Count 99 L MPV 10.0 Immature Gran % (Auto) 0.4 Neut % (Auto) 54.2 Lymph % (Auto) 31.6 [place] % (Auto) 9.5 H Eos % (Auto) 3.9 Baso % (Auto) 0.4 Lymph # (Auto) 0.73 L [place] # (Auto) 0.2 Eos # (Auto) 0.1 Baso # (Auto) 0.0 Abs Immat Gran (auto) 0.01 Absolute Neuts (auto) 1.3 Absolute Nucleated RBC 0.000 Nucleated RBC % 0.0 % Immature Plt Fraction 2.9 Sodium 137 Potassium 3.5 Chloride 111 H Carbon Dioxide 21 L Anion Gap 5 BUN 15 Creatinine 0.83 Estim Creat Clear Calc 54 Estimated GFR > 60 Glucose 95 Calcium 7.7 L Magnesium 2.0 Total Bilirubin 0.4 AST 27 ALT 26 Alkaline Phosphatase 76 Total Protein 5.0 L Albumin 2.7 L
[2024-11-21] MEDS: FAMOTIDINE 20 MG/2 ML VIAL IV PUSH ×2 (10:25→20:07)
--- NOTE | 2024-11-21 13:39 | WPDGIPROGNO ---
Progress Note: A&P Assessment and Plan (1) Acute diverticulitis: Code(s): K57.92 - Diverticulitis of intestine, part unspecified, without perforation or abscess without bleeding Status: Acute Assessment and Plan: The patient is on her fourth day of hospitalization for acute diverticulitis with a limited perforation and is receiving antibiotic coverage. Her white blood cell count has returned to her baseline, which is typically below 3.0. Given her concerns about morphine dependence, we will attempt to manage her pain by alternating intramuscular dicyclomine with morphine. Her diet was advanced today as per the surgical team's recommendation. Separately, the patient presents with unexplained splenomegaly and pancytopenia. Once this acute diverticulitis episode resolves, we plan to investigate potential underlying chronic liver disease and portal hypertension, which could account for these findings. This workup will include an outpatient FibroScan in our office. In the interim, we can order a Doppler sonogram of the portal vessels to rule out chronic portal vein thrombosis or splenic vein thrombosis, and a comprehensive hepatitis profile. Lastly, her upper GI symptoms such as episodic vomiting, dysphagia and dyspepsia, warrant investigation through a motility disorder specialist for which she will be referred at discharge, once diverticulitis is resolved. Subjective Date/time seen: 11/21/24 13:39 Interval history: The patient has been experiencing increased abdominal pain, related to her acute diverticulitis, requiring morphine early this morning. Did not report nausea or vomiting. Her laboratory dated today shows a white count of 2.3, hemoglobin 9.0, platelet count 99 Exam Narrative: abdomen: Tender to palpation in left lower quadrant and suprapubic area with positive rebound. Rest of the examination within normal limits Objective Data Vital Signs Vital Signs: Vital Signs - 24 hr 11/20/24 14:00 11/20/24 20:00 11/20/24 21:37 Temperature 98.5 F 97.6 F Pulse Rate 77 68 Respiratory Rate 16 16 Blood Pressure 108/58 L 96/57 L Pulse Oximetry 96 96 Oxygen Delivery Room Air 11/21/24 06:00 Temperature 97.8 F Pulse Rate 65 Respiratory Rate 14 Blood Pressure 91/57 L Pulse Oximetry 96 Oxygen Delivery Intake/Output Intake/Output: Intake & Output 11/18/24 11/19/24 11/20/24 11/21/24 23:59 23:59 23:59 23:59 Intake Total 1200 3200 3326 1220 Output Total 2 Balance 1200 3200 3326 1218 Meds/Results Medications: Active Medications Generic Name Dose Route Start Last Admin Trade Name Freq PRN Reason Stop Dose Admin Acetaminophen 650 mg 11/18/24 23:26 11/21/24 03:52 Acetaminophen 325 Mg Tablet PO 650 mg Q4H PRN Administration Pain Rated 5 or Less/Fever Ascorbic Acid 500 mg 11/19/24 09:00 11/21/24 09:32 Ascorbic Acid 500 Mg Tablet PO Not Given QAM [facility] Cyanocobalamin 1,000 mcg 11/19/24 09:00 11/21/24 09:32 Cyanocobalamin 1,000 Mcg Tablet PO Not Given QAM [facility] Dicyclomine HCl 20 mg 11/21/24 13:09 Dicyclomine Hcl Inj 20 Mg/2 Ml Vial IM Q8HR PRN Cramping Famotidine 20 mg 11/19/24 21:00 11/21/24 10:25 Famotidine 20 Mg/2 Ml Vial IV PUSH 20 mg Q12HR [facility]AS[facility] Administration Folic Acid 1 mg 11/19/24 09:00 11/21/24 09:33 Folic Acid 1 Mg Tablet PO Not Given DAILY [facility] Piperacillin/Tazobactam/Dextrose 3.375 gm in 50 mls @ 100 mls/hr 11/19/24 02:00 11/21/24 13:18 Zosyn 3.375 Gm/Ns 50 Ml IVPB 100 mls/hr Q6H [facility] Administration Sodium Chloride 1,000 mls @ 125 mls/hr 11/18/24 19:40 11/21/24 05:44 Normal Saline Iv IV CONT 125 mls/hr .Q8H [facility] Administration Minoxidil 1.25 mg 11/19/24 09:00 11/21/24 09:33 Minoxidil 2.5 Mg Tablet PO Not Given DAILY [facility] Morphine Sulfate 4 mg 11/19/24 10:01 11/21/24 12:42 Morphine Sulfate (*Crx) 4 Mg/Ml Inj IV PUSH 4 mg Q2H PRN Administration Pain Rated 7-10 Morphine Sulfate 2 mg 11/19/24 10:01 11/20/24 13:51 Morphine Sulfate (*Crx) 2 Mg/Ml Inj IV PUSH 2 mg Q2H PRN Administration Pain Rated 4-6 Non-Formulary Medication 1 mg 11/20/24 14:30 11/21/24 09:32 Finasteride PO 12/20/24 14:29 Not Given DAILY [facility] Non-Formulary Medication 100 mg 11/20/24 18:00 11/20/24 16:06 Progesterone Micronized PO 12/20/24 17:59 Not Given QPM [facility] Ondansetron HCl 4 mg 11/18/24 23:27 11/20/24 08:46 Ondansetron Inj 4 Mg/2 Ml Vial IV PUSH 4 mg Q4H PRN Administration Nausea And Vomiting Sertraline HCl 25 mg 11/19/24 09:00 11/21/24 09:33 Sertraline Hcl 25 Mg Tablet PO Not Given DAILY [facility] Sertraline HCl 50 mg 11/19/24 09:00 11/21/24 09:33 Sertraline Hcl 50 Mg Tablet PO Not Given DAILY [facility] Terbinafine HCl 250 mg 11/19/24 09:00 11/21/24 09:36 Terbinafine Hcl 250 Mg Tablet PO Not Given DAILY [facility] Radiology Results: ITS Impressions Abdomen/Pelvis CT 11/18/24 17:44 IMPRESSION: Acute diverticulitis without a drainable fluid collection or gross perforation. A contained perforation is noted. Follow-up to resolution is recommended as a malignancy may have a similar appearance. Splenomegaly (unchanged). Findings within segment 7 of the liver, which likely represent a benign cyst. Further evaluation with a focused ultrasound versus contrast-enhanced MRI (with liver mass protocol) is recommended as this is an interval change from the 2012 examination. Mural thickening within the distal esophagus for which direct visualization is recommended, when the patient is clinically able. Labs Labs: Laboratory Results - last 24 hr 11/21/24 04:47 WBC 2.3 L RBC 2.93 L Hgb 9.0 L Hct 27.2 L MCV 92.8 MCH 30.7 MCHC 33.1 RDW 13.5 Plt Count 99 L MPV 10.0 Immature Gran % (Auto) 0.4 Neut % (Auto) 54.2 Lymph % (Auto) 31.6 [place] % (Auto) 9.5 H Eos % (Auto) 3.9 Baso % (Auto) 0.4 Lymph # (Auto) 0.73 L [place] # (Auto) 0.2 Eos # (Auto) 0.1 Baso # (Auto) 0.0 Abs Immat Gran (auto) 0.01 Absolute Neuts (auto) 1.3 Absolute Nucleated RBC 0.000 Nucleated RBC % 0.0 % Immature Plt Fraction 2.9 Sodium 137 Potassium 3.5 Chloride 111 H Carbon Dioxide 21 L Anion Gap 5 BUN 15 Creatinine 0.83 Estim Creat Clear Calc 54 Estimated GFR > 60 Glucose 95 Calcium 7.7 L Magnesium 2.0 Total Bilirubin 0.4 AST 27 ALT 26 Alkaline Phosphatase 76 Total Protein 5.0 L Albumin 2.7 L
[2024-11-21 14:00] VITALS: BP 107/56; PULSE 67; RESP 16; TEMP 36.4; O2SAT 99
[2024-11-21 14:50] LABS: Hepatitis B Surface Antigen Negative (Negative)
[2024-11-21 14:56] LABS: HAV RESULT Negative (Negative); Hepatitis B Core IgM Result Negative (Negative)
[2024-11-21 15:07] LABS: Hepatitis C Virus Antibody Negative (Negative)
[2024-11-21] MEDS: DICYCLOMINE HCL INJ 20 MG/2 ML VIAL IM (17:17)
[2024-11-21] MEDS: PROGESTERONE MICRONIZED 100 MG PO (17:20)
[2024-11-21] MEDS: [UNRECOGNIZED DRUG - OTHER] PO (17:20)
[2024-11-21 19:40] VITALS: BP 117/86; PULSE 69; RESP 18; TEMP 36.8; O2SAT 99
[2024-11-22] MEDS: SODIUM CHLORIDE 0.9% IV 1,000 ML 125 ML IV CONT (02:32)
[2024-11-22] MEDS: PIPERACILLN/TAZ 3.375GM/NS50ML 3.375 GM/50 ML BAG IVPB ×3 (02:32→13:44)
[2024-11-22] MEDS: MORPHINE SULFATE (*CRX) 4 MG/ML INJ IV PUSH (04:18)
[2024-11-22 04:35] VITALS: BP 130/79; PULSE 69; RESP 16; TEMP 36.9; O2SAT 99
[2024-11-22 05:26] LABS: Basophils Percent Auto 0.6 % (0.2-1.2); Eosinophils Absolute Auto 0.1 K/mm3 (0-0.3); Eosinophils Percent Auto 5.7 % (0-4.4); Hematocrit 29.4 % (37.0-47.0); Hemoglobin 9.6 g/dL (12.0-15.0); Lymphocytes Absolute Auto 0.64 K/mm3 (0.9-3.2); Lymphocytes Percent Auto 36.6 % (18.3-44.2); Mean Corpuscular HGB Conc 32.7 g/dl (32-36); Mean Corpuscular Hemoglobin 30.6 pg (26-34); Mean Corpuscular Volume 93.6 fl (80-100); Mean Platelet Volume 10.5 fl (7.4-10.4); Monocytes Absolute Auto 0.2 K/mm3 (0.1-0.6); Monocytes Percent Auto 12.6 % (2.6-8.5); Neutrophils Absolute Auto 0.8 K/mm3 (1.3-6.7); Neutrophils Percent Auto 44.5 % (45.5-73.1); Platelet Count Result 115 k/mm3 (150-375); Red Blood Count 3.14 M/mm3 (4.2-5.4); Red Cell Distribution Width 13.7 % (11.5-14.5)
[2024-11-22 05:42] LABS: Alanine Aminotransferase 23 U/L (6-35); Alkaline Phosphatase 75 U/L (38-126); Anion Gap 4 mmol/L (4-12); Aspartate Amino Transferase 24 U/L (14-36); Bilirubin,Total 0.4 mg/dL (0.2-1.3); Blood Urea Nitrogen 8 mg/dL (7-17); Calcium 8.1 mg/dL (8.4-10.2); Carbon Dioxide 25 mmol/L (22-30); Chloride 113 mmol/L (98-107); Estimated CRCL calculation 53 ml/min; Estimated Glomerular Filt Rate > 60; Glucose 90 mg/dL (65-110); Magnesium 1.9 mg/dL (1.6-2.3); Potassium 3.3 mmol/L (3.4-5.0); Sodium 142 mmol/L (137-145)
[2024-11-22 06:01] LABS: White Blood Count 1.8 K/mm3 (4.5-10.0)
[2024-11-22 06:22] LABS: Platelet Estimate Decreased (Adequate); Target Cells 1+
[2024-11-22 06:25] LABS: Schistocytes None Seen
--- NOTE | 2024-11-22 07:25 | P.PNIM_ITS ---
Progress Note: A&P Assessment and Plan (1) Acute diverticulitis: Code(s): K57.92 - Diverticulitis of intestine, part unspecified, without perforation or abscess without bleeding Status: Acute Assessment and Plan: * Abd/pelvis CT: Acute diverticulitis without a drainable fluid collection or gross perforation. A contained perforation is noted. * Monitor vital signs, I&Os, track stool output, watch for bloody stools, neuro status and patient is a fall risk * Monitor serum electrolytes and CBC * Gentle IV fluid resuscitation * Consider Zosyn 3.375g q6hr * Diet: Clear liquid, advance as tolerated * Gen surg, GI following * No indications for surgical intervention * Continue IV antibiotics and pain control * Colonoscopy outpatient in 4-6 weeks * No other changes * Advance diet as tolerated * Patient reports significant pain relief (2) Abnormal CT of the abdomen: Code(s): R93.5 - Abnormal findings on diagnostic imaging of other abdominal regions, including retroperitoneum Status: Acute Assessment and Plan: * Abd/pelvis CT: * Findings within segment 7 of the liver, which likely represent a benign cyst. * Further evaluation with a focused ultrasound versus contrast-enhanced MRI (with liver mass protocol) is recommended as this is an interval change from the 2012 examination. * Mural thickening within the distal esophagus for which direct visualization is recommended, when the patient is clinically able. * Regarding liver lesion: Incidental finding, GI following, do not recommend further evaluation * Regarding mural thickening: Pt has h/o hiatal hernia surgery repair last year * Has had continued dry heaving * Considering reevaluation by GI as outpatient * No further workup required * US retroperitoneal duplex ltd: * Elevated peak systolic velocity within the hepatic veins. * Normal peak systolic velocity within the main portal and left portal veins. * This constellation of findings suggests alteration of flow at the level of the right atrium/hepatic veins, rather than intrinsic hepatic disease. (3) Anxiety with depression: Code(s): F41.8 - Other specified anxiety disorders Status: Acute Assessment and Plan: * Continue Sertraline (4) GERD with esophagitis: Qualifiers: Esophagitis bleeding: without hemorrhage Qualified Code(s): K21.00 - Gastro-esophageal reflux disease with esophagitis, without bleeding Code(s): K21.00 - Gastro-esophageal reflux disease with esophagitis, without bleeding Status: Acute Assessment and Plan: * Continue Famotidine Subjective Date/time seen: 11/22/24 07:25 Interval history: Patient is a 69-year-old female who with a past medical history of hyperlipidemia, anxiety, depression, afib w/o medication, total hysterectomy who presents to the hospital for lower abdominal pain for the past 2 days prior to arrival. She is here with acute diverticulitis. 11/22/2024 Patient in bed at time of examination. She states that today she states since her admission. Still endorses some right-sided abdominal discomfort upon palpitation, but otherwise tolerating foods and liquids without much difficulty. Retroperitoneal ultrasound duplex did show portal hypertension, also significant leukopenia on a.m. blood work with a WBC of 1.8. This is likely a contributory result of her splenomegaly and will require further workup in the outpatient setting per GI. As the patient has significantly improved symptoms, we will discuss with General surgery and GI stable discharge today or tomorrow with continued p.o. antibiotic coverage along with appropriate outpatient GI. Otherwise patient has no complaints or concerns at this time expressed interest in being discharged soon hopefully. Review of Systems Review of Systems: All systems reviewed & are unremarkable except as noted in HPI and below Exam Narrative: Gen - well appearing female in no acute respiratory distress who is nontoxic- appearing lying semi recumbent in bed HEENT - normocephalic. Atraumatic. Pupils equal round and reactive. Extraocular motions intact. Nares patent. Oropharynx was clear. Moist mucous membranes. No facial asymmetry. Neck - neck was supple. No dominant adenopathy, thyromegaly or masses. 2+ carotid upstrokes without bruits. Chest - lungs are clear to auscultation bilaterally. No wheezes or crackles. Breast exam was deferred. CV - heart was regular rate and rhythm. S1-S2. No murmurs gallops or rubs. Abd -port site scars, Pfannenstiel scar. Improved abdominal tenderness, some localized tenderness to the right abdomen. No guarding. Nondistended. Positive bowel sounds. No organomegaly or masses. Ext - no clubbing, cyanosis or edema. 2+ DP pulses bilaterally. Neuro - patient is alert and oriented x4. Strength is 5/5 in both upper and lower extremities. Cranial nerves 2-12 are intact. Speech is clear. Psych - normal mood and affect. Patient is pleasant and cooperative. Skin - warm and dry. No rashes noted. Objective Data Vital Signs Vital Signs: Vital Signs - 24 hr 11/21/24 14:00 11/21/24 19:40 11/21/24 20:00 Temperature 97.5 F L 98.3 F Pulse Rate 67 69 Respiratory Rate 16 18 Blood Pressure 107/56 L 117/86 Pulse Oximetry 99 99 Oxygen Delivery Room Air 11/22/24 04:35 Temperature 98.4 F Pulse Rate 69 Respiratory Rate 16 Blood Pressure 130/79 Pulse Oximetry 99 Oxygen Delivery Intake/Output Intake/Output: Intake & Output 11/19/24 11/20/24 11/21/24 11/22/24 23:59 23:59 23:59 23:59 Intake Total 3200 3326 3680 300 Output Total 2 Balance 3200 3326 3678 300 Meds/Results Medications: Active Medications Generic Name Dose Route Start Last Admin Trade Name Freq PRN Reason Stop Dose Admin Acetaminophen 650 mg 11/18/24 23:26 11/21/24 22:08 Acetaminophen 325 Mg Tablet PO 650 mg Q4H PRN Administration Pain Rated 5 or Less/Fever Ascorbic Acid 500 mg 11/19/24 09:00 11/21/24 09:32 Ascorbic Acid 500 Mg Tablet PO Not Given QAM [facility] Cyanocobalamin 1,000 mcg 11/19/24 09:00 11/21/24 09:32 Cyanocobalamin 1,000 Mcg Tablet PO Not Given QAM [facility] Dicyclomine HCl 20 mg 11/21/24 13:09 11/21/24 17:17 Dicyclomine Hcl Inj 20 Mg/2 Ml Vial IM 20 mg Q8HR PRN Administration Cramping Famotidine 20 mg 11/19/24 21:00 11/21/24 20:07 Famotidine 20 Mg/2 Ml Vial IV PUSH 20 mg Q12HR YASMEEN Administration Folic Acid 1 mg 11/19/24 09:00 11/21/24 09:33 Folic Acid 1 Mg Tablet PO Not Given DAILY [facility] Piperacillin/Tazobactam/Dextrose 3.375 gm in 50 mls @ 100 mls/hr 11/19/24 02:00 11/22/24 05:22 Zosyn 3.375 Gm/Ns 50 Ml IVPB Infused Q6H [facility] Infusion Sodium Chloride 1,000 mls @ 125 mls/hr 11/18/24 19:40 11/22/24 02:32 Normal Saline Iv IV CONT 125 mls/hr .Q8H [facility] Administration Minoxidil 1.25 mg 11/19/24 09:00 11/21/24 09:33 Minoxidil 2.5 Mg Tablet PO Not Given DAILY [facility] Morphine Sulfate 4 mg 11/19/24 10:01 11/22/24 04:18 Morphine Sulfate (*Crx) 4 Mg/Ml Inj IV PUSH 4 mg Q2H PRN Administration Pain Rated 7-10 Morphine Sulfate 2 mg 11/19/24 10:01 11/20/24 13:51 Morphine Sulfate (*Crx) 2 Mg/Ml Inj IV PUSH 2 mg Q2H PRN Administration Pain Rated 4-6 Non-Formulary Medication 1 mg 11/20/24 14:30 11/21/24 09:32 Finasteride PO 12/20/24 14:29 Not Given DAILY [facility] Non-Formulary Medication 100 mg 11/20/24 18:00 11/21/24 17:20 Progesterone Micronized PO 12/20/24 17:59 100 mg QPM [facility] Administration Ondansetron HCl 4 mg 11/18/24 23:27 11/20/24 08:46 Ondansetron Inj 4 Mg/2 Ml Vial IV PUSH 4 mg Q4H PRN Administration Nausea And Vomiting Sertraline HCl 25 mg 11/19/24 09:00 11/21/24 09:33 Sertraline Hcl 25 Mg Tablet PO Not Given DAILY [facility] Sertraline HCl 50 mg 11/19/24 09:00 11/21/24 09:33 Sertraline Hcl 50 Mg Tablet PO Not Given DAILY [facility] Terbinafine HCl 250 mg 11/19/24 09:00 11/21/24 09:36 Terbinafine Hcl 250 Mg Tablet PO Not Given DAILY [facility] Radiology Results: ITS Impressions Abdomen/Pelvis CT 11/18/24 17:44 IMPRESSION: Acute diverticulitis without a drainable fluid collection or gross perforation. A contained perforation is noted. Follow-up to resolution is recommended as a malignancy may have a similar appearance. Splenomegaly (unchanged). Findings within segment 7 of the liver, which likely represent a benign cyst. Further evaluation with a focused ultrasound versus contrast-enhanced MRI (with liver mass protocol) is recommended as this is an interval change from the 2012 examination. Mural thickening within the distal esophagus for which direct visualization is recommended, when the patient is clinically able. Labs Labs: Laboratory Results - last 24 hr 11/21/24 11/22/24 14:00 04:29 WBC 1.8 L* RBC 3.14 L Hgb 9.6 L Hct 29.4 L MCV 93.6 MCH 30.6 MCHC 32.7 RDW 13.7 Plt Count 115 L MPV 10.5 H Immature Gran % (Auto) 0.0 Neut % (Auto) 44.5 L Lymph % (Auto) 36.6 [place] % (Auto) 12.6 H Eos % (Auto) 5.7 H Baso % (Auto) 0.6 Lymph # (Auto) 0.64 L [place] # (Auto) 0.2 Eos # (Auto) 0.1 Baso # (Auto) 0.0 Abs Immat Gran (auto) 0.00 Absolute Neuts (auto) 0.8 L Absolute Nucleated RBC 0.000 Band Neutrophils % Not Reportable Nucleated RBC % 0.0 Platelet Estimate Decreased % Immature Plt Fraction 4.0 Target Cells 1+ Schistocytes None seen Sodium 142 Potassium 3.3 L Chloride 113 H Carbon Dioxide 25 Anion Gap 4 BUN 8 D Creatinine 0.84 Estim Creat Clear Calc 53 Estimated GFR > 60 Glucose 90 Calcium 8.1 L Magnesium 1.9 Total Bilirubin 0.4 AST 24 ALT 23 Alkaline Phosphatase 75 Total Protein 5.0 L Albumin 3.0 L Hepatitis A IgM Ab Negative Hep Bs Antigen Negative Hep B Core IgM Ab Negative Hepatitis C Ab Screen Negative Quality VTE Prophylaxis VTE prophylaxis: mechanical ordered
[2024-11-22 08:16] VITALS: PULSE 69; RESP 16; O2SAT 99
[2024-11-22] MEDS: FAMOTIDINE 20 MG/2 ML VIAL IV PUSH (08:16)
[2024-11-22] MEDS: CYANOCOBALAMIN 1,000 MCG TABLET 1000 MCG PO (08:18)
[2024-11-22] MEDS: ASCORBIC ACID 500 MG TABLET PO (08:18)
[2024-11-22] MEDS: FINASTERIDE 1 MG PO (08:19)
[2024-11-22] MEDS: [UNRECOGNIZED DRUG - OTHER] PO (08:19)
[2024-11-22] MEDS: minoxidiL 2.5 MG TABLET 1.25 MG PO (08:20)
[2024-11-22] MEDS: FOLIC ACID 1 MG TABLET PO (08:20)
[2024-11-22] MEDS: SERTRALINE HCL 25 MG TABLET PO (08:21)
[2024-11-22] MEDS: SERTRALINE HCL 50 MG TABLET PO (08:21)
[2024-11-22] MEDS: TERBINAFINE HCL 250 MG TABLET PO (08:32)
--- NOTE | 2024-11-22 12:37 | P.PNGI_ITS ---
Progress Note: A&P Assessment and Plan (1) Acute diverticulitis: Code(s): K57.92 - Diverticulitis of intestine, part unspecified, without perforation or abscess without bleeding Status: Acute Assessment and Plan: The patient's clinical course is favorable. She continues to require analgesics but shows no systemic compromise and is tolerating food better, with limitations consistent with her prior fundoplication as noted previously. In my opinion, she can be discharged home on oral antibiotics, either Augmentin or a combination of a quinolone plus metronidazole, for 10 additional days. This should be confirmed with the surgical attending on-call. Residual nausea and some episodes of abdominal pain or spasm might occur with oral antibiotics, so she should be discharged with dicyclomine and either Compazine or ondansetron on a as-needed basis. (2) Portal hypertension: Code(s): K76.6 - Portal hypertension Status: Acute Assessment and Plan: A Doppler study performed yesterday revealed decreased flow velocity in the right and left portal veins, with no evidence of thrombosis. Splenic vein velocity was also in the lower limit of normal. Therefore, the most likely cause of the patient's splenomegaly and these findings is intrahepatic portal h ypertension of unclear etiology. We've placed an order for an outpatient FibroScan, and if the results are equivocal, a liver biopsy will be obtained. The patient's pancytopenia is attributable to splenomegaly, which in turn appears related to portal hypertension. While her neutrophil count isn't currently below critical levels, it could be influenced by Zosyn, which can cause a more profound drop in this value in a patient already experiencing leukopenia due to portal hypertension. This provides another reason to consider discharging her with oral therapy if possible, as a continued drop in neutrophil levels could put her at risk for serious nosocomial infections. Subjective Date/time seen: 11/22/24 12:37 Interval history: The patient's abdominal pain is much better, requiring much less analgesics than prior days. There is no fever. Her white count today is 1.8, absolute neutrophil count 800 per cubic mm. Exam Narrative: Abdomen: Soft, nontender, questionable rebound on suprapubic area. Re Objective Data Vital Signs Vital Signs: Vital Signs - 24 hr 11/21/24 14:00 11/21/24 19:40 11/21/24 20:00 Temperature 97.5 F L 98.3 F Pulse Rate 67 69 Respiratory Rate 16 18 Blood Pressure 107/56 L 117/86 Pulse Oximetry 99 99 Oxygen Delivery Room Air 11/22/24 04:35 11/22/24 08:16 Temperature 98.4 F Pulse Rate 69 69 Respiratory Rate 16 16 Blood Pressure 130/79 Pulse Oximetry 99 99 Oxygen Delivery Room Air Intake/Output Intake/Output: Intake & Output 11/19/24 11/20/24 11/21/24 11/22/24 23:59 23:59 23:59 23:59 Intake Total 3200 3326 3680 350 Output Total 2 Balance 3200 3326 3678 350 Meds/Results Medications: Active Medications Generic Name Dose Route Start Last Admin Trade Name Freq PRN Reason Stop Dose Admin Acetaminophen 650 mg 11/18/24 23:26 11/21/24 22:08 Acetaminophen 325 Mg Tablet PO 650 mg Q4H PRN Administration Pain Rated 5 or Less/Fever Ascorbic Acid 500 mg 11/19/24 09:00 11/22/24 08:18 Ascorbic Acid 500 Mg Tablet PO 500 mg QAM YASMEEN Administration Cyanocobalamin 1,000 mcg 11/19/24 09:00 11/22/24 08:18 Cyanocobalamin 1,000 Mcg Tablet PO 1,000 mcg QAM YASMEEN Administration Dicyclomine HCl 20 mg 11/21/24 13:09 11/21/24 17:17 Dicyclomine Hcl Inj 20 Mg/2 Ml Vial IM 20 mg Q8HR PRN Administration Cramping Famotidine 20 mg 11/19/24 21:00 11/22/24 08:16 Famotidine 20 Mg/2 Ml Vial IV PUSH 20 mg Q12HR YASMEEN Administration Folic Acid 1 mg 11/19/24 09:00 11/22/24 08:20 Folic Acid 1 Mg Tablet PO 1 mg DAILY YASMEEN Administration Piperacillin/Tazobactam/Dextrose 3.375 gm in 50 mls @ 100 mls/hr 11/19/24 02:00 11/22/24 08:51 Zosyn 3.375 Gm/Ns 50 Ml IVPB Infused Q6H YASMEEN Infusion Sodium Chloride 1,000 mls @ 75 mls/hr 11/18/24 19:40 11/22/24 02:32 Normal Saline Iv IV CONT 125 mls/hr .[id number] YASMEEN Administration Minoxidil 1.25 mg 11/19/24 09:00 11/22/24 08:20 Minoxidil 2.5 Mg Tablet PO 1.25 mg DAILY YASMEEN Administration Morphine Sulfate 4 mg 11/19/24 10:01 11/22/24 04:18 Morphine Sulfate (*Crx) 4 Mg/Ml Inj IV PUSH 4 mg Q2H PRN Administration Pain Rated 7-10 Morphine Sulfate 2 mg 11/19/24 10:01 11/20/24 13:51 Morphine Sulfate (*Crx) 2 Mg/Ml Inj IV PUSH 2 mg Q2H PRN Administration Pain Rated 4-6 Non-Formulary Medication 1 mg 11/20/24 14:30 11/22/24 08:19 Finasteride PO 12/20/24 14:29 1 mg DAILY YASMEEN Administration Non-Formulary Medication 100 mg 11/20/24 18:00 11/21/24 17:20 Progesterone Micronized PO 12/20/24 17:59 100 mg QPM YASMEEN Administration Ondansetron HCl 4 mg 11/18/24 23:27 11/20/24 08:46 Ondansetron Inj 4 Mg/2 Ml Vial IV PUSH 4 mg Q4H PRN Administration Nausea And Vomiting Sertraline HCl 25 mg 11/19/24 09:00 11/22/24 08:21 Sertraline Hcl 25 Mg Tablet PO 25 mg DAILY YASMEEN Administration Sertraline HCl 50 mg 11/19/24 09:00 11/22/24 08:21 Sertraline Hcl 50 Mg Tablet PO 50 mg DAILY YASMEEN Administration Terbinafine HCl 250 mg 11/19/24 09:00 11/22/24 08:32 Terbinafine Hcl 250 Mg Tablet PO 250 mg DAILY YASMEEN Administration Radiology Results: ITS Impressions Abdomen/Pelvis CT 11/18/24 17:44 IMPRESSION: Acute diverticulitis without a drainable fluid collection or gross perforation. A contained perforation is noted. Follow-up to resolution is recommended as a malignancy may have a similar appearance. Splenomegaly (unchanged). Findings within segment 7 of the liver, which likely represent a benign cyst. Further evaluation with a focused ultrasound versus contrast-enhanced MRI (with liver mass protocol) is recommended as this is an interval change from the 2012 examination. Mural thickening within the distal esophagus for which direct visualization is recommended, when the patient is clinically able. Arterial/Peripheral Duplex 11/22/24 08:23 IMPRESSION: Elevated peak systolic velocity within the hepatic veins. Normal peak systolic velocity within the main portal and left portal veins. Reversal of flow is detected within the right portal vein, possibly secondary to technique. This constellation of findings suggests alteration of flow at the level of the right atrium/hepatic veins, rather than intrinsic hepatic disease. The peak systolic velocity of the splenic vein, is measured at the splenic hilum, rather than approximately 2 cm above the confluence with the superior mesenteric vein for which interpretation is limited. No filling defect is detected within the portal, hepatic or splenic veins. Transjugular intrahepatic pressure measurements are suggested for optimal interpretation. Labs Labs: Laboratory Results - last 24 hr 11/21/24 11/22/24 14:00 04:29 WBC 1.8 L* RBC 3.14 L Hgb 9.6 L Hct 29.4 L MCV 93.6 MCH 30.6 MCHC 32.7 RDW 13.7 Plt Count 115 L MPV 10.5 H Immature Gran % (Auto) 0.0 Neut % (Auto) 44.5 L Lymph % (Auto) 36.6 [place] % (Auto) 12.6 H Eos % (Auto) 5.7 H Baso % (Auto) 0.6 Lymph # (Auto) 0.64 L [place] # (Auto) 0.2 Eos # (Auto) 0.1 Baso # (Auto) 0.0 Abs Immat Gran (auto) 0.00 Absolute Neuts (auto) 0.8 L Absolute Nucleated RBC 0.000 Band Neutrophils % Not Reportable Nucleated RBC % 0.0 Platelet Estimate Decreased % Immature Plt Fraction 4.0 Target Cells 1+ Schistocytes None seen Sodium 142 Potassium 3.3 L Chloride 113 H Carbon Dioxide 25 Anion Gap 4 BUN 8 D Creatinine 0.84 Estim Creat Clear Calc 53 Estimated GFR > 60 Glucose 90 Calcium 8.1 L Magnesium 1.9 Total Bilirubin 0.4 AST 24 ALT 23 Alkaline Phosphatase 75 Total Protein 5.0 L Albumin 3.0 L Hepatitis A IgM Ab Negative Hep Bs Antigen Negative Hep B Core IgM Ab Negative Hepatitis C Ab Screen Negative
[2024-11-22 13:44] VITALS: BP 144/73; PULSE 66; RESP 16; TEMP 36.5; O2SAT 98
--- NOTE | 2024-11-22 14:16 | PM.DS ---
DS: Admitting Diagnosis Discharge Date 11/22/2024 Admitting Diagnosis Acute diverticulitis DS: Discharge Diagnosis Discharge Diagnosis (1) Acute diverticulitis: Code(s): K57.92 - Diverticulitis of intestine, part unspecified, without perforation or abscess without bleeding Status: Acute (2) Abnormal CT of the abdomen: Code(s): R93.5 - Abnormal findings on diagnostic imaging of other abdominal regions, including retroperitoneum Status: Acute (3) Anxiety with depression: Code(s): F41.8 - Other specified anxiety disorders Status: Acute (4) GERD with esophagitis: Qualifiers: Esophagitis bleeding: without hemorrhage Qualified Code(s): K21.00 - Gastro-esophageal reflux disease with esophagitis, without bleeding Code(s): K21.00 - Gastro-esophageal reflux disease with esophagitis, without bleeding Status: Acute DS: Summary Hospital Course Reason for hospitalization: Abdominal pain Hospital Course: Patient is a 69-year-old female who with a past medical history of hyperlipidemia, anxiety, depression, afib w/o medication, total hysterectomy who presents to the hospital for lower abdominal pain for the past 2 days prior to arrival. She is also endorsing associated nausea and nonbloody diarrhea, but no vomiting, although she has been experiencing dry heaving past year after hiatal hernia surgery. He denies any shortness pain, shortness and breath, or urinary complaints. The abdominal pain is across the entirety of her lower abdomen, without radiation. Denies any CVA tenderness. One PPD smoker, quit in 2010. Denies alcohol or drug abuse. CT abdomen/pelvis indicative of acute diverticulitis. Patient has had an episode of diverticulitis in the past which did not require surgical intervention. Admitted to the hospital for acute diverticulitis. In ED: 107/58, 96% room air, respiratory rate 18, pulse rate 97, temperature 98.7?F WBC 5.4, RBC 3.94, hemoglobin 12, hematocrit 36.5, sodium 138, potassium 3.6, anion gap 9, BUN 17, creatinine 0.79, GFR > 60, AST/ALT WNL UA: Trace leukocyte esterase, urine RBC 6-10, 1+ ketones otherwise unremarkable. Abdomen/pelvis CT: Acute diverticulitis without a drainable fluid collection or gross perforation. A contained perforation is noted. Follow-up to resolution is recommended as a malignancy may have a similar appearance. Splenomegaly (unchanged). Findings within segment 7 of the liver, which likely represent a benign cyst. Further evaluation with a focused ultrasound versus contrast-enhanced MRI (with liver mass protocol) is recommended as this is an interval change from the 2012 examination. Mural thickening within the distal esophagus for which direct visualization is recommended, when the patient is clinically able. General surgery and Gastroenterology were consulted regarding acute diverticulitis with contained perforation. They agreed that patient is not a surgical candidate and conservative management involving IV antibiotics and pain control would be the ideal course at this time. This is her second episode of acute diverticulitis but she did not require hospitalization the last time. GI recommended ordering an arterial/peripheral duplex ultrasound to assess for portal hypertension. She was found to have elevated peak systolic velocity within hepatic veins, normal peak systolic velocity within the main portal and left portal veins, with reversal of flow detected of the right portal vein. These findings suggest underlying portal hypertension/alteration of level of right atrium/hepatic veins, rather than intrinsic hepatic disease. She also has underlying splenomegaly which is chronic in nature but at this time has no explanation. Upon admission she did not have any leukocytosis or fever. However after couple of days, she started developing leukopenia, which could very well be explained by initiation of Zosyn and underlying portal hypertension. Blood cultures resulted negative and blood work is otherwise unremarkable for any gross abnormalities. Vital signs have been stable throughout visit. On 11/22, she stated she has not felt this good since her admission. Still endorses some right-sided abdominal discomfort upon palpitation, but otherwise tolerating foods and liquids without much difficulty. Retroperitoneal ultrasound duplex did show portal hypertension, also significant leukopenia on a.m. blood work with a WBC of 1.8. This is likely a contributory result of her splenomegaly and will require further workup in the outpatient setting per GI. As the patient has significantly improved symptoms, I discussed her findings and clinical picture with General surgery and Gastroenterology and they agreed that patient can be discharged today with appropriate follow-up in the outpatient setting with Gastroenterology, along with continued oral antibiotics for diverticulitis. Patient has no complaints at this time and feels comfortable with discharge home with GI follow-up regarding underlying portal hypertension, splenomegaly, and management of diverticulitis. Status at Discharge Functional status at discharge: independent ambulation Overall status at discharge: patient is back to baseline Time Spent with Patient Time attestation: Total time spent providing and/or coordinating discharge services: 40 Exam Narrative: Gen - well appearing female in no acute respiratory distress who is nontoxic-appearing lying semi recumbent in bed HEENT - normocephalic. Atraumatic. Pupils equal round and reactive. Extraocular motions intact. Nares patent. Oropharynx was clear. Moist mucous membranes. No facial asymmetry. Neck - neck was supple. No dominant adenopathy, thyromegaly or masses. 2+ carotid upstrokes without bruits. Chest - lungs are clear to auscultation bilaterally. No wheezes or crackles. Breast exam was deferred. CV - heart was regular rate and rhythm. S1-S2. No murmurs gallops or rubs. Abd -port site scars, Pfannenstiel scar. Improved abdominal tenderness, some localized tenderness to the right abdomen. No guarding. Nondistended. Positive bowel sounds. No organomegaly or masses. Ext - no clubbing, cyanosis or edema. 2+ DP pulses bilaterally. Neuro - patient is alert and oriented x4. Strength is 5/5 in both upper and lower extremities. Cranial nerves 2-12 are intact. Speech is clear. Psych - normal mood and affect. Patient is pleasant and cooperative. Skin - warm and dry. No rashes noted. DS: Data Data Completed and Pending Labs on day of discharge: Labs from last 24 hours 11/22/24 11/21/24 04:29 14:00 WBC 1.8 L* RBC 3.14 L Hgb 9.6 L Hct 29.4 L MCV 93.6 MCH 30.6 MCHC 32.7 RDW 13.7 Plt Count 115 L MPV 10.5 H Immature Gran % (Auto) 0.0 Neut % (Auto) 44.5 L Lymph % (Auto) 36.6 [place] % (Auto) 12.6 H Eos % (Auto) 5.7 H Baso % (Auto) 0.6 Lymph # (Auto) 0.64 L [place] # (Auto) 0.2 Eos # (Auto) 0.1 Baso # (Auto) 0.0 Abs Immat Gran (auto) 0.00 Absolute Neuts (auto) 0.8 L Absolute Nucleated RBC 0.000 Band Neutrophils % Not Reportable Nucleated RBC % 0.0 Platelet Estimate Decreased % Immature Plt Fraction 4.0 Target Cells 1+ Schistocytes None seen Sodium 142 Potassium 3.3 L Chloride 113 H Carbon Dioxide 25 Anion Gap 4 BUN 8 D Creatinine 0.84 Estim Creat Clear Calc 53 Estimated GFR > 60 Glucose 90 Calcium 8.1 L Magnesium 1.9 Total Bilirubin 0.4 AST 24 ALT 23 Alkaline Phosphatase 75 Total Protein 5.0 L Albumin 3.0 L Hepatitis A IgM Ab Negative Hep Bs Antigen Negative Hep B Core IgM Ab Negative Hepatitis C Ab Screen Negative Preliminary micro results at discharge 11/18/24 18:40 Blood Culture - Preliminary Blood 11/18/24 18:40 Blood Culture - Preliminary Blood Discharge Plan Discharge Attending physician on discharge: Demetrio Barajas Consulting providers: Abdias Hernandez Discharging Clinician: Kareem Munoz Anticipated Discharge Date/Time: 11/22/24 14:07 Patient Disposition: Home Activity: as tolerated Diet: as tolerated Discharge Instructions: Discharge disposition: Stable You will be getting a prescription for Levofloxacin and Metronidazole for 10 days. I also be giving you a prescription for dicyclomine for abdominal pain and Compazine for nausea. Follow-up with primary care provider within 1-2 weeks Also follow up with Dr. Connolly of Gastroenterology in 1 week. Return to the emergency department if he developed sudden shortness breath, chest pain, nausea, vomiting or intractable diarrhea. Monitor site for infection, erythema, warmth, purulence drainage, fever greater than 101.5 Dressing changes per surgery Thank you for choosing [facility] for your healthcare needs Patient Instructions: Antibiotic Form Patient Language: Macedonian Stand Alone Forms: General Discharge Information Follow-up/Referrals: Marlene Goel NP [Primary Care Provider] - Сергей Connolly MD [Physician] - Discharge Medications: New prochlorperazine maleate [Compazine] 10 mg tablet 10 mg PO Q8H PRN (Reason: nausea and vomiting) 7 Days Qty: 21 0RF dicyclomine 20 mg tablet 20 mg PO TID 7 Days Qty: 21 0RF levofloxacin 500 mg tablet 500 mg PO DAILY Qty: 10 0RF metronidazole 500 mg tablet 500 mg PO Q8H 10 Days Qty: 30 0RF Continued ascorbate calcium (vitamin C) 500 mg PO DAILY sertraline 25 mg tablet 25 mg PO DAILY Qty: 90 3RF Rx Instructions: to take with 50mg dose to equal 75mg daily progesterone micronized 100 mg capsule 100 mg PO QPM finasteride 1 mg tablet 1 mg PO DAILY minoxidil 2.5 mg tablet 1.25 mg PO DAILY terbinafine HCl 250 mg tablet 250 mg PO DAILY mecobalamin (vitamin B12) 1,000 mcg tablet,disintegrating 1,000 mcg sublingual DAILY Rx Instructions: place tablet under tongue and allow to dissolve for at least30 secs before swallowing folic acid 1 mg tablet 1 mg PO DAILY sertraline 50 mg tablet 50 mg PO DAILY Qty: 90 2RF Date of admission: 11/19/24 11:14 Primary Care Provider: Marlene Goel Admitting Provider: Quincy Capone Attending physician on admission: Kareem Munoz Condition: Stable Quality VTE Prophylaxis VTE prophylaxis: mechanical ordered Hospitalist MIPS Heart Failure (Exclusion) Patient has history of Heart Transplant or Left Ventricular Assistive Device?: No IF YES, STOP HERE Heart Failure (Qualifier) Patient has current or prior documentation of LVEF less than or equal to 40%, or mod/servere depressed LVSF?: No IF NO, STOP HERE
--- NOTE | 2024-11-22 14:45 | P.PNGS_ITS ---
Progress Note: A&P Assessment and Plan (1) Acute diverticulitis: Code(s): K57.92 - Diverticulitis of intestine, part unspecified, without perforation or abscess without bleeding Status: Acute Assessment and Plan: * Okay to discharge from surgery standpoint * Continue oral antibiotics as an outpatient * Follow-up with Dr. Hernandez in 2 weeks (2) Esophageal dysmotility: Code(s): K22.4 - Dyskinesia of esophagus Status: Acute Assessment and Plan: * Still having same symptoms as prior to hiatal hernia repair. Acid reflux and heartburn have resolved. Agree with further workup with motility expert as an outpatient. (3) Leukopenia: Code(s): D72.819 - Decreased white blood cell count, unspecified Status: Acute Subjective Subjective Date/Time Seen: 11/22/24 14:45 Interval history: Abdominal pain improved. Having some diarrhea. No nausea or vomiting today. Exam GI: Inspection: non-distended GI Palp: Yes Soft to palpation, No Tenderness to palpation present (GI), No Guarding due to palpation present (GI) and No Rebound tenderness present Auscultation: normal bowel sounds Objective Data Vital Signs Vital Signs: Vital Signs - 24 hr 11/21/24 19:40 11/21/24 20:00 11/22/24 04:35 Temperature 98.3 F 98.4 F Pulse Rate 69 69 Respiratory Rate 18 16 Blood Pressure 117/86 130/79 Pulse Oximetry 99 99 Oxygen Delivery Room Air 11/22/24 08:16 11/22/24 13:44 Temperature 97.7 F Pulse Rate 69 66 Respiratory Rate 16 16 Blood Pressure 144/73 H Pulse Oximetry 99 98 Oxygen Delivery Room Air Intake/Output Intake/Output: Intake & Output 11/19/24 11/20/24 11/21/24 11/22/24 23:59 23:59 23:59 23:59 Intake Total 3200 3326 3680 590 Output Total 2 Balance 3200 3326 3678 590 Meds/Results Medications: Active Medications Generic Name Dose Route Start Last Admin Trade Name Freq PRN Reason Stop Dose Admin Acetaminophen 650 mg 11/18/24 23:26 11/21/24 22:08 Acetaminophen 325 Mg Tablet PO 650 mg Q4H PRN Administration Pain Rated 5 or Less/Fever Ascorbic Acid 500 mg 11/19/24 09:00 11/22/24 08:18 Ascorbic Acid 500 Mg Tablet PO 500 mg QAM YASMEEN Administration Cyanocobalamin 1,000 mcg 11/19/24 09:00 11/22/24 08:18 Cyanocobalamin 1,000 Mcg Tablet PO 1,000 mcg QAM YASMEEN Administration Dicyclomine HCl 20 mg 11/21/24 13:09 11/21/24 17:17 Dicyclomine Hcl Inj 20 Mg/2 Ml Vial IM 20 mg Q8HR PRN Administration Cramping Famotidine 20 mg 11/19/24 21:00 11/22/24 08:16 Famotidine 20 Mg/2 Ml Vial IV PUSH 20 mg Q12HR YASMEEN Administration Folic Acid 1 mg 11/19/24 09:00 11/22/24 08:20 Folic Acid 1 Mg Tablet PO 1 mg DAILY YASMEEN Administration Piperacillin/Tazobactam/Dextrose 3.375 gm in 50 mls @ 100 mls/hr 11/19/24 02:00 11/22/24 13:44 Zosyn 3.375 Gm/Ns 50 Ml IVPB 100 mls/hr Q6H YASMEEN Administration Sodium Chloride 1,000 mls @ 75 mls/hr 11/18/24 19:40 11/22/24 02:32 Normal Saline Iv IV CONT 125 mls/hr .[id number] YASMEEN Administration Minoxidil 1.25 mg 11/19/24 09:00 11/22/24 08:20 Minoxidil 2.5 Mg Tablet PO 1.25 mg DAILY YASMEEN Administration Morphine Sulfate 4 mg 11/19/24 10:01 11/22/24 04:18 Morphine Sulfate (*Crx) 4 Mg/Ml Inj IV PUSH 4 mg Q2H PRN Administration Pain Rated 7-10 Morphine Sulfate 2 mg 11/19/24 10:01 11/20/24 13:51 Morphine Sulfate (*Crx) 2 Mg/Ml Inj IV PUSH 2 mg Q2H PRN Administration Pain Rated 4-6 Non-Formulary Medication 1 mg 11/20/24 14:30 11/22/24 08:19 Finasteride PO 12/20/24 14:29 1 mg DAILY YASMEEN Administration Non-Formulary Medication 100 mg 11/20/24 18:00 11/21/24 17:20 Progesterone Micronized PO 12/20/24 17:59 100 mg QPM YASMEEN Administration Ondansetron HCl 4 mg 11/18/24 23:27 11/20/24 08:46 Ondansetron Inj 4 Mg/2 Ml Vial IV PUSH 4 mg Q4H PRN Administration Nausea And Vomiting Sertraline HCl 25 mg 11/19/24 09:00 11/22/24 08:21 Sertraline Hcl 25 Mg Tablet PO 25 mg DAILY YASMEEN Administration Sertraline HCl 50 mg 11/19/24 09:00 11/22/24 08:21 Sertraline Hcl 50 Mg Tablet PO 50 mg DAILY YASMEEN Administration Terbinafine HCl 250 mg 11/19/24 09:00 11/22/24 08:32 Terbinafine Hcl 250 Mg Tablet PO 250 mg DAILY YASMEEN Administration Radiology Results: ITS Impressions Abdomen/Pelvis CT 11/18/24 17:44 IMPRESSION: Acute diverticulitis without a drainable fluid collection or gross perforation. A contained perforation is noted. Follow-up to resolution is recommended as a malignancy may have a similar appearance. Splenomegaly (unchanged). Findings within segment 7 of the liver, which likely represent a benign cyst. Further evaluation with a focused ultrasound versus contrast-enhanced MRI (with liver mass protocol) is recommended as this is an interval change from the 2012 examination. Mural thickening within the distal esophagus for which direct visualization is recommended, when the patient is clinically able. Arterial/Peripheral Duplex 11/22/24 08:23 IMPRESSION: Elevated peak systolic velocity within the hepatic veins. Normal peak systolic velocity within the main portal and left portal veins. Reversal of flow is detected within the right portal vein, possibly secondary to technique. This constellation of findings suggests alteration of flow at the level of the right atrium/hepatic veins, rather than intrinsic hepatic disease. The peak systolic velocity of the splenic vein, is measured at the splenic hilum, rather than approximately 2 cm above the confluence with the superior mesenteric vein for which interpretation is limited. No filling defect is detected within the portal, hepatic or splenic veins. Transjugular intrahepatic pressure measurements are suggested for optimal interpretation. Labs Labs: Laboratory Results - last 24 hr 11/21/24 11/22/24 14:00 04:29 WBC 1.8 L* RBC 3.14 L Hgb 9.6 L Hct 29.4 L MCV 93.6 MCH 30.6 MCHC 32.7 RDW 13.7 Plt Count 115 L MPV 10.5 H Immature Gran % (Auto) 0.0 Neut % (Auto) 44.5 L Lymph % (Auto) 36.6 Kent % (Auto) 12.6 H Eos % (Auto) 5.7 H Baso % (Auto) 0.6 Lymph # (Auto) 0.64 L Kent # (Auto) 0.2 Eos # (Auto) 0.1 Baso # (Auto) 0.0 Abs Immat Gran (auto) 0.00 Absolute Neuts (auto) 0.8 L Absolute Nucleated RBC 0.000 Band Neutrophils % Not Reportable Nucleated RBC % 0.0 Platelet Estimate Decreased % Immature Plt Fraction 4.0 Target Cells 1+ Schistocytes None seen Sodium 142 Potassium 3.3 L Chloride 113 H Carbon Dioxide 25 Anion Gap 4 BUN 8 D Creatinine 0.84 Estim Creat Clear Calc 53 Estimated GFR > 60 Glucose 90 Calcium 8.1 L Magnesium 1.9 Total Bilirubin 0.4 AST 24 ALT 23 Alkaline Phosphatase 75 Total Protein 5.0 L Albumin 3.0 L Hepatitis A IgM Ab Negative Hep Bs Antigen Negative Hep B Core IgM Ab Negative Hepatitis C Ab Screen Negative
== END 2024-11-22 15:12 | disposition home or self-care (01) | DRG 392 ==
LOC: ANHED 18:01 → ANH3MEDSUR 20:21 → ANH2MED 20:35
PROVIDERS: Internal Medicine Gastroenterology; Nurse Practitioner; Physician Assistant; Admitting Provider General Practice; Emergency Provider Physician Assistant; PCP Nurse Practitioner Family; Visit Provider Physician Assistant
DX: K57.20 Diverticulitis of large intestine with perforation and abscess without bleeding (principal); I48.20 Chronic atrial fibrillation, unspecified; E44.0 Moderate protein-calorie malnutrition; D61.818 Other pancytopenia; K76.6 Portal hypertension; E53.8 Deficiency of other specified B group vitamins; E78.5 Hyperlipidemia, unspecified; E55.9 Vitamin D deficiency, unspecified; K22.4 Dyskinesia of esophagus; K21.00 Gastro-esophageal reflux disease with esophagitis, without bleeding; K44.9 Diaphragmatic hernia without obstruction or gangrene; R16.1 Splenomegaly, not elsewhere classified; M85.80 Other specified disorders of bone density and structure, unspecified site; F41.9 Anxiety disorder, unspecified; F32.A Depression, unspecified; Z87.891 Personal history of nicotine dependence; Z68.26 Body mass index [BMI] 26.0-26.9, adult
CPT/HCPCS: 36415; 74177; 80053; 80074; 81001; 83690; 83735; 85025; 85055; 85303; 85306; 86038; 86039; 87040; 93976; 96365; 96367; 96375; 99285; A9270; G0378; J0500; J0696; J1836; J2270; J2405; J2470; J2543; J7030; Q9967

== ENCOUNTER 2025-01-13 07:42 | Outpatient (CLI) | payer MEDICARE, SELFPAY ==
--- NOTE | ~2025-01-13 | NM_ITS ---
History: Gastroesophageal reflux disease. Nuclear Medicine Gastric Emptying Assessment: The patient was orally administered 4 oz. cooked egg whites, 2 pieces white bread toast, 30 gm. jam o r jelly and 4 oz. water to be consumed within 10 minutes. 0.99 mCi. Tc-99m was cooked into the egg w hites using microwave oven. Patient was placed supine and using a dual head gamma camera 2 minute planar anterior and posterior i mages were acquired at 0.5 , 1 ,2 , 3, and 4 hrs. or until = or > than 90% gastric emptying was achie herman. Regions of interest were drawn about the stomach and using the geometric mean method and decay c orrection, percent gastric retention was calculated. PERCENT GASTRIC RETENTION : 1 hr. 39% 2 hr. 13% 4 hr. 2% Impression: Normal gastric emptying. Normal Limits for Gastric Retention Time point Lower limit (a lower value Upper limit (a suggests abnormally rapid greater value gastric emptying) suggests abnormally delayed gastric emptying) 0.5 hr. 70% 1 hr. 30% 90% 2 hr. 60% 3 hr. 30% 4 hr. 10% Data are from Am J Gastroenterology. 2007;102:-11. Reviewed, dictated and finalized at [facility]. Impression: Normal gastric emptying. Normal Limits for Gastric Retention Time point Lower limit (a lower value Upper limit (a suggests abnormally rapid greater value gastric emptying) suggests abnorm ally de layed gastric e mptying) 0.5 hr. 70% 1 hr. 30% 90% 2 hr. 60% 3 hr. 30% 4 hr. 10% Data are from Am J Gastroenterology. 2007;102:-11.
--- OUTSIDE RECORDS SUMMARY | 2025-01-13 07:47 | XMS_ITS | Clinical Summary ---
Author Organization [facility] Address [address] [place] [address] Phone Care Team Providers Care Marketing Strategy Lead Name Role Phone Kyung Goel NP Primary Care Provider [phone] Social History Tobacco Use Types Packs/Day Years Used Date Smoking Tobacco: Never Assessed Comments Unknown Sex and Gender Information Value Date Recorded Sex Assigned at Not on file Legal Sex Female 8:36 PM CDT Gender Identity Not on file Sexual Orientation Not on file Plan of Treatment Health Maintenance Due Date Last Done Comments Hepatitis C Virus (HCV) Screening 1955 TdaP Immunization 1955 Cologuard 2002 Colonoscopy 2002 Colorectal Cancer Screening 2002 Immunochemical Fecal Occult Blood 2002 Pneumococcal Immunization (5 0+ years) (1 of 1 - PCV) 2007 Zoster Immunization (1 of 2) 2007 SARS-COV-2 Immunization ( season) 2024 05/16/2021, 08/12/2020, 07/14/2020 Influenza Immunization (#1) 2025 Respiratory Syncytial Virus (RSV) Immunization (Adult) (1 - 1-dose 75+ series) 2032 Hepatitis B Immunization Aged Out No longer eligible based on patient's age to complete this topic Human Papillomavirus (HPV) Immunization Aged Out No longer eligible b ased on patient's age to complete this topic Meningococcal Immunization (ACWY) Aged Out No longer eligible b ased on patient's age to complete this topic Rotavirus Immunization Aged Out No lo nger eligible based on patient's age to complete this topic [place] [place] [address] [facility] Care Teams Marketing Strategy Lead Relationship Specialty Start Date End Date Kyung Goel NP [address] [place] [address] PCP - General Family Medicine 04/24/21
== END 2025-01-13 07:43 | disposition home or self-care (01) ==
PROVIDERS: PCP Nurse Practitioner Family; Visit Provider Nurse Practitioner Family
DX: K21.9 Gastro-esophageal reflux disease without esophagitis (principal); R11.14 Bilious vomiting
CPT/HCPCS: 78264; A9541

== ENCOUNTER 2025-01-15 00:09 | Day surgery (SDC) | payer MEDICARE, SELFPAY ==
[2025-01-05 13:20] VITALS: BMI 25.7
--- OUTSIDE RECORDS SUMMARY | 2025-01-15 00:11 | XMS_ITS | Clinical Summary ---
Author Organization [facility] Address [address] [place] [address] Care Team Providers Care Director Nursing Service Name Role Phone Feliberto Pelaez MD Primary Care Provider [phone] Allergies No known active allergies Medications CALCIUM [...] Encounters Date Type Department Care Team Description 01/12/2025 External Device Data [facility] ABSTRACTION Provider, Abstract 12/22/2024 External Device Data [facility] ABSTRACTION Provider, Abstract 11/17/2024 External Device Data [facility] ABSTRACTION Provider, [...] 1:06 PM CDT Height 165.1 cm (5' 5) 11/01/2023 12:21 PM CDT Body Mass Index [...] 2007 OSTEOPOROSIS SCREENING 2022 INFLUENZA VACCINE (#1) 2025 BREAST CANCER SCREENING 08/21/2025 08/21/2024 RSV VACCINE (60+ or ) (1 - 1-dose 75+ series) 2032 Procedures Procedure Name Priority Date/Time Associated Diagnosis Comments MAMMO SCREENING BILAT Routine 08/21/2024 2:47 PM ORDER BUILDER LOADER from Last 3 Months or Most Recently Relevant to Health Maintenance Results * MAMMO SCREENING BILAT (08/21/2024 2:47 PM ORDER BUILDER LOADER) Anatomical Region Laterality Modality Breast Bilateral Mammography Shubham Koroma MD MAMMO ORDERABLES Final Result from Last 3 Months or Most Recently Relevant to Health Maintenance Insurance [facility] PPO MCR Care Teams Director Nursing Service Relationship Specialty Start Date End Date Feliberto Pelaez MD [address] [place] [address] [address] [facility] [address] [place] [id number] PCP - General Family Practice 11/01/23
--- OUTSIDE RECORDS SUMMARY | 2025-01-15 00:11 | XMS_ITS | Clinical Summary ---
Author Organization [facility] Address [address] [place] [address] Phone Care Team Providers Care Tool Repairer Bench Name Role Phone Kyung Goel NP Primary Care Provider [phone] Social History Tobacco Use Types Packs/Day Years [...] to complete this topic [place] [place] [address] [facility] Care Teams Tool Repairer Bench Relationship Specialty Start Date End Date Kyung Goel NP [address] [place] [address] PCP - General Family Medicine 04/24/21
--- NOTE | 2025-01-15 11:43 | P.PNAN_ITS ---
Anes - Initial Pre Proc Eval Procedure: Operation Date: 01/15/25 12:30 Proposed Procedures p EGD & Diagnostic Colonoscopy - Jose Colón MD Date/Time: 01/15/25 11:43 Surgeon: Jose Colón MD Pre Op Diagnosis: Nausea, GERD Patient Data Age: 69 Gender: F Height: 1.68 m Weight: 72.2 kg Allergies Allergy/AdvReac Type Severity Reaction Status Date / Time oxycodone (From Percocet) AdvReac Severe Nausea and Verified 01/15/25 12:03 Vomiting Home Medications ?Medication ?Instructions ?Recorded ?Confirmed ?Type ascorbate calcium (vitamin C) 500 mg PO DAILY 07/20/22 01/15/25 History folic acid 1 mg tablet 1 mg PO DAILY 07/25/22 01/15/25 History mecobalamin (vitamin B12) 1,000 1,000 mcg sublingual DAILY 07/25/22 01/15/25 History mcg disintegrating tablet,sublingual sertraline 50 mg tablet 50 mg PO DAILY #90 tabs 09/03/24 01/15/25 Rx sertraline 25 mg tablet 25 mg PO DAILY #90 tabs 11/06/24 01/15/25 Rx finasteride 1 mg tablet 1 mg PO DAILY 11/18/24 01/15/25 History minoxidil 2.5 mg tablet 1.25 mg PO DAILY 11/18/24 01/05/25 History progesterone micronized 100 mg 100 mg PO QPM 11/18/24 01/15/25 History capsule terbinafine HCl 250 mg tablet 250 mg PO DAILY 11/18/24 01/15/25 History hydrocodone 5 mg-acetaminophen 325 1 tablet PO Q6H PRN pain #6 tabs 11/22/24 01/05/25 Rx mg tablet levofloxacin 500 mg tablet 500 mg PO DAILY #10 tabs 11/22/24 01/15/25 Rx metronidazole 500 mg tablet 500 mg PO Q8H 10 days #30 tabs 11/22/24 01/15/25 Rx dicyclomine 10 mg capsule 10 mg PO TID #90 caps 12/03/24 01/15/25 Rx prochlorperazine maleate 10 mg 10 mg PO Q8H nausea and vomiting 06/05/25 07/18/25 Rx tablet (Compazine) #60 tabs Patient hx anesthesia problems: none Family hx anesthesia problems: none Results Review: All pre-operative results and documents have been reviewed as part of the pre- operative evaluation. [facility] Past Medical History Medical History Osteopenia Elevated BP without diagnosis of hypertension BMI 32.0-32.9,adult Fatigue Esophageal dysmotility Colon cancer screening Shortness of breath Dysphagia Atypical chest pain Large hiatal hernia Folic acid deficiency B12 deficiency Asymptomatic microscopic hematuria Hyperlipidemia Leukopenia Post-menopausal Breast cancer screening Chest pain Hx of atrial fibrillation without current medication Depression Anxiety Overweight (BMI 25.0-29.9) BMI 29.0-29.9,adult Chronic pain of left wrist X-ray 09/27/2021 with osteopenia but otherwise normal. Bronchitis, acute Anxiety with depression Vitamin D deficiency Nasal congestion Situational stress Surgical History Surgical History History of Kathie fundoplication History of repair of hiatal hernia Robotic assisted laparoscopic paraesophageal hernia repair with 270 degree fundoplication 10/08/23 Arthritis of carpometacarpal (CMC) joint of left thumb Left thumb CMC suspension arthroplasty August 13, 2022 History of bilateral carpal tunnel release H/O: hysterectomy De Quervain's tenosynovitis, left Left first dorsal compartment release August 13, 2022 History of esophagogastroduodenoscopy (EGD) Family History Family History Father Diabetes mellitus Hypertension Grandparent Family history of cardiovascular disease Family history of malignant neoplasm Other Cancer Cerebrovascular accident Social History Social History Smoking packs per day: 1 Smoking cigarettes per day: 20.0 Years smoked: 30 Smoking pack-years: 30.00 Smoking status: Former smoker Tobacco type: cigarettes Alcohol intake: never Drinks per week: 1 Alcohol use details: TWO DRINKS PER MONTH Substance use: never Substance use type: does not use Do You Feel Safe in your Home?: Yes Lack of Transportation: No Lack of Food: Never True Current Housing: I Have Housing Concerned About Future Housing: No Difficulty Paying Gas/Electric Bills: No Difficulty Paying for Meds: No Currently Unemployed: No Education: High School Diploma/GED Difficulty w/ Childcare or Family Care: No Living arrangements: with family Occupation/Education: occupation Additional occupation/education comments: [employer] Gender identity (if verbalized by the patient): Female Spiritual care concerns: No Anes - Eval Final PreProcedure Day of Procedure 01/15/25 11:43 Patient weight: normal Heart: regular rate and rhythm Lungs: normal air movement Airway: Mallampati scale class II Neurological: alert and oriented Last oral intake: 6 hours ASA classification: III Emergent: no Anesthetic plan: proceed Anesthesia type and monitoring: general GIVS and standard monitoring Results Review: All pre-operative results and documents have been reviewed as part of the pre- operative evaluation. Informed Consent: The patient's anesthetic plan and its attendant risks and benefits were discussed with the patient/family/POA. Questions were solicited and answers provided to the satisfaction of the patient/family/POA.
[2025-01-15 11:57] VITALS: BP 142/97; PULSE 104; RESP 16; TEMP 36.6; O2SAT 98; BMI 26.4
--- NOTE | 2025-01-15 12:11 | WPDHPUPDATE1 ---
History and Physical Update Update Date/Time: 01/15/25 12:11 History and Physical has been reviewed, including an updated exam of the patient. There are NO changes in the patient's condition. Risks, benefits, and alternatives have been discussed and questions answered. Patient agrees to proceed with procedure.
[2025-01-15] MEDS: LACTATED RINGERS 1,000 ML 150 ML IV CONT (12:12)
--- NOTE | 2025-01-15 12:29 | S_PTH ---
PATIENT: Amy Barnes LOC: [facility]#:[id number] AGE/SX: 69/F ROOM: RE01/15/[address]: Jose Colón MD : 1955 BED: DIS: 01/15/2025 SPEC #: [id number] RECD: 01/18/25 07:49 STATUS: ISMAEL RENiyah #: [id number] HAILEY: 01/15/25 12:[address]: Jose Colón DEPT: [facility] Surgical RECD BY: Khadijah Stewart ENTERED: 01/18/25 07:50 SP TYPE: Surgical OTHR DR: Marlene Goel APRN Tissues: A - Esophageal Biopsy B - Gastric Biopsy C - Colon Polypectomy Procedures: Hematoxylin and Eosin Stain Gross and Microscopic Level 4 P53 Mib
--- NOTE | 2025-01-15 12:40 | SUR.OPER ---
EGD start 1220 end 1230, Colonoscopy start 1233.
[2025-01-15 12:51] VITALS: BP 99/65; PULSE 76; RESP 16; O2SAT 98
[2025-01-15 13:01] VITALS: BP 118/75; PULSE 68; RESP 20; O2SAT 99
[2025-01-15 13:11] VITALS: BP 118/74; PULSE 69; RESP 17; O2SAT 100
== END 2025-01-15 13:34 | disposition home or self-care (01) ==
PROVIDERS: PCP Nurse Practitioner Family; Referring Provider Nurse Practitioner Family; Visit Provider Internal Medicine Gastroenterology
PROC: 0DJ08ZZ Inspection of Upper Intestinal Tract, Via Natural or Artificial Opening Endoscopic (ICD-10-PCS; CPT 45378; principal; 2025-01-15 12:30)
DX: K57.30 Diverticulosis of large intestine without perforation or abscess without bleeding (principal); D17.5 Benign lipomatous neoplasm of intra-abdominal organs; D12.2 Benign neoplasm of ascending colon; K64.4 Residual hemorrhoidal skin tags; K21.00 Gastro-esophageal reflux disease with esophagitis, without bleeding; K22.89 Other specified disease of esophagus; K22.2 Esophageal obstruction; K44.9 Diaphragmatic hernia without obstruction or gangrene; Z87.891 Personal history of nicotine dependence
CPT/HCPCS: 45385; 43249; 43239; 88305; 88342; C1726; J2003; J2704; J7120

== ENCOUNTER 2025-05-14 02:29 | Day surgery (SDC) | payer MEDICARE, SELFPAY ==
--- OUTSIDE RECORDS SUMMARY | 2017-09-13 05:15 | XMS_ITS | Continuity of Care Document ---
Author Organization [facility] Address [address] [place] [address] Phone Care Team Providers Care Manager Rental Name Role Phone Rohit Nichole MD Unavailable Unavailable Allergies, Adverse Reactions, Alerts Substance Reaction Status Criticality No Known Allergies Active No Inform ation Procedures Procedure Date Eye Exam, New Patient Advance Directives Directive Yes / No Effective Date File Name No Information Encounters Encounter Description Practice Location Reason(s) For Visit Diagnoses Date Provider Providers Copied on Encounter [facility], [address], [place], [place], [id number], [place] tel:[phone] [place] Professional WIE (chief complaint) Pain of right orbit [address] [facility], [facility], [place], [place], [id number], [place]. tel:[phone] Referring Provider: Rohit Feng, [address] [facility], [place], [place], [address] . tel:[phone] Family History Family Member Type Diagnosis Age At Onset No Information Payers Payer name Insurance type Covered green party ID Authoriza ticharo(s) [facility] [id number] Social History Type Description Quantity Date Captured Comments Alcohol Use Details Caffeine Use Details Tobacco Use Status Current non-smoker 18 Smoking Status Never smoker Non-Smoking Tobacco Use Details : No Details Available : No Details Available Sex Female Chief Complaint And Reason For Visit From encounter dated '09/13/2017 11:15'. WIE (chief complaint). Description: The 62 year old female presents for a WIE possible shingles perDr. Jermain Gaspar. Patient thought she had bad sinus infection and just finished a Z-Philipp. Patient states OD was swollen and right side of head has pain and right cheek has pain x 3 weeks. Patient statesDr. Gaspar yesterday said her sinuses were clear and thought maybe she had internerve shingles. Reason For Referral Reason For Referral No Information History Of Present Illness Encounter Date Complaint History Of Prese nt Illness WIE The 62 year old female presents for a WIE possible shingles per Dr. Jermain Gaspar. Patient thought she had bad sinus infection and just finished a Z-Philipp. Patient states OD was swollen and right side of head has pain and right cheek has pain x [address] Gaspar yesterday said her sinuses were clear and thought maybe she had internerve shingles. Functional Status Date Functional Assessmen t No Information Instructions Date Instruction Additional Infor ligia Impression/Plan Assessments Type Assessment Date assessment Pain of right orbit Patient Care Teams Name Effective Dates (start - stop) Status Members No Information
[2025-05-10 10:16] VITALS: BMI 27.4
--- OUTSIDE RECORDS SUMMARY | 2025-05-14 02:31 | XMS_ITS | Clinical Summary ---
Author Organization [facility] Address [address] [place] [address] Phone Care Team Providers Care Legal Writing Professor Name Role Phone Kyung Goel NP Primary Care Provider [phone] Social History Tobacco Use Types Packs/Day Years [...] (1 of 2) 2007 Influenza Immunization (#1) 2025 SARS-COV-2 Immunization ( season) 2025 05/16/2021, 08/12/2020, 07/14/2020 Respiratory Syncytial Virus (RSV) [...] to complete this topic [place] [place] [address] [facility] Care Teams Legal Writing Professor Relationship Specialty Start Date End Date Kyung Goel NP [address] [place] [address] PCP - General Family Medicine 04/24/21
--- OUTSIDE RECORDS SUMMARY | 2025-05-14 02:31 | XMS_ITS | Clinical Summary ---
Author Organization [facility] Address [address] [place] [address] Care Team Providers Care Marketing Developer Name Role Phone Amando Marlene KIMBERLY Primary Care Provider [phone] Allergies Active Allergy Reactions Criticality Noted Date Comments Oxycodone Nausea & Vomiting High 11/18/2024 Medications sertraline (ZOLOFT) 50 mg tablet 07/23/2022 [...] pain Active mecobalamin, vitamin B12, 1,000 mcg tablet,disinteg rating Place under the tongue Active sertraline (ZOLOFT) 25 mg tablet 07/23/2022 Active dilTIAZem (CARDIZEM) 30 mg tablet Take 1 tablet (30 mg total) by mouth 3 (three) times a day 11/22/2023 Active dicyclomine (BENTYL) 10 mg capsule Take 1 capsule (10 mg total) by mouth 3 (three) times a day 12/13/2024 Active finasteride (PROPECIA) 1 mg tablet Take 1 tablet (1 mg total) by mouth daily 12/03/2024 Active terbinafine (LamiSIL) 250 mg tablet Take 1 tablet (250 mg total) by mouth daily 02/17/2025 Active minoxidiL (LONITEN) 2.5 mg tablet Take 0.5 tablets (1.25 mg total) by mouth daily 12/03/2024 Active Active Problems Problem Noted Date Diagnosed Date Dyspnea on exertion 06/04/2023 Atypical chest pain 06/04/2023 Other fatigue 12/28/2022 Palpitations 08/10/2022 Paroxysmal atrial fibrillation 05/02/2020 Esophagitis 05/02/2020 Encounter for medical examination to establish c are 09/07/2019 Encounter for screening mammogram for breast can cer 09/07/2019 Encounter for screening for lipoid disorders 03/2020 Encounters Date Type Department Care Team Description 02/18/2025 1:00 PM CDT Office Visit [facility] Cardiology [address] [facility] [address] [place] [address] Jaguar Berger MD Lipid screening (Primary Dx) from Last 3 Months Surgical History Surgery Date Site/Laterality Comments SECTION [...] on file Legal Sex Female 10:08 AM 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 Gender Identity Not on file Sexual Orientation Not on file Last Filed Vital Signs Vital Sign Reading Time Taken Comments Blood Pressure 130/80 02/18/2025 1:01 PM CDT Pulse 82 02/18/2025 1:01 PM CDT Temperature 36.7 C (98 F) 02/04/2019 1:45 PM CDT Respiratory Rate 14 02/18/2025 1:01 PM CDT Oxygen Saturation 98% 02/18/2025 1:01 PM CDT Inhaled Oxygen Concentration - - Weight 78.9 kg (174 lb) 02/18/2025 1:01 PM CDT Height 170.2 cm (5' 7) 02/18/2025 1:01 PM CDT Body Mass Index 27.25 02/18/2025 1:01 PM CDT Plan of Treatment Health Maintenance Due Date Last Done Comments Breast Cancer Screening-Mammogram 1955 Colon Cancer Screening-Colonoscopy 1955 Depression Screening 1957 Fall Risk Assessment 1957 Hepatitis C Screening 1957 Osteoporosis Screening-Bone Density Scan 1957 DTaP/Tdap/Td Vaccine (1 - Tdap) 1968 Hepatitis B Screening 1975 Pneumococcal vaccine 65+ (1 of 1 - PCV) 2007 Zoster Vaccine (1 of 2) 2007 Well Visit 65+ 2022 Covid-19 Vaccine ( - 2024- season) 2025 05/16/2021, 08/12/2020, 07/14/2020 Influenza Vaccine (#1) 2025 Procedures Procedure Name Priority Date/Time Associated Diagnosis Comments POCT LIPID PANEL Routine 02/18/2025 12:5 5 PM CDT Lipid screening from Last 3 Months Results * POCT lipid panel (02/18/2025 12:55 PM CDT) Cholesterol, POC 173 <200 MG/DL HDL, POC 59 >=40 mg/dL Triglycerides, POC 87 <=149 mg/dL LDL Cholesterol POC 96 <=129 mg/dL Chol/HDL Ratio, POC 1.6 NONE Non-HDL Cholesterol, POC 113 NONE mg/dL Cholesterol Total, POC 173 30 - 199 mg/dL Capillary blood 02/18/2025 1 2:55 PM CDT Jaguar Berger MD POINT OF CARE TEST ORDERABLES Fi nal Result from Last 3 Months Insurance [employer] MED[employer] [place] [address] [employer] PPO [employer] MEDIC[employer] PPO Care Teams Marketing Developer Relationship Specialty Start Date End Date Marlene Goel NP [address] [id number] PCP - General Family Medicine 02/18/25
--- OUTSIDE RECORDS SUMMARY | 2025-05-14 02:31 | XMS_ITS | Clinical Summary ---
Author Organization [facility] Address [address] [place] [id number] Care Team Providers Care Stripper [employer]ed [employer] Boards Name Role Phone Unavailable Primary Care Provider Unavailabl e Allergies No known active allergies Medications finasteride (PROPECIA) 1 MG tablet Take 1 tablet (1 mg) by mouth daily 12/03/2024 Active progesterone (PROMETRIUM) 100 MG capsule Take 1 capsule (100 mg) by mouth daily 10/15/2024 Active acetaminophen (TYLENOL) 500 MG tablet Take 1 tablet (500 mg) by mouth Active Vitamin C 500 MG tablet Active ibuprofen (MOTRIN) 600 MG tablet Take 1 tablet (600 mg) by mouth Active Methylcobalamin [address] Active minoxidil (LONITEN) 2.5 MG tablet Take 0.5 tablets (1.25 mg) by mouth daily 12/03/2024 Active sertraline (ZOLOFT) 50 MG tablet Take 1.5 tablets (75 mg) by mouth daily Active Active Problems Problem Noted Date Diagnosed Date 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 Atypical chest pain 06/04/2023 Dyspnea on exertion 06/04/2023 Other fatigue 12/28/2022 Palpitations 08/10/2022 Elevated blood-pressure read ing without diagnosis of hypertension 05/30/2020 Hyperlipidemia 05/27/2020 Esophagitis 05/02/2020 Paroxysmal atrial fibrillation 05/02/2020 Gastroesophageal reflux disease 03/09/2020 Encounter for medical examination to establish c are 09/07/2019 Encounter for screening for lipoid disorders 03/2020 Encounter for screening mammogram for breast can cer 09/07/2019 Social History Tobacco Use Types Packs/Day Years Used Date Smoking Tobacco: Former Cigarettes 14.9 S tarted: 2010 Smokeless Tobacco: Never Alcohol Use Standard Drinks/Week Comments Yes 0 (1 standard drink = 0.6 oz pur e alcohol) rarely Alcohol Use Answer Date Recorded Frequency of Alcohol Consumption Not on file 12/17/2024 Average Number of Drinks Not on file 025 Frequency of Binge Drinking Not on file 11/29 Alcohol Use Status Yes 12/17/2024 Average alcohol consumption Not on file 11/29 Comments Unknown Sex and Gender Information Value Date Recorded Sex Assigned at Not on file Legal Sex Female 8:48 AM CDT Gender Identity Not on file Sexual Orientation Not on file Plan of Treatment Health Maintenance Due Date Last Done Comments Hepatitis C Screening ages 1 8 to 79 once 1955 Medicare Annual Wellness (AWV) 1955 DEPRESSION SCREENING 1969 ADULT TETANUS 1976 Colon Cancer Screening 2002 LIPID TESTING 2002 Pneumococcal Vaccine: 50 and over (1 of 1 - PCV) 2007 Zoster Vaccine (Recombinant Vaccine) (1 of 2) 2007 DEXA SCAN SCREENING 2022 Fall Risk Assessment 2022 Influenza Vaccine 01/29/2025 COVID-19 Immunization (1 - 2 season) 2025 BREAST CANCER SCREENING 08/21/2025 08/21/2024 RSV Vaccines (1 - 1-dose 75+ series) 2032 HEPATITIS A VACCINES Aged Out No long er eligible based on patient's age to complete this topic HEPATITIS B VACCINES Aged Out No long er eligible based on patient's age to complete this topic HIB VACCINES Aged Out No longer eligi ble based on patient's age to complete this topic HPV VACCINES Aged Out No longer eligi ble based on patient's age to complete this topic IPV VACCINES Aged Out No longer eligi ble based on patient's age to complete this topic MENINGOCOCCAL VACCINE Aged Out No sita raj eligible based on patient's age to complete this topic Meningococcal B Vaccine Aged Out No l onger eligible based on patient's age to complete this topic ROTAVIRUS VACCINES Aged Out No longer eligible based on patient's age to complete this topic Insurance [employer] MEDICARE
--- OUTSIDE RECORDS SUMMARY | 2025-05-14 02:31 | XMS_ITS | Clinical Summary ---
Author Organization [facility] Address [address] [place] [address] Care Team Providers Care Customer Sales Distributor Name Role Phone Unavailable Primary Care Provider Unavailabl e Source Comments [facility],non-owned Affiliates and Associated Physician Practices is amultiple site organization consisting of ambulatory clinics and hospital sitesin [place], [place], [place] and [place]. This disclosure is being madepursuant to the Care Everywhere program and may not contain all information available regarding this patient. Last updated 18.Interactive Fate Allergies No known active allergies Medications * [...] 2007 ZOSTER VACCINE (1 of 2) 2007 DEPRESSION SCREENING 07/01/2024 COVID-19 VACCINE (1 - 2023-2 5 season) 2025 INFLUENZA VACCINE (#1) 2025 Respiratory Syncytial Virus (RSV) Vaccine Pt: [...] to complete this topic [place] [address] [facility] [employer] SELF PAY NO INSURANCE Member Subscriber Plan / Payer (Ef fective for All Dates) Name:Amy Roach Member ID:Not on file Relation to Subscriber:Not on file Name:AMY ROACH Subscriber ID:Not on file (Home) Address: [address] [place] [address] Payer ID:Not on file Group ID:Not on file Type:Self Pay Address: [place] [employer] SELF PAY NO INSURANCE Member Subscriber Plan / Payer (Ef fective for All Dates) Name:Amy Roach Member ID:Not on file Relation to Subscriber:Not on file Name:AMY ROACH Subscriber ID:Not on file Address: [address] [facility] [address] [place] [address] Payer ID:Not on file Group ID:Not on file Type:Self Pay Address: [place] [employer] SELF PAY NO INSURANCE Member Subscriber Plan / Payer (Ef fective for All Dates) Name:Amy Roach Member ID:Not on file Relation to Subscriber:Not on file Name:AMY ROACH Subscriber ID:Not on file Address: [address] [place] [address] Payer ID:Not on file Group ID:Not on file Type:Self Pay Address: [place] SELF PAY NO INSURANCE Member Subscriber Plan / Payer (Ef fective for All Dates) Name:Amy Roach Member ID:Not on file Relation to Subscriber:Not on file Name:AMY ROACH Subscriber ID:Not on file Address: [address] [facility] [address] Payer ID:Not on file Group ID:Not on file Type:Self Pay Address: [place] SELF PAY NO INSURANCE Member Subscriber Plan / Payer (Ef fective for All Dates) Name:Amy Roach Member ID:Not on file Relation to Subscriber:Not on file Name:AMY ROACH Subscriber ID:Not on file Address: [address] [facility] [address] Payer ID:Not on file Group ID:Not on file Type:Self Pay Address: [place] SELF PAY NO INSURANCE Member Subscriber Plan / Payer (Ef fective for All Dates) Name:Amy Roach Member ID:Not on file Relation to Subscriber:Not on file Name:AMY ROACH Subscriber ID:Not on file Address: [address] [facility] [address] Payer ID:Not on file Group ID:Not on file Type:Self Pay Address: [place] SELF PAY NO INSURANCE Member Subscriber Plan / Payer (Ef fective for All Dates) Name:Amy Roach Member ID:Not on file Relation to Subscriber:Not on file Name:AMY ROACH Subscriber ID:Not on file Address: [address] [facility] [place] [address] Payer ID:Not on file Group ID:Not on file Type:Self Pay Address: [place], [place] * Guarantor: AMY ROACH Account Type Relation to Patient Date of Phone Billing Address Personal/Family [address] [facility] [place] [address] [employer] SELF PAY NO INSURANCE Member Subscriber Plan / Payer (Ef fective for All Dates) Name:Amy Roach Member ID:Not on file Relation to Subscriber:Not on file Name:AMY ROACH Subscriber ID:Not on file Address: [address] [facility] [place] [address] Payer ID:Not on file Group ID:Not on file Type:Self Pay Address: [place], [place] * Guarantor: AMY ROACH Account Type Relation to Patient Date of Phone Billing Address Personal/Family [address] [facility] [place] [address] [employer] SELF PAY NO INSURANCE Member Subscriber Plan / Payer (Ef fective for All Dates) Name:Amy Roach Member ID:Not on file Relation to Subscriber:Not on file Name:AMY ROACH Subscriber ID:Not on file Address: [address] [address] [address] [place] [address] Payer ID:Not on file Group ID:Not on file Type:Self Pay Address: [place], [place] * Guarantor: AMY ROACH Account Type Relation to Patient Date of Phone Billing Address Personal/Family [address] [address] [place] [address] [employer] SELF PAY NO INSURANCE Member Subscriber Plan / Payer (Ef fective for All Dates) Name:Amy Roach Member ID:Not on file Relation to Subscriber:Not on file Name:AMY ROACH Subscriber ID:Not on file Address: [address] [facility] [address] [place] [address] Payer ID:Not on file Group ID:Not on file Type:Self Pay Address: [place], [place] [address]
--- OUTSIDE RECORDS SUMMARY | 2025-05-14 02:31 | XMS_ITS | Clinical Summary ---
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 Family History Medical History Relation Name Comments [...] Health Maintenance Due Date Last Done Comments DTAP/TDAP/TD VACCINES (1 - Tdap) 1976 COLORECTAL SCREENING 2002 Colorectal Cancer Screening 2002 FIT-DNA Q 3 years 2002 FIT/FOBT Q 1 year 2002 Flex Sig/CT Colonography Q 5 years 2002 PNEUMOCOCCAL VACCINE 50+ YEARS (1 of 1 - PCV) 06/16/20 07 ZOSTER VACCINE (1 of 2) 2007 OSTEOPOROSIS SCREENING 2022 INFLUENZA VACCINE (#1) 2025 BREAST CANCER SCREENING 08/21/2025 08/21/2024 RSV VACCINE (60+ or ) (1 - 1-dose 75+ series) 2032 Procedures Procedure Name Priority Date/Time Associated Diagnosis Comments MAMMO SCREENING BILAT Routine 08/21/2024 2:47 PM MANAGER OF LEARNING from Last 3 Months or Most Recently Relevant to Health Maintenance Results * MAMMO SCREENING BILAT (08/21/2024 2:47 PM MANAGER OF LEARNING) Anatomical Region Laterality Modality Breast Bilateral Mammography Shubham Koroma MD MAMMO ORDERABLES Final Result from Last 3 Months or Most Recently Relevant to Health Maintenance [place] [address] [facility] Care Teams Nurses Educator Relationship Specialty Start Date End Date Feliberto Pelaez MD [address] [place] [address] [address] [facility] [address] [place] [address] PCP - General Family Practice 11/01/23
[2025-05-14 10:35] VITALS: BP 124/92; PULSE 74; RESP 20; TEMP 36; O2SAT 98; BMI 28.7
--- NOTE | 2025-05-14 10:36 | WPDANESEPPF ---
Anes - Initial Pre Proc Eval Procedure: Operation Date: 05/14/25 11:45 Proposed Procedures p Esophagogastroduodenoscopy - Jose Colón MD Date/Time: 05/14/25 10:36 Surgeon: Jose Colón MD Pre Op Diagnosis: Gastro-esophageal reflux disease without esophagit Patient Data Age: 69 Gender: F Height: 1.69 m Weight: 78.3 kg Allergies Allergy/AdvReac Type Severity Reaction Status Date / Time oxycodone (From Percocet) AdvReac Severe Nausea and Verified 05/14/25 10:33 Vomiting Home Medications ?Medication ?Instructions ?Recorded ?Confirmed ?Type ascorbate calcium (vitamin C) 500 mg PO DAILY 07/20/22 05/14/25 History folic acid 1 mg tablet 1 mg PO DAILY 07/25/22 05/14/25 History mecobalamin (vitamin B12) 1,000 1,000 mcg sublingual DAILY 07/25/22 05/14/25 History mcg disintegrating tablet,sublingual dicyclomine 10 mg capsule 10 mg PO TID #90 caps 12/03/24 05/14/25 Rx prochlorperazine maleate 10 mg 10 mg PO Q8H nausea and vomiting 12/03/24 05/10/25 Rx tablet (Compazine) #60 tabs pantoprazole 40 mg tablet,delayed 40 mg PO QAM #30 tabs 01/15/25 05/14/25 Rx release finasteride 1 mg tablet 1 mg PO DAILY #90 tabs 05/07/25 05/14/25 Rx minoxidil 2.5 mg tablet 1.25 mg (1/2 x 2.5 mg) PO DAILY 90 05/07/25 05/14/25 Rx days #45 tabs sertraline 50 mg tablet 50 mg PO DAILY #90 tabs 05/07/25 05/14/25 Rx Patient hx anesthesia problems: none Family hx anesthesia problems: none Results Review: All pre-operative results and documents have been reviewed as part of the pre-operative evaluation. [facility] Past Medical History Medical History Urinary frequency Hair loss Osteopenia Elevated BP without diagnosis of hypertension BMI 32.0-32.9,adult Fatigue Esophageal dysmotility Colon cancer screening Shortness of breath Dysphagia Atypical chest pain Large hiatal hernia Folic acid deficiency B12 deficiency Asymptomatic microscopic hematuria Hyperlipidemia Leukopenia Post-menopausal Breast cancer screening Chest pain Hx of atrial fibrillation without current medication Depression Anxiety Overweight (BMI 25.0-29.9) BMI 29.0-29.9,adult Chronic pain of left wrist X-ray 09/27/2021 with osteopenia but otherwise normal. Bronchitis, acute Anxiety with depression Vitamin D deficiency Nasal congestion Situational stress Surgical History Surgical History History of Kathie fundoplication History of repair of hiatal hernia Robotic assisted laparoscopic paraesophageal hernia repair with 270 degree fundoplication 10/08/23 Arthritis of carpometacarpal (CMC) joint of left thumb Left thumb CMC suspension arthroplasty August 13, 2022 History of bilateral carpal tunnel release H/O: hysterectomy De Quervain's tenosynovitis, left Left first dorsal compartment release August 13, 2022 History of esophagogastroduodenoscopy (EGD) Family History Family History Father Diabetes mellitus Hypertension Grandparent Family history of cardiovascular disease Family history of malignant neoplasm Other Cancer Cerebrovascular accident Social History Social History Smoking packs per day: 1 Smoking cigarettes per day: 20.0 Years smoked: 20 Smoking pack-years: 20.00 Smoking status: Former smoker Tobacco type: cigarettes Alcohol intake: never Drinks per week: 1 Alcohol use details: TWO DRINKS PER MONTH Substance use: never Substance use type: does not use Do You Feel Safe in your Home?: Yes Lack of Transportation: No Lack of Food: Never True Current Housing: I Have Housing Concerned About Future Housing: No Difficulty Paying Gas/Electric Bills: No Difficulty Paying for Meds: No Currently Unemployed: No Education: High School Diploma/GED Difficulty w/ Childcare or Family Care: No Living arrangements: with family Occupation/Education: occupation 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 Informed Consent: The patient's anesthetic plan and its attendant risks and benefits were discussed with the patient/family/POA. Questions were solicited and answers provided to the satisfaction of the patient/family/POA.
[2025-05-14] MEDS: LACTATED RINGERS 1,000 ML 150 ML IV CONT (10:47)
--- NOTE | 2025-05-14 11:00 | PM.HPGS ---
History of Present Illness History of Present Illness Consent: Risks, benefits, and alternatives have been discussed and questions answered. Patient agrees to proceed with procedure. Chief complaint: Gastro-esophageal reflux disease without esophagit Narrative: Amy Barnes is a 69 year old female here for another egd, last one 12/2024 with erosive esophagitis, s/p kathie- gerd better with pantoprazole but still intermittent dry heaving Review of Systems Review of Systems: All systems reviewed & are unremarkable except as noted in HPI and below PMFSH Past Medical History Medical History Urinary frequency Hair loss Osteopenia Elevated BP without diagnosis of hypertension BMI 32.0-32.9,adult Fatigue Esophageal dysmotility Colon cancer screening Shortness of breath Dysphagia Atypical chest pain Large hiatal hernia Folic acid deficiency B12 deficiency Asymptomatic microscopic hematuria Hyperlipidemia Leukopenia Post-menopausal Breast cancer screening Chest pain Hx of atrial fibrillation without current medication Depression Anxiety Overweight (BMI 25.0-29.9) BMI 29.0-29.9,adult Chronic pain of left wrist X-ray 09/27/2021 with osteopenia but otherwise normal. Bronchitis, acute Anxiety with depression Vitamin D deficiency Nasal congestion Situational stress Surgical History Surgical History (Updated 05/14/25 @ 11:01 by Jose Colón MD) History of Kathie fundoplication History of repair of hiatal hernia Robotic assisted laparoscopic paraesophageal hernia repair with 270 degree fundoplication 10/08/23 Arthritis of carpometacarpal (CMC) joint of left thumb Left thumb CMC suspension arthroplasty August 13, 2022 History of bilateral carpal tunnel release H/O: hysterectomy De Quervain's tenosynovitis, left Left first dorsal compartment release August 13, 2022 History of esophagogastroduodenoscopy (EGD) Family History Family History Father Diabetes mellitus Hypertension Grandparent Family history of cardiovascular disease Family history of malignant neoplasm Other Cancer Cerebrovascular accident Social History Social History Smoking packs per day: 1 Smoking cigarettes per day: 20.0 Years smoked: 20 Smoking pack-years: 20.00 Smoking status: Former smoker Tobacco type: cigarettes Alcohol intake: never Drinks per week: 1 Alcohol use details: TWO DRINKS PER MONTH Substance use: never Substance use type: does not use Do You Feel Safe in your Home?: Yes Lack of Transportation: No Lack of Food: Never True Current Housing: I Have Housing Concerned About Future Housing: No Difficulty Paying Gas/Electric Bills: No Difficulty Paying for Meds: No Currently Unemployed: No Education: High School Diploma/GED Difficulty w/ Childcare or Family Care: No Living arrangements: with family Occupation/Education: occupation 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 Gender identity (if verbalized by the patient): Female Spiritual care concerns: No Meds Home Medications and Allergies Home Medications ?Medication ?Instructions ?Recorded ?Confirmed ?Type ascorbate calcium (vitamin C) 500 mg PO DAILY 07/20/22 05/14/25 History folic acid 1 mg tablet 1 mg PO DAILY 07/25/22 05/14/25 History mecobalamin (vitamin B12) 1,000 1,000 mcg sublingual DAILY 07/25/22 05/14/25 History mcg disintegrating tablet,sublingual dicyclomine 10 mg capsule 10 mg PO TID #90 caps 12/03/24 05/14/25 Rx prochlorperazine maleate 10 mg 10 mg PO Q8H nausea and vomiting 12/03/24 05/10/25 Rx tablet (Compazine) #60 tabs pantoprazole 40 mg tablet,delayed 40 mg PO QAM #30 tabs 01/15/25 05/14/25 Rx release finasteride 1 mg tablet 1 mg PO DAILY #90 tabs 05/07/25 05/14/25 Rx minoxidil 2.5 mg tablet 1.25 mg (1/2 x 2.5 mg) PO DAILY 90 05/07/25 05/14/25 Rx days #45 tabs sertraline 50 mg tablet 50 mg PO DAILY #90 tabs 05/07/25 05/14/25 Rx Allergies Allergy/AdvReac Type Severity Reaction Status Date / Time oxycodone (From Percocet) AdvReac Severe Nausea and Verified 05/14/25 10:33 Vomiting Vital Signs Vital Signs - 24 hr 05/14/25 10:35 Temperature 96.8 F L Pulse Rate 74 Respiratory Rate 20 Blood Pressure 124/92 H Pulse Oximetry 98 Oxygen Delivery Room Air Exam Const: General: comfortable and no acute distress HENMT: Face/Nose/Sinus: Normal nares present Eyes: General: appearance normal, both eyes and all related structures Resp: Auscultation: clear to auscultation bilaterally Cardio: Rate: regular rate Rhythm: regular rhythm GI: Inspection: non-distended GI Palp: Yes Soft to palpation Skin: General skin exam: normal color Extrem: General: normal to inspection Psych: Mental Status: mental status grossly normal Assessment and Plan Assessment and plan (1) GERD (gastroesophageal reflux disease): Code(s): K21.9 - Gastro-esophageal reflux disease without esophagitis Status: Acute Assessment and Plan: egd (2) Dry heaves: Code(s): R11.10 - Vomiting, unspecified Status: Acute
--- NOTE | 2025-05-14 11:05 | S_PTH ---
PATIENT: Amy Barnes LOC: [facility]#:[id number] AGE/SX: 69/F ROOM: RE05/14/[address]: Jose Colón MD : 1955 BED: DIS: 05/14/2025 SPEC #: [id number] RECD: 05/14/25 13:18 STATUS: ISMAEL RENiyah #: [id number] HAILEY: 05/14/25 11:[address]: Jose Colón DEPT: [facility] Surgical RECD BY: Khadijah Stewart ENTERED: 05/14/25 13:18 SP TYPE: Surgical OTHR DR: Marlene Goel APRN Tissues: A - Esophageal Biopsy Procedures: Hematoxylin and Eosin Stain Gross and Microscopic Level 4
[2025-05-14 11:11] VITALS: BP 133/74; PULSE 88; RESP 24; O2SAT 99
[2025-05-14 11:19] VITALS: BP 114/67; PULSE 83; RESP 19; O2SAT 97
[2025-05-14 11:31] VITALS: BP 126/75; PULSE 65; RESP 15; O2SAT 100
== END 2025-05-14 11:35 | disposition home or self-care (01) ==
PROVIDERS: PCP Nurse Practitioner Family; Referring Provider Internal Medicine Gastroenterology; Visit Provider Internal Medicine Gastroenterology
PROC: 0DJ08ZZ Inspection of Upper Intestinal Tract, Via Natural or Artificial Opening Endoscopic (ICD-10-PCS; CPT 43249; principal; 2025-05-14 11:45)
DX: K21.00 Gastro-esophageal reflux disease with esophagitis, without bleeding (principal); K22.2 Esophageal obstruction; K44.9 Diaphragmatic hernia without obstruction or gangrene; E78.5 Hyperlipidemia, unspecified; I48.91 Unspecified atrial fibrillation; F41.8 Other specified anxiety disorders; E55.9 Vitamin D deficiency, unspecified; R35.0 Frequency of micturition; M85.88 Other specified disorders of bone density and structure, other site; R03.0 Elevated blood-pressure reading, without diagnosis of hypertension; R53.83 Other fatigue; E53.8 Deficiency of other specified B group vitamins; D72.819 Decreased white blood cell count, unspecified; G89.29 Other chronic pain; M25.532 Pain in left wrist; F43.9 Reaction to severe stress, unspecified; Z98.890 Other specified postprocedural states; Z87.891 Personal history of nicotine dependence; Z87.19 Personal history of other diseases of the digestive system; Z80.9 Family history of malignant neoplasm, unspecified; Z82.49 Family history of ischemic heart disease and other diseases of the circulatory system
CPT/HCPCS: 43249; 88305; C1726; J2704; J7120